=== PATIENT | male | born 1935 | race Caucasian/White ===

== ENCOUNTER → 2016-09-17 | Outpatient (CLI) | payer OTHER ==
[~2016-09-17] MED LIST: ASPI-482 PO; ATOR20TA PO; BIMA2.5D EACHEYE; GLIP5TAB10 PO; IOHEXOL 180 MG/ML 10 ML VIAL. ONE; LISI-334 PO; METF10002 PO; METO25TA9 PO; MULT-208 PO; NITR0.4T SL; PANT40TA3 PO; TAMS0.4C2 PO; TRAM50TA PO; methylPREDNISolone ACETATE 40 MG/ML VIAL. ONE; methylPREDNISolone ACETATE 80 MG/ML VIAL. ONE
--- NOTE | 2016-09-18 00:20 | PAIN ---
DATE OF SERVICE: 09/17/2016 DIAGNOSES: Lumbar radiculopathy with lumbar degenerative disk disease and lumbar spondylosis. HISTORY OF PRESENT ILLNESS: The patient is an 81-year-old male, who returns for followup status post lumbar epidural steroid injection x 1. The patient reports it was helpful about 2-3 days, but then the pain came right back in his low back and left lower extremity as it was previously. The patient reports no new motor or sensory deficits. No new bowel or bladder incontinence or other complaints, but still significant pain across the low back. It is a sharp ____ with aching dull pain, rates as a 6-7 on a scale of 10, currently worse with walking and standing, better with sitting or lying down. The patient reports no new motor or sensory deficits, no new bowel or bladder incontinence or other complaints, got somewhat frustrated with the lack of longevity with decreased pain from the injection and is wishing no further injections at this time. We did discuss potential other forms of injections such as facet injections, repeat epidural ____ recommended, but patient would like to try some strengthening and stretching exercises on his own first, also he has a family member with inversion table, which he is planning to use as he has used that in the past and I encouraged him to do so. Also, encouraged him to seek Physical Therapy consultation, which we would set up for him if he desires in the future. He would like to wait at this time and try these modalities on his own and see how he does. The patient reports no other complaints. The patient's old chart was reviewed and as was his current medication regimen and updated. Current review of systems is updated today as well. PHYSICAL EXAMINATION: VITAL SIGNS: Today, the patient's blood pressure is 159/82, pulse 84, respirations 18, temperature 98.5 degrees Fahrenheit, height is 5 feet 9 inches, weight is 170 pounds. GENERAL: The patient is awake, alert, oriented, appropriate, very pleasant demeanor. HEENT: Shows normocephalic, atraumatic. Extraocular movements are intact and symmetrical. Oral cavity shows mucous membranes moist and pink. NECK: Shows anterior throat supple. CHEST: Shows normal on inspection. Breath sounds clear to auscultation bilaterally. HEART: Shows S1 and S2 clear. ABDOMEN: Obese, soft, nontender, nondistended. BACK: The patient's back shows spine grossly midline. Lumbar paraspinous musculature shows some moderate tenderness with palpation in the low and middle lumbar distribution of paraspinous muscles, but only diffusely without evidence of atrophy or hypertrophy. The patient has good rotational motion of the lumbar spine without significant difficulty. EXTREMITIES: Lower extremities showed deep tendon reflexes at 1+ in the patellar and tendo calcaneus tendons. Motor exam is strong with 5/5 dorsiflexion, extension, quadriceps and hamstring flexion and equal bilaterally. PLAN: Options were discussed with the patient. We will hold on any further injections per patient's wishes and have him try some strengthening and stretching exercises on his own. Again if he wishes to seek consultation with Physical Therapy, we will arrange this for him. The patient will contact the office on as needed basis per his request at this time. ALMA ROSA CAMACHO MD DR: RIZWAN/ceasar JOB#: [id number] / [id number]
== END | disposition home or self-care (01) ==
LOC: PNCL 08:02
PROVIDERS: ATTEND Anesthesiology
DX: M51.16 Intervertebral disc disorders with radiculopathy, lumbar region (principal); M47.896 Other spondylosis, lumbar region
CPT/HCPCS: 99212; J1030; J1040

== ENCOUNTER → 2018-11-02 | Outpatient (CLI) | payer OTHER ==
[2017-06-27 11:00] VITALS: BP 170/74
[~2018-11-02] MED LIST changes: +ASPI325T11 PO; +CLOP75TA PO; +GABA300C18 PO; -IOHEXOL 180 MG/ML 10 ML VIAL. ONE; +KETO120S2 TP; +LISI1TAB3 PO; -METF10002 PO; +METF10007 PO; +METO-239 PO; -METO25TA9 PO; -methylPREDNISolone ACETATE 40 MG/ML VIAL. ONE; -methylPREDNISolone ACETATE 80 MG/ML VIAL. ONE
--- NOTE | 2018-11-02 16:42 | CARD ---
MR#: [id number] Date of Study: 11/02/2018 Ordering Physician: RADHA VIRAMONTES, Referring Physician: RADHA VIRAMONTES Tech: Pooja Pedersen RDCS APPROVED REPORT EXAM: Two-dimensional and M-mode echocardiogram with Doppler and color Doppler. Other Information Quality : Good INDICATION Cardiac Disease: CAD 2D DIMENSIONS RVDd2.7 (2.9-3.5cm)Left Atrium(2D)4.1 (1.6-4.0cm) IVSd1.4 (0.7-1.1cm)Aortic Root(2D)2.7 (2.0-3.7cm) LVDd4.7 (3.9-5.9cm)LVOT Diameter2.3 (1.8-2.4cm) PWd1.4 (0.7-1.1cm)LVDs3.7 (2.5-4.0cm) FS (%) 27.0 %SV43.7 ml LVEF(%)55.0 (>50%) Aortic Valve AoV Peak Meet.232.6cm/sAoV VTI49.8cm AO Peak GR.21.6mmHgLVOT Peak Meet.101.3cm/s AO Mean GR.13mmHgAVA (VMAX)1.85cm2 [place] (VTI)2.79ch0MB P 1/2 Bfyr264tn Mitral Valve MV E Ekvwxttk48.1cm/sMV DECEL UXWL164ek MV A Rlfrilpe715.7cm/sE/A Ratio0.8 Tricuspid Valve TR P. Ikskvczf274op/sRAP QCQOGOPI3hyVu TR Peak Gr.29xkRsHCZA49euTg Pulmonary Vein S1 Qcdleegm96.3cm/sD2 Pdapzlrf19.5cm/s LEFT VENTRICLE The left ventricle is normal size. There is mild concentric left ventricular hypertrophy. The left ve ntricular systolic function is normal and the ejection fraction is within normal range. The Ejection Fraction is 55-60%. Transmitral Doppler flow pattern is Grade I-abnormal relaxation pattern. RIGHT VENTRICLE The right ventricle is normal size. The right ventricular systolic function is normal. ATRIA The left atrium is mildly dilated. The right atrium size is normal. The interatrial septum is intact with no evidence for an atrial septal defect or patent foramen ovale as noted on 2-D or Doppler imagi ng. AORTIC VALVE The aortic valve is moderately thickened but opens well. Doppler and Color Flow revealed mild aortic regurgitation. There is no significant aortic valvular stenosis. MITRAL VALVE The mitral valve is calcified but opens well. There is no evidence of mitral valve prolapse. There is no mitral valve stenosis. Doppler and Color-flow revealed trace to mild mitral regurgitation. TRICUSPID VALVE The tricuspid valve is normal in structure and function. Doppler and Color Flow revealed trace to mil d tricuspid regurgitation. The PA pressure was estimated at 41 mmHg. There is no tricuspid valve sten osis. PULMONIC VALVE The pulmonic valve is not well visualized. Doppler and Color Flow revealed no pulmonic valvular regur gitation. There is no pulmonic valvular stenosis. GREAT VESSELS The aortic root is normal in size. The ascending aorta is mildly dilated at 3.5 cm. The IVC was not v isualized. PERICARDIAL EFFUSION There is no evidence of significant pericardial effusion. Critical Notification Critical Value: No <Conclusion> The left ventricle is normal size. The left ventricular systolic function is normal and the ejection fraction is within normal range. The Ejection Fraction is 55-60%. There is mild concentric left ventricular hypertrophy. There is no significant aortic valvular stenosis. Doppler and Color Flow revealed mild aortic regurgitation. Doppler and Color-flow revealed trace to mild mitral regurgitation. Doppler and Color Flow revealed trace to mild tricuspid regurgitation. The PA pressure was estimated at 41 mmHg. The ascending aorta is mildly dilated at 3.5 cm. Signed by : Gabe River MD Electronically Approved : 11/02/2018 16:42:02
== END | disposition home or self-care (01) ==
LOC: ECHO 14:00
PROVIDERS: ATTEND Internal Medicine Cardiovascular Disease
DX: I25.10 Atherosclerotic heart disease of native coronary artery without angina pectoris (principal); I35.1 Nonrheumatic aortic (valve) insufficiency; I51.7 Cardiomegaly; R00.8 Other abnormalities of heart beat
CPT/HCPCS: 93306

== ENCOUNTER → 2019-02-10 | Outpatient (CLI) | payer OTHER ==
[2017-06-27 11:00] VITALS: BP 170/74
--- NOTE | 2019-02-11 00:37 | PAIN ---
DATE OF SERVICE: 02/10/2019 PROGRESS NOTE FOR PAIN CLINIC: DIAGNOSES: Lumbar radiculopathy with lumbar degenerative disk disease, lumbar spondylosis. HISTORY OF PRESENT ILLNESS: The patient is an 83-year-old male who returns for followup status post lumbar epidural steroid injection x 1, last seen 08/2016. The patient had about 75% improvement for about the first 3 weeks. The patient reports that he has had some cardiac issues and had delayed treatment. He was also ill after his last injection and did not follow up. The patient reports he has had new cardiac stents placed, is increasing his activity and is doing much better. He has been doing physical therapy and cardiac rehabilitation for about a year and a half now and doing physical therapy on his own for over a year and continues to do this. He is doing it at least 3 times a week, walking on treadmills, stretching and strengthening of his back as well as his legs for a good rehabilitation and he is doing quite well with this, but the pain is returning in the low back, right lower extremity radiating to posterior gluteus, posterior thigh, posterior calf in a radicular pattern on the right side. The patient reports it is tingling and sharp, burning, aching across the back, rated as 7 on a scale 10 at its worst in the last week, 5 on average, 3 at its least and is a 5 today. The patient reports it is better with sitting or lying down, does not awaken him from sleep frequently, but occasionally will, but not every night. The patient reports it is worse with standing, walking it seems to be a little bit better, but standing for more than about 10-15 minutes, he must sit down to decrease the pain, which he does after about 5 minutes. The patient reports no new motor or sensory deficits, no new bowel or bladder incontinence. He has been taking wcvd-yxk-czejeuj Tylenol, also Advil and Motrin, which has been helpful, has been taking this for the past year on an intermittent basis. The patient is on Plavix as well for the cardiac stents. The patient reports no other motor or sensory deficits, no new bowel or bladder incontinence or other complaints. PHYSICAL EXAMINATION: VITAL SIGNS: The patient's blood pressure 131/63, pulse 62, respirations 18, temperature 97.8 degrees Fahrenheit, height is 5 feet 9 inches, weight is 180 pounds. GENERAL: The patient is awake, alert, oriented, appropriate, very pleasant demeanor. HEENT: Head is normocephalic, atraumatic. Extraocular muscles are intact and symmetrical. Oral cavity: Mucous membranes moist and pink. Dentition is intact. NECK: Shows anterior throat supple without palpable lymphadenopathy noted. Swallow reflex symmetrical. CHEST: Shows normal with inspection. Breath sounds clear to auscultation bilaterally. HEART: Shows S1, S2 clear. No murmurs auscultated. ABDOMEN: Obese, but soft, nontender, nondistended. BACK: Shows spine grossly in the midline, slightly exaggerated thoracic kyphosis, some minor flattening of lumbar lordotic curvature. Lumbar paraspinous muscle shows symmetrical on inspection. The low lumbar distribution shows with palpation very firm and tender bilaterally, but only diffusely without radiation. The patient shows no tenderness over the spinous processes, sacrum or sacroiliac regions. The patient has good rotational motion both laterally greater than 10 degrees right and left as well as extension greater than 10 degrees, forward flexion 45 degrees without significant pain reported. EXTREMITIES: The patient's lower extremities show deep tendon reflexes at 1+/4 in the patellar and tendo calcaneus tendons are equal. Motor exam is 5/5 with dorsiflexion, extension on the left, 4/5 on the right with dorsiflexion and extension. The patient does have a mild positive straight leg raise on the right side about 40 degrees. Left side is negative. Gaenslen's and Van's maneuvers are negative bilaterally. The patient is able to stand, stand on the toes, walks with a slight shuffling gait, does appear to favor the right lower extremity significantly or slightly that is, but without using any assistive devices such as canes or walkers to ambulate. Options were discussed with the patient. The patient's old chart was reviewed as his current medication regimen updated. Current review of systems updated today as well. 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 The patient has clinical lumbar radiculopathy in the L5-S1 dermatomal distribution on the right side with MRI scan showing disk bulge with bilateral neural foraminal stenosis at the L5-S1 level and mild degeneration contributing to moderately severe bilateral foraminal narrowing exaggerated due to degenerative anterolisthesis and moderately severe bilateral facet arthropathy. The patient will return to clinic after preauthorization and plan on lumbar epidural steroid injection, translaminar approach L5-S1 level for his L5-S1 right-sided radiculopathy, again pending a cardiac clearance for holding his Plavix for 7 days prior to procedure. The patient will continue with his rehabilitative therapies and physical therapy as he has been doing for the past year and a half. Also, [id number]-[id number] Tylenol and Advil as needed as he does report these do help to a mild extent. He will follow up as scheduled. ALMA ROSA CAMACHO MD DR: RIZWAN/ceasar JOB#: [id number] / [id number]
== END | disposition home or self-care (01) ==
LOC: PNCL 08:47
PROVIDERS: ATTEND Anesthesiology
DX: M51.16 Intervertebral disc disorders with radiculopathy, lumbar region (principal); M47.26 Other spondylosis with radiculopathy, lumbar region
CPT/HCPCS: G0463

== ENCOUNTER → 2019-02-24 | Outpatient (CLI) | payer OTHER ==
[2017-06-27 11:00] VITALS: BP 170/74
[~2019-02-24] MED LIST changes: +IOHEXOL 180 MG/ML 10 ML VIAL. ONE; +methylPREDNISolone ACETATE 40 MG/ML VIAL. ONE; +methylPREDNISolone ACETATE 80 MG/ML VIAL. ONE
--- NOTE | 2019-02-24 12:09 | PAIN ---
DATE OF SERVICE: 02/24/2019 DIAGNOSES: Lumbar radiculopathy with lumbar degenerative disk disease and lumbar spondylosis. HISTORY OF PRESENT ILLNESS: The patient is an 83-year-old male who returns for followup status post previous evaluation and had a lumbar epidural steroid injection in 2016. 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 He has been off it for 7 days, now returns, still significant pain in the low back, right lower extremity, posterior gluteus, posterior thigh, posterior calf, as it was previously. The patient reports it is worse with walking, standing, change in positions, rates it at an 8 on a scale of 10 at its worst, 6 on average, 3 at its least and is a 6 today. The patient reports it is stabbing, sharp, on and off in intensity, again worse with walking, standing, better with sitting or lying down, generally does not awaken her from sleep at night. The patient reports no new motor or sensory deficits, no new bowel or bladder incontinence or other complaints. PHYSICAL EXAMINATION: VITAL SIGNS: The patient's blood pressure 132/66, pulse 73, respirations 16, temperature 97.6 degrees Fahrenheit, weight is 180 pounds. GENERAL: The patient is awake, alert, oriented, appropriate, very pleasant demeanor. HEENT: Head is normocephalic and atraumatic. Extraocular movements are intact and symmetrical. Oral cavity: Mucous membranes are moist and pink. Dentition is intact. NECK: Shows anterior throat supple without palpable lymphadenopathy noted. Swallow reflex symmetrical. CHEST: Shows normal on inspection. Breath sounds clear to auscultation bilaterally. HEART: Shows S1, S2 clear. No murmurs auscultated. ABDOMEN: Soft, nontender, nondistended. No palpable organomegaly is noted. No rebound or guarding demonstrated. BACK: Shows spine grossly in the midline. Normal appearing thoracic kyphosis and lumbar lordotic curvature. Lumbar paraspinous muscle shows symmetrical on inspection, on palpation shows some moderate tenderness diffusely, but only diffusely without significant radiation. The patient shows good rotational motion of lumbar spine. EXTREMITIES: Lower extremities show deep tendon reflexes at 1+ in the patellar and tendo calcaneus tendons. Motor exam is approximately 4 on a scale of 5 on the right, 5/5 on the left, but intact. Peripheral pulses are 1+ posterior tibia. No peripheral edema is noted bilaterally. Options were discussed with the patient. The patient's old chart was reviewed as his current medication regimen updated. Current review of systems updated today as well. We will proceed with a lumbar epidural steroid injection today with fluoroscopic guidance. Risks were again discussed including, but not limited to bleeding, infection, possibility of epidural hematoma, subsequent neurological compromise, dural puncture, headaches, spinal cord and/or nerve damage, side effects of steroid medication and poor results regarding pain control. The patient understands and wished to proceed. The patient will return to clinic in approximately 2 weeks for followup, was counseled on return appointment, activity level and side effects to be aware of. DIAGNOSES: Lumbar radiculopathy with lumbar degenerative disk disease, lumbar spondylosis. PROCEDURE: Lumbar epidural steroid injection, translaminar approach at L5-S1 level using C-arm fluoroscopic guidance under sterile prep and drape using local anesthetic. MEDICATION INJECTED: A total of 120 mg Depo-Medrol, plus 10 mL of preservative-free normal saline and 2 mL of contact. CONDITION ON DISCHARGE: Stable. The patient tolerated the procedure well, had no complications. ALMA ROSA CAMACHO MD DR: RIZWAN/ceasar JOB#: [id number] / [id number]
== END ==
LOC: PNCL 09:21
PROVIDERS: ATTEND Anesthesiology
DX: M51.16 Intervertebral disc disorders with radiculopathy, lumbar region (principal); M47.816 Spondylosis without myelopathy or radiculopathy, lumbar region
CPT/HCPCS: 62323; J1030; J1040; Q9965

== ENCOUNTER → 2019-03-15 | Outpatient (CLI) | payer OTHER ==
[2017-06-27 11:00] VITALS: BP 170/74
[~2019-03-15] MED LIST changes: +AMOX1TAB61 PO; +ATOR20TA58 PO; +FERR325T72 PO; -IOHEXOL 180 MG/ML 10 ML VIAL. ONE; +LATA2.5D3 EACHEYE; +LISI1TAB23 PO; -LISI1TAB3 PO; +MELA5TAB PO; +METO25TA2 PO; -PANT40TA3 PO; +PANT40TA77 PO; +TRAM1TAB56 PO; -methylPREDNISolone ACETATE 40 MG/ML VIAL. ONE; -methylPREDNISolone ACETATE 80 MG/ML VIAL. ONE
== END | disposition home or self-care (01) ==
LOC: PNCL 09:19
PROVIDERS: ATTEND Anesthesiology
DX: Z53.09 Procedure and treatment not carried out because of other contraindication (principal); Z96.652 Presence of left artificial knee joint
CPT/HCPCS: G0463

== ENCOUNTER → 2019-03-29 | Outpatient (CLI) | payer OTHER ==
[2017-06-27 11:00] VITALS: BP 170/74
[~2019-03-29] MED LIST changes: -AMOX1TAB61 PO; -ATOR20TA58 PO; -FERR325T72 PO; +IOHEXOL 180 MG/ML 10 ML VIAL. ONE; -LATA2.5D3 EACHEYE; -LISI1TAB23 PO; +LISI1TAB3 PO; -MELA5TAB PO; -METO25TA2 PO; -TRAM1TAB56 PO; +methylPREDNISolone ACETATE 40 MG/ML VIAL. ONE; +methylPREDNISolone ACETATE 80 MG/ML VIAL. ONE
--- NOTE | 2019-03-30 05:12 | PAIN ---
DATE OF SERVICE: 03/29/2019 DIAGNOSES: Lumbar radiculopathy with lumbar degenerative disk disease, lumbar spondylosis. HISTORY OF PRESENT ILLNESS: The patient is an 83-year-old male who returns for followup status post lumbar epidural steroid injection x1 on 02/24/2019. The patient reports he did very well, about 75% improvement, and was returning over the past week or so. The patient reports the pain in the low back, more the right lower extremity than the left, but present bilaterally, posterior gluteus, posterior thighs, posterior calves, again worse on the right side with walking, standing, change in positions. The patient reports it is better with sitting or lying down, does not awaken him from sleep at night. He has increased his activity with greater distance walking and doing household activity as well as travelling with greater ease and comfort since his last visit. The patient reports his pain is a stabbing pain, is sharp in the back as well and radiates to the lower extremities, again mostly on the right. The patient reports it is a 9 on a scale of 10 its worst in the past week, 6 on average, 3 at its least, and is a 3 today. The patient reports no new motor or sensory deficits, no new bowel or bladder incontinence or other complaints. PHYSICAL EXAMINATION: VITAL SIGNS: The patient's blood pressure is 142/58, pulse 64, respirations 18, temperature 98.0 degree Fahrenheit. Height is 5 feet 9-1/2 inches, weight is 178 pounds. GENERAL: The patient is awake, alert, oriented, appropriate, very pleasant demeanor. HEENT: Head shows normocephalic, atraumatic. Extraocular movements are intact and symmetrical. Oral cavity, mucous membranes are moist and pink. Dentition is intact. NECK: Shows anterior throat supple without palpable lymphadenopathy noted. Swallow reflex is symmetrical. CHEST: Shows normal on inspection. Breath sounds clear to auscultation bilaterally. HEART: Shows S1, S2 clear. No murmurs auscultated. ABDOMEN: Soft, nontender, nondistended. No palpable organomegaly is noted. No rebound or guarding demonstrated. BACK: Shows spine grossly in the midline. Normal appearing thoracic kyphosis and lumbar lordotic curvature slightly flattened. Lumbar paraspinous muscle shows symmetrical on inspection, on palpation shows some moderate tenderness diffusely but only in the low lumbar distribution without radiation. The patient has good rotational motion of lumbar spine as well as extension and flexion. EXTREMITIES: Lower extremities show deep tendon reflexes 1+ in the patellar and tendo-calcaneus tendons. Motor exam is approximately 4 on a scale of 5 with right dorsiflexion, extension, 5/5 on the left. Peripheral pulses are 1+ posterior tibial. No peripheral edema is noted bilaterally. Options were discussed with the patient. The patient's old chart was reviewed as his current medication regimen updated. Current review of systems updated today as well. We will proceed with a second in the series of lumbar epidural steroid injection today with fluoroscopic guidance. Risks were again discussed including, but not limited to bleeding, infection, possibility of epidural hematoma, subsequent neurological compromise, dural puncture, headaches, spinal cord and/or nerve damage, side effects of steroid medication and poor results regarding pain control. The patient understands and wished to proceed. The patient will return to clinic in approximately 2 weeks for followup, counseled as to return appointment, activity level and side effects to be aware of. DIAGNOSES: Lumbar radiculopathy, lumbar degenerative disk disease, lumbar spondylosis. PROCEDURE: Lumbar epidural steroid injection, translaminar approach at the L5-S1 level using C-arm fluoroscopic guidance under sterile prep and drape using local anesthetic. MEDICATION INJECTED: A total of 120 mg Depo-Medrol plus 10 mL of preservative-free normal saline and 2 mL of contrast. CONDITION AT DISCHARGE: Stable. The patient tolerated the procedure well, had no complications. ALMA ROSA CAMACHO MD DR: RIZWAN/ceasar JOB#: [id number] / [id number]
== END ==
LOC: PNCL 14:20
PROVIDERS: ATTEND Anesthesiology
DX: M51.16 Intervertebral disc disorders with radiculopathy, lumbar region (principal); M47.816 Spondylosis without myelopathy or radiculopathy, lumbar region
CPT/HCPCS: 62323; J1030; J1040; Q9965

== ENCOUNTER → 2019-04-14 | Outpatient (CLI) | payer OTHER ==
[2017-06-27 11:00] VITALS: BP 170/74
[~2019-04-14] MED LIST changes: +AMOX1TAB61 PO; +ATOR20TA58 PO; +FERR325T72 PO; +LATA2.5D3 EACHEYE; +MELA5TAB PO; +METO25TA2 PO; +TRAM1TAB56 PO
--- NOTE | 2019-04-15 13:06 | PAIN ---
DATE OF SERVICE: 04/14/2019 PROGRESS NOTE FOR PAIN CLINIC DIAGNOSES: Lumbar radiculopathy with lumbar degenerative disk disease and lumbar spondylosis. HISTORY OF PRESENT ILLNESS: The patient is an 83-year-old male who returns for followup status post lumbar epidural steroid injections x 2, last seen on 03/29/2019, the patient did very well with approximately 50% improvement with the first injection, 75% after the last injection. The patient reports no new motor or sensory deficits, no new bowel or bladder incontinence, but still has significant pain in the low back and into the right lower extremity involving posterior gluteus, posterior thigh, posterior calf at times, much more intermittent now than it was, much better than it was. The patient reports it is an aching pain now, it is on and off in intensity, rated as a 4 on a scale of 10 at its worst, 2 on average, 0 at its least and is a 2 today. The patient reports no new motor or sensory deficit, increasing distance walking, doing working activities at home as well as traveling with greater ease and comfort, sleeping well at night, does not awaken him from sleep. The patient reports no new bowel or bladder incontinence, no new motor or sensory deficits. PHYSICAL EXAMINATION: VITAL SIGNS: The patient's blood pressure is 116/53, pulse 64, respirations 18, temperature 98.1 degrees Fahrenheit, height is 5 feet 9 inches, and weight is 179 pounds. GENERAL: The patient is awake, alert, oriented, appropriate, very pleasant demeanor. HEENT: Head is normocephalic, atraumatic. Extraocular movements are intact and symmetrical. Oral cavity, mucous membranes are moist and pink. Dentition is intact. NECK: Shows anterior throat is supple without palpable lymphadenopathy noted. Swallow reflex symmetrical. CHEST: Shows normal on inspection. Breath sounds are clear to auscultation bilaterally. HEART: Shows S1, S2 clear. No murmurs auscultated. ABDOMEN: Soft, nontender, nondistended. No palpable organomegaly is noted. No rebound or guarding demonstrated. BACK: Shows spine grossly in the midline, normal appearing thoracic kyphosis and minor flattening of lumbar lordotic curvature. Lumbar paraspinous muscle shows symmetrical on inspection, with palpation shows some moderate tenderness diffusely in the middle and lower distribution of paraspinous muscles, but only diffusely without significant radiation. The patient shows good rotational motion of lumbar spine both laterally as well as extension and flexion without significant difficulty. EXTREMITIES: The patient's lower extremities show deep tendon reflexes at 1+ in the patellar and tendo-calcaneus tendons. Motor exam is approximately a 4 on a scale of 5 on the right with dorsiflexion and extension 5/5 on the left. Peripheral pulses are 1+ posterior tibial. No peripheral edema is noted bilaterally. Options were discussed with the patient. The patient's old chart was reviewed and his current medication regimen updated, current review of systems updated today as well. We will proceed with a third in the series of lumbar epidural steroid injection today with fluoroscopic guidance. Risks were again discussed including, but not limited to, bleeding, infection, possibility of epidural hematoma and subsequent neurological compromise, dural puncture, headaches, spinal cord and/or nerve damage, side effects of steroid medication and poor results regarding pain control. The patient understands and wished to proceed. The patient will return to the clinic in approximately 2 weeks for followup. He was counseled on return appointment, activity level and side effects to be aware of. DIAGNOSIS: Lumbar radiculopathy with lumbar degenerative disk disease, lumbar spondylosis. PROCEDURE: Lumbar epidural steroid injection, translaminar approach, L5-S1 level using C-arm fluoroscopic guidance under sterile prep and drape using local anesthetic. MEDICATION INJECTED: A total of 120 mg Depo-Medrol plus 10 mL of preservative-free normal saline and 2 mL of contrast. CONDITION AT DISCHARGE: Stable. The patient tolerated procedure well and had no complications. ALMA ROSA CAMACHO MD DR: RIZWAN/ceasar JOB#: [id number] / [id number]
== END ==
LOC: PNCL 13:49
PROVIDERS: ATTEND Anesthesiology
DX: M51.16 Intervertebral disc disorders with radiculopathy, lumbar region (principal); M47.816 Spondylosis without myelopathy or radiculopathy, lumbar region
CPT/HCPCS: 62323; J1030; J1040; Q9965

== ENCOUNTER 2019-05-31 08:41 | Inpatient (IN) | payer OTHER ==
[~2019-05-31] VITALS: Ht 175.3 cm; Wt 92.7 kg
[2019-05-31] VITALS (12 sets, daily range): BP systolic 108–159; BP diastolic 39–73
[~2019-05-31 08:41] MED LIST changes: -IOHEXOL 180 MG/ML 10 ML VIAL. ONE; +LISI1TAB23 PO; -LISI1TAB3 PO; -NITR0.4T SL; +NITR0.4T24 SL; -methylPREDNISolone ACETATE 40 MG/ML VIAL. ONE; -methylPREDNISolone ACETATE 80 MG/ML VIAL. ONE
[2019-05-31] MEDS ORDERED: ONDANSETRON PF 4 MG/2 ML VIAL. IV ONE (09:15)
[2019-05-31] MEDS ORDERED: MORPHINE SULFATE 2 MG/ML VIAL. IV/SQ PRN (09:15)
[2019-05-31] MEDS ORDERED: ONDANSETRON PF 4 MG/2 ML VIAL. ONE (09:16)
[2019-05-31 09:40] LABS: BASO % 0 % (0-3); EOS % 0 % (0-3); HEMATOCRIT 30.1 % (39.0-53.0); HEMOGLOBIN 9.7 g/dL (13.0-17.5); LYMPH # 1.3 x10^3/uL (1.0-4.8); LYMPH % 10 % (24-48); MEAN CORPUSCULAR HEMOGLOBIN 30 pg (25-35); MEAN CORPUSCULAR HGB CONC 32 g/dL (31-37); MEAN CORPUSCULAR VOLUME 92 fL (79-100); MONO # 0.6 x10^3/uL (0.0-1.1); MONO % 5 % (0-9); NEUT # 10.6 x10^3/uL (1.8-7.7); NEUT % 84 % (31-73); PLATELET COUNT 340 x10^3/uL (140-400); RED BLOOD COUNT 3.27 x10^6/uL (4.30-5.70); RED CELL DISTRIBUTION WIDTH 15.8 % (11.5-14.5); WHITE BLOOD COUNT 12.5 x10^3/uL (4.0-11.0)
[2019-05-31 09:49] LABS: PROTHROMBIN TIME PATIENT 12.5 SEC (11.7-14.0)
[2019-05-31 10:00] LABS: ALBUMIN 3.4 g/dL (3.4-5.0); ALBUMIN/GLOBULIN RATIO 0.8 (1.0-1.7); CALCIUM 9.1 mg/dL (8.5-10.1); CREATININE 7.8 mg/dL (0.7-1.3); GFR 6.7; MAGNESIUM 1.2 mg/dL (1.8-2.4); TOTAL BILIRUBIN 0.2 mg/dL (0.2-1.0); TOTAL PROTEIN 7.6 g/dL (6.4-8.2)
[2019-05-31 10:02] LABS: POTASSIUM 6.9 mmol/L (3.5-5.1)
--- NOTE | 2019-05-31 10:15 | RAD ---
PORTABLE CHEST 1V Clinical indications: Fall and pain. COMPARISON: May 01, 2019. Findings: There is new finding of left lung base atelectasis. No pleural effusion or pneumothorax is seen. Right IJ central line has been removed. The heart size, pulmonary vasculature, mediastinum and both guille are otherwise stable. Impression: Left lung base atelectasis. Electronically signed by: William Poole MD (05/31/2019 10:12 AM) [id number]
--- NOTE | 2019-05-31 10:17 | RAD ---
Three-view lumbar spine series Clinical indications: Fall and low back pain. FINDINGS: There is a compression deformity of the inferior endplate of L2 which was seen previously on a CT study dated April 28, 2019 and is unchanged. No new compression fracture or discitis or lytic process is seen. Grade 1 anterolisthesis of L5-S1 is seen. Degenerative endplate spurring is seen throughout the lumbar spine. Degenerative disc space narrowing is seen at L2-3. IMPRESSION: No acute compression fracture. Electronically signed by: William Poole MD (05/31/2019 10:14 AM) [id number]
--- NOTE | 2019-05-31 10:21 | RAD ---
AP view of the pelvis and two-view study left hip Clinical indications: Fall and left hip pain. FINDINGS: No acute fracture or dislocation or lytic process of the left hip joint is seen. No acute fracture or diastases of the pelvic bones is seen. No lytic process is evident. Hip joints are symmetric with mild degenerative joint space narrowing. IMPRESSION: No acute fracture. Electronically signed by: William Poole MD (05/31/2019 10:18 AM) [id number]
--- NOTE | 2019-05-31 10:30 | RAD ---
CT HEAD AND CERVICAL SPINE WO Clinical indications: Fall and pain. COMPARISON: None available. NONCONTRAST HEAD CT Technique: Noncontrast axial cross sectional scanning of the head was performed. PQRS compliance Statement One or more of the following individualized dose reduction techniques were utilized for this study: 1. Automated exposure control 2. Adjustment of the mA and/or kV according to patient size 3. Use of iterative reconstruction technique Findings: No acute intracranial hemorrhage or midline shift or mass-effect or hydrocephalus or extra-axial fluid collection is seen. Mild bilateral periventricular white matter hypodensity is seen consistent with chronic small vessel ischemic disease. No skull fracture or pneumocephalus is seen. No opacification of the mastoid sinuses or the middle ear cavities or the paranasal sinuses is seen. The maxillary sinuses are not completely seen in this study. IMPRESSION: No acute intracranial hemorrhage is seen. Chronic small vessel ischemic disease of the periventricular white matter. Prominent pituitary gland. Pituitary gland measures 13 mm transversely. Recommend clinical correlation. If clinically needed, an outpatient MRI study of the pituitary gland with and without contrast is recommended. NONCONTRAST CERVICAL SPINE CT: TECHNIQUE: Noncontrast helical CT scanning of the cervical spine was performed. Multiplanar 2-D reconstructions were generated. FINDINGS: No acute fracture or discitis or lytic process is evident. Degenerative facet arthropathy is evident. No perching of facet joints is evident. Degenerative osteoarthritis is seen involving the joint space between the anterior arch of C1 and the odontoid process of C2 and the lateral masses of C1 and C2 bilaterally. [id number] degenerative endplate spurring is seen throughout the cervical spine. There is mild degenerative disc space narrowing at C5-6 and C6-7. Grade 1 anterolisthesis of C3-4 and C4-5 and C7-T1 is seen. No prevertebral soft tissue swelling is evident. IMPRESSION: No acute fracture. Degenerative cervical spondylosis. Electronically signed by: William Poole MD (05/31/2019 10:27 AM) [id number]
[2019-05-31] MEDS ORDERED: INSULIN REGULAR 100 UNIT/ML 3ML VIAL. IV ONE (11:30)
[2019-05-31] MEDS ORDERED: DEXTROSE 50% 25 GM / 50ML DISP.SYRIN. IV ONE (11:30)
[2019-05-31] MEDS ORDERED: CALCIUM GLUCONATE 1,000 MG/10 ML VIAL. IVP ONE (11:30)
[2019-05-31] MEDS ORDERED: SODIUM BICARBONATE VIAL 50 MEQ in IV DEXTROSE 5 %-0.45 % NACL 1,000 ML IV SCH (12:15)
[2019-05-31] MEDS ORDERED: MAGNESIUM SULFATE 1GM 100 ML IV ONE (12:30)
--- NOTE | 2019-05-31 12:39 | EKG ---
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
[2019-05-31] MEDS ORDERED: MORPHINE SULFATE 2 MG/ML VIAL. IV PRN (12:45)
[2019-05-31] MEDS ORDERED: ONDANSETRON PF 4 MG/2 ML VIAL. IV PRN (12:45)
[2019-05-31 13:06] LABS: BILIRUBIN,URINE NEGATIVE (NEG); CLARITY,URINE CLEAR; COLOR,URINE YELLOW; NITRITE,URINE NEGATIVE (NEG); PROTEIN,URINE NEGATIVE (NEG-TRACE); UROBILINOGEN,URINE 0.2 mg/dL (0.2 mg/dL)
[2019-05-31 13:07] LABS: HYALINE CASTS, URINE FEW /HPF
[2019-05-31 13:08] LABS: BACTERIA,URINE FEW /HPF (0-FEW)
[2019-05-31 13:09] LABS: RBC,URINE OCC /HPF (0-2)
[2019-05-31 13:10] LABS: BARBITURATES NEG (NEG); BENZODIAZEPINES NEG (NEG); CANNABINOIDS NEG (NEG); COCAINE NEG (NEG); METHADONE NEG (NEG); OPIATES NEG (NEG); PHENCYCLIDINE NEG (NEG)
[2019-05-31 13:14] LABS: AMPHETAMINE/METHAMPHETAMINE NEG (NEG)
[2019-05-31] MEDS ORDERED: SODIUM BICARBONATE VIAL 50 MEQ in IV DEXTROSE 5 %-0.45 % NACL 1,000 ML IV ONE ×2 (14:00→21:00)
[2019-05-31] MEDS ORDERED: IV NORMAL SALINE 1000ML BAG 1,000 ML IV SCH (14:00)
--- NOTE | 2019-05-31 14:05 | PDOC2 ---
CONSULT Date of Consult Date of Consult DATE: 05/31/19 TIME: 13:58 Reason for Consult Reason for Consult: HIGH K AND FABIEN Referring Physician Referring Physician: MELODY Identification/Chief Complaint Chief Complaint FOUND ON THE FLOOR Source Source: Chart review, Patient History of Present Illness Reason for Visit: THIS IS AN 83 YR OLD WITH FALL. WAS FOUND ON THE FLOOR THIS AM. HE WAS WEARING HIS EVENING CLOTHES. CONCERNS OF LOW BG LEVEL. AWAKE AND ALERT. NOTED TO HAVE A K OF 6.9 AND A CR OF 7.8. NO HX OF CKD. IN FACT WAS HERE LAST MONTH FOR DIARRHEA AND DEHYDRATION AND D/C ED WITH A CR OF 1.1. NO FABIEN EITHER. HAS BPH AND TAKES FLOMAX. HAS HAS RADICULAR PAIN FOR WHICH HE HAS SEEN DR CAMACHO. PER PT HE HAS BEEN TAKING IBUPROFEN FOR HIS BACK PAIN BUT NOT ABLE TO QUANTIFY. STATES HE HAS BEEN EATING WELL. DENIED DIARRHEA OR PROBLEMS WITH EMPTYING HIS BLADDER. CPK OF ABOUT 350. UA NEG Past Medical History Cardiovascular: CAD, HTN, Hyperlipidemia Pulmonary: No pertinent hx CENTRAL NERVOUS SYSTEM: Other GI: GERD Heme/Onc: Anemia NOS Hepatobiliary: No pertinent hx Psych: No pertinent hx Musculoskeletal: Osteoarthritis Infectious disease: No pertinent hx Renal/: No pertinent hx Endocrine: Diabetes Past Surgical History Past Surgical History: Cataract Removal, Tonsillectomy, Other Family History Family History: High Cholestrol Social History ALCOHOL: occassional Drugs: None Lives: with Family Current Medications Current Medications Current Medications Morphine Sulfate (Morphine Sulfate) 2 mg PRN Q15MIN PRN IV/SQ PAIN GREATER THAN 3/10 Last administered on 05/31/19at 12:20; Start 05/31/19 at 09:15; Stop 06/01/19 at 09:14 Ondansetron HCl (Zofran) 4 mg 1X ONCE IV Last administered on 05/31/19at 09:20; Start 05/31/19 at 09:15; Stop 05/31/19 at 09:17; Status DC Ondansetron HCl (Zofran) 4 mg STK-MED ONCE .ROUTE ; Start 05/31/19 at 09:16; Stop 05/31/19 at 09:17; Status DC Calcium Gluconate (Calcium Gluconate) 1,000 mg 1X ONCE IVP Last administered on 05/31/19at 11:59; Start 05/31/19 at 11:30; Stop 05/31/19 at 11:36; Status DC Dextrose (Dextrose 50%-Water Syringe) 25 gm 1X ONCE IV Last administered on 05/31/19at 11:59; Start 05/31/19 at 11:30; Stop 05/31/19 at 11:36; Status DC Insulin Human Regular (HumuLIN R VIAL) 10 unit 1X ONCE IV Last administered on 05/31/19at 11:59; Start 05/31/19 at 11:30; Stop 05/31/19 at 11:36; Status DC Sodium Bicarbonate 50 meq/Dextrose/ Sodium Chloride 1,050 ml @ 150 mls/hr Q7H IV Last administered on 05/31/19at 12:03; Start 05/31/19 at 12:15 Magnesium Sulfate/ Dextrose 100 ml @ 100 mls/hr 1X ONCE IV Last administered on 05/31/19at 13:03; Start 05/31/19 at 12:30; Stop 05/31/19 at 13:29; Status DC Ondansetron HCl (Zofran) 4 mg PRN Q8HRS PRN IV NAUSEA/VOMITING; Start 05/31/19 at 12:45; Stop 06/01/19 at 12:44 Morphine Sulfate (Morphine Sulfate) 2 mg PRN Q2HR PRN IV PAIN; Start 05/31/19 at 12:45; Stop 06/01/19 at 12:44 Levothyroxine Sodium (Synthroid) 25 mcg DAILY06 PO ; Start 06/01/19 at 06:00 Sodium Chloride 1,000 ml @ 75 mls/hr [id number] IV ; Start 05/31/19 at 14:00 Ceftriaxone Sodium (Rocephin) 1 gm DAILY IVP ; Start 06/01/19 at 09:00; Status UNV Ceftriaxone Sodium (Rocephin) 1 gm 1X ONCE IVP ; Start 05/31/19 at 14:30; Stop 05/31/19 at 14:31 Atorvastatin Calcium (Lipitor) 20 mg DAILY PO ; Start 06/01/19 at 09:00; Status UNV Clopidogrel Bisulfate (Plavix) 75 mg DAILY PO ; Start 06/01/19 at 09:00; Status UNV Ferrous Sulfate (Feosol) 325 mg BIDWMEALS PO ; Start 05/31/19 at 17:00; Status UNV Gabapentin (Neurontin) 300 mg TID PO ; Start 05/31/19 at 14:00; Status UNV Glipizide (Glucotrol) 5 mg DAILY PO ; Start 06/01/19 at 09:00; Status UNV Metoprolol Succinate (Toprol Xl) 25 mg DAILY PO ; Start 06/01/19 at 09:00; Status UNV Pantoprazole Sodium (Protonix) 40 mg BID PO ; Start 05/31/19 at 21:00; Status UNV Tamsulosin HCl (Flomax) 0.4 mg HS PO ; Start 05/31/19 at 21:00; Status UNV Active Scripts Active Augmentin 875-125 Tablet (Amoxicillin/Potassium Clav) 1 Each Tablet 1 Tab PO BID Feosol (Ferrous Sulfate) 325 Mg Tablet 325 Mg PO BIDWMEALS Protonix (Pantoprazole Sodium) 40 Mg Tablet.dr 1 Tab PO BID Lisinopril-Hctz 10-12.5 Mg Tab (Lisinopril/Hydrochlorothiazide) 1 Each Tablet 1 Tab PO DAILY Clopidogrel (Clopidogrel Bisulfate) 75 Mg Tablet 1 Tab PO DAILY Aspirin Ec (Aspirin) 325 Mg Tablet.dr 1 Tab PO DAILY Reported Latanoprost 2.5 Ml Drops 1 Drop EACHEYE QHS Melatonin 5 Mg Tablet 5 Mg PO QHS Ultracet Tablet (Tramadol Hcl/Acetaminophen) 1 Each Tablet 1 Tab PO Q12HR PRN Atorvastatin Calcium 20 Mg Tablet 20 Mg PO DAILY Ketoconazole 120 Ml Shampoo 120 Ml TP Gabapentin (Gabapentin) 300 Mg Capsule 300 Mg PO TID Multi-Day Vitamins (Multivitamin) 1 Each Tablet 1 Tab PO DAILY Nitrostat (Nitroglycerin) 0.4 Mg Tab.subl 1 Tab SL UD PRN Metoprolol Succinate ( Xl ) (Metoprolol Succinate) 25 Mg Tab.er.24h 1 Tab PO DAILY Tamsulosin Hcl 0.4 Mg Cap.er.24h 1 Cap PO HS Glipizide 5 Mg Tablet 1 Tab PO DAILY Metformin Hcl 1,000 Mg Tablet 1 Tab PO BID Allergies Allergies: Coded Allergies: No Known Drug Allergies (Unverified , 06/26/17) ROS General: YES: Fatigue, Malaise PSYCHOLOGICAL ROS: YES: Depression Eyes: Yes Decreased vision ALLERGY AND IMMUNOLOGY: YES: Seasonal Allergies Respiratory: YES: Cough Gastrointestinal: Yes Constipation Genitourinary: YES Other (NOCTURIA THRICE) Musculoskeletal: Yes Muscular Weakness Neurological: Yes Weakness Skin: Yes Dry Skin Physical Exam General: Alert, Cooperative, No acute distress HEENT: Atraumatic, PERRLA Lungs: Clear to auscultation Heart: Regular rate Abdomen: Normal bowel sounds, Soft, No tenderness Neuro: Normal speech, Sensation intact Psych/Mental Status: Mental status NL, Mood NL MUSCULOSKELETAL: No joint tenderness, No deformity, No swelling Vitals VITALS Vital Signs Date Time Temp Pulse Resp B/P (MAP) Pulse Ox O2 Delivery O2 Flow Rate FiO2 05/31/19 13:30 80 16 134/60 (84) 98 Nasal Cannula 2.0 05/31/19 08:41 97.8 97.8 Labs Labs Laboratory Tests Test 05/31/19 09:30 05/31/19 12:40 White Blood Count 12.5 x10^3/uL (4.0-11.0) Red Blood Count 3.27 x10^6/uL (4.30-5.70) Hemoglobin 9.7 g/dL (13.0-17.5) Hematocrit 30.1 % (39.0-53.0) Mean Corpuscular Volume 92 fL (79-100) Mean Corpuscular Hemoglobin 30 pg (25-35) Mean Corpuscular Hemoglobin Concent 32 g/dL (31-37) Red Cell Distribution Width 15.8 % (11.5-14.5) Platelet Count 340 x10^3/uL (140-400) Neutrophils (%) (Auto) 84 % (31-73) Lymphocytes (%) (Auto) 10 % (24-48) Monocytes (%) (Auto) 5 % (0-9) Eosinophils (%) (Auto) 0 % (0-3) Basophils (%) (Auto) 0 % (0-3) Neutrophils # (Auto) 10.6 x10^3/uL (1.8-7.7) Lymphocytes # (Auto) 1.3 x10^3/uL (1.0-4.8) Monocytes # (Auto) 0.6 x10^3/uL (0.0-1.1) Eosinophils # (Auto) 0.0 x10^3/uL (0.0-0.7) Basophils # (Auto) 0.0 x10^3/uL (0.0-0.2) Prothrombin Time 12.5 SEC (11.7-14.0) Prothromb Time International Ratio 1.0 (0.8-1.1) Activated Partial Thromboplast Time 30 SEC (24-38) Sodium Level 131 mmol/L (136-145) Potassium Level 6.9 mmol/L (3.5-5.1) Chloride Level 98 mmol/L (98-107) Carbon Dioxide Level 19 mmol/L (21-32) Anion Gap 14 (6-14) Blood Urea Nitrogen 69 mg/dL (8-26) Creatinine 7.8 mg/dL (0.7-1.3) Estimated GFR (Cockcroft-Gault) 6.7 BUN/Creatinine Ratio 9 (6-20) Glucose Level 117 mg/dL (70-99) Lactic Acid Level 1.8 mmol/L (0.4-2.0) Calcium Level 9.1 mg/dL (8.5-10.1) Magnesium Level 1.2 mg/dL (1.8-2.4) Total Bilirubin 0.2 mg/dL (0.2-1.0) Aspartate Amino Transf (AST/SGOT) 27 U/L (15-37) Alanine Aminotransferase (ALT/SGPT) 21 U/L (16-63) Alkaline Phosphatase 112 U/L (46-116) Ammonia < 10 mcmol/L (11-34) Creatine Kinase 323 U/L (39-308) Creatine Kinase MB (Mass) 5.6 ng/mL (0.0-3.6) Creatine Kinase MB Relative Index 1.7 % (0-4) Troponin I Quantitative 0.061 ng/mL (0.000-0.055) CL-Kpj-A-Type Natriuretic Peptide 7928 pg/mL (0-449) Total Protein 7.6 g/dL (6.4-8.2) Albumin 3.4 g/dL (3.4-5.0) Albumin/Globulin Ratio 0.8 (1.0-1.7) Procalcitonin 0.19 ng/mL (0.00-0.10) Thyroid Stimulating Hormone (TSH) 0.338 uIU/mL (0.358-3.74) Urine Collection Type U cath Urine Color Yellow Urine Clarity Clear Urine pH 5.0 Urine Specific [place] 1.015 Urine Protein Negative mg/dL (NEG-TRACE) Urine Glucose (UA) Negative mg/dL (NEG) Urine Ketones (Stick) Negative mg/dL (NEG) Urine Blood Negative (NEG) Urine Nitrite Negative (NEG) Urine Bilirubin Negative (NEG) Urine Urobilinogen Dipstick 0.2 mg/dL (0.2 mg/dL) Urine Leukocyte Esterase Negative (NEG) Urine RBC Occ /HPF (0-2) Urine WBC 1-4 /HPF (0-4) Urine Renal Epithelial Cells Few /LPF Urine Bacteria Few /HPF (0-FEW) Urine Hyaline Casts Few /HPF Urine Mucus Slight /LPF Urine Opiates Screen Neg (NEG) Urine Methadone Screen Neg (NEG) Urine Barbiturates Neg (NEG) Urine Phencyclidine Screen Neg (NEG) Urine Amphetamine/Methamphetamine Neg (NEG) Urine Benzodiazepines Screen Neg (NEG) Urine Cocaine Screen Neg (NEG) Urine Cannabinoids Screen Neg (NEG) Urine Ethyl Alcohol Neg (NEG) Laboratory Tests Test 05/31/19 09:30 05/31/19 12:40 White Blood Count 12.5 x10^3/uL (4.0-11.0) Red Blood Count 3.27 x10^6/uL (4.30-5.70) Hemoglobin 9.7 g/dL (13.0-17.5) Hematocrit 30.1 % (39.0-53.0) Mean Corpuscular Volume 92 fL (79-100) Mean Corpuscular Hemoglobin 30 pg (25-35) Mean Corpuscular Hemoglobin Concent 32 g/dL (31-37) Red Cell Distribution Width 15.8 % (11.5-14.5) Platelet Count 340 x10^3/uL (140-400) Neutrophils (%) (Auto) 84 % (31-73) Lymphocytes (%) (Auto) 10 % (24-48) Monocytes (%) (Auto) 5 % (0-9) Eosinophils (%) (Auto) 0 % (0-3) Basophils (%) (Auto) 0 % (0-3) Neutrophils # (Auto) 10.6 x10^3/uL (1.8-7.7) Lymphocytes # (Auto) 1.3 x10^3/uL (1.0-4.8) Monocytes # (Auto) 0.6 x10^3/uL (0.0-1.1) Eosinophils # (Auto) 0.0 x10^3/uL (0.0-0.7) Basophils # (Auto) 0.0 x10^3/uL (0.0-0.2) Prothrombin Time 12.5 SEC (11.7-14.0) Prothromb Time International Ratio 1.0 (0.8-1.1) Activated Partial Thromboplast Time 30 SEC (24-38) Sodium Level 131 mmol/L (136-145) Potassium Level 6.9 mmol/L (3.5-5.1) Chloride Level 98 mmol/L (98-107) Carbon Dioxide Level 19 mmol/L (21-32) Anion Gap 14 (6-14) Blood Urea Nitrogen 69 mg/dL (8-26) Creatinine 7.8 mg/dL (0.7-1.3) Estimated GFR (Cockcroft-Gault) 6.7 BUN/Creatinine Ratio 9 (6-20) Glucose Level 117 mg/dL (70-99) Lactic Acid Level 1.8 mmol/L (0.4-2.0) Calcium Level 9.1 mg/dL (8.5-10.1) Magnesium Level 1.2 mg/dL (1.8-2.4) Total Bilirubin 0.2 mg/dL (0.2-1.0) Aspartate Amino Transf (AST/SGOT) 27 U/L (15-37) Alanine Aminotransferase (ALT/SGPT) 21 U/L (16-63) Alkaline Phosphatase 112 U/L (46-116) Ammonia < 10 mcmol/L (11-34) Creatine Kinase 323 U/L (39-308) Creatine Kinase MB (Mass) 5.6 ng/mL (0.0-3.6) Creatine Kinase MB Relative Index 1.7 % (0-4) Troponin I Quantitative 0.061 ng/mL (0.000-0.055) XL-Bvz-T-Type Natriuretic Peptide 7928 pg/mL (0-449) Total Protein 7.6 g/dL (6.4-8.2) Albumin 3.4 g/dL (3.4-5.0) Albumin/Globulin Ratio 0.8 (1.0-1.7) Procalcitonin 0.19 ng/mL (0.00-0.10) Thyroid Stimulating Hormone (TSH) 0.338 uIU/mL (0.358-3.74) Urine Collection Type U cath Urine Color Yellow Urine Clarity Clear Urine pH 5.0 Urine Specific [place] 1.015 Urine Protein Negative mg/dL (NEG-TRACE) Urine Glucose (UA) Negative mg/dL (NEG) Urine Ketones (Stick) Negative mg/dL (NEG) Urine Blood Negative (NEG) Urine Nitrite Negative (NEG) Urine Bilirubin Negative (NEG) Urine Urobilinogen Dipstick 0.2 mg/dL (0.2 mg/dL) Urine Leukocyte Esterase Negative (NEG) Urine RBC Occ /HPF (0-2) Urine WBC 1-4 /HPF (0-4) Urine Renal Epithelial Cells Few /LPF Urine Bacteria Few /HPF (0-FEW) Urine Hyaline Casts Few /HPF Urine Mucus Slight /LPF Urine Opiates Screen Neg (NEG) Urine Methadone Screen Neg (NEG) Urine Barbiturates Neg (NEG) Urine Phencyclidine Screen Neg (NEG) Urine Amphetamine/Methamphetamine Neg (NEG) Urine Benzodiazepines Screen Neg (NEG) Urine Cocaine Screen Neg (NEG) Urine Cannabinoids Screen Neg (NEG) Urine Ethyl Alcohol Neg (NEG) Assessment/Plan Assessment/Plan IMP FABIEN FALL-SYNCOPE HYPERKALEMIA CHRONIC BACK PAIN PROB DEHYDRATION HX OF HTN DM II HYPOGLYCEMIA POSSIBLE RHABDOMYOLYSIS PLAN HYDRATE WITH HCO3 GTT TEMPORIZING MEASURES FOR HIGH K HAVE D/W ER REGARDING THIS FOLLOW UP K RENAL SONOGRAM F/U CPK LEVEL HOLD HIM METFORMIN HOLD HIS RADHIKA-I AND THIAZIDES FOR NOW UPDATED HIS FAMILY WILL ROBERT GALVIN MD May 31, 2019 14:05
--- NOTE | 2019-05-31 14:22 | HP ---
ADMIT DATE: 05/31/2019 CHIEF COMPLAINT: Mental status change, found down, weakness. HISTORY OF PRESENT ILLNESS: The patient is a pleasant 83-year-old male who was in the hospital recently with sepsis. Since then, he has been back at home with his who has dementia. He has been becoming more weak and more forgetful. As I understand, the family found him lying on the floor today. They brought him in and he appears to be in acute on chronic renal failure with a creatinine of 7.8. He is also hyperkalemic with potassium of 6.9. I have discussed the case with the ER physician. By analyzing the labs, it appears he has probably got chronic renal failure. His GFR right now is about 7-5 and that technically qualifies him for dialysis, but we are going to try to hydrate this out. Right now, we have fluids run at 150 an hour and once we give him a bag or two and that includes bicarbonate, we are going to go and switch him over to normal saline at 75 and trend his creatinine. PAST MEDICAL HISTORY: Hypertension, hyperlipidemia, coronary artery disease with stents, previous sepsis, anemia, angina, arthritis, neuropathy, glaucoma, GERD, diabetes, insomnia. ALLERGIES: None. FAMILY HISTORY: Diabetes. SOCIAL HISTORY: He is retired. He does not drink, smoke or take drugs. He is and lives with his , she has dementia, but they get along. MEDICATIONS: Reviewed. Please refer to the MRAD. REVIEW OF SYSTEMS: Unable to obtain. The patient is too weak. PHYSICAL EXAMINATION: VITALS: Within normal limits and are stable. GENERAL: No apparent distress. Alert and oriented. HEENT: Head is normocephalic, atraumatic, pupils were equally round and reactive to light and accommodation. NECK: Supple, no JVD, no thyromegaly was noted. LUNGS: Clear to auscultation in all lung howe without rhonchi or wheezing. HEART: RRR, S1, S2 present. Peripheral pulses intact, no obvious murmurs were noted. ABDOMEN: Soft, nontender. Positive bowel sounds no organomegaly, normal bowel sounds. EXTREMITIES: Without any cyanosis, clubbing, or edema. Pedal pulses intact, Homans sign is negative. NEUROLOGIC: He is quite weak. He falls asleep easily. He did greet me when I first walked in though. His family is present there, good support for him. PSYCHIATRIC: Normal affect, normal mood. Stable. SKIN: No ulcerations or rashes, good skin turgor, no jaundice. VASCULAR: Good capillary refill, neurovascular bundle appears to be intact. LABORATORY DATA: White count is 12, hemoglobin 9.7, platelets 340. TSH 0.338. ASSESSMENT AND PLAN: Acute on chronic renal failure with leukocytosis, anemia, hyperkalemia, and azotemia. The patient has been admitted. We will consult Dr. Pringle. He has already seen the patient. It should also be noted the patient has a bump in his troponin, but only 0.1. I suspect this is from his chronic renal failure as well. We will go ahead and consult Cardiology to be safe. I called the pharmacy, reviewed the meds with them, especially his fluids. We are going make sure that keeps going. I have resumed most of his home meds. His TSH is also a little low at 0.33. I am going to start him on Synthroid 0.25 p.o. every day. Long-term prognosis guarded. I have discussed the case with the family. We reviewed the chart together. MIKAEL OLIVER DO DR: EVGENY/ceasar JOB#: [id number] / [id number] JOVITA Good MD
[2019-05-31] MEDS ORDERED: cefTRIAXone IV Push 1 GM VIAL. IVP ONE (14:30)
--- NOTE | 2019-05-31 14:33 | PHYS DOC ---
Past Medical History Past Medical History: CAD, Diabetes-Type II, Hypertension Additional Past Medical Histor: CHRONIC BACK PAIN Past Surgical History: Angioplasty Additional Past Surgical Histo: CARDIAC STENTS Alcohol Use: Occasionally Drug Use: None Adult General Chief Complaint Chief Complaint: HYPOGLYCEMIA HPI HPI Patient is a 83 year old male with history of hypertension, diabetes type also accompanied some research 2, BPH, who presents to the ED today by EMS to be evaluated after being found laying on the floor beside his bed at home this morning. It's unknown how long patient has been playing on the floor but he was found with the same close see head during the day yesterday. He resides at home with his was not present in the ED. Patient was found by the son-in-law who states he got notified by patient's grandchild who was at home but was upstairs and did not know patient was in the flow. When EMS arrived they reported patient's blood glucose of 43 which was rechecked and noted to be 33, patient was given an amp of D 10, blood glucose recheck was 159. Patient was noted to be altered initially but his mentation improved after being given the amp of D 10. Patient has no complaints in the ED. Son zulema in the Ed who reports patient has had low blood glucose throughout this last week and he fell down on Thursday, was seen at an outpatient clinic, fell down on Thursday again and was seen at an outpatient clinic again. Patient reports chronic back pain which he receives injections to his spine Review of Systems Review of Systems Constitutional: Denies fever or chills [] Eyes: Denies change in visual acuity, redness, or eye pain [] HENT: Denies nasal congestion or sore throat [] Respiratory: Denies cough or shortness of breath [] Cardiovascular: No additional information not addressed in HPI [] GI: Denies abdominal pain, nausea, vomiting, bloody stools or diarrhea [] : Denies dysuria or hematuria [] Musculoskeletal: Reports possible fall. Denies back pain or joint pain [] Integument: Denies rash or skin lesions [] Neurologic: Denies headache, focal weakness or sensory changes [] Endocrine: Reports hypoglycemia All other systems were reviewed and found to be within normal limits, except as documented in this note. Current Medications Current Medications Current Medications Medications (Trade) Dose Ordered Sig/Nathalie Start Time Stop Time Status Last Admin Dose Admin Calcium Gluconate (Calcium Gluconate) 1,000 mg 1X ONCE 05/31/19 11:30 05/31/19 11:36 DC 05/31/19 11:59 1,000 MG Dextrose (Dextrose 50%-Water Syringe) 25 gm 1X ONCE 05/31/19 11:30 05/31/19 11:36 DC 05/31/19 11:59 25 GM Insulin Human Regular (HumuLIN R VIAL) 10 unit 1X ONCE 05/31/19 11:30 05/31/19 11:36 DC 05/31/19 11:59 10 UNIT Magnesium Sulfate/ Dextrose 100 ml @ 100 mls/hr 1X ONCE 05/31/19 12:30 05/31/19 13:29 DC 05/31/19 13:03 100 MLS/HR Morphine Sulfate (Morphine Sulfate) 2 mg PRN Q2HR PRN 05/31/19 12:45 06/01/19 12:44 Ondansetron HCl (Zofran) 4 mg PRN Q8HRS PRN 05/31/19 12:45 06/01/19 12:44 Sodium Bicarbonate 50 meq/Dextrose/ Sodium Chloride 1,050 ml @ 150 mls/hr Q7H 05/31/19 12:15 05/31/19 13:57 DC 05/31/19 12:03 150 MLS/HR Allergies Allergies Allergies Coded Allergies Type Severity Reaction Last Updated Verified No Known Drug Allergies 06/26/17 No Physical Exam Physical Exam Constitutional: Well developed, well nourished, no acute distress, non-toxic appearance. [] HENT: Normocephalic, atraumatic, bilateral external ears normal, oropharynx moist, no oral exudates, nose normal. [] Eyes: PERRLA, EOMI, conjunctiva normal, no discharge. [] Neck: Normal range of motion, no tenderness, supple, no stridor. [] Cardiovascular:Heart rate regular rhythm, no murmur [] Lungs & Thorax: diminished posterior lung bases breath sounds Abdomen: Bowel sounds normal, soft, no tenderness, no masses, no pulsatile masses. [] Skin: Warm, dry, no erythema, no rash. [] Back: No tenderness, no CVA tenderness. [] Extremities: No tenderness, no cyanosis, no clubbing, ROM intact, no edema. [] Neurologic: Alert and oriented X 3 though slow to answer questions, normal motor function, normal sensory function, no focal deficits noted. [] Psychologic: flat affect Current Patient Data Vital Signs Vital Signs Date Time Temp Pulse Resp B/P (MAP) Pulse Ox O2 Delivery O2 Flow Rate FiO2 05/31/19 13:00 82 18 139/65 (89) 99 Nasal Cannula 2.0 05/31/19 08:41 97.8 97.8 Lab Values Laboratory Tests Test 05/31/19 09:30 05/31/19 12:40 05/31/19 13:18 White Blood Count 12.5 x10^3/uL (4.0-11.0) H Red Blood Count 3.27 x10^6/uL (4.30-5.70) L Hemoglobin 9.7 g/dL (13.0-17.5) L Hematocrit 30.1 % (39.0-53.0) L Mean Corpuscular Volume 92 fL (79-100) Mean Corpuscular Hemoglobin 30 pg (25-35) Mean Corpuscular Hemoglobin Concent 32 g/dL (31-37) Red Cell Distribution Width 15.8 % (11.5-14.5) H Platelet Count 340 x10^3/uL (140-400) Neutrophils (%) (Auto) 84 % (31-73) H Lymphocytes (%) (Auto) 10 % (24-48) L Monocytes (%) (Auto) 5 % (0-9) Eosinophils (%) (Auto) 0 % (0-3) Basophils (%) (Auto) 0 % (0-3) Neutrophils # (Auto) 10.6 x10^3/uL (1.8-7.7) H Lymphocytes # (Auto) 1.3 x10^3/uL (1.0-4.8) Monocytes # (Auto) 0.6 x10^3/uL (0.0-1.1) Eosinophils # (Auto) 0.0 x10^3/uL (0.0-0.7) Basophils # (Auto) 0.0 x10^3/uL (0.0-0.2) Prothrombin Time 12.5 SEC (11.7-14.0) Prothrombin Time INR 1.0 (0.8-1.1) Activated Partial Thromboplast Time 30 SEC (24-38) Sodium Level 131 mmol/L (136-145) L Potassium Level 6.9 mmol/L (3.5-5.1) *H Chloride Level 98 mmol/L (98-107) Carbon Dioxide Level 19 mmol/L (21-32) L Anion Gap 14 (6-14) Blood Urea Nitrogen 69 mg/dL (8-26) H Creatinine 7.8 mg/dL (0.7-1.3) H Estimated GFR (Cockcroft-Gault) 6.7 BUN/Creatinine Ratio 9 (6-20) Glucose Level 117 mg/dL (70-99) H Lactic Acid Level 1.8 mmol/L (0.4-2.0) 1.9 mmol/L (0.4-2.0) Calcium Level 9.1 mg/dL (8.5-10.1) Magnesium Level 1.2 mg/dL (1.8-2.4) L Total Bilirubin 0.2 mg/dL (0.2-1.0) Aspartate Amino Transferase (AST) 27 U/L (15-37) Alanine Aminotransferase (ALT) 21 U/L (16-63) Alkaline Phosphatase 112 U/L (46-116) Ammonia < 10 mcmol/L (11-34) L Creatine Kinase 323 U/L (39-308) H Creatine Kinase MB (Mass) 5.6 ng/mL (0.0-3.6) H Creatine Kinase MB Relative Index 1.7 % (0-4) Troponin I Quantitative 0.061 ng/mL (0.000-0.055) 0.085 ng/mL (0.000-0.055) UA-Hzr-N-Type Natriuretic Peptide 7928 pg/mL (0-449) H Total Protein 7.6 g/dL (6.4-8.2) Albumin 3.4 g/dL (3.4-5.0) Albumin/Globulin Ratio 0.8 (1.0-1.7) L Procalcitonin 0.19 ng/mL (0.00-0.10) H Thyroid Stimulating Hormone (TSH) 0.338 uIU/mL (0.358-3.74) L Urine Collection Type U cath Urine Color Yellow Urine Clarity Clear Urine pH 5.0 Urine Specific [place] 1.015 Urine Protein Negative mg/dL (NEG-TRACE) Urine Glucose (UA) Negative mg/dL (NEG) Urine Ketones (Stick) Negative mg/dL (NEG) Urine Blood Negative (NEG) Urine Nitrite Negative (NEG) Urine Bilirubin Negative (NEG) Urine Urobilinogen Dipstick 0.2 mg/dL (0.2 mg/dL) Urine Leukocyte Esterase Negative (NEG) Urine RBC Occ /HPF (0-2) Urine WBC 1-4 /HPF (0-4) Urine Renal Epithelial Cells Few /LPF Urine Bacteria Few /HPF (0-FEW) Urine Hyaline Casts Few /HPF Urine Mucus Slight /LPF Urine Opiates Screen Neg (NEG) Urine Methadone Screen Neg (NEG) Urine Barbiturates Neg (NEG) Urine Phencyclidine Screen Neg (NEG) Urine Amphetamine/Methamphetamine Neg (NEG) Urine Benzodiazepines Screen Neg (NEG) Urine Cocaine Screen Neg (NEG) Urine Cannabinoids Screen Neg (NEG) Urine Ethyl Alcohol Neg (NEG) Laboratory Tests 05/31/19 09:30 Laboratory Tests 05/31/19 09:30 EKG EKG [address] Ochoa sinus rhythm HR 80 no STEMI[] Radiology/Procedures Radiology/Procedures []PROCEDURE: RENAL COMPLETE BILATERAL EXAM: Renal sonogram. HISTORY: Renal insufficiency. TECHNIQUE: Sonographic imaging the kidneys and bladder was performed. COMPARISON: CT dated 05/01/2019. FINDINGS: The kidneys are normal in size and demonstrate normal blood flow. There is no hydronephrosis. There is a 1.9 cm cyst within the upper pole the left kidney. There is a Cesar catheter within the urinary bladder. IMPRESSION: 1. Small left renal cyst. 2. Cesar catheter within the urinary bladder. Electronically signed by: Ana Laura Eng MD (05/31/2019 2:37 PM) [id number] DICTATED and SIGNED BY: ANA LAURA ENG MD DATE: 05/31/19 1437 PROCEDURE: PORTABLE CHEST 1V PORTABLE CHEST 1V Clinical indications: Fall and pain. COMPARISON: May 01, 2019. Findings: There is new finding of left lung base atelectasis. No pleural effusion or pneumothorax is seen. Right IJ central line has been removed. The heart size, pulmonary vasculature, mediastinum and both guille are otherwise stable. Impression: Left lung base atelectasis. Electronically signed by: Laya Poole MD (05/31/2019 10:12 AM) [id number] DICTATED and SIGNED BY: LAYA POOLE MD DATE: 05/31/19 1012 PROCEDURE: CT HEAD AND CERVICAL SPINE WO CT HEAD AND CERVICAL SPINE WO Clinical indications: Fall and pain. COMPARISON: None available. NONCONTRAST HEAD CT Technique: Noncontrast axial cross sectional scanning of the head was performed. PQRS compliance Statement One or more of the following individualized dose reduction techniques were utilized for this study: 1. Automated exposure control 2. Adjustment of the mA and/or kV according to patient size 3. Use of iterative reconstruction technique Findings: No acute intracranial hemorrhage or midline shift or mass-effect or hydrocephalus or extra-axial fluid collection is seen. Mild bilateral periventricular white matter hypodensity is seen consistent with chronic small vessel ischemic disease. No skull fracture or pneumocephalus is seen. No opacification of the mastoid sinuses or the middle ear cavities or the paranasal sinuses is seen. The maxillary sinuses are not completely seen in this study. IMPRESSION: No acute intracranial hemorrhage is seen. Chronic small vessel ischemic disease of the periventricular white matter. Prominent pituitary gland. Pituitary gland measures 13 mm transversely. Recommend clinical correlation. If clinically needed, an outpatient MRI study of the pituitary gland with and without contrast is recommended. NONCONTRAST CERVICAL SPINE CT: TECHNIQUE: Noncontrast helical CT scanning of the cervical spine was performed. Multiplanar 2-D reconstructions were generated. FINDINGS: No acute fracture or discitis or lytic process is evident. Degenerative facet arthropathy is evident. No perching of facet joints is evident. Degenerative osteoarthritis is seen involving the joint space between the anterior arch of C1 and the odontoid process of C2 and the lateral masses of C1 and C2 bilaterally. [id number] degenerative endplate spurring is seen throughout the cervical spine. There is mild degenerative disc space narrowing at C5-6 and C6-7. Grade 1 anterolisthesis of C3-4 and C4-5 and C7-T1 is seen. No prevertebral soft tissue swelling is evident. IMPRESSION: No acute fracture. Degenerative cervical spondylosis. Electronically signed by: Laya Poole MD (05/31/2019 10:27 AM) [id number] DICTATED and SIGNED BY: LAYA POOLE MD DATE: 05/31/19 1027 PROCEDURE: LUMBAR SPINE 2-3V Three-view lumbar spine series Clinical indications: Fall and low back pain. FINDINGS: There is a compression deformity of the inferior endplate of L2 which was seen previously on a CT study dated April 28, 2019 and is unchanged. No new compression fracture or discitis or lytic process is seen. Grade 1 anterolisthesis of L5-S1 is seen. Degenerative endplate spurring is seen throughout the lumbar spine. Degenerative disc space narrowing is seen at L2-3. IMPRESSION: No acute compression fracture. Electronically signed by: Laya Poole MD (05/31/2019 10:14 AM) [id number] DICTATED and SIGNED BY: LAYA POOLE MD DATE: 05/31/19 1014 PROCEDURE: LUMBAR SPINE 2-3V Three-view lumbar spine series Clinical indications: Fall and low back pain. FINDINGS: There is a compression deformity of the inferior endplate of L2 which was seen previously on a CT study dated April 28, 2019 and is unchanged. No new compression fracture or discitis or lytic process is seen. Grade 1 anterolisthesis of L5-S1 is seen. Degenerative endplate spurring is seen throughout the lumbar spine. Degenerative disc space narrowing is seen at L2-3. IMPRESSION: No acute compression fracture. Electronically signed by: Laya Poole MD (05/31/2019 10:14 AM) [id number] DICTATED and SIGNED BY: LAYA POOLE MD DATE: 05/31/19 1014 PROCEDURE: HIP LEFT 2V WITH PELVIS AP view of the pelvis and two-view study left hip Clinical indications: Fall and left hip pain. FINDINGS: No acute fracture or dislocation or lytic process of the left hip joint is seen. No acute fracture or diastases of the pelvic bones is seen. No lytic process is evident. Hip joints are symmetric with mild degenerative joint space narrowing. IMPRESSION: No acute fracture. Electronically signed by: Laya Poole MD (05/31/2019 10:18 AM) [id number] DICTATED and SIGNED BY: LAYA POOLE MD DATE: 05/31/19 1018 Course & Med Decision Making Course & Med Decision Making Pertinent Labs and Imaging studies reviewed. (See chart for details) This is a 83-year-old male patient who presents to the ED today to be evaluated from home via EMS, patient was found laying on the floor this morning. Unknown how long his been playing on the floor. He was noted to be hypoglycemic with glucose of 43, was given an amp of D10 glucose 159 prior to arrival to the ED. CT of the head, cervical spine-negative for any acute findings, lumbar spine x- rays as well as left hip x-rays are negative for any acute findings. CBC with a WBC of 12.5, CMP with sodium of 131, potassium 6.9-no EKG changes, BUN of 69 creatinine 7.8, magnesium 1.2, BNP 7928, lactic 1.2, troponin 0.061. Patient has no chest pain-this is chronic finding on this patient. Patient was admitted in the hospital in April and his creatinine at discharge was 1.1 with BUN of 8, previous labs highest creatinine was 1.[address] Pringle who ordered hyperkalemia medications as noted on the Nov. Consulted with Dr. Davis who accepted patient for admission Dragon Disclaimer Dragon Disclaimer This electronic medical record was generated, in whole or in part, using a voice recognition dictation system. Departure Departure Impression: Primary Impression: Acute on chronic renal failure Additional Impressions: Hyperkalemia Hypoglycemia Anemia Elevated troponin Disposition: ADMITTED INPATIENT Condition: STABLE Referrals: JOVITA ENRIUQE MD (PCP) Problem Qualifiers Primary Impression: Acute on chronic renal failure Acute renal failure type: unspecified Chronic kidney disease stage: unspecified stage Qualified Codes: N17.9 - Acute kidney failure, unspecified; N18.9 - Chronic kidney disease, unspecified Additional Impressions: Anemia Anemia type: unspecified type Qualified Codes: D64.9 - Anemia, unspecified YESENIA JOSEPH STRATE[employer] S[employer]CING SPECIALIST May 31, 2019 14:33
--- NOTE | 2019-05-31 14:40 | RAD ---
EXAM: Renal sonogram. HISTORY: Renal insufficiency. TECHNIQUE: Sonographic imaging the kidneys and bladder was performed. COMPARISON: CT dated 05/01/2019. FINDINGS: The kidneys are normal in size and demonstrate normal blood flow. There is no hydronephrosis. There is a 1.9 cm cyst within the upper pole the left kidney. There is a Cesar catheter within the urinary bladder. IMPRESSION: 1. Small left renal cyst. 2. Cesar catheter within the urinary bladder. Electronically signed by: Ana Laura Ingram MD (05/31/2019 2:37 PM) [place] [id number]
[2019-05-31 15:30] LABS: CALCIUM 9.1 mg/dL (8.5-10.1); CREATININE 7.9 mg/dL (0.7-1.3); GFR 6.6
[2019-05-31 15:38] LABS: POTASSIUM 6.1 mmol/L (3.5-5.1)
--- NOTE | 2019-05-31 16:08 | PDOC2 ---
GI CONSULT Reason For Consult: recent GI bleed, follow-up HPI: HPI: 83 y/o male admitted through ER - found on the floor beside his bed by son-in-law. Hypoglycemic per EMS. Multiple lab abnormalities here including WBC 12.5, Hgb 9.7, K 6.9, BUN 69, Cr 7.8, Mg 1.2, mildly elevated troponin and procalcitonin, BNP 7928, CK 323. We saw him last month - he reported diarrhea improved w/ Imodium and chocolate milk (actually caused constipation) that "looked black." Noted w/ Hemoccult negative RANDY then w/ normal B12. Blood and stool cultures negative then, along w/ C Diff, Giardia, Crypto, and O&P (and diarrhea did not recur). H/o GERD on pantoprazole QD and CAD w/ stent on Plavix. He reported previous 'scopes at [place] - records requested but not received. Hgb was 7.3 when discharged on 05/02/19 - we recommended continuing PPI and iron and following-up for outpt 'scopes. He says he has been compliant w/ iron and PPI. He says he's scheduled for a colonoscopy w/ Dr. Mijares a week from today. This time, he thinks he had some vomiting for a few days but can't say for sure. He thinks maybe he just couldn't keep food down. He also had some diarrhea and again thinks stools looked black, but that resolved. Denies hematemesis, hematochezia, and melena. No dysphagia or abd pain. Doesn't remember falling last night but says a few days ago he "just fell backwards" and his grandson helped him up. Occasional SOA (chronic) w/o chest pain. Not sure if he feels dizzy. Diverticulosis and questionable nodule in pancreatic head noted on past imaging. No GB, liver, or PUD history. 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 Denies ASA and NSAIDs. Says he has chronic back pain that he just deals with. Cares for w/ Alzheimer's. PMH: PMH: CAD w/ stent, HTN, HLD, OA, CKD, DM, skin cancer, GERD, pancreatitis, diverticulosis cataract extraction, tonsillectomy FH: Family History: No pertinent hx Social History: Smoke: No ALCOHOL: occassional Drugs: None ROS: GEN: Denies fevers, chills, sweats HEENT: Denies blurred vision, sore throat CV: Denies chest pain RESP: +SOA GI: Per HPI : Denies hematuria, dysuria ENDO: Denies weight changes NEURO: Denies confusion, dizziness MSK: +chronic back pain SKIN: Denies jaundice, pruritus Vitals: Vitals: Vital Signs Date Time Temp Pulse Resp B/P (MAP) Pulse Ox O2 Delivery O2 Flow Rate FiO2 05/31/19 13:30 80 16 134/60 (84) 98 Nasal Cannula 2.0 05/31/19 08:41 97.8 97.8 Labs: Labs: Laboratory Tests Test 05/31/19 09:30 05/31/19 12:40 05/31/19 13:18 05/31/19 15:10 White Blood Count 12.5 x10^3/uL (4.0-11.0) Red Blood Count 3.27 x10^6/uL (4.30-5.70) Hemoglobin 9.7 g/dL (13.0-17.5) Hematocrit 30.1 % (39.0-53.0) Mean Corpuscular Volume 92 fL (79-100) Mean Corpuscular Hemoglobin 30 pg (25-35) Mean Corpuscular Hemoglobin Concent 32 g/dL (31-37) Red Cell Distribution Width 15.8 % (11.5-14.5) Platelet Count 340 x10^3/uL (140-400) Neutrophils (%) (Auto) 84 % (31-73) Lymphocytes (%) (Auto) 10 % (24-48) Monocytes (%) (Auto) 5 % (0-9) Eosinophils (%) (Auto) 0 % (0-3) Basophils (%) (Auto) 0 % (0-3) Neutrophils # (Auto) 10.6 x10^3/uL (1.8-7.7) Lymphocytes # (Auto) 1.3 x10^3/uL (1.0-4.8) Monocytes # (Auto) 0.6 x10^3/uL (0.0-1.1) Eosinophils # (Auto) 0.0 x10^3/uL (0.0-0.7) Basophils # (Auto) 0.0 x10^3/uL (0.0-0.2) Prothrombin Time 12.5 SEC (11.7-14.0) Prothromb Time International Ratio 1.0 (0.8-1.1) Activated Partial Thromboplast Time 30 SEC (24-38) Sodium Level 131 mmol/L (136-145) 134 mmol/L (136-145) Potassium Level 6.9 mmol/L (3.5-5.1) 6.1 mmol/L (3.5-5.1) Chloride Level 98 mmol/L (98-107) 100 mmol/L (98-107) Carbon Dioxide Level 19 mmol/L (21-32) 20 mmol/L (21-32) Anion Gap 14 (6-14) 14 (6-14) Blood Urea Nitrogen 69 mg/dL (8-26) 66 mg/dL (8-26) Creatinine 7.8 mg/dL (0.7-1.3) 7.9 mg/dL (0.7-1.3) Estimated GFR (Cockcroft-Gault) 6.7 6.6 BUN/Creatinine Ratio 9 (6-20) Glucose Level 117 mg/dL (70-99) 73 mg/dL (70-99) Lactic Acid Level 1.8 mmol/L (0.4-2.0) 1.9 mmol/L (0.4-2.0) Calcium Level 9.1 mg/dL (8.5-10.1) 9.1 mg/dL (8.5-10.1) Magnesium Level 1.2 mg/dL (1.8-2.4) Total Bilirubin 0.2 mg/dL (0.2-1.0) Aspartate Amino Transf (AST/SGOT) 27 U/L (15-37) Alanine Aminotransferase (ALT/SGPT) 21 U/L (16-63) Alkaline Phosphatase 112 U/L (46-116) Ammonia < 10 mcmol/L (11-34) Creatine Kinase 323 U/L (39-308) Creatine Kinase MB (Mass) 5.6 ng/mL (0.0-3.6) Creatine Kinase MB Relative Index 1.7 % (0-4) Troponin I Quantitative 0.061 ng/mL (0.000-0.055) 0.085 ng/mL (0.000-0.055) 0.118 ng/mL (0.000-0.055) QW-Eos-O-Type Natriuretic Peptide 7928 pg/mL (0-449) Total Protein 7.6 g/dL (6.4-8.2) Albumin 3.4 g/dL (3.4-5.0) Albumin/Globulin Ratio 0.8 (1.0-1.7) Procalcitonin 0.19 ng/mL (0.00-0.10) Thyroid Stimulating Hormone (TSH) 0.338 uIU/mL (0.358-3.74) Urine Collection Type U cath Urine Color Yellow Urine Clarity Clear Urine pH 5.0 Urine Specific [place] 1.015 Urine Protein Negative mg/dL (NEG-TRACE) Urine Glucose (UA) Negative mg/dL (NEG) Urine Ketones (Stick) Negative mg/dL (NEG) Urine Blood Negative (NEG) Urine Nitrite Negative (NEG) Urine Bilirubin Negative (NEG) Urine Urobilinogen Dipstick 0.2 mg/dL (0.2 mg/dL) Urine Leukocyte Esterase Negative (NEG) Urine RBC Occ /HPF (0-2) Urine WBC 1-4 /HPF (0-4) Urine Renal Epithelial Cells Few /LPF Urine Bacteria Few /HPF (0-FEW) Urine Hyaline Casts Few /HPF Urine Mucus Slight /LPF Urine Opiates Screen Neg (NEG) Urine Methadone Screen Neg (NEG) Urine Barbiturates Neg (NEG) Urine Phencyclidine Screen Neg (NEG) Urine Amphetamine/Methamphetamine Neg (NEG) Urine Benzodiazepines Screen Neg (NEG) Urine Cocaine Screen Neg (NEG) Urine Cannabinoids Screen Neg (NEG) Urine Ethyl Alcohol Neg (NEG) Allergies: Coded Allergies: No Known Drug Allergies (Unverified , 06/26/17) Medications: Current Medications Medications (Trade) Dose Ordered Sig/Nathalie Route PRN Reason Start Time Stop Time Status Last Admin Dose Admin Morphine Sulfate (Morphine Sulfate) 2 mg PRN Q15MIN PRN IV/SQ PAIN GREATER THAN 3/10 05/31/19 09:15 06/01/19 09:14 05/31/19 12:20 Ondansetron HCl (Zofran) 4 mg 1X ONCE IV 05/31/19 09:15 9/24/19 09:17 DC 05/31/19 09:20 Calcium Gluconate (Calcium Gluconate) 1,000 mg 1X ONCE IVP 05/31/19 11:30 05/31/19 11:36 DC 05/31/19 11:59 Dextrose (Dextrose 50%-Water Syringe) 25 gm 1X ONCE IV 05/31/19 11:30 05/31/19 11:36 DC 05/31/19 11:59 Insulin Human Regular (HumuLIN R VIAL) 10 unit 1X ONCE IV 05/31/19 11:30 05/31/19 11:36 DC 05/31/19 11:59 Sodium Bicarbonate 50 meq/Dextrose/ Sodium Chloride 1,050 ml @ 150 mls/hr Q7H IV 05/31/19 12:15 05/31/19 13:57 DC 05/31/19 12:03 Magnesium Sulfate/ Dextrose 100 ml @ 100 mls/hr 1X ONCE IV 05/31/19 12:30 05/31/19 13:29 DC 05/31/19 13:03 Imaging: Imaging: Hip/Pelvis X-Ray IMPRESSION: No acute fracture. L-spine X-Ray IMPRESSION: No acute compression fracture. Head/C-spine CT IMPRESSION: No acute intracranial hemorrhage is seen. IMPRESSION: No acute fracture. Degenerative cervical spondylosis. CXR Impression: Left lung base atelectasis. Renal US IMPRESSION: 1. Small left renal cyst. 2. Cesar catheter within the urinary bladder. PE: GEN: NAD HEENT: Atraumatic, PERRL LUNGS: room air, clear anteriorly HEART: mildly tachycardic ABD: NABS, S/ND/NT EXTREMITY: No edema SKIN: No rashes, no jaundice NEURO/PSYCH: awake and alert, not the greatest historian A/P: A/P: Fall/?syncope FABIEN, hyperkalemia, leukocytosis, elevated troponin H/o RANDY - hemoccult neg in 04/2019, says taking iron BID at home - Hgb improved by comparison GERD - on PPI CRC screen - unclear timing; records requested but not received last admission Diverticulosis Remote h/o pancreatitis, questionable pancreatic head nodule CAD on Plavix -- Hgb better today compared to recent discharge. Questionable h/o vomiting - check KUB, continue PPI. Again reports "black stools" like last time - observe - ?black because taking iron. Eventually needs EGD and colonoscopy, can pursue as outpt. TIGRE CROSS May 31, 2019 16:08
[2019-05-31] MEDS ORDERED: HYDR-2761 PO (16:36)
[2019-05-31] MEDS ORDERED: C.DIFF MED SCREEN BY RX. MC ONE (17:00)
--- NOTE | 2019-05-31 17:41 | RAD ---
Examination: KUB History: Vomiting Comparison/Correlation: None Findings: Frontal view of the abdomen was obtained. Bowel gas pattern is unremarkable. Gas is present in nondistended small bowel. Moderate quantity of stool in the colon noted. No suspicious abdominal calcifications. Lung bases are not included on this exam. Epigastric level was not fully included. Impression: No obstruction. Electronically signed by: Leonel Calderón MD (05/31/2019 5:39 PM) [facility]
--- NOTE | 2019-05-31 18:00 | NUR ---
NURSING NOTE: Pt admitted to [facility] @ 1530. Pt alert and oriented. Son in law at bedside. Dr. Hazel/Esthela WHITT saw pt and no orders received. Dr. Pringle has been paged and orders placed for lab redraw and fluids. RN spoke with ISELA Blum for Cardiology and he will see patient in the morning. Pt denies chest pain/SOA. Sodium bicarb gtt infusing currently and to infuse all night at 125/hr.
[2019-05-31] MEDS: PANTOPRAZOLE 40 MG TABLET.DR. PO SCH (18:07)
[2019-05-31] MEDS: FERROUS SULFATE 325 MG TABLET. PO SCH (18:07)
[2019-05-31] MEDS: ATORVASTATIN CALCIUM 20 MG TABLET PO SCH (21:10)
[2019-05-31] MEDS: TAMSULOSIN 0.4 MG CAP.ER.24H. PO SCH (21:10)
[2019-05-31] MEDS: GABAPENTIN 300 MG CAPSULE. PO SCH (21:10)
[2019-05-31] MEDS ORDERED: IV DEXTROSE 5% 250 ML BAG. IV PRN (22:45)
[2019-05-31] MEDS ORDERED: DEXTROSE 50% 25 GM / 50ML DISP.SYRIN. IV PRN (22:45)
[2019-06-01] VITALS (25 sets, daily range): BP systolic 59–176; BP diastolic 41–108
[2019-06-01 04:42] LABS: BASO # 0.1 x10^3/uL (0.0-0.2); BASO % 1 % (0-3); EOS # 0.4 x10^3/uL (0.0-0.7); EOS % 5 % (0-3); HEMATOCRIT 23.9 % (39.0-53.0); HEMOGLOBIN 7.9 g/dL (13.0-17.5); LYMPH % 23 % (24-48); MEAN CORPUSCULAR HEMOGLOBIN 30 pg (25-35); MEAN CORPUSCULAR HGB CONC 33 g/dL (31-37); MEAN CORPUSCULAR VOLUME 92 fL (79-100); MONO % 11 % (0-9); NEUT # 5.5 x10^3/uL (1.8-7.7); NEUT % 62 % (31-73); PLATELET COUNT 273 x10^3/uL (140-400); RED BLOOD COUNT 2.61 x10^6/uL (4.30-5.70); RED CELL DISTRIBUTION WIDTH 15.9 % (11.5-14.5); WHITE BLOOD COUNT 8.9 x10^3/uL (4.0-11.0)
[2019-06-01 05:08] LABS: CALCIUM 8.4 mg/dL (8.5-10.1); CREATININE 7.8 mg/dL (0.7-1.3); GFR 6.7; PHOSPHORUS 5.8 mg/dL (2.6-4.7); POTASSIUM 5.8 mmol/L (3.5-5.1)
[2019-06-01] MEDS: LEVOTHYROXINE 25 MCG TABLET. PO SCH (06:33)
[2019-06-01] MEDS ORDERED: CLOPIDOGREL BISULFATE 75 MG TABLET PO SCH (07:00)
[2019-06-01] MEDS: PANTOPRAZOLE 40 MG TABLET.DR. PO SCH ×2 (08:32→17:27)
[2019-06-01] MEDS: METOPROLOL SUCC 24HR ER 25 MG TAB.ER.24H. PO SCH (08:33)
[2019-06-01] MEDS: FERROUS SULFATE 325 MG TABLET. PO SCH ×2 (08:33→17:27)
--- NOTE | 2019-06-01 08:50 | NUR ---
Patient assisted x1 to stand and take a couple steps to the chair to sit up for breakfast. Patient is unsteady and slow. Patient states that he has back pain that is chronic.
[2019-06-01] MEDS ORDERED: glipiZIDE 5 MG TABLET PO SCH (09:00)
--- NOTE | 2019-06-01 09:03 | PDOC2 ---
LO TAMAYO QUALITY CONTROL OPERATOR 06/01/19 0903: CARDIAC CONSULT DATE OF CONSULT Date of Consult DATE: 06/01/19 TIME: 08:43 REASON FOR CONSULT Reason for Consult: Elevated troponin REFERRING PHYSICIAN Referring Physician: Parvin SOURCE Source: Chart review, Patient HISTORY OF PRESENT ILLNESS HISTORY OF PRESENT ILLNESS This is an 83 yo male admitted for complains of fall and passing out. At home he was discovered by his son in law on the floor. He told him that he passed out. He was discovered in the morning yesterday and it is unclear how long he has been on the floor. At this time he could not talk to me very well because he is drowsy but he is not in any pain. According to his daughter who is in the room currently that including yesterday he has fallen at least total 3x since Thursday. It is unclear if he also has passed out from the other 2x he fell. There was no mention of chest pain or SOA. He takes lisinopril/HCTZ and metformin and unclear if he has been checking his BG with his falls or BP as well. No known routine NSAID use. This morning he was up in the chair and being transferred to bed when he was noted to be lightheaded and his mentation decreased and was diaphoretic and his HR slowed down to the 40s. His SBP went into the 50s as well. He was given a dose of atropine and started on dopamine and IV bolus was started and placed trendelenburg position. His BP and HR improved since then. Also his BG was at 102. To add when he was picked up by EMS his BG was in the 30-40s and better after 50. PAST MEDICAL HISTORY Past Medical History Cardiovascular: CAD, HTN, Hyperlipidemia Pulmonary: pneumonia CENTRAL NERVOUS SYSTEM: Other (No pertinent history) GI: GERD Heme/Onc: RANDY Hepatobiliary: No pertinent hx Psych: No pertinent hx Musculoskeletal: Osteoarthritis Infectious disease: No pertinent hx ENT: No pertinent hx Renal/: Chronic renal insuff Endocrine: Diabetes (2) Dermatology: Other (skin CA) PAST SURGICAL HISTORY Past Surgical History Cataract Removal, Tonsillectomy, Other (PCI/stents) FAMILY HISTORY Family History noncontributory SOCIAL HISTORY Smoke: No ALCOHOL: occassional Drugs: None Lives: with Family CURRENT MEDICATIONS CURRENT MEDICATIONS Current Medications Medications (Trade) Dose Ordered Sig/Nathalie Route PRN Reason Start Time Stop Time Status Last Admin Dose Admin Morphine Sulfate (Morphine Sulfate) 2 mg PRN Q15MIN PRN IV/SQ PAIN GREATER THAN 3/10 05/31/19 09:15 06/01/19 09:14 05/31/19 12:20 Ondansetron HCl (Zofran) 4 mg 1X ONCE IV 05/31/19 09:15 05/31/19 09:17 DC 05/31/19 09:20 Calcium Gluconate (Calcium Gluconate) 1,000 mg 1X ONCE IVP 05/31/19 11:30 05/31/19 11:36 DC 05/31/19 11:59 Dextrose (Dextrose 50%-Water Syringe) 25 gm 1X ONCE IV 05/31/19 11:30 05/31/19 11:36 DC 05/31/19 11:59 Insulin Human Regular (HumuLIN R VIAL) 10 unit 1X ONCE IV 05/31/19 11:30 05/31/19 11:36 DC 05/31/19 11:59 Sodium Bicarbonate 50 meq/Dextrose/ Sodium Chloride 1,050 ml @ 150 mls/hr Q7H IV 05/31/19 12:15 05/31/19 13:57 DC 05/31/19 12:03 Magnesium Sulfate/ Dextrose 100 ml @ 100 mls/hr 1X ONCE IV 05/31/19 12:30 05/31/19 13:29 DC 05/31/19 13:03 Morphine Sulfate (Morphine Sulfate) 2 mg PRN Q2HR PRN IV PAIN 05/31/19 12:45 06/01/19 12:44 05/31/19 21:11 Levothyroxine Sodium (Synthroid) 25 mcg DAILY06 PO 06/01/19 06:00 06/01/19 06:34 Ceftriaxone Sodium (Rocephin) 1 gm 1X ONCE IVP 05/31/19 14:30 05/31/19 14:31 DC 05/31/19 18:07 Atorvastatin Calcium (Lipitor) 20 mg QHS PO 05/31/19 21:00 05/31/19 21:11 Clopidogrel Bisulfate (Plavix) 75 mg DAILY07 PO 06/01/19 07:00 06/01/19 08:33 Ferrous Sulfate (Feosol) 325 mg BIDWMEALS PO 05/31/19 17:00 06/01/19 08:33 Gabapentin (Neurontin) 300 mg QHS PO 05/31/19 21:00 05/31/19 21:11 Metoprolol Succinate (Toprol Xl) 25 mg DAILY PO 06/01/19 09:00 06/01/19 08:33 Pantoprazole Sodium (Protonix) 40 mg BIDAC PO 05/31/19 16:30 06/01/19 08:33 Tamsulosin HCl (Flomax) 0.4 mg HS PO 05/31/19 21:00 05/31/19 21:11 Sodium Bicarbonate 50 meq/Dextrose/ Sodium Chloride 1,050 ml @ 125 mls/hr Q8H24M ONCE IV 05/31/19 21:00 06/01/19 05:23 DC 05/31/19 20:17 Dextrose 250 ml PRN Q15MIN PRN IV SEE COMMENTS 05/31/19 22:45 05/31/19 23:20 ALLERGIES ALLERGIES: Coded Allergies: No Known Drug Allergies (Unverified , 06/26/17) ROS Review of System 14 point ROS evaluated with pertinent positives noted per HPI PHYSICAL EXAM General: moderate distress, Other (drowsy) HEENT: Atraumatic, Mucous membr. moist/pink Lungs: Clear to auscultation Heart: Regular rate (SR), Normal S1, Normal S2, Other (3/6 apical murmur) Abdomen: Soft, No tenderness Extremities: No cyanosis, No edema Skin: No breakdown, No significant lesion, Other (diaphoretic) Psych/Mental Status: Other (drowsy) MUSCULOSKELETAL: Osteoarthritic changes both hands VITALS/I&O VITALS/I&O: Vital Signs Date Time Temp Pulse Resp B/P (MAP) Pulse Ox O2 Delivery O2 Flow Rate FiO2 06/01/19 08:33 89 133/52 06/01/19 08:00 Nasal Cannula 2.0 06/01/19 08:00 98.2 12 97 98.2 I & O 05/31/19 05/31/19 06/01/19 15:00 23:00 07:00 Intake Total 100 ml 1169 ml 1755.64 ml Output Total 725 ml 450 ml 710 ml Balance -625 ml 719 ml 1045.64 ml LABS Lab: Laboratory Tests Test 05/31/19 09:30 05/31/19 12:40 05/31/19 13:18 05/31/19 15:10 White Blood Count 12.5 x10^3/uL (4.0-11.0) H Red Blood Count 3.27 x10^6/uL (4.30-5.70) L Hemoglobin 9.7 g/dL (13.0-17.5) L Hematocrit 30.1 % (39.0-53.0) L Mean Corpuscular Volume 92 fL (79-100) Mean Corpuscular Hemoglobin 30 pg (25-35) Mean Corpuscular Hemoglobin Concent 32 g/dL (31-37) Red Cell Distribution Width 15.8 % (11.5-14.5) H Platelet Count 340 x10^3/uL (140-400) Neutrophils (%) (Auto) 84 % (31-73) H Lymphocytes (%) (Auto) 10 % (24-48) L Monocytes (%) (Auto) 5 % (0-9) Eosinophils (%) (Auto) 0 % (0-3) Basophils (%) (Auto) 0 % (0-3) Neutrophils # (Auto) 10.6 x10^3/uL (1.8-7.7) H Lymphocytes # (Auto) 1.3 x10^3/uL (1.0-4.8) Monocytes # (Auto) 0.6 x10^3/uL (0.0-1.1) Eosinophils # (Auto) 0.0 x10^3/uL (0.0-0.7) Basophils # (Auto) 0.0 x10^3/uL (0.0-0.2) Prothrombin Time 12.5 SEC (11.7-14.0) Prothrombin Time INR 1.0 (0.8-1.1) Activated Partial Thromboplast Time 30 SEC (24-38) Sodium Level 131 mmol/L (136-145) L 134 mmol/L (136-145) L Potassium Level 6.9 mmol/L (3.5-5.1) *H 6.1 mmol/L (3.5-5.1) *H Chloride Level 98 mmol/L (98-107) 100 mmol/L (98-107) Carbon Dioxide Level 19 mmol/L (21-32) L 20 mmol/L (21-32) L Anion Gap 14 (6-14) 14 (6-14) Blood Urea Nitrogen 69 mg/dL (8-26) H 66 mg/dL (8-26) H Creatinine 7.8 mg/dL (0.7-1.3) H 7.9 mg/dL (0.7-1.3) H Estimated GFR (Cockcroft-Gault) 6.7 6.6 BUN/Creatinine Ratio 9 (6-20) Glucose Level 117 mg/dL (70-99) H 73 mg/dL (70-99) Lactic Acid Level 1.8 mmol/L (0.4-2.0) 1.9 mmol/L (0.4-2.0) Calcium Level 9.1 mg/dL (8.5-10.1) 9.1 mg/dL (8.5-10.1) Magnesium Level 1.2 mg/dL (1.8-2.4) L Total Bilirubin 0.2 mg/dL (0.2-1.0) Aspartate Amino Transferase (AST) 27 U/L (15-37) Alanine Aminotransferase (ALT) 21 U/L (16-63) Alkaline Phosphatase 112 U/L (46-116) Ammonia < 10 mcmol/L (11-34) L Creatine Kinase 323 U/L (39-308) H 277 U/L (39-308) Creatine Kinase MB (Mass) 5.6 ng/mL (0.0-3.6) H Creatine Kinase MB Relative Index 1.7 % (0-4) Troponin I Quantitative 0.061 ng/mL (0.000-0.055) 0.085 ng/mL (0.000-0.055) 0.118 ng/mL (0.000-0.055) SS-Ymd-A-Type Natriuretic Peptide 7928 pg/mL (0-449) H Total Protein 7.6 g/dL (6.4-8.2) Albumin 3.4 g/dL (3.4-5.0) Albumin/Globulin Ratio 0.8 (1.0-1.7) L Procalcitonin 0.19 ng/mL (0.00-0.10) H Thyroid Stimulating Hormone (TSH) 0.338 uIU/mL (0.358-3.74) L Urine Collection Type U cath Urine Color Yellow Urine Clarity Clear Urine pH 5.0 Urine Specific [place] 1.015 Urine Protein Negative mg/dL (NEG-TRACE) Urine Glucose (UA) Negative mg/dL (NEG) Urine Ketones (Stick) Negative mg/dL (NEG) Urine Blood Negative (NEG) Urine Nitrite Negative (NEG) Urine Bilirubin Negative (NEG) Urine Urobilinogen Dipstick 0.2 mg/dL (0.2 mg/dL) Urine Leukocyte Esterase Negative (NEG) Urine RBC Occ /HPF (0-2) Urine WBC 1-4 /HPF (0-4) Urine Renal Epithelial Cells Few /LPF Urine Bacteria Few /HPF (0-FEW) Urine Hyaline Casts Few /HPF Urine Mucus Slight /LPF Urine Opiates Screen Neg (NEG) Urine Methadone Screen Neg (NEG) Urine Barbiturates Neg (NEG) Urine Phencyclidine Screen Neg (NEG) Urine Amphetamine/Methamphetamine Neg (NEG) Urine Benzodiazepines Screen Neg (NEG) Urine Cocaine Screen Neg (NEG) Urine Cannabinoids Screen Neg (NEG) Urine Ethyl Alcohol Neg (NEG) Test 05/31/19 18:45 05/31/19 22:31 05/31/19 23:14 05/31/19 23:40 Potassium Level 5.9 mmol/L (3.5-5.1) H Creatine Kinase 257 U/L (39-308) Glucose (Fingerstick) 63 mg/dL (70-99) L 61 mg/dL (70-99) L 96 mg/dL (70-99) Test 06/01/19 04:20 White Blood Count 8.9 x10^3/uL (4.0-11.0) Red Blood Count 2.61 x10^6/uL (4.30-5.70) L Hemoglobin 7.9 g/dL (13.0-17.5) L Hematocrit 23.9 % (39.0-53.0) L Mean Corpuscular Volume 92 fL (79-100) Mean Corpuscular Hemoglobin 30 pg (25-35) Mean Corpuscular Hemoglobin Concent 33 g/dL (31-37) Red Cell Distribution Width 15.9 % (11.5-14.5) H Platelet Count 273 x10^3/uL (140-400) Neutrophils (%) (Auto) 62 % (31-73) Lymphocytes (%) (Auto) 23 % (24-48) L Monocytes (%) (Auto) 11 % (0-9) H Eosinophils (%) (Auto) 5 % (0-3) H Basophils (%) (Auto) 1 % (0-3) Neutrophils # (Auto) 5.5 x10^3/uL (1.8-7.7) Lymphocytes # (Auto) 2.0 x10^3/uL (1.0-4.8) Monocytes # (Auto) 1.0 x10^3/uL (0.0-1.1) Eosinophils # (Auto) 0.4 x10^3/uL (0.0-0.7) Basophils # (Auto) 0.1 x10^3/uL (0.0-0.2) Sodium Level 132 mmol/L (136-145) L Potassium Level 5.8 mmol/L (3.5-5.1) H Chloride Level 99 mmol/L (98-107) Carbon Dioxide Level 20 mmol/L (21-32) L Anion Gap 13 (6-14) Blood Urea Nitrogen 66 mg/dL (8-26) H Creatinine 7.8 mg/dL (0.7-1.3) H Estimated GFR (Cockcroft-Gault) 6.7 Glucose Level 118 mg/dL (70-99) H Calcium Level 8.4 mg/dL (8.5-10.1) L Phosphorus Level 5.8 mg/dL (2.6-4.7) H Laboratory Tests 05/31/19 09:30 06/01/19 04:20 Laboratory Tests 05/31/19 09:30 05/31/19 15:10 05/31/19 18:45 06/01/19 04:20 ECHOCARDIOGRAM ECHOCARDIOGRAM <Conclusion> Basal inferior wall appears hypokinetic. The Ejection Fraction is 60%. There is normal LV segmental wall motion. Transmitral Doppler flow pattern is Grade I-abnormal relaxation pattern. Mild aortic regurgitation. Trace to mild mitral regurgitation. Mild tricuspid regurgitation. The PA pressure was estimated at 38 mmHg. There is no evidence of significant pericardial effusion. DATE: 04/28/19 7436 HEART CATH HEART CATH Conclusion 1. Significant stenoses involving the proximal and distal segments of the right coronary artery as described above with patent previously placed stents in the distal RCA and midsegment of the LAD. 2. Successful PCI/drug eluting stents placement to the proximal and distal segments of the right coronary artery. 3. Normal left ventricle systolic function with ejection fraction estimated at 60%. Recommendations 1. Aspirin 325 mg daily 2. Plavix 75 mg daily for preferably one year 3. Cardiovascular risk factor modification DATE: 06/26/171537 ASSESSMENT/PLAN ASSESSMENT/PLAN 1. Severe FABIEN on CKD3 with hyperkalemia: suspect from rhabdomyolysis 2. Nontraumatic multiple falls: multifactorial 3. Syncope: multiple culprits including hypoglycemia, volume depletion, uremia, vasovagal, anemia 4. Hypoglycemic reaction: likely induced by uremia 5. Bradycardia: SB no pauses, this is due to vasovagal response and slow to recover due to uremia. 6. Anemia of chronic disease: Hgb 7.9 within his baseline. GI following 7. Mild elevated troponin: Trop at 0.118, EKG SR without acute changes. Suspect demand mediated, type 2 due to multiple culprits above 8. CAD: Past RCA/LAD stents, CP free 9. HTN 10. DM2 with hypoglycemia 11. HLP 12. Chronic diastolic CHF: compensated 13. Metabolic encephalopathy Recommendations 1. Recent EF nml but with basal inferior wall appears hypokinetic from 04/28, he is due for stress test on 07/01 for further delineation At this time his symptoms and elevated troponin is mainly due to metabolic dysfunction. 2. Aggressive IV hydration, HCO3 given, nephrology following. 3. Atropine x1 was given and dopamine was started. His HR and BP has significant ly improved and will DC dopamine and focus on IV hydration 4. Hold BB for now and will treat HTN per BP trend. DC nephrotoxic agents including metformin and ACEi 5. Monitor rhythm. Repeat BMP 6. May hold plavix for any need of HD cath. Continue with RADHA SAINZ MD 06/01/192030: CARDIAC CONSULT ASSESSMENT/PLAN ASSESSMENT/PLAN Patient seen and examined. Agree with [employer] HOME BABY SITTER's assessment and plan. Syncope/falls etiology multifactorial with dehydration a major contributing factor Sinus elio appears to be vasovagal. No significant pauses noted on tele Slight trop elevation probably demand ischemia CAD status stable overall Recent 2D echo showed normal LVF Chr diastolic HF compensated Agree with IVF. Nephrology following Thank you for your consultation LO TAMAYO APRN Jun 01, 2019 09:03 RADHA VIRAMONTES MD Jun 01, 2019 20:31
[2019-06-01] MEDS ORDERED: ATROPINE 0.5 MG/5 ML DISP.SYRINGE. IM ONE (09:15)
--- NOTE | 2019-06-01 09:30 | NUR ---
Patient sitting up in chair with head down appearing as if he were sleeping when daughter arrived at 0908. Went to speak with daughter and attempted to arouse patient without response. Patient diaphoretic. Spoke patient's name loudly and shook patient without response. Requested assistance from charge nurse. Attempted sternal rub without response. HR 50 at this time. Blood sugar checked @0910 and found to be 106. 0911 Blood pressure 59/43, HR 53. Multiple nurses to bedside to assist with patient and patient lifted back to bed. 0912: atropine 0.5 given at this time when heart rate down to 48 and NS bolus initiated. 0914: 71/37 BP and 90 HR; Dopamine initiated at 5 mcg. rechecked BP at 0916 and bp 61/33 with hr 87 patient responding a little now but not as arousable as normal. 0918 BP 50/32 HR 85, patient put in trendelenberg and dopamine increased to 10mcg. Jhunne at the bedside at 0918 and blood pressure 69/37 hr 87. 0921: BP 75/37 and 84 HR. 0930 BP 96/45 with 111 heart rate.
--- NOTE | 2019-06-01 09:50 | NUR ---
Viktoria WEISS here and instructed RN to stop Dopamine at this time d/t HR 115. Ordered for Levophed to be started if BP continues to be low. Dopamine stopped and BP 74/39 immediately following.
[2019-06-01] MEDS ORDERED: NOREPINEPHRIN 8MG/250ML PREMIX 250 ML IV PRN (10:15)
--- NOTE | 2019-06-01 10:17 | PDOC ---
Renal-Progress Notes Subjective Notes Notes NO NEW COMPLAINTS History of Present Illness Hx of present illness STABLE Vitals Vitals Vital Signs Date Time Temp Pulse Resp B/P (MAP) Pulse Ox O2 Delivery O2 Flow Rate FiO2 06/01/19 08:33 89 133/52 06/01/19 08:00 Nasal Cannula 2.0 06/01/19 08:00 98.2 12 97 98.2 Weight Weight [ ] I.O. Intake and Output Intake and Output 06/01/19 07:00 Intake Total 3024.64 ml Output Total 1885 ml Balance 1139.64 ml Intake Oral 1060 ml IV Total 1964.64 ml Output Urine Total 1885 ml Labs Labs Laboratory Tests Test 05/31/19 12:40 05/31/19 13:18 05/31/19 15:10 05/31/19 18:45 Urine Collection Type U cath Urine Color Yellow Urine Clarity Clear Urine pH 5.0 Urine Specific [place] 1.015 Urine Protein Negative mg/dL (NEG-TRACE) Urine Glucose (UA) Negative mg/dL (NEG) Urine Ketones (Stick) Negative mg/dL (NEG) Urine Blood Negative (NEG) Urine Nitrite Negative (NEG) Urine Bilirubin Negative (NEG) Urine Urobilinogen Dipstick 0.2 mg/dL (0.2 mg/dL) Urine Leukocyte Esterase Negative (NEG) Urine RBC Occ /HPF (0-2) Urine WBC 1-4 /HPF (0-4) Urine Renal Epithelial Cells Few /LPF Urine Bacteria Few /HPF (0-FEW) Urine Hyaline Casts Few /HPF Urine Mucus Slight /LPF Urine Opiates Screen Neg (NEG) Urine Methadone Screen Neg (NEG) Urine Barbiturates Neg (NEG) Urine Phencyclidine Screen Neg (NEG) Urine Amphetamine/Methamphetamine Neg (NEG) Urine Benzodiazepines Screen Neg (NEG) Urine Cocaine Screen Neg (NEG) Urine Cannabinoids Screen Neg (NEG) Urine Ethyl Alcohol Neg (NEG) Lactic Acid Level 1.9 mmol/L (0.4-2.0) Troponin I Quantitative 0.085 ng/mL (0.000-0.055) 0.118 ng/mL (0.000-0.055) Sodium Level 134 mmol/L (136-145) Potassium Level 6.1 mmol/L (3.5-5.1) 5.9 mmol/L (3.5-5.1) Chloride Level 100 mmol/L (98-107) Carbon Dioxide Level 20 mmol/L (21-32) Anion Gap 14 (6-14) Blood Urea Nitrogen 66 mg/dL (8-26) Creatinine 7.9 mg/dL (0.7-1.3) Estimated GFR (Cockcroft-Gault) 6.6 Glucose Level 73 mg/dL (70-99) Calcium Level 9.1 mg/dL (8.5-10.1) Creatine Kinase 277 U/L (39-308) 257 U/L (39-308) Test 05/31/19 22:31 05/31/19 23:14 05/31/19 23:40 06/01/19 04:20 Glucose (Fingerstick) 63 mg/dL (70-99) 61 mg/dL (70-99) 96 mg/dL (70-99) White Blood Count 8.9 x10^3/uL (4.0-11.0) Red Blood Count 2.61 x10^6/uL (4.30-5.70) Hemoglobin 7.9 g/dL (13.0-17.5) Hematocrit 23.9 % (39.0-53.0) Mean Corpuscular Volume 92 fL (79-100) Mean Corpuscular Hemoglobin 30 pg (25-35) Mean Corpuscular Hemoglobin Concent 33 g/dL (31-37) Red Cell Distribution Width 15.9 % (11.5-14.5) Platelet Count 273 x10^3/uL (140-400) Neutrophils (%) (Auto) 62 % (31-73) Lymphocytes (%) (Auto) 23 % (24-48) Monocytes (%) (Auto) 11 % (0-9) Eosinophils (%) (Auto) 5 % (0-3) Basophils (%) (Auto) 1 % (0-3) Neutrophils # (Auto) 5.5 x10^3/uL (1.8-7.7) Lymphocytes # (Auto) 2.0 x10^3/uL (1.0-4.8) Monocytes # (Auto) 1.0 x10^3/uL (0.0-1.1) Eosinophils # (Auto) 0.4 x10^3/uL (0.0-0.7) Basophils # (Auto) 0.1 x10^3/uL (0.0-0.2) Sodium Level 132 mmol/L (136-145) Potassium Level 5.8 mmol/L (3.5-5.1) Chloride Level 99 mmol/L (98-107) Carbon Dioxide Level 20 mmol/L (21-32) Anion Gap 13 (6-14) Blood Urea Nitrogen 66 mg/dL (8-26) Creatinine 7.8 mg/dL (0.7-1.3) Estimated GFR (Cockcroft-Gault) 6.7 Glucose Level 118 mg/dL (70-99) Calcium Level 8.4 mg/dL (8.5-10.1) Phosphorus Level 5.8 mg/dL (2.6-4.7) Test 06/01/19 09:07 Glucose (Fingerstick) 106 mg/dL (70-99) Micro Micro Microbiology 05/31/19 Blood Culture - Preliminary, Resulted NO GROWTH AFTER 1 DAY Review of Systems Constitutional: yes: alert, oriented Ears/Nose/Throat: Yes: no symptom reported Eyes: Yes: no symptom reported Pulmonary: Yes no symptom reported Cardiovascular: Yes no symptom reported Gastrointestional: Yes: no symptom reported Genitourinary: Yes: no symptom reported Musculoskeletal: Yes: no symptom reported Skin: Yes no symptom reported Psychiatric/Neurological: Yes: no symptom reported Physical Exam General Appearance: no apparent distress Respiratory: decreased breath sounds Heart: S1S2 Abdomen: soft, bowel sounds present Genitourinary: bladder flat Neurology: alert Assessment Assessment IMP FABIEN-CR STABLE FALL-SYNCOPE HYPERKALEMIA-BETTER CHRONIC BACK PAIN PROB DEHYDRATION HX OF HTN DM II HYPOGLYCEMIA POSSIBLE RHABDOMYOLYSIS PLAN HYDRATE WITH HCO3 GTT TEMPORIZING MEASURES FOR HIGH K RENAL SONOGRAM - NO ACUTE FINDINGS F/U CPK LEVEL HOLD HIM METFORMIN HOLD HIS RADHIKA-I AND THIAZIDES FOR NOW UPDATED HIS FAMILY WILL ROBERT GALVIN MD Jun 01, 2019 10:17
[2019-06-01] MEDS: SODIUM BICARBONATE VIAL 50 MEQ in IV DEXTROSE 5 %-0.45 % NACL 1,000 ML IV SCH ×3 (10:54→23:30)
--- NOTE | 2019-06-01 11:09 | PDOC ---
Subjective: Subjective: Daughter present - says his BP has been low this morning, had vomited a few times at home and had some retching today, didn't know about "black stools" he reported yesterday. Objective: Objective: Reviewed nursing notes - hypotension/not responsive to sternal rub earlier, improved w/ dopamine. Vital Signs: Vital Signs Date Time Temp Pulse Resp B/P (MAP) Pulse Ox O2 Delivery O2 Flow Rate FiO2 06/01/19 08:33 89 133/52 06/01/19 08:00 Nasal Cannula 2.0 06/01/19 08:00 98.2 12 97 98.2 Labs: Laboratory Tests Test 05/31/19 12:40 05/31/19 13:18 05/31/19 15:10 05/31/19 18:45 Urine Collection Type U cath Urine Color Yellow Urine Clarity Clear Urine pH 5.0 Urine Specific [place] 1.015 Urine Protein Negative mg/dL Urine Glucose (UA) Negative mg/dL Urine Ketones (Stick) Negative mg/dL Urine Blood Negative Urine Nitrite Negative Urine Bilirubin Negative Urine Urobilinogen Dipstick 0.2 mg/dL Urine Leukocyte Esterase Negative Urine RBC Occ /HPF Urine WBC 1-4 /HPF Urine Renal Epithelial Cells Few /LPF Urine Bacteria Few /HPF Urine Hyaline Casts Few /HPF Urine Mucus Slight /LPF Urine Opiates Screen Neg Urine Methadone Screen Neg Urine Barbiturates Neg Urine Phencyclidine Screen Neg Urine Amphetamine/Methamphetamine Neg Urine Benzodiazepines Screen Neg Urine Cocaine Screen Neg Urine Cannabinoids Screen Neg Urine Ethyl Alcohol Neg Lactic Acid Level 1.9 mmol/L Troponin I Quantitative 0.085 ng/mL 0.118 ng/mL Sodium Level 134 mmol/L Potassium Level 6.1 mmol/L 5.9 mmol/L Chloride Level 100 mmol/L Carbon Dioxide Level 20 mmol/L Anion Gap 14 Blood Urea Nitrogen 66 mg/dL Creatinine 7.9 mg/dL Estimated GFR (Cockcroft-Gault) 6.6 Glucose Level 73 mg/dL Calcium Level 9.1 mg/dL Creatine Kinase 277 U/L 257 U/L Test 05/31/19 22:31 05/31/19 23:14 05/31/19 23:40 06/01/19 04:20 Glucose (Fingerstick) 63 mg/dL 61 mg/dL 96 mg/dL White Blood Count 8.9 x10^3/uL Red Blood Count 2.61 x10^6/uL Hemoglobin 7.9 g/dL Hematocrit 23.9 % Mean Corpuscular Volume 92 fL Mean Corpuscular Hemoglobin 30 pg Mean Corpuscular Hemoglobin Concent 33 g/dL Red Cell Distribution Width 15.9 % Platelet Count 273 x10^3/uL Neutrophils (%) (Auto) 62 % Lymphocytes (%) (Auto) 23 % Monocytes (%) (Auto) 11 % Eosinophils (%) (Auto) 5 % Basophils (%) (Auto) 1 % Neutrophils # (Auto) 5.5 x10^3/uL Lymphocytes # (Auto) 2.0 x10^3/uL Monocytes # (Auto) 1.0 x10^3/uL Eosinophils # (Auto) 0.4 x10^3/uL Basophils # (Auto) 0.1 x10^3/uL Sodium Level 132 mmol/L Potassium Level 5.8 mmol/L Chloride Level 99 mmol/L Carbon Dioxide Level 20 mmol/L Anion Gap 13 Blood Urea Nitrogen 66 mg/dL Creatinine 7.8 mg/dL Estimated GFR (Cockcroft-Gault) 6.7 Glucose Level 118 mg/dL Calcium Level 8.4 mg/dL Phosphorus Level 5.8 mg/dL Test 06/01/19 09:07 Glucose (Fingerstick) 106 mg/dL BLOOD CULTURE Preliminary NO GROWTH AFTER 1 DAY Imaging: KUB 05/31 Impression: No obstruction. PE: GEN: NAD LUNGS: NC HEART: RRR ABD: S/ND/NT NEURO/PSYCH: drowsy A/P: Hypotension, FABIEN, hyperkalemia H/o RANDY - h/o GERD, unclear timing of last scopes, on PPI and iron, on Plavix w/ CAD -- Continue per nephrology and cardiology. Continue iron and PPI - pursue 'scopes later on when other issues resolved/improved. TIGRE CROSS Jun 01, 2019 11:09
[2019-06-01 13:29] LABS: CALCIUM 8.5 mg/dL (8.5-10.1); CREATININE 7.5 mg/dL (0.7-1.3)
[2019-06-01 13:35] LABS: POTASSIUM 6.6 mmol/L (3.5-5.1)
--- NOTE | 2019-06-01 13:38 | NUR ---
Viktoria WEISS notified of potassium up to 6.6. Orders for Kayexalate to be entered by Viktoria and Dr. Pringle to be notified by RN prior to administration.
[2019-06-01] MEDS ORDERED: SODIUM POLYSTYRENE SULFON/SORB 15 GM/60 ML ORAL.SUSP PO ONE (13:45)
--- NOTE | 2019-06-01 13:54 | PDOC ---
[employer] PROGRESS NOTE Chief Complaint Chief Complaint Mental status change Hyperkalemia Renal Failure acute on chronic History of Present Illness History of Present Illness 06/01/19 Pt was seen and examined in the ICU Pt was awake and eating lunch. 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 AISHA RN Vitals/I&O Vitals/I&O: Vital Signs Date Time Temp Pulse Resp B/P (MAP) Pulse Ox O2 Delivery O2 Flow Rate FiO2 06/01/19 12:00 Nasal Cannula 2.0 06/01/19 11:00 95 12 149/62 (91) 98 06/01/19 08:00 98.2 98.2 I & O 05/31/19 05/31/19 06/01/19 15:00 23:00 07:00 Intake Total 100 ml 1169 ml 1755.64 ml Output Total 725 ml 450 ml 710 ml Balance -625 ml 719 ml 1045.64 ml Physical Exam General: moderate distress, Other (drowsy) Heart: Regular rate (SR), Normal S1, Normal S2, Other (3/6 apical murmur) Lungs: Clear Abdomen: Soft, No tenderness Extremities: No cyanosis, No edema Skin: No breakdown, No significant lesion, Other (diaphoretic) Labs Labs: Laboratory Tests Test 05/31/19 15:10 05/31/19 18:45 05/31/19 22:31 05/31/19 23:14 Sodium Level 134 mmol/L (136-145) Potassium Level 6.1 mmol/L (3.5-5.1) 5.9 mmol/L (3.5-5.1) Chloride Level 100 mmol/L (98-107) Carbon Dioxide Level 20 mmol/L (21-32) Anion Gap 14 (6-14) Blood Urea Nitrogen 66 mg/dL (8-26) Creatinine 7.9 mg/dL (0.7-1.3) Estimated GFR (Cockcroft-Gault) 6.6 Glucose Level 73 mg/dL (70-99) Calcium Level 9.1 mg/dL (8.5-10.1) Creatine Kinase 277 U/L (39-308) 257 U/L (39-308) Troponin I Quantitative 0.118 ng/mL (0.000-0.055) Glucose (Fingerstick) 63 mg/dL (70-99) 61 mg/dL (70-99) Test 05/31/19 23:40 06/01/19 04:20 06/01/19 09:07 06/01/19 13:10 Glucose (Fingerstick) 96 mg/dL (70-99) 106 mg/dL (70-99) White Blood Count 8.9 x10^3/uL (4.0-11.0) Red Blood Count 2.61 x10^6/uL (4.30-5.70) Hemoglobin 7.9 g/dL (13.0-17.5) Hematocrit 23.9 % (39.0-53.0) Mean Corpuscular Volume 92 fL (79-100) Mean Corpuscular Hemoglobin 30 pg (25-35) Mean Corpuscular Hemoglobin Concent 33 g/dL (31-37) Red Cell Distribution Width 15.9 % (11.5-14.5) Platelet Count 273 x10^3/uL (140-400) Neutrophils (%) (Auto) 62 % (31-73) Lymphocytes (%) (Auto) 23 % (24-48) Monocytes (%) (Auto) 11 % (0-9) Eosinophils (%) (Auto) 5 % (0-3) Basophils (%) (Auto) 1 % (0-3) Neutrophils # (Auto) 5.5 x10^3/uL (1.8-7.7) Lymphocytes # (Auto) 2.0 x10^3/uL (1.0-4.8) Monocytes # (Auto) 1.0 x10^3/uL (0.0-1.1) Eosinophils # (Auto) 0.4 x10^3/uL (0.0-0.7) Basophils # (Auto) 0.1 x10^3/uL (0.0-0.2) Sodium Level 132 mmol/L (136-145) 130 mmol/L (136-145) Potassium Level 5.8 mmol/L (3.5-5.1) 6.6 mmol/L (3.5-5.1) Chloride Level 99 mmol/L (98-107) 99 mmol/L (98-107) Carbon Dioxide Level 20 mmol/L (21-32) 19 mmol/L (21-32) Anion Gap 13 (6-14) 12 (6-14) Blood Urea Nitrogen 66 mg/dL (8-26) 66 mg/dL (8-26) Creatinine 7.8 mg/dL (0.7-1.3) 7.5 mg/dL (0.7-1.3) Estimated GFR (Cockcroft-Gault) 6.7 7.0 Glucose Level 118 mg/dL (70-99) 211 mg/dL (70-99) Calcium Level 8.4 mg/dL (8.5-10.1) 8.5 mg/dL (8.5-10.1) Phosphorus Level 5.8 mg/dL (2.6-4.7) Review of Systems Review of Systems: Co weakness No nausea or vomiting. Assessment and Plan Assessmemt and Plan Problems Medical Problems: (1) Acute on chronic renal failure Status: Acute (2) Anemia Status: Acute (3) CAD (coronary artery disease) Status: Chronic (4) Elevated troponin Status: Acute (5) GERD (gastroesophageal reflux disease) Status: Chronic (6) Hyperkalemia Status: Acute (7) Hypoglycemia Status: Acute Assessment Acute on chronic renal failure Hyperkalemia CAD GERD Hypoglycemia Anemia Plan ICU monitoring Wean Levophed IV fluids Empiric antibiotics Trend enzymes Home meds DVT prophylaxis Full code Comment Review of Relevant I have reviewed the following items yu (where applicable) has been applied. Medications: Current Medications Medications (Trade) Dose Ordered Sig/Nathalie Route PRN Reason Start Time Stop Time Status Last Admin Dose Admin Levothyroxine Sodium (Synthroid) 25 mcg DAILY06 PO 06/01/19 06:00 06/01/19 06:34 Ceftriaxone Sodium (Rocephin) 1 gm 1X ONCE IVP 05/31/19 14:30 05/31/19 14:31 DC 05/31/19 18:07 Atorvastatin Calcium (Lipitor) 20 mg QHS PO 05/31/19 21:00 05/31/19 21:11 Clopidogrel Bisulfate (Plavix) 75 mg DAILY07 PO 06/01/19 07:00 06/01/19 08:33 Ferrous Sulfate (Feosol) 325 mg BIDWMEALS PO 05/31/19 17:00 06/01/19 08:33 Gabapentin (Neurontin) 300 mg QHS PO 05/31/19 21:00 05/31/19 21:11 Metoprolol Succinate (Toprol Xl) 25 mg DAILY PO 06/01/19 09:00 06/01/19 08:33 Pantoprazole Sodium (Protonix) 40 mg BIDAC PO 05/31/19 16:30 06/01/19 08:33 Tamsulosin HCl (Flomax) 0.4 mg HS PO 05/31/19 21:00 05/31/19 21:11 Sodium Bicarbonate 50 meq/Dextrose/ Sodium Chloride 1,050 ml @ 125 mls/hr Q8H24M ONCE IV 05/31/19 21:00 06/01/19 11:43 DC 05/31/19 20:17 Dextrose 250 ml PRN Q15MIN PRN IV SEE COMMENTS 05/31/19 22:45 05/31/19 23:20 Dopamine HCl/ Dextrose 250 ml @ 5.919 mls/ hr CONT PRN IV SEE I/O RECORD 06/01/19 09:15 06/01/19 09:18 Atropine Sulfate (ATROPINE 0.5mg SYRINGE) 0.5 mg 1X ONCE IM 06/01/19 09:15 06/01/19 09:18 DC 06/01/19 09:19 Norepinephrine Bitartrate 250 ml @ 0 mls/hr CONT PRN IV SEE I/O RECORD 06/01/19 10:15 06/01/19 10:09 Sodium Bicarbonate 50 meq/Dextrose/ Sodium Chloride 1,050 ml @ 150 mls/hr Q7H IV 06/01/19 11:00 06/01/19 10:54 MIKAEL OLIVER III DO Jun 01, 2019 13:54
[2019-06-01] MEDS ORDERED: DEXTROSE 50% 25 GM / 50ML DISP.SYRIN. IV ONE (14:00)
[2019-06-01] MEDS ORDERED: INSULIN REGULAR 100 UNIT/ML 3ML VIAL. IV ONE (14:00)
[2019-06-01] MEDS: LACTOBACILLUS RHAMNOSUS GG 1 CAPSULE. PO SCH ×2 (14:04→20:50)
--- NOTE | 2019-06-01 15:33 | NUR ---
SS following for discharge planning. SS reviewed pt chart. Pt is from home with spouse and is currently requiring oxygen. Pt was previously on services with [facility], ; fax [phone]. SS will continue to follow for discharge planning.
[2019-06-01] MEDS: cefTRIAXone IV Push 1 GM VIAL. IVP SCH (16:20)
--- NOTE | 2019-06-01 16:48 | NUR ---
Wound Care: Wound care consult for R upper arm skin abrasion. Wound cleansed with saline wash, skin prep applied to zelda wound, xeroform and foam applied. L knee has a scabbed abrasion, not open. No other wounds found on assessment. Pt left turn to his left, heels floated with pillows, pt's dtr at bedside at time of departure, call light within reach. Wound care will follow up on 06/09.
[2019-06-01 16:59] LABS: CALCIUM 8.4 mg/dL (8.5-10.1); CREATININE 7.7 mg/dL (0.7-1.3); GFR 6.8
[2019-06-01 17:03] LABS: POTASSIUM 6.2 mmol/L (3.5-5.1)
[2019-06-01] MEDS: TAMSULOSIN 0.4 MG CAP.ER.24H. PO SCH (20:50)
[2019-06-01] MEDS: GABAPENTIN 300 MG CAPSULE. PO SCH (20:50)
[2019-06-01] MEDS: ATORVASTATIN CALCIUM 20 MG TABLET PO SCH (20:50)
[2019-06-01] MEDS ORDERED: FAMOTIDINE 20 MG TABLET. PO SCH (21:00)
[2019-06-02] VITALS (19 sets, daily range): BP systolic 145–181; BP diastolic 58–93
[2019-06-02 05:05] LABS: BASO # 0.1 x10^3/uL (0.0-0.2); BASO % 1 % (0-3); EOS # 0.3 x10^3/uL (0.0-0.7); EOS % 3 % (0-3); HEMATOCRIT 23.7 % (39.0-53.0); HEMOGLOBIN 7.8 g/dL (13.0-17.5); LYMPH # 1.2 x10^3/uL (1.0-4.8); LYMPH % 11 % (24-48); MEAN CORPUSCULAR HEMOGLOBIN 30 pg (25-35); MEAN CORPUSCULAR HGB CONC 33 g/dL (31-37); MEAN CORPUSCULAR VOLUME 90 fL (79-100); MONO # 1.5 x10^3/uL (0.0-1.1); MONO % 13 % (0-9); NEUT # 8.1 x10^3/uL (1.8-7.7); NEUT % 73 % (31-73); PLATELET COUNT 290 x10^3/uL (140-400); RED BLOOD COUNT 2.63 x10^6/uL (4.30-5.70); RED CELL DISTRIBUTION WIDTH 15.7 % (11.5-14.5); WHITE BLOOD COUNT 11.1 x10^3/uL (4.0-11.0)
[2019-06-02 05:19] LABS: GFR 7.6; POTASSIUM 5.3 mmol/L (3.5-5.1)
[2019-06-02] MEDS: LEVOTHYROXINE 25 MCG TABLET. PO SCH (05:59)
[2019-06-02] MEDS: PANTOPRAZOLE 40 MG TABLET.DR. PO SCH ×2 (06:52→16:30)
[2019-06-02] MEDS: SODIUM BICARBONATE VIAL 50 MEQ in IV DEXTROSE 5 %-0.45 % NACL 1,000 ML IV SCH ×3 (07:02→20:16)
[2019-06-02] MEDS: ASPIRIN ENTERIC COATED 81 MG TABLET.DR. PO SCH (08:36)
[2019-06-02] MEDS: FERROUS SULFATE 325 MG TABLET. PO SCH ×2 (08:36→17:00)
[2019-06-02] MEDS: METOPROLOL SUCC 24HR ER 25 MG TAB.ER.24H. PO SCH (08:36)
[2019-06-02] MEDS: LACTOBACILLUS RHAMNOSUS GG 1 CAPSULE. PO SCH ×2 (08:36→20:15)
--- NOTE | 2019-06-02 11:53 | PDOC ---
[employer] PROGRESS NOTE Chief Complaint Chief Complaint Mental status change Hyperkalemia Renal Failure acute on chronic History of Present Illness History of Present Illness 06/02/19 Pt was seen and examined in the ICU Pt was responsive, but quiet Accompanied with family Family reported that pt has hallucinations and is aware that they are hallucinations Continued discussing with family about medical conditions. Family will talk to braiding machine operator about likelihood of dialysis Chart and labs reviewed EF 60% Potassium is 5.3, down from 6.2 BUN is 63, down from 69 Cr is 7, down from 7.7 D/w RN 06/01/19 Pt was seen and examined in the ICU Pt was awake and eating lunch. 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 AISHA RN Vitals/I&O Vitals/I&O: Vital Signs Date Time Temp Pulse Resp B/P (MAP) Pulse Ox O2 Delivery O2 Flow Rate FiO2 06/02/19 10:00 95 16 181/93 (122) 96 Nasal Cannula 2.0 06/02/19 07:00 98.7 98.7 I & O 06/01/19 06/01/19 06/02/19 14:59 22:59 06:59 Intake Total 0 ml 2550 ml 1120 ml Output Total 900 ml 1150 ml 1725 ml Balance -900 ml 1400 ml -605 ml Physical Exam General: moderate distress, Other (drowsy) Heart: Regular rate (SR), Normal S1, Normal S2, Other (3/6 apical murmur) Lungs: Clear Abdomen: Soft, No tenderness Extremities: No cyanosis, No edema Skin: No breakdown, No significant lesion, Other (diaphoretic) Labs Labs: Laboratory Tests Test 06/01/19 13:10 06/01/19 16:45 06/01/19 17:13 06/01/19 20:49 Sodium Level 130 mmol/L (136-145) 133 mmol/L (136-145) Potassium Level 6.6 mmol/L (3.5-5.1) 6.2 mmol/L (3.5-5.1) Chloride Level 99 mmol/L (98-107) 99 mmol/L (98-107) Carbon Dioxide Level 19 mmol/L (21-32) 21 mmol/L (21-32) Anion Gap 12 (6-14) 13 (6-14) Blood Urea Nitrogen 66 mg/dL (8-26) 69 mg/dL (8-26) Creatinine 7.5 mg/dL (0.7-1.3) 7.7 mg/dL (0.7-1.3) Estimated GFR (Cockcroft-Gault) 7.0 6.8 Glucose Level 211 mg/dL (70-99) 186 mg/dL (70-99) Calcium Level 8.5 mg/dL (8.5-10.1) 8.4 mg/dL (8.5-10.1) Glucose (Fingerstick) 174 mg/dL (70-99) 217 mg/dL (70-99) Test 06/02/19 04:20 White Blood Count 11.1 x10^3/uL (4.0-11.0) Red Blood Count 2.63 x10^6/uL (4.30-5.70) Hemoglobin 7.8 g/dL (13.0-17.5) Hematocrit 23.7 % (39.0-53.0) Mean Corpuscular Volume 90 fL (79-100) Mean Corpuscular Hemoglobin 30 pg (25-35) Mean Corpuscular Hemoglobin Concent 33 g/dL (31-37) Red Cell Distribution Width 15.7 % (11.5-14.5) Platelet Count 290 x10^3/uL (140-400) Neutrophils (%) (Auto) 73 % (31-73) Lymphocytes (%) (Auto) 11 % (24-48) Monocytes (%) (Auto) 13 % (0-9) Eosinophils (%) (Auto) 3 % (0-3) Basophils (%) (Auto) 1 % (0-3) Neutrophils # (Auto) 8.1 x10^3/uL (1.8-7.7) Lymphocytes # (Auto) 1.2 x10^3/uL (1.0-4.8) Monocytes # (Auto) 1.5 x10^3/uL (0.0-1.1) Eosinophils # (Auto) 0.3 x10^3/uL (0.0-0.7) Basophils # (Auto) 0.1 x10^3/uL (0.0-0.2) Sodium Level 134 mmol/L (136-145) Potassium Level 5.3 mmol/L (3.5-5.1) Chloride Level 100 mmol/L (98-107) Carbon Dioxide Level 22 mmol/L (21-32) Anion Gap 12 (6-14) Blood Urea Nitrogen 63 mg/dL (8-26) Creatinine 7.0 mg/dL (0.7-1.3) Estimated GFR (Cockcroft-Gault) 7.6 Glucose Level 223 mg/dL (70-99) Calcium Level 8.0 mg/dL (8.5-10.1) Creatine Kinase 136 U/L (39-308) Review of Systems Review of Systems: Pt co hallucinations Pt denies fever Pt denies MACIAS Assessment and Plan Assessmemt and Plan Problems Medical Problems: (1) Acute on chronic renal failure Status: Acute (2) Anemia Status: Acute (3) CAD (coronary artery disease) Status: Chronic (4) Elevated troponin Status: Acute (5) GERD (gastroesophageal reflux disease) Status: Chronic (6) Hyperkalemia Status: Acute (7) Hypoglycemia Status: Acute Assessment Acute on chronic renal failure Hyperkalemia CAD GERD Hypoglycemia Anemia Plan ICU monitoring Transfer in progress Continue Wean Levophed Await input from nephrology IV fluids Empiric antibiotics Trend enzymes Home meds DVT prophylaxis Full code Comment Review of Relevant I have reviewed the following items yu (where applicable) has been applied. Medications: Current Medications Medications (Trade) Dose Ordered Sig/Nathalie Route PRN Reason Start Time Stop Time Status Last Admin Dose Admin Ceftriaxone Sodium (Rocephin) 1 gm Q24H IVP 06/01/19 15:00 06/01/19 16:20 Lactobacillus Rhamnosus (Culturelle) 1 cap BID PO 06/01/19 12:00 06/02/19 08:36 Sodium Polystyrene Sulfonate (Kayexalate) 30 gm 1X ONCE PO 06/01/19 13:45 06/01/19 13:46 DC 06/01/19 14:04 Insulin Human Regular (HumuLIN R VIAL) 10 unit 1X ONCE IV 06/01/19 14:00 06/01/19 14:09 DC 06/01/19 14:40 Dextrose (Dextrose 50%-Water Syringe) 25 gm 1X ONCE IV 06/01/19 14:00 06/01/19 14:09 DC 06/01/19 14:38 Aspirin (Ecotrin) 81 mg DAILYWBKFT PO 06/02/19 08:00 06/02/19 08:36 MIKAEL OLIVER III DO Jun 02, 2019 11:53
--- NOTE | 2019-06-02 11:54 | PDOC ---
Renal-Progress Notes Subjective Notes Notes NO NEW COMPLAINTS History of Present Illness Hx of present illness STABLE Vitals Vitals Vital Signs Date Time Temp Pulse Resp B/P (MAP) Pulse Ox O2 Delivery O2 Flow Rate FiO2 06/02/19 10:00 95 16 181/93 (122) 96 Nasal Cannula 2.0 06/02/19 07:00 98.7 98.7 Weight Weight [ ] I.O. Intake and Output Intake and Output 06/02/19 07:00 Intake Total 3730 ml Output Total 3775 ml Balance -45 ml Intake Oral 830 ml IV Total 1900 ml Other 1000 ml Output Urine Total 3775 ml Labs Labs Laboratory Tests Test 06/01/19 13:10 06/01/19 16:45 06/01/19 17:13 06/01/19 20:49 Sodium Level 130 mmol/L (136-145) 133 mmol/L (136-145) Potassium Level 6.6 mmol/L (3.5-5.1) 6.2 mmol/L (3.5-5.1) Chloride Level 99 mmol/L (98-107) 99 mmol/L (98-107) Carbon Dioxide Level 19 mmol/L (21-32) 21 mmol/L (21-32) Anion Gap 12 (6-14) 13 (6-14) Blood Urea Nitrogen 66 mg/dL (8-26) 69 mg/dL (8-26) Creatinine 7.5 mg/dL (0.7-1.3) 7.7 mg/dL (0.7-1.3) Estimated GFR (Cockcroft-Gault) 7.0 6.8 Glucose Level 211 mg/dL (70-99) 186 mg/dL (70-99) Calcium Level 8.5 mg/dL (8.5-10.1) 8.4 mg/dL (8.5-10.1) Glucose (Fingerstick) 174 mg/dL (70-99) 217 mg/dL (70-99) Test 06/02/19 04:20 White Blood Count 11.1 x10^3/uL (4.0-11.0) Red Blood Count 2.63 x10^6/uL (4.30-5.70) Hemoglobin 7.8 g/dL (13.0-17.5) Hematocrit 23.7 % (39.0-53.0) Mean Corpuscular Volume 90 fL (79-100) Mean Corpuscular Hemoglobin 30 pg (25-35) Mean Corpuscular Hemoglobin Concent 33 g/dL (31-37) Red Cell Distribution Width 15.7 % (11.5-14.5) Platelet Count 290 x10^3/uL (140-400) Neutrophils (%) (Auto) 73 % (31-73) Lymphocytes (%) (Auto) 11 % (24-48) Monocytes (%) (Auto) 13 % (0-9) Eosinophils (%) (Auto) 3 % (0-3) Basophils (%) (Auto) 1 % (0-3) Neutrophils # (Auto) 8.1 x10^3/uL (1.8-7.7) Lymphocytes # (Auto) 1.2 x10^3/uL (1.0-4.8) Monocytes # (Auto) 1.5 x10^3/uL (0.0-1.1) Eosinophils # (Auto) 0.3 x10^3/uL (0.0-0.7) Basophils # (Auto) 0.1 x10^3/uL (0.0-0.2) Sodium Level 134 mmol/L (136-145) Potassium Level 5.3 mmol/L (3.5-5.1) Chloride Level 100 mmol/L (98-107) Carbon Dioxide Level 22 mmol/L (21-32) Anion Gap 12 (6-14) Blood Urea Nitrogen 63 mg/dL (8-26) Creatinine 7.0 mg/dL (0.7-1.3) Estimated GFR (Cockcroft-Gault) 7.6 Glucose Level 223 mg/dL (70-99) Calcium Level 8.0 mg/dL (8.5-10.1) Creatine Kinase 136 U/L (39-308) Micro Micro Microbiology 05/31/19 Blood Culture - Preliminary, Resulted NO GROWTH AFTER 1 DAY Review of Systems Constitutional: yes: alert, oriented Ears/Nose/Throat: Yes: no symptom reported Eyes: Yes: no symptom reported Pulmonary: Yes no symptom reported Cardiovascular: Yes no symptom reported Gastrointestional: Yes: no symptom reported Genitourinary: Yes: no symptom reported Musculoskeletal: Yes: no symptom reported Skin: Yes no symptom reported Psychiatric/Neurological: Yes: no symptom reported Physical Exam General Appearance: no apparent distress Respiratory: decreased breath sounds Heart: S1S2 Abdomen: soft, bowel sounds present Genitourinary: bladder flat Neurology: alert Assessment Assessment IMP FABIEN-ATN-CR STABLE AT ABOUT 7 FALL-SYNCOPE HYPERKALEMIA-BETTER CHRONIC BACK PAIN PROB DEHYDRATION HX OF HTN DM II HYPOGLYCEMIA POSSIBLE RHABDOMYOLYSIS PLAN HYDRATE WITH HCO3 GTT TEMPORIZING MEASURES FOR HIGH K RENAL SONOGRAM - NO ACUTE FINDINGS F/U CPK LEVEL HOLD HIS METFORMIN HOLD HIS RADHIKA-I AND THIAZIDES FOR NOW UPDATED HIS FAMILY WILL FOLLOW NO NEED FOR DIALYSIS AT THIS TIME ROBERT PALUMBO MD Jun 02, 2019 11:54
--- NOTE | 2019-06-02 13:58 | PDOC ---
Objective: Objective: D/w nurse this morning - no GI concerns - eats some but not much. Vital Signs: Vital Signs Date Time Temp Pulse Resp B/P (MAP) Pulse Ox O2 Delivery O2 Flow Rate FiO2 06/02/19 12:00 Nasal Cannula 2.0 06/02/19 12:00 98.7 91 19 162/65 (97) 94 98.7 Labs: Laboratory Tests Test 06/01/19 16:45 06/01/19 17:13 06/01/19 20:49 06/02/19 04:20 Sodium Level 133 mmol/L 134 mmol/L Potassium Level 6.2 mmol/L 5.3 mmol/L Chloride Level 99 mmol/L 100 mmol/L Carbon Dioxide Level 21 mmol/L 22 mmol/L Anion Gap 13 12 Blood Urea Nitrogen 69 mg/dL 63 mg/dL Creatinine 7.7 mg/dL 7.0 mg/dL Estimated GFR (Cockcroft-Gault) 6.8 7.6 Glucose Level 186 mg/dL 223 mg/dL Calcium Level 8.4 mg/dL 8.0 mg/dL Glucose (Fingerstick) 174 mg/dL 217 mg/dL White Blood Count 11.1 x10^3/uL Red Blood Count 2.63 x10^6/uL Hemoglobin 7.8 g/dL Hematocrit 23.7 % Mean Corpuscular Volume 90 fL Mean Corpuscular Hemoglobin 30 pg Mean Corpuscular Hemoglobin Concent 33 g/dL Red Cell Distribution Width 15.7 % Platelet Count 290 x10^3/uL Neutrophils (%) (Auto) 73 % Lymphocytes (%) (Auto) 11 % Monocytes (%) (Auto) 13 % Eosinophils (%) (Auto) 3 % Basophils (%) (Auto) 1 % Neutrophils # (Auto) 8.1 x10^3/uL Lymphocytes # (Auto) 1.2 x10^3/uL Monocytes # (Auto) 1.5 x10^3/uL Eosinophils # (Auto) 0.3 x10^3/uL Basophils # (Auto) 0.1 x10^3/uL Creatine Kinase 136 U/L BLOOD CULTURE Preliminary NO GROWTH AFTER 2 DAYS PE: attempted to see twice - first on bedpan, then asleep and was politely asked not to wake him A/P: FABIEN H/o RANDY - h/o GERD, unclear timing of last scopes, on PPI and iron, now off Plavix and on ASA -- Hgb stable w/o obvious bleeding. Continue same per GI. TIGRE CROSS Jun 02, 2019 13:58
[2019-06-02] MEDS: cefTRIAXone IV Push 1 GM VIAL. IVP SCH (16:05)
--- NOTE | 2019-06-02 17:53 | NUR ---
blood glucose [address] Rubio. Orders for low dose sliding scale received.
[2019-06-02] MEDS ORDERED: DEXTROSE 50% 25 GM / 50ML DISP.SYRIN. IV PRN ×2 (18:00→21:45)
[2019-06-02] MEDS ORDERED: INSULIN LISPRO 300 UNITS/3 ML VIAL. SQ SCH (18:30)
[2019-06-02] MEDS: ATORVASTATIN CALCIUM 20 MG TABLET PO SCH (20:15)
[2019-06-02] MEDS: TAMSULOSIN 0.4 MG CAP.ER.24H. PO SCH (20:15)
[2019-06-02] MEDS: GABAPENTIN 300 MG CAPSULE. PO SCH (20:15)
--- NOTE | 2019-06-02 20:16 | PDOC ---
PROGRESS NOTES Subjective Subjective Confused today Objective Objective Vital Signs Date Time Temp Pulse Resp B/P (MAP) Pulse Ox O2 Delivery O2 Flow Rate FiO2 06/02/19 18:00 101 16 173/77 (109) 92 Nasal Cannula 2.0 06/02/19 16:00 98.4 98.4 Intake and Output 06/02/19 06:59 Intake Total 3670 ml Output Total 3775 ml Balance -105 ml Intake Oral 770 ml IV Total 1900 ml Other 1000 ml Output Urine Total 3775 ml Physical Exam Abdomen: Soft, No tenderness Heart: Regular rate (SR), Normal S1, Normal S2, Other (3/6 apical murmur) Extremities: No cyanosis, No edema General: mild distress, Other (drowsy) HEENT: Atraumatic Lungs: Clear to auscultation Neck: Supple Psych/Mental Status: Other (drowsy) Skin: Other (diaphoretic) Assessment Assessment 1. Severe FABIEN on CKD3 with hyperkalemia:nephrology following. Off levophed. 2. Nontraumatic multiple falls: multifactorial 3. Syncope: multiple culprits including hypoglycemia, volume depletion, uremia, vasovagal, anemia. Tele did not show any significant arrhythmias so far. Sinus elio on presentation prob vasovagal. Recent echo showed normal LVF 4. Anemia of chronic disease: Hgb 7.9 within his baseline. GI following 5. MS changes: metabolic encephalopathy 6. Mild elevated troponin: Trop at 0.118, EKG SR without acute changes. Suspect demand mediated, type 2 due to multiple culprits above 7. CAD: Past RCA/LAD stents, CP free 8. DM2 with hypoglycemia: per IM Plan Plan of Care Problems Medical Problems: (1) Acute on chronic renal failure Status: Acute (2) Anemia Status: Acute (3) CAD (coronary artery disease) Status: Chronic (4) Elevated troponin Status: Acute (5) GERD (gastroesophageal reflux disease) Status: Chronic (6) Hyperkalemia Status: Acute (7) Hypoglycemia Status: Acute Comment Review of Relevant I have reviewed the following items yu (where applicable) has been applied. Labs Laboratory Tests Test 06/01/19 20:49 06/02/19 04:20 06/02/19 17:45 Glucose (Fingerstick) 217 mg/dL (70-99) 371 mg/dL (70-99) White Blood Count 11.1 x10^3/uL (4.0-11.0) Red Blood Count 2.63 x10^6/uL (4.30-5.70) Hemoglobin 7.8 g/dL (13.0-17.5) Hematocrit 23.7 % (39.0-53.0) Mean Corpuscular Volume 90 fL (79-100) Mean Corpuscular Hemoglobin 30 pg (25-35) Mean Corpuscular Hemoglobin Concent 33 g/dL (31-37) Red Cell Distribution Width 15.7 % (11.5-14.5) Platelet Count 290 x10^3/uL (140-400) Neutrophils (%) (Auto) 73 % (31-73) Lymphocytes (%) (Auto) 11 % (24-48) Monocytes (%) (Auto) 13 % (0-9) Eosinophils (%) (Auto) 3 % (0-3) Basophils (%) (Auto) 1 % (0-3) Neutrophils # (Auto) 8.1 x10^3/uL (1.8-7.7) Lymphocytes # (Auto) 1.2 x10^3/uL (1.0-4.8) Monocytes # (Auto) 1.5 x10^3/uL (0.0-1.1) Eosinophils # (Auto) 0.3 x10^3/uL (0.0-0.7) Basophils # (Auto) 0.1 x10^3/uL (0.0-0.2) Sodium Level 134 mmol/L (136-145) Potassium Level 5.3 mmol/L (3.5-5.1) Chloride Level 100 mmol/L (98-107) Carbon Dioxide Level 22 mmol/L (21-32) Anion Gap 12 (6-14) Blood Urea Nitrogen 63 mg/dL (8-26) Creatinine 7.0 mg/dL (0.7-1.3) Estimated GFR (Cockcroft-Gault) 7.6 Glucose Level 223 mg/dL (70-99) Calcium Level 8.0 mg/dL (8.5-10.1) Creatine Kinase 136 U/L (39-308) Microbiology 05/31/19 Blood Culture - Preliminary, Resulted NO GROWTH AFTER 2 DAYS Medications Current Medications Aspirin (Ecotrin) 81 mg DAILYWBKFT PO Last administered on 06/02/19at 08:36; Start 06/02/19 at 08:00 Dextrose (Dextrose 50%-Water Syringe) 12.5 gm PRN Q15MIN PRN IV SEE COMMENTS; Start 06/02/19 at 18:00 Famotidine (Pepcid) 20 mg QHS PO ; Start 06/01/19 at 21:00; Status Cancel Insulin Human Lispro (HumaLOG) 0-5 UNITS TIDWMEALS SQ Last administered on 06/02/19at 18:31; Start 06/02/19 at 18:30 Vitals/I & O Vital Sign - Last 24 Hours 06/01/19 06/01/19 06/01/19 06/01/19 21:00 21:07 22:00 23:00 Temp 98.5 98.5 Pulse 86 83 90 87 Resp 17 16 21 B/P (MAP) 170/68 (102) 166/77 (106) 147/54 (85) 161/93 (115) Pulse Ox 100 99 100 O2 Delivery Nasal Cannula Nasal Cannula Nasal Cannula O2 Flow Rate 2.0 2.0 06/01/19 06/02/19 06/02/19 06/02/19 23:59 00:01 01:00 02:00 Pulse 82 80 79 Resp 13 15 17 B/P (MAP) 153/71 (98) 157/74 (101) 149/58 (88) Pulse Ox 99 99 100 O2 Delivery Nasal Cannula Nasal Cannula Nasal Cannula Nasal Cannula O2 Flow Rate 2.0 2.0 2.0 2.0 06/02/19 06/02/19 06/02/19 06/02/19 03:00 04:00 04:00 05:00 Temp 97.6 97.2 97.6 97.2 Pulse 81 85 86 Resp 19 B/P (MAP) 146/58 (87) 149/60 (89) 151/70 (97) Pulse Ox 100 99 97 O2 Delivery Nasal Cannula Nasal Cannula Nasal Cannula Nasal Cannula O2 Flow Rate 2.0 2.0 2.0 2.0 06/02/19 06/02/19 06/02/19 06/02/19 06:00 07:00 08:00 08:00 Temp 98.7 98.7 Pulse 80 83 85 Resp 15 12 16 B/P (MAP) 149/65 (93) 147/63 (91) 163/65 (97) Pulse Ox 100 97 98 O2 Delivery Nasal Cannula Nasal Cannula Nasal Cannula Nasal Cannula O2 Flow Rate 2.0 2.0 2.0 2.0 06/02/19 06/02/19 06/02/19 06/02/19 08:36 09:00 10:00 12:00 Temp 98.7 98.7 Pulse 87 89 95 91 Resp 16 16 19 B/P (MAP) 163/65 159/64 (95) 181/93 (122) 162/65 (97) Pulse Ox 97 96 94 O2 Delivery Nasal Cannula Nasal Cannula Nasal Cannula O2 Flow Rate 2.0 2.0 2.0 06/02/19 06/02/19 06/02/19 06/02/19 12:00 13:00 14:00 15:00 Temp 98.4 98.4 Pulse 89 98 101 Resp 19 19 16 B/P (MAP) 145/59 (87) 155/67 (96) 167/63 (97) Pulse Ox 92 96 95 O2 Delivery Nasal Cannula Nasal Cannula Nasal Cannula Nasal Cannula O2 Flow Rate 2.0 2.0 2.0 2.0 06/02/19 06/02/19 06/02/19 06/02/19 16:00 16:00 17:00 18:00 Temp 98.4 98.4 Pulse 96 95 101 Resp 16 16 16 B/P (MAP) 163/69 (100) 163/70 (101) 173/77 (109) Pulse Ox 92 96 92 O2 Delivery Nasal Cannula Nasal Cannula Nasal Cannula Nasal Cannula O2 Flow Rate 2.0 2.0 2.0 2.0 Intake and Output 06/01/19 06/01/19 06/02/19 14:59 22:59 06:59 Intake Total 0 ml 2550 ml 1120 ml Output Total 900 ml 1150 ml 1725 ml Balance -900 ml 1400 ml -605 ml RADHA VIRMAONTES MD Jun 02, 2019 20:16
[2019-06-02] MEDS: INSULIN LISPRO 300 UNITS/3 ML VIAL. SQ SCH (21:52)
[2019-06-03 00:02] VITALS: BP 141/72
[2019-06-03 04:02] VITALS: BP 153/64
[2019-06-03] MEDS: SODIUM BICARBONATE VIAL 50 MEQ in IV DEXTROSE 5 %-0.45 % NACL 1,000 ML IV SCH ×3 (05:19→20:22)
[2019-06-03] MEDS: INSULIN LISPRO 300 UNITS/3 ML VIAL. SQ SCH ×4 (07:30→21:00)
[2019-06-03 08:00] VITALS: BP 150/74
[2019-06-03] MEDS: LACTOBACILLUS RHAMNOSUS GG 1 CAPSULE. PO SCH ×2 (09:01→21:00)
[2019-06-03] MEDS: LEVOTHYROXINE 25 MCG TABLET. PO SCH (09:01)
[2019-06-03] MEDS: ASPIRIN ENTERIC COATED 81 MG TABLET.DR. PO SCH (09:02)
[2019-06-03] MEDS: METOPROLOL SUCC 24HR ER 25 MG TAB.ER.24H. PO SCH (09:02)
[2019-06-03] MEDS: PANTOPRAZOLE 40 MG TABLET.DR. PO SCH ×2 (09:02→18:15)
[2019-06-03 09:08] LABS: CALCIUM 8.1 mg/dL (8.5-10.1); POTASSIUM 4.8 mmol/L (3.5-5.1)
[2019-06-03 09:45] LABS: BASO % 0 % (0-3); EOS % 0 % (0-3); HEMOGLOBIN 8.1 g/dL (13.0-17.5); LYMPH # 1.3 x10^3/uL (1.0-4.8); LYMPH % 8 % (24-48); MEAN CORPUSCULAR HEMOGLOBIN 30 pg (25-35); MEAN CORPUSCULAR HGB CONC 32 g/dL (31-37); MEAN CORPUSCULAR VOLUME 92 fL (79-100); MONO # 1.9 x10^3/uL (0.0-1.1); MONO % 12 % (0-9); NEUT # 12.7 x10^3/uL (1.8-7.7); NEUT % 80 % (31-73); PLATELET COUNT 262 x10^3/uL (140-400); RED BLOOD COUNT 2.72 x10^6/uL (4.30-5.70); RED CELL DISTRIBUTION WIDTH 15.8 % (11.5-14.5); WHITE BLOOD COUNT 15.9 x10^3/uL (4.0-11.0)
--- NOTE | 2019-06-03 10:57 | PDOC ---
Objective: Objective: Reviewed w/ nurse - no bleeding, barely eats, has been sleeping. Vital Signs: Vital Signs Date Time Temp Pulse Resp B/P (MAP) Pulse Ox O2 Delivery O2 Flow Rate FiO2 06/03/19 09:02 114 150/74 06/03/19 04:02 99.4 23 93 Nasal Cannula 99.4 06/03/19 00:02 2.0 Labs: Laboratory Tests Test 06/02/19 17:45 06/02/19 20:25 06/03/19 08:45 Glucose (Fingerstick) 371 mg/dL 267 mg/dL White Blood Count 15.9 x10^3/uL Red Blood Count 2.72 x10^6/uL Hemoglobin 8.1 g/dL Hematocrit 25.0 % Mean Corpuscular Volume 92 fL Mean Corpuscular Hemoglobin 30 pg Mean Corpuscular Hemoglobin Concent 32 g/dL Red Cell Distribution Width 15.8 % Platelet Count 262 x10^3/uL Neutrophils (%) (Auto) 80 % Lymphocytes (%) (Auto) 8 % Monocytes (%) (Auto) 12 % Eosinophils (%) (Auto) 0 % Basophils (%) (Auto) 0 % Neutrophils # (Auto) 12.7 x10^3/uL Lymphocytes # (Auto) 1.3 x10^3/uL Monocytes # (Auto) 1.9 x10^3/uL Eosinophils # (Auto) 0.0 x10^3/uL Basophils # (Auto) 0.0 x10^3/uL Platelet Estimate Pending Sodium Level 134 mmol/L Potassium Level 4.8 mmol/L Chloride Level 95 mmol/L Carbon Dioxide Level 25 mmol/L Anion Gap 14 Blood Urea Nitrogen 55 mg/dL Creatinine 6.0 mg/dL Estimated GFR (Cockcroft-Gault) 9.0 Glucose Level 239 mg/dL Calcium Level 8.1 mg/dL BLOOD CULTURE Preliminary NO GROWTH AFTER 3 DAYS PE: GEN: NAD - w/ Alzheimer's present LUNGS: NC 2L HEART: tachycardic ABD: NABS, S/ND/NT NEURO/PSYCH: sleeping, mumbling A/P: FABIEN, leukocytosis, confusion H/o RANDY - on PPI and iron -- Continue same per GI. TIGRE CROSS Jun 03, 2019 10:57
--- NOTE | 2019-06-03 11:23 | PDOC ---
Renal-Progress Notes Subjective Notes Notes SOME CONFUSION History of Present Illness Hx of present illness SLOW IMPROVEMENT Vitals Vitals Vital Signs Date Time Temp Pulse Resp B/P (MAP) Pulse Ox O2 Delivery O2 Flow Rate FiO2 06/03/19 09:02 114 150/74 06/03/19 04:02 99.4 23 93 Nasal Cannula 99.4 06/03/19 00:02 2.0 Weight Weight [ ] I.O. Intake and Output Intake and Output 06/03/19 07:00 Intake Total 4475 ml Output Total 1900 ml Balance 2575 ml Intake Oral 270 ml IV Total 4205 ml Output Urine Total 1900 ml Labs Labs Laboratory Tests Test 06/02/19 17:45 06/02/19 20:25 06/03/19 08:45 Glucose (Fingerstick) 371 mg/dL (70-99) 267 mg/dL (70-99) White Blood Count 15.9 x10^3/uL (4.0-11.0) Red Blood Count 2.72 x10^6/uL (4.30-5.70) Hemoglobin 8.1 g/dL (13.0-17.5) Hematocrit 25.0 % (39.0-53.0) Mean Corpuscular Volume 92 fL (79-100) Mean Corpuscular Hemoglobin 30 pg (25-35) Mean Corpuscular Hemoglobin Concent 32 g/dL (31-37) Red Cell Distribution Width 15.8 % (11.5-14.5) Platelet Count 262 x10^3/uL (140-400) Neutrophils (%) (Auto) 80 % (31-73) Lymphocytes (%) (Auto) 8 % (24-48) Monocytes (%) (Auto) 12 % (0-9) Eosinophils (%) (Auto) 0 % (0-3) Basophils (%) (Auto) 0 % (0-3) Neutrophils # (Auto) 12.7 x10^3/uL (1.8-7.7) Lymphocytes # (Auto) 1.3 x10^3/uL (1.0-4.8) Monocytes # (Auto) 1.9 x10^3/uL (0.0-1.1) Eosinophils # (Auto) 0.0 x10^3/uL (0.0-0.7) Basophils # (Auto) 0.0 x10^3/uL (0.0-0.2) Sodium Level 134 mmol/L (136-145) Potassium Level 4.8 mmol/L (3.5-5.1) Chloride Level 95 mmol/L (98-107) Carbon Dioxide Level 25 mmol/L (21-32) Anion Gap 14 (6-14) Blood Urea Nitrogen 55 mg/dL (8-26) Creatinine 6.0 mg/dL (0.7-1.3) Estimated GFR (Cockcroft-Gault) 9.0 Glucose Level 239 mg/dL (70-99) Calcium Level 8.1 mg/dL (8.5-10.1) Micro Micro Microbiology 05/31/19 Blood Culture - Preliminary, Resulted NO GROWTH AFTER 2 DAYS Review of Systems Constitutional: yes: alert, oriented Ears/Nose/Throat: Yes: no symptom reported Eyes: Yes: no symptom reported Pulmonary: Yes no symptom reported Cardiovascular: Yes no symptom reported Gastrointestional: Yes: no symptom reported Genitourinary: Yes: no symptom reported Musculoskeletal: Yes: no symptom reported Skin: Yes no symptom reported Psychiatric/Neurological: Yes: no symptom reported Physical Exam General Appearance: no apparent distress Respiratory: decreased breath sounds Heart: S1S2 Abdomen: soft, bowel sounds present Genitourinary: bladder flat Neurology: alert Assessment Assessment IMP [id number] WITH CR DOWN TO 6.0 AND GOOD UO FALL-SYNCOPE HYPERKALEMIA-RESOLVED CHRONIC BACK PAIN PROB DEHYDRATION HX OF HTN DM II HYPOGLYCEMIA-RESOLVED PLAN HYDRATION TO CONTINUE RENAL SONOGRAM - NO ACUTE FINDINGS F/U CPK LEVEL WNL CONT HOLD HIS METFORMIN CONT TO HOLD HIS RADHIKA-I AND THIAZIDES FOR NOW UPDATED HIS FAMILY WILL FOLLOW NO NEED FOR DIALYSIS AT THIS TIME ROBERT PALUMBO MD Jun 03, 2019 11:23
[2019-06-03 11:34] LABS: % BANDS 4 % (0-9); % LYMPHS 8 % (24-48); % METAS 1 % (0-0); % MONOS 4 % (0-10); % SEGS 83 % (35-66); PLT ESTIMATE ADEQUATE (ADEQUATE)
[2019-06-03 12:00] VITALS: BP 163/82
--- NOTE | 2019-06-03 12:23 | PDOC ---
[facility] PROGRESS NOTE Chief Complaint Chief Complaint Mental status change Hyperkalemia Renal Failure acute on chronic History of Present Illness History of Present Illness 06/03/19 Pt was seen and examined in the ICU Pt was asleep in bed Accompanied by son-in-law Discussed care plan with son-in-law Pt is off levophed Charts and labs reviewed WBC is 15.9 up from 11.1 RBC is 2.72 up from 2.63 Hgb is 8.1, up from 7.8 Potassium is 4.8, down from 5.3 BUN is 55 Cr is 6.0 D/w RN 06/02/19 Pt was seen and examined in the ICU Pt was responsive, but quiet Accompanied with family Family reported that pt has hallucinations and is aware that they are hallucinations Continued discussing with family about medical conditions. Family will talk to nursing educator about likelihood of dialysis Chart and labs reviewed EF 60% Potassium is 5.3, down from 6.2 BUN is 63, down from 69 Cr is 7, down from 7.7 D/w RN 06/01/19 Pt was seen and examined in the ICU Pt was awake and eating lunch. 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 AISHA RN Vitals/I&O Vitals/I&O: Vital Signs Date Time Temp Pulse Resp B/P (MAP) Pulse Ox O2 Delivery O2 Flow Rate FiO2 06/03/19 09:02 114 150/74 06/03/19 04:02 99.4 23 93 Nasal Cannula 99.4 06/03/19 00:02 2.0 I & O 06/02/19 06/02/19 06/03/19 14:59 22:59 06:59 Intake Total 1210 ml 1405 ml 1920 ml Output Total 1350 ml 750 ml Balance -140 ml 655 ml 1920 ml Physical Exam General: mild distress, Other (drowsy) Heart: Regular rate (SR), Normal S1, Normal S2, Other (3/6 apical murmur) Lungs: Clear Abdomen: Soft, No tenderness Extremities: No cyanosis, No edema Skin: Other (diaphoretic) Labs Labs: Laboratory Tests Test 06/02/19 17:45 06/02/19 20:25 06/03/19 08:45 06/03/19 11:58 Glucose (Fingerstick) 371 mg/dL (70-99) 267 mg/dL (70-99) 363 mg/dL (70-99) White Blood Count 15.9 x10^3/uL (4.0-11.0) Red Blood Count 2.72 x10^6/uL (4.30-5.70) Hemoglobin 8.1 g/dL (13.0-17.5) Hematocrit 25.0 % (39.0-53.0) Mean Corpuscular Volume 92 fL (79-100) Mean Corpuscular Hemoglobin 30 pg (25-35) Mean Corpuscular Hemoglobin Concent 32 g/dL (31-37) Red Cell Distribution Width 15.8 % (11.5-14.5) Platelet Count 262 x10^3/uL (140-400) Neutrophils (%) (Auto) 80 % (31-73) Lymphocytes (%) (Auto) 8 % (24-48) Monocytes (%) (Auto) 12 % (0-9) Eosinophils (%) (Auto) 0 % (0-3) Basophils (%) (Auto) 0 % (0-3) Neutrophils # (Auto) 12.7 x10^3/uL (1.8-7.7) Lymphocytes # (Auto) 1.3 x10^3/uL (1.0-4.8) Monocytes # (Auto) 1.9 x10^3/uL (0.0-1.1) Eosinophils # (Auto) 0.0 x10^3/uL (0.0-0.7) Basophils # (Auto) 0.0 x10^3/uL (0.0-0.2) Segmented Neutrophils % 83 % (35-66) Band Neutrophils % 4 % (0-9) Lymphocytes % 8 % (24-48) Monocytes % 4 % (0-10) Metamyelocytes % 1 % (0-0) Platelet Estimate Adequate (ADEQUATE) Sodium Level 134 mmol/L (136-145) Potassium Level 4.8 mmol/L (3.5-5.1) Chloride Level 95 mmol/L (98-107) Carbon Dioxide Level 25 mmol/L (21-32) Anion Gap 14 (6-14) Blood Urea Nitrogen 55 mg/dL (8-26) Creatinine 6.0 mg/dL (0.7-1.3) Estimated GFR (Cockcroft-Gault) 9.0 Glucose Level 239 mg/dL (70-99) Calcium Level 8.1 mg/dL (8.5-10.1) Review of Systems Review of Systems: Unable to obtain ROS due to pt being asleep Assessment and Plan Assessmemt and Plan Problems Medical Problems: (1) Acute on chronic renal failure Status: Acute (2) Anemia Status: Acute (3) CAD (coronary artery disease) Status: Chronic (4) Elevated troponin Status: Acute (5) GERD (gastroesophageal reflux disease) Status: Chronic (6) Hyperkalemia Status: Acute (7) Hypoglycemia Status: Acute Plan ICU monitoring Transfer in progress Hold metformin per nephrology Hold thiazide and ACEi per nephrology IV fluids Trend enzymes Home meds DVT prophylaxis Full code Comment Review of Relevant I have reviewed the following items yu (where applicable) has been applied. Medications: Current Medications Medications (Trade) Dose Ordered Sig/Nathalie Route PRN Reason Start Time Stop Time Status Last Admin Dose Admin Insulin Human Lispro (HumaLOG) 0-5 UNITS TIDWMEALS SQ 06/02/19 18:30 06/02/19 21:40 DC 06/02/19 18:31 Lorazepam (Ativan Inj) 0.5 mg 1X ONCE IV 06/02/19 22:00 06/02/19 22:01 DC 06/02/19 21:49 Insulin Human Lispro (HumaLOG) 0-5 UNITS QIDACHS SQ 06/02/19 22:00 06/02/19 21:52 MIKAEL OLIVER III DO Jun 03, 2019 12:23
[2019-06-03 13:23] LABS: BILIRUBIN,URINE NEGATIVE (NEG); CLARITY,URINE CLEAR; COLOR,URINE YELLOW; NITRITE,URINE NEGATIVE (NEG); PROTEIN,URINE 30 mg/dL (NEG-TRACE); UROBILINOGEN,URINE 0.2 mg/dL (0.2 mg/dL)
[2019-06-03] MEDS: FERROUS SULFATE 325 MG TABLET. PO SCH ×2 (13:24→18:15)
[2019-06-03] MEDS: ACETAMINOPHEN 325 MG TABLET. PO PRN (13:24)
[2019-06-03 13:26] LABS: WBC,URINE OCC /HPF (0-4)
[2019-06-03 13:27] LABS: BACTERIA,URINE 0 /HPF (0-FEW)
[2019-06-03] MEDS: cefTRIAXone IV Push 1 GM VIAL. IVP SCH (15:56)
[2019-06-03 16:00] VITALS: BP 144/83
[2019-06-03] MEDS ORDERED: ONDANSETRON PF 4 MG/2 ML VIAL. IVP PRN (18:30)
[2019-06-03 20:00] VITALS: BP 159/77
[2019-06-03] MEDS: ATORVASTATIN CALCIUM 20 MG TABLET PO SCH (20:59)
[2019-06-03] MEDS: TAMSULOSIN 0.4 MG CAP.ER.24H. PO SCH (21:00)
[2019-06-03] MEDS: GABAPENTIN 300 MG CAPSULE. PO SCH (21:00)
[2019-06-04] VITALS (7 sets, daily range): BP systolic 117–186; BP diastolic 58–88
[2019-06-04] MEDS: SODIUM BICARBONATE VIAL 50 MEQ in IV DEXTROSE 5 %-0.45 % NACL 1,000 ML IV SCH (03:00)
[2019-06-04 05:29] LABS: BASO # 0.1 x10^3/uL (0.0-0.2); BASO % 0 % (0-3); EOS % 0 % (0-3); HEMATOCRIT 22.5 % (39.0-53.0); HEMOGLOBIN 7.5 g/dL (13.0-17.5); LYMPH # 1.2 x10^3/uL (1.0-4.8); LYMPH % 6 % (24-48); MEAN CORPUSCULAR HEMOGLOBIN 30 pg (25-35); MEAN CORPUSCULAR HGB CONC 33 g/dL (31-37); MEAN CORPUSCULAR VOLUME 90 fL (79-100); MONO # 1.8 x10^3/uL (0.0-1.1); MONO % 9 % (0-9); NEUT % 84 % (31-73); PLATELET COUNT 253 x10^3/uL (140-400); RED BLOOD COUNT 2.51 x10^6/uL (4.30-5.70); RED CELL DISTRIBUTION WIDTH 15.3 % (11.5-14.5); WHITE BLOOD COUNT 19.1 x10^3/uL (4.0-11.0)
[2019-06-04] MEDS: LEVOTHYROXINE 25 MCG TABLET. PO SCH (06:05)
[2019-06-04 06:40] LABS: CALCIUM 7.9 mg/dL (8.5-10.1); CREATININE 5.5 mg/dL (0.7-1.3); POTASSIUM 4.5 mmol/L (3.5-5.1)
[2019-06-04] MEDS: ACETAMINOPHEN 325 MG TABLET. PO PRN ×2 (08:01→16:25)
[2019-06-04] MEDS: METOPROLOL SUCC 24HR ER 25 MG TAB.ER.24H. PO SCH (08:01)
[2019-06-04] MEDS: PANTOPRAZOLE 40 MG TABLET.DR. PO SCH ×2 (08:01→16:25)
[2019-06-04] MEDS: LACTOBACILLUS RHAMNOSUS GG 1 CAPSULE. PO SCH ×2 (08:01→22:04)
[2019-06-04] MEDS: FERROUS SULFATE 325 MG TABLET. PO SCH ×2 (08:01→16:25)
[2019-06-04] MEDS: ASPIRIN ENTERIC COATED 81 MG TABLET.DR. PO SCH (08:02)
[2019-06-04] MEDS: INSULIN LISPRO 300 UNITS/3 ML VIAL. SQ SCH ×4 (09:34→22:02)
[2019-06-04] MEDS: DEXTROSE IV SCH ×2 (10:51→22:04)
[2019-06-04] MEDS: NACL IV SCH ×2 (10:51→22:04)
[2019-06-04] MEDS: SODIUM BICARBONATE IV SCH ×2 (10:51→22:04)
--- NOTE | 2019-06-04 11:11 | PDOC ---
[facility] PROGRESS NOTE Chief Complaint Chief Complaint Mental status change Hyperkalemia Renal Failure acute on chronic History of Present Illness History of Present Illness 06/04/19 Pt seen and examined in the ICU Pt was sitting in seat Accompanied by family members Family reports some confusion Charts and labs reviewed WBC is 19.1, up from 15.9 Hgb is 2.51, down from 2.72 D/w RN 06/03/19 Pt was seen and examined in the ICU Pt was asleep in bed Accompanied by son-in-law Discussed care plan with son-in-law Pt is off levophed Charts and labs reviewed WBC is 15.9 up from 11.1 RBC is 2.72 up from 2.63 Hgb is 8.1, up from 7.8 Potassium is 4.8, down from 5.3 BUN is 55 Cr is 6.0 D/w RN 06/02/19 Pt was seen and examined in the ICU Pt was responsive, but quiet Accompanied with family Family reported that pt has hallucinations and is aware that they are hallucinations Continued discussing with family about medical conditions. Family will talk to injection specialist about likelihood of dialysis Chart and labs reviewed EF 60% Potassium is 5.3, down from 6.2 BUN is 63, down from 69 Cr is 7, down from 7.7 D/w RN 06/01/19 Pt was seen and examined in the ICU Pt was awake and eating lunch. 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 AISHA RN Vitals/I&O Vitals/I&O: Vital Signs Date Time Temp Pulse Resp B/P (MAP) Pulse Ox O2 Delivery O2 Flow Rate FiO2 06/04/19 08:01 132 176/88 06/04/19 08:00 98.8 28 95 Nasal Cannula 2.0 98.8 I & O 06/03/19 06/03/19 06/04/19 15:00 23:00 07:00 Intake Total 1080 ml 390 ml 460 ml Output Total 1580 ml 480 ml 475 ml Balance -500 ml -90 ml -15 ml Physical Exam General: mild distress, Other (drowsy) Heart: Regular rate (SR), Normal S1, Normal S2, Other (3/6 apical murmur) Lungs: Clear Abdomen: Soft, No tenderness Extremities: No cyanosis, No edema Skin: Other (diaphoretic) Labs Labs: Laboratory Tests Test 06/03/19 11:58 06/03/19 12:50 06/03/19 13:15 06/03/19 17:31 Glucose (Fingerstick) 363 mg/dL (70-99) 200 mg/dL (70-99) Lactic Acid Level 1.3 mmol/L (0.4-2.0) Urine Collection Type Unknown Urine Color Yellow Urine Clarity Clear Urine pH 7.0 Urine Specific [place] 1.015 Urine Protein 30 mg/dL (NEG-TRACE) Urine Glucose (UA) >=1000 mg/dL (NEG) Urine Ketones (Stick) Negative mg/dL (NEG) Urine Blood Large (NEG) Urine Nitrite Negative (NEG) Urine Bilirubin Negative (NEG) Urine Urobilinogen Dipstick 0.2 mg/dL (0.2 mg/dL) Urine Leukocyte Esterase Negative (NEG) Urine RBC 11-20 /HPF (0-2) Urine WBC Occ /HPF (0-4) Urine Bacteria 0 /HPF (0-FEW) Test 06/03/19 21:14 06/04/19 05:00 Glucose (Fingerstick) 267 mg/dL (70-99) White Blood Count 19.1 x10^3/uL (4.0-11.0) Red Blood Count 2.51 x10^6/uL (4.30-5.70) Hemoglobin 7.5 g/dL (13.0-17.5) Hematocrit 22.5 % (39.0-53.0) Mean Corpuscular Volume 90 fL (79-100) Mean Corpuscular Hemoglobin 30 pg (25-35) Mean Corpuscular Hemoglobin Concent 33 g/dL (31-37) Red Cell Distribution Width 15.3 % (11.5-14.5) Platelet Count 253 x10^3/uL (140-400) Neutrophils (%) (Auto) 84 % (31-73) Lymphocytes (%) (Auto) 6 % (24-48) Monocytes (%) (Auto) 9 % (0-9) Eosinophils (%) (Auto) 0 % (0-3) Basophils (%) (Auto) 0 % (0-3) Neutrophils # (Auto) 16.0 x10^3/uL (1.8-7.7) Lymphocytes # (Auto) 1.2 x10^3/uL (1.0-4.8) Monocytes # (Auto) 1.8 x10^3/uL (0.0-1.1) Eosinophils # (Auto) 0.0 x10^3/uL (0.0-0.7) Basophils # (Auto) 0.1 x10^3/uL (0.0-0.2) Sodium Level 132 mmol/L (136-145) Potassium Level 4.5 mmol/L (3.5-5.1) Chloride Level 95 mmol/L (98-107) Carbon Dioxide Level 25 mmol/L (21-32) Anion Gap 12 (6-14) Blood Urea Nitrogen 54 mg/dL (8-26) Creatinine 5.5 mg/dL (0.7-1.3) Estimated GFR (Cockcroft-Gault) 10.0 Glucose Level 274 mg/dL (70-99) Calcium Level 7.9 mg/dL (8.5-10.1) Review of Systems Review of Systems: Pt co fever Pt denies pain Assessment and Plan Assessmemt and Plan Problems Medical Problems: (1) Acute on chronic renal failure Status: Acute (2) Anemia Status: Acute (3) CAD (coronary artery disease) Status: Chronic (4) Elevated troponin Status: Acute (5) GERD (gastroesophageal reflux disease) Status: Chronic (6) Hyperkalemia Status: Acute (7) Hypoglycemia Status: Acute Assessment Acute on chronic renal failure Hyperkalemia is fixed CAD GERD Hypoglycemia Anemia Plan ICU monitoring Await input from nephrology IV fluids. Changed to Normal saline IV Trend Cr Home meds DVT prophylaxis Full code Comment Review of Relevant I have reviewed the following items yu (where applicable) has been applied. Medications: Current Medications Medications (Trade) Dose Ordered Sig/Nathalie Route PRN Reason Start Time Stop Time Status Last Admin Dose Admin Acetaminophen (Tylenol) 650 mg PRN Q6HRS PRN PO PAIN 06/03/19 12:00 06/04/19 08:01 Sodium Bicarbonate 50 meq/Dextrose/ Sodium Chloride 1,050 ml @ 150 mls/hr Q7H IV 06/04/19 11:00 06/04/19 10:51 MIKAEL OLIVER III DO Jun 04, 2019 11:10
--- NOTE | 2019-06-04 13:48 | PDOC ---
PROGRESS NOTES Subjective Subjective SEEN IN FOLLOW UP OF ARF . NO CP OR SOB. NO N/V Objective Objective Vital Signs Date Time Temp Pulse Resp B/P (MAP) Pulse Ox O2 Delivery O2 Flow Rate FiO2 06/04/19 08:01 132 176/88 06/04/19 08:00 98.8 28 95 Nasal Cannula 2.0 98.8 Intake and Output 06/04/19 07:00 Intake Total 1930 ml Output Total 2535 ml Balance -605 ml Intake Oral 1930 ml Output Urine Total 2535 ml Physical Exam Abdomen: Normal bowel sounds, Soft, No tenderness, No hepatosplenomegaly, No masses Heart: Regular rate, Normal S1, Normal S2, No murmurs, Gallops Extremities: No clubbing, No cyanosis, No edema, Normal pulses, No tenderness/ swelling General: Alert Lungs: Clear to auscultation, Normal air movement Diagnosis RENAL FAILURE: Acute Assessment Assessment Problems Medical Problems: (1) Acute on chronic renal failure Status: Acute (2) Anemia Status: Acute (3) CAD (coronary artery disease) Status: Chronic (4) Elevated troponin Status: Acute (5) GERD (gastroesophageal reflux disease) Status: Chronic (6) Hyperkalemia Status: Acute (7) Hypoglycemia Status: Acute Plan Plan of Care RENAL FUNCTION IS IMPROVING WITH IVF. WILL CONT IVF AND FOLLOW Comment Review of Relevant I have reviewed the following items yu (where applicable) has been applied. Labs Laboratory Tests Test 06/02/19 17:45 06/02/19 20:25 06/03/19 08:45 06/03/19 11:58 Glucose (Fingerstick) 371 mg/dL (70-99) 267 mg/dL (70-99) 363 mg/dL (70-99) White Blood Count 15.9 x10^3/uL (4.0-11.0) Red Blood Count 2.72 x10^6/uL (4.30-5.70) Hemoglobin 8.1 g/dL (13.0-17.5) Hematocrit 25.0 % (39.0-53.0) Mean Corpuscular Volume 92 fL (79-100) Mean Corpuscular Hemoglobin 30 pg (25-35) Mean Corpuscular Hemoglobin Concent 32 g/dL (31-37) Red Cell Distribution Width 15.8 % (11.5-14.5) Platelet Count 262 x10^3/uL (140-400) Neutrophils (%) (Auto) 80 % (31-73) Lymphocytes (%) (Auto) 8 % (24-48) Monocytes (%) (Auto) 12 % (0-9) Eosinophils (%) (Auto) 0 % (0-3) Basophils (%) (Auto) 0 % (0-3) Neutrophils # (Auto) 12.7 x10^3/uL (1.8-7.7) Lymphocytes # (Auto) 1.3 x10^3/uL (1.0-4.8) Monocytes # (Auto) 1.9 x10^3/uL (0.0-1.1) Eosinophils # (Auto) 0.0 x10^3/uL (0.0-0.7) Basophils # (Auto) 0.0 x10^3/uL (0.0-0.2) Segmented Neutrophils % 83 % (35-66) Band Neutrophils % 4 % (0-9) Lymphocytes % 8 % (24-48) Monocytes % 4 % (0-10) Metamyelocytes % 1 % (0-0) Platelet Estimate Adequate (ADEQUATE) Sodium Level 134 mmol/L (136-145) Potassium Level 4.8 mmol/L (3.5-5.1) Chloride Level 95 mmol/L (98-107) Carbon Dioxide Level 25 mmol/L (21-32) Anion Gap 14 (6-14) Blood Urea Nitrogen 55 mg/dL (8-26) Creatinine 6.0 mg/dL (0.7-1.3) Estimated GFR (Cockcroft-Gault) 9.0 Glucose Level 239 mg/dL (70-99) Calcium Level 8.1 mg/dL (8.5-10.1) Test 06/03/19 12:50 06/03/19 13:15 06/03/19 17:31 06/03/19 21:14 Lactic Acid Level 1.3 mmol/L (0.4-2.0) Urine Collection Type Unknown Urine Color Yellow Urine Clarity Clear Urine pH 7.0 Urine Specific [place] 1.015 Urine Protein 30 mg/dL (NEG-TRACE) Urine Glucose (UA) >=1000 mg/dL (NEG) Urine Ketones (Stick) Negative mg/dL (NEG) Urine Blood Large (NEG) Urine Nitrite Negative (NEG) Urine Bilirubin Negative (NEG) Urine Urobilinogen Dipstick 0.2 mg/dL (0.2 mg/dL) Urine Leukocyte Esterase Negative (NEG) Urine RBC 11-20 /HPF (0-2) Urine WBC Occ /HPF (0-4) Urine Bacteria 0 /HPF (0-FEW) Glucose (Fingerstick) 200 mg/dL (70-99) 267 mg/dL (70-99) Test 06/04/19 05:00 06/04/19 12:02 White Blood Count 19.1 x10^3/uL (4.0-11.0) Red Blood Count 2.51 x10^6/uL (4.30-5.70) Hemoglobin 7.5 g/dL (13.0-17.5) Hematocrit 22.5 % (39.0-53.0) Mean Corpuscular Volume 90 fL (79-100) Mean Corpuscular Hemoglobin 30 pg (25-35) Mean Corpuscular Hemoglobin Concent 33 g/dL (31-37) Red Cell Distribution Width 15.3 % (11.5-14.5) Platelet Count 253 x10^3/uL (140-400) Neutrophils (%) (Auto) 84 % (31-73) Lymphocytes (%) (Auto) 6 % (24-48) Monocytes (%) (Auto) 9 % (0-9) Eosinophils (%) (Auto) 0 % (0-3) Basophils (%) (Auto) 0 % (0-3) Neutrophils # (Auto) 16.0 x10^3/uL (1.8-7.7) Lymphocytes # (Auto) 1.2 x10^3/uL (1.0-4.8) Monocytes # (Auto) 1.8 x10^3/uL (0.0-1.1) Eosinophils # (Auto) 0.0 x10^3/uL (0.0-0.7) Basophils # (Auto) 0.1 x10^3/uL (0.0-0.2) Sodium Level 132 mmol/L (136-145) Potassium Level 4.5 mmol/L (3.5-5.1) Chloride Level 95 mmol/L (98-107) Carbon Dioxide Level 25 mmol/L (21-32) Anion Gap 12 (6-14) Blood Urea Nitrogen 54 mg/dL (8-26) Creatinine 5.5 mg/dL (0.7-1.3) Estimated GFR (Cockcroft-Gault) 10.0 Glucose Level 274 mg/dL (70-99) Calcium Level 7.9 mg/dL (8.5-10.1) Glucose (Fingerstick) 276 mg/dL (70-99) Laboratory Tests Test 06/03/19 17:31 06/03/19 21:14 06/04/19 05:00 06/04/19 12:02 Glucose (Fingerstick) 200 mg/dL (70-99) 267 mg/dL (70-99) 276 mg/dL (70-99) White Blood Count 19.1 x10^3/uL (4.0-11.0) Red Blood Count 2.51 x10^6/uL (4.30-5.70) Hemoglobin 7.5 g/dL (13.0-17.5) Hematocrit 22.5 % (39.0-53.0) Mean Corpuscular Volume 90 fL (79-100) Mean Corpuscular Hemoglobin 30 pg (25-35) Mean Corpuscular Hemoglobin Concent 33 g/dL (31-37) Red Cell Distribution Width 15.3 % (11.5-14.5) Platelet Count 253 x10^3/uL (140-400) Neutrophils (%) (Auto) 84 % (31-73) Lymphocytes (%) (Auto) 6 % (24-48) Monocytes (%) (Auto) 9 % (0-9) Eosinophils (%) (Auto) 0 % (0-3) Basophils (%) (Auto) 0 % (0-3) Neutrophils # (Auto) 16.0 x10^3/uL (1.8-7.7) Lymphocytes # (Auto) 1.2 x10^3/uL (1.0-4.8) Monocytes # (Auto) 1.8 x10^3/uL (0.0-1.1) Eosinophils # (Auto) 0.0 x10^3/uL (0.0-0.7) Basophils # (Auto) 0.1 x10^3/uL (0.0-0.2) Sodium Level 132 mmol/L (136-145) Potassium Level 4.5 mmol/L (3.5-5.1) Chloride Level 95 mmol/L (98-107) Carbon Dioxide Level 25 mmol/L (21-32) Anion Gap 12 (6-14) Blood Urea Nitrogen 54 mg/dL (8-26) Creatinine 5.5 mg/dL (0.7-1.3) Estimated GFR (Cockcroft-Gault) 10.0 Glucose Level 274 mg/dL (70-99) Calcium Level 7.9 mg/dL (8.5-10.1) Microbiology 06/03/19 Blood Culture - Preliminary, Resulted NO GROWTH AFTER 1 DAY Medications Current Medications Morphine Sulfate (Morphine Sulfate) 2 mg PRN Q15MIN PRN IV/SQ PAIN GREATER THAN 3/10 Last administered on 05/31/19at 12:20; Start 05/31/19 at 09:15; Stop 06/01/19 at 09:14; Status DC Ondansetron HCl (Zofran) 4 mg 1X ONCE IV Last administered on 05/31/19at 09:20; Start 05/31/19 at 09:15; Stop 05/31/19 at 09:17; Status DC Ondansetron HCl (Zofran) 4 mg STK-MED ONCE .ROUTE ; Start 05/31/19 at 09:16; Stop 05/31/19 at 09:17; Status DC Calcium Gluconate (Calcium Gluconate) 1,000 mg 1X ONCE IVP Last administered on 05/31/19at 11:59; Start 05/31/19 at 11:30; Stop 05/31/19 at 11:36; Status DC Dextrose (Dextrose 50%-Water Syringe) 25 gm 1X ONCE IV Last administered on 05/31/19at 11:59; Start 05/31/19 at 11:30; Stop 05/31/19 at 11:36; Status DC Insulin Human Regular (HumuLIN R VIAL) 10 unit 1X ONCE IV Last administered on 05/31/19at 11:59; Start 05/31/19 at 11:30; Stop 05/31/19 at 11:36; Status DC Sodium Bicarbonate 50 meq/Dextrose/ Sodium Chloride 1,050 ml @ 150 mls/hr Q7H IV Last administered on 05/31/19at 12:03; Start 05/31/19 at 12:15; Stop 05/31/19 at 13:57; Status DC Magnesium Sulfate/ Dextrose 100 ml @ 100 mls/hr 1X ONCE IV Last administered on 05/31/19at 13:03; Start 05/31/19 at 12:30; Stop 05/31/19 at 13:29; Status DC Ondansetron HCl (Zofran) 4 mg PRN Q8HRS PRN IV NAUSEA/VOMITING Last administered on 06/01/19at 09:47; Start 05/31/19 at 12:45; Stop 06/01/19 at 12:44; Status DC Morphine Sulfate (Morphine Sulfate) 2 mg PRN Q2HR PRN IV PAIN Last administered on 05/31/19at 21:11; Start 05/31/19 at 12:45; Stop 06/01/19 at 12:44; Status DC Levothyroxine Sodium (Synthroid) 25 mcg DAILY06 PO Last administered on 06/04/19at 06:05; Start 06/01/19 at 06:00 Sodium Chloride 1,000 ml @ 75 mls/hr [id number] IV ; Start 05/31/19 at 14:00; Stop 05/31/19 at 15:58; Status DC Ceftriaxone Sodium (Rocephin) 1 gm Q24H IVP Last administered on 06/03/19at 15:56; Start 06/01/19 at 15:00 Ceftriaxone Sodium (Rocephin) 1 gm 1X ONCE IVP Last administered on 05/31/19at 18:07; Start 05/31/19 at 14:30; Stop 05/31/19 at 14:31; Status DC Atorvastatin Calcium (Lipitor) 20 mg QHS PO Last administered on 06/03/19at 20:59; Start 05/31/19 at 21:00 Clopidogrel Bisulfate (Plavix) 75 mg DAILY07 PO Last administered on 06/01/19at 08:33; Start 06/01/19 at 07:00; Stop 06/01/19 at 20:48; Status DC Ferrous Sulfate (Feosol) 325 mg BIDWMEALS PO Last administered on 06/04/19at 08:01; Start 05/31/19 at 17:00 Gabapentin (Neurontin) 300 mg QHS PO Last administered on 06/03/19at 21:00; Start 05/31/19 at 21:00 Glipizide (Glucotrol) 5 mg DAILY PO ; Start 06/01/19 at 09:00; Stop 05/31/19 at 15:37; Status DC Metoprolol Succinate (Toprol Xl) 25 mg DAILY PO Last administered on 06/04/19at 08:01; Start 06/01/19 at 09:00 Pantoprazole Sodium (Protonix) 40 mg BIDAC PO Last administered on 06/04/19at 08:01; Start 05/31/19 at 16:30 Tamsulosin HCl (Flomax) 0.4 mg HS PO Last administered on 06/03/19at 21:00; Start 05/31/19 at 21:00 Sodium Bicarbonate 50 meq/Dextrose/ Sodium Chloride 1,050 ml @ 150 mls/hr Q7H ONCE IV ; Start 05/31/19 at 14:00; Stop 06/01/19 at 11:43; Status DC Sodium Bicarbonate 50 meq/Dextrose/ Sodium Chloride 1,050 ml @ 125 mls/hr Q8H 24M ONCE IV Last administered on 05/31/19at 20:17; Start 05/31/19 at 21:00; Stop 06/01/19 at 11:43; Status DC Pharmacy Consult (C.diff Med Screen By Rx) 1 each 1X ONCE [facility] ; Start 05/31/19 at 17:00; Stop 05/31/19 at 17:15; Status DC Dextrose (Dextrose 50%-Water Syringe) 12.5 gm PRN Q15MIN PRN IV SEE COMMENTS; Start 05/31/19 at 22:45; Stop 06/02/19 at 21:41; Status DC Dextrose 250 ml PRN Q15MIN PRN IV SEE COMMENTS Last administered on 05/31/19at 23:20; Start 05/31/19 at 22:45 Dopamine HCl/ Dextrose 250 ml @ 5.919 mls/ hr CONT PRN IV SEE I/O RECORD Last administered on 06/01/19at 09:18; Start 06/01/19 at 09:15 Atropine Sulfate (ATROPINE 0.5mg SYRINGE) 0.5 mg 1X ONCE IM Last administered on 06/01/19at 09:19; Start 06/01/19 at 09:15; Stop 06/01/19 at 09:18; Status DC Norepinephrine Bitartrate 250 ml @ 0 mls/hr CONT PRN IV SEE I/O RECORD Last administered on 06/01/19at 10:09; Start 06/01/19 at 10:15 Famotidine (Pepcid) 20 mg QHS PO ; Start 06/01/19 at 21:00; Status Cancel Sodium Bicarbonate 50 meq/Dextrose/ Sodium Chloride 1,050 ml @ 150 mls/hr Q7H IV Last administered on 06/04/19at 03:00; Start 06/01/19 at 11:00; Stop 06/04/19 at 10:38; Status DC Lactobacillus Rhamnosus (Culturelle) 1 cap BID PO Last administered on 06/04/19at 08:01; Start 06/01/19 at 12:00 Sodium Polystyrene Sulfonate (Kayexalate) 30 gm 1X ONCE PO Last administered on 06/01/19at 14:04; Start 06/01/19 at 13:45; Stop 06/01/19 at 13:46; Status DC Insulin Human Regular (HumuLIN R VIAL) 10 unit 1X ONCE IV Last administered on 06/01/19at 14:40; Start 06/01/19 at 14:00; Stop 06/01/19 at 14:09; Status DC Dextrose (Dextrose 50%-Water Syringe) 25 gm 1X ONCE IV Last administered on 06/01/19at 14:38; Start 06/01/19 at 14:00; Stop 06/01/19 at 14:09; Status DC Aspirin (Ecotrin) 81 mg [id number] PO Last administered on 06/04/19at 08:02; Start 06/02/19 at 08:00 Insulin Human Lispro (HumaLOG) 0-5 UNITS TIDWMEALS SQ Last administered on 06/02/19at 18:31; Start 06/02/19 at 18:30; Stop 06/02/19 at 21:40; Status DC Dextrose (Dextrose 50%-Water Syringe) 12.5 gm PRN Q15MIN PRN IV SEE COMMENTS; Start 06/02/19 at 18:00; Stop 06/02/19 at 21:41; Status DC Lorazepam (Ativan Inj) 0.5 mg 1X ONCE IV Last administered on 06/02/19at 21:49; Start 06/02/19 at 22:00; Stop 06/02/19 at 22:01; Status DC Insulin Human Lispro (HumaLOG) 0-5 UNITS QIDACHS SQ Last administered on 06/04/19at 13:14; Start 06/02/19 at 22:00 Dextrose (Dextrose 50%-Water Syringe) 12.5 gm PRN Q15MIN PRN IV SEE COMMENTS; Start 06/02/19 at 21:45 Acetaminophen (Tylenol) 650 mg PRN Q6HRS PRN PO PAIN Last administered on 06/04/19at 08:01; Start 06/03/19 at 12:00 Ondansetron HCl (Zofran) 4 mg PRN Q6HRS PRN IVP NAUSEA/VOMITING; Start 06/03/19 at 18:30 Sodium Bicarbonate 50 meq/Dextrose/ Sodium Chloride 1,050 ml @ 150 mls/hr Q7H IV Last administered on 06/04/19at 10:51; Start 06/04/19 at 11:00 Active Scripts Active Augmentin 875-125 Tablet (Amoxicillin/Potassium Clav) 1 Each Tablet 1 Tab PO BID Feosol (Ferrous Sulfate) 325 Mg Tablet 325 Mg PO BIDWMEALS Protonix (Pantoprazole Sodium) 40 Mg Tablet. 1 Tab PO BID Lisinopril-Hctz 10-12.5 Mg Tab (Lisinopril/Hydrochlorothiazide) 1 Each Tablet 1 Tab PO DAILY Clopidogrel (Clopidogrel Bisulfate) 75 Mg Tablet 1 Tab PO DAILY Aspirin Ec (Aspirin) 325 Mg Tablet. 1 Tab PO DAILY Reported Hydrocodone-Apap 5-325 (Hydrocodone Bit/Acetaminophen) 1 Tab Tablet 1 Tab PO PRN Q6HRS PRN Latanoprost 2.5 Ml Drops 1 Drop EACHEYE QHS Melatonin 5 Mg Tablet 5 Mg PO QHS Ultracet Tablet (Tramadol Hcl/Acetaminophen) 1 Each Tablet 1 Tab PO Q12HR PRN Atorvastatin Calcium 20 Mg Tablet 20 Mg PO DAILY Ketoconazole 120 Ml Shampoo 120 Ml TP Gabapentin (Gabapentin) 300 Mg Capsule 300 Mg PO TID Multi-Day Vitamins (Multivitamin) 1 Each Tablet 1 Tab PO DAILY Nitrostat (Nitroglycerin) 0.4 Mg Tab.subl 1 Tab SL UD PRN Metoprolol Succinate ( Xl ) (Metoprolol Succinate) 25 Mg Tab.er.24h 1 Tab PO DAILY Tamsulosin Hcl 0.4 Mg Cap.er.24h 1 Cap PO HS Glipizide 5 Mg Tablet 1 Tab PO DAILY Metformin Hcl 1,000 Mg Tablet 1 Tab PO BID Vitals/I & O Vital Sign - Last 24 Hours 06/03/19 06/03/19 06/03/19 06/04/19 16:00 20:00 20:00 00:02 Temp 98.8 98.8 98.8 98.8 Pulse 95 108 115 Resp 20 20 20 B/P (MAP) 144/83 (103) 159/77 (104) 151/79 (103) Pulse Ox 94 98 91 O2 Delivery Nasal Cannula Nasal Cannula Nasal Cannula Nasal Cannula O2 Flow Rate 2.0 2.0 2.0 2.0 06/04/19 06/04/19 06/04/19 06/04/19 03:00 08:00 08:00 08:01 Temp 97.7 98.8 97.7 98.8 Pulse 120 18 132 Resp 22 28 B/P (MAP) 186/84 (118) 176/88 (117) 176/88 Pulse Ox 97 95 O2 Delivery Nasal Cannula Nasal Cannula Nasal Cannula O2 Flow Rate 3.0 2.0 2.0 Intake and Output 06/03/19 06/03/19 06/04/19 15:00 23:00 07:00 Intake Total 1080 ml 390 ml 460 ml Output Total 1580 ml 480 ml 475 ml Balance -500 ml -90 ml -15 ml DALY BURROUGHS MD Jun 04, 2019 13:48
[2019-06-04] MEDS: cefTRIAXone IV Push 1 GM VIAL. IVP SCH (15:13)
[2019-06-04] MEDS: TAMSULOSIN 0.4 MG CAP.ER.24H. PO SCH (22:04)
[2019-06-04] MEDS: ATORVASTATIN CALCIUM 20 MG TABLET PO SCH (22:04)
[2019-06-04] MEDS: GABAPENTIN 300 MG CAPSULE. PO SCH (22:04)
[2019-06-05] VITALS (11 sets, daily range): BP systolic 129–158; BP diastolic 74–110
[2019-06-05] MEDS: LEVOTHYROXINE 25 MCG TABLET. PO SCH (06:14)
[2019-06-05] MEDS: SODIUM BICARBONATE IV SCH ×3 (06:15→18:41)
[2019-06-05] MEDS: NACL IV SCH ×3 (06:15→18:41)
[2019-06-05] MEDS: DEXTROSE IV SCH ×3 (06:15→18:41)
[2019-06-05 06:40] LABS: BASO % 0 % (0-3); EOS # 0.1 x10^3/uL (0.0-0.7); EOS % 0 % (0-3); LYMPH # 0.9 x10^3/uL (1.0-4.8); LYMPH % 6 % (24-48); MEAN CORPUSCULAR HEMOGLOBIN 30 pg (25-35); MEAN CORPUSCULAR HGB CONC 34 g/dL (31-37); MEAN CORPUSCULAR VOLUME 90 fL (79-100); MONO # 1.3 x10^3/uL (0.0-1.1); MONO % 8 % (0-9); NEUT % 85 % (31-73); PLATELET COUNT 230 x10^3/uL (140-400); RED BLOOD COUNT 2.24 x10^6/uL (4.30-5.70); RED CELL DISTRIBUTION WIDTH 15.3 % (11.5-14.5); WHITE BLOOD COUNT 15.3 x10^3/uL (4.0-11.0)
[2019-06-05 06:48] LABS: HEMATOCRIT 20.1 % (39.0-53.0); HEMOGLOBIN 6.8 g/dL (13.0-17.5)
[2019-06-05 06:56] LABS: CALCIUM 7.7 mg/dL (8.5-10.1); CREATININE 4.7 mg/dL (0.7-1.3); POTASSIUM 4.1 mmol/L (3.5-5.1)
[2019-06-05] MEDS: LACTOBACILLUS RHAMNOSUS GG 1 CAPSULE. PO SCH ×2 (08:40→20:26)
[2019-06-05] MEDS: PANTOPRAZOLE 40 MG TABLET.DR. PO SCH ×2 (08:40→17:29)
[2019-06-05] MEDS: ASPIRIN ENTERIC COATED 81 MG TABLET.DR. PO SCH (08:40)
[2019-06-05] MEDS: METOPROLOL SUCC 24HR ER 25 MG TAB.ER.24H. PO SCH (08:40)
[2019-06-05] MEDS: FERROUS SULFATE 325 MG TABLET. PO SCH ×2 (08:40→17:29)
[2019-06-05] MEDS: INSULIN LISPRO 300 UNITS/3 ML VIAL. SQ SCH ×4 (08:47→20:41)
[2019-06-05 09:19] LABS: BILIRUBIN,URINE NEGATIVE (NEG); CLARITY,URINE CLEAR; NITRITE,URINE NEGATIVE (NEG); PROTEIN,URINE 100 mg/dL (NEG-TRACE); UROBILINOGEN,URINE 0.2 mg/dL (0.2 mg/dL)
[2019-06-05 09:30] LABS: BACTERIA,URINE FEW /HPF (0-FEW); COLOR,URINE PINK; RBC,URINE 20-40 /HPF (0-2)
--- NOTE | 2019-06-05 10:29 | PDOC ---
PROGRESS NOTES Chief Complaint Chief Complaint IMPRESSION Mental status change Hyperkalemia DIABETES anemia, transfuse one unit Renal Failure acute on chronic The kidneys are normal in size and demonstrate normal blood flow. There is no hydronephrosis. There is a 1.9 cm cyst within the upper pole the left kidney. 39 min pt exam, chart review, > 50% of time spent with exam, chart review, pt care coordination History of Present Illness History of Present Illness 06/05/19 Pt seen and examined BEDSIDE Accompanied by family members some confusion Charts and labs reviewed WBC is DOWN TO 15.3 Hgb is 6.8 D/w RN, TRANSFUSE 1 UNIT// SS INSULIN 36 MIN PT EXAM, chart review, > 50% of time spent with exam, chart review, pt care coordination 06/03/19 Pt was seen and examined in the ICU Pt was asleep in bed Accompanied by son-in-law Discussed care plan with son-in-law Pt is off levophed Charts and labs reviewed WBC is 15.9 up from 11.1 RBC is 2.72 up from 2.63 Hgb is 8.1, up from 7.8 Potassium is 4.8, down from 5.3 BUN is 55 Cr is 6.0 D/w RN 06/02/19 Pt was seen and examined in the ICU Pt was responsive, but quiet Accompanied with family Family reported that pt has hallucinations and is aware that they are hallucinations Continued discussing with family about medical conditions. Family will talk to train gate attendant about likelihood of dialysis Chart and labs reviewed EF 60% Potassium is 5.3, down from 6.2 BUN is 63, down from 69 Cr is 7, down from 7.7 D/w RN 06/01/19 Pt was seen and examined in the ICU Pt was awake and eating lunch. He did not seem to have much of an appetite Talked extensively with pt's family about his various medical conditions EF 60% Rubber Press Tender was having a difficult time drawing blood at bedside. AISHA RN Vitals Vitals Vital Signs Date Time Temp Pulse Resp B/P (MAP) Pulse Ox O2 Delivery O2 Flow Rate FiO2 06/05/19 08:40 116 151/76 06/05/19 07:00 98.1 20 95 Nasal Cannula 2.0 98.1 Physical Exam General: Alert, Cooperative, No acute distress Heart: Regular rate, Normal S1, Normal S2, No murmurs, Gallops Lungs: Clear Abdomen: Normal bowel sounds, Soft, No tenderness, No hepatosplenomegaly, No masses Extremities: No clubbing, No cyanosis, No edema, Normal pulses, No tenderness/swelling Skin: Other (diaphoretic) Labs LABS PATIENT: SHARDA VENCES ACCT: [id number] LOC: 6 [facility] U: [id number] AGE/SX: 83/M ROOM: 2 RE05/31/[address]: MIKAEL OLIVER III DO : 1935 BED: 1 DIS: STATUS: ADM IN TLOC: SPEC #: [id number] TOMÁS: 05/31/19 STATUS: COMP REQ #: [id number] RECD: 05/31/19 [facility] DR: YESENIA JOSEPH APRN SOURCE: BLOOD ENTR: 05/31/[address]: JOVITA ENRIQUE MD [facility]: ORDERED: BCULT Procedure Result BLOOD CULTURE Final NO GROWTH AFTER 5 DAYS Laboratory Tests Test 06/04/19 12:02 06/04/19 16:29 06/04/19 21:30 06/05/19 06:00 Glucose (Fingerstick) 276 mg/dL (70-99) 285 mg/dL (70-99) 140 mg/dL (70-99) White Blood Count 15.3 x10^3/uL (4.0-11.0) Red Blood Count 2.24 x10^6/uL (4.30-5.70) Hemoglobin 6.8 g/dL (13.0-17.5) Hematocrit 20.1 % (39.0-53.0) Mean Corpuscular Volume 90 fL (79-100) Mean Corpuscular Hemoglobin 30 pg (25-35) Mean Corpuscular Hemoglobin Concent 34 g/dL (31-37) Red Cell Distribution Width 15.3 % (11.5-14.5) Platelet Count 230 x10^3/uL (140-400) Neutrophils (%) (Auto) 85 % (31-73) Lymphocytes (%) (Auto) 6 % (24-48) Monocytes (%) (Auto) 8 % (0-9) Eosinophils (%) (Auto) 0 % (0-3) Basophils (%) (Auto) 0 % (0-3) Neutrophils # (Auto) 13.0 x10^3/uL (1.8-7.7) Lymphocytes # (Auto) 0.9 x10^3/uL (1.0-4.8) Monocytes # (Auto) 1.3 x10^3/uL (0.0-1.1) Eosinophils # (Auto) 0.1 x10^3/uL (0.0-0.7) Basophils # (Auto) 0.0 x10^3/uL (0.0-0.2) Sodium Level 130 mmol/L (136-145) Potassium Level 4.1 mmol/L (3.5-5.1) Chloride Level 94 mmol/L (98-107) Carbon Dioxide Level 26 mmol/L (21-32) Anion Gap 10 (6-14) Blood Urea Nitrogen 55 mg/dL (8-26) Creatinine 4.7 mg/dL (0.7-1.3) Estimated GFR (Cockcroft-Gault) 12.0 Glucose Level 231 mg/dL (70-99) Calcium Level 7.7 mg/dL (8.5-10.1) Test 06/05/19 07:23 06/05/19 08:45 Glucose (Fingerstick) 226 mg/dL (70-99) Urine Collection Type Unknown Urine Color [place] Urine Clarity Clear Urine pH 7.0 Urine Specific [place] 1.015 Urine Protein 100 mg/dL (NEG-TRACE) Urine Glucose (UA) 500 mg/dL (NEG) Urine Ketones (Stick) 15 mg/dL (NEG) Urine Blood Large (NEG) Urine Nitrite Negative (NEG) Urine Bilirubin Negative (NEG) Urine Urobilinogen Dipstick 0.2 mg/dL (0.2 mg/dL) Urine Leukocyte Esterase Trace (NEG) Urine RBC 20-40 /HPF (0-2) Urine WBC 1-4 /HPF (0-4) Urine Squamous Epithelial Cells None /LPF Urine Bacteria Few /HPF (0-FEW) Assessment and Plan Assessmemt and Plan Problems Medical Problems: (1) Acute on chronic renal failure Status: Acute (2) Anemia Status: Acute (3) CAD (coronary artery disease) Status: Chronic (4) Elevated troponin Status: Acute (5) GERD (gastroesophageal reflux disease) Status: Chronic (6) Hyperkalemia Status: Acute (7) Hypoglycemia Status: Acute Comment Review of Relevant I have reviewed the following items yu (where applicable) has been applied. Labs Laboratory Tests Test 06/03/19 11:58 06/03/19 12:50 06/03/19 13:15 06/03/19 17:31 Glucose (Fingerstick) 363 mg/dL (70-99) 200 mg/dL (70-99) Lactic Acid Level 1.3 mmol/L (0.4-2.0) Urine Collection Type Unknown Urine Color Yellow Urine Clarity Clear Urine pH 7.0 Urine Specific [place] 1.015 Urine Protein 30 mg/dL (NEG-TRACE) Urine Glucose (UA) >=1000 mg/dL (NEG) Urine Ketones (Stick) Negative mg/dL (NEG) Urine Blood Large (NEG) Urine Nitrite Negative (NEG) Urine Bilirubin Negative (NEG) Urine Urobilinogen Dipstick 0.2 mg/dL (0.2 mg/dL) Urine Leukocyte Esterase Negative (NEG) Urine RBC 11-20 /HPF (0-2) Urine WBC Occ /HPF (0-4) Urine Bacteria 0 /HPF (0-FEW) Test 06/03/19 21:14 06/04/19 05:00 06/04/19 12:02 06/04/19 16:29 Glucose (Fingerstick) 267 mg/dL (70-99) 276 mg/dL (70-99) 285 mg/dL (70-99) White Blood Count 19.1 x10^3/uL (4.0-11.0) Red Blood Count 2.51 x10^6/uL (4.30-5.70) Hemoglobin 7.5 g/dL (13.0-17.5) Hematocrit 22.5 % (39.0-53.0) Mean Corpuscular Volume 90 fL (79-100) Mean Corpuscular Hemoglobin 30 pg (25-35) Mean Corpuscular Hemoglobin Concent 33 g/dL (31-37) Red Cell Distribution Width 15.3 % (11.5-14.5) Platelet Count 253 x10^3/uL (140-400) Neutrophils (%) (Auto) 84 % (31-73) Lymphocytes (%) (Auto) 6 % (24-48) Monocytes (%) (Auto) 9 % (0-9) Eosinophils (%) (Auto) 0 % (0-3) Basophils (%) (Auto) 0 % (0-3) Neutrophils # (Auto) 16.0 x10^3/uL (1.8-7.7) Lymphocytes # (Auto) 1.2 x10^3/uL (1.0-4.8) Monocytes # (Auto) 1.8 x10^3/uL (0.0-1.1) Eosinophils # (Auto) 0.0 x10^3/uL (0.0-0.7) Basophils # (Auto) 0.1 x10^3/uL (0.0-0.2) Sodium Level 132 mmol/L (136-145) Potassium Level 4.5 mmol/L (3.5-5.1) Chloride Level 95 mmol/L (98-107) Carbon Dioxide Level 25 mmol/L (21-32) Anion Gap 12 (6-14) Blood Urea Nitrogen 54 mg/dL (8-26) Creatinine 5.5 mg/dL (0.7-1.3) Estimated GFR (Cockcroft-Gault) 10.0 Glucose Level 274 mg/dL (70-99) Calcium Level 7.9 mg/dL (8.5-10.1) Test 06/04/19 21:30 06/05/19 06:00 06/05/19 07:23 06/05/19 08:45 Glucose (Fingerstick) 140 mg/dL (70-99) 226 mg/dL (70-99) White Blood Count 15.3 x10^3/uL (4.0-11.0) Red Blood Count 2.24 x10^6/uL (4.30-5.70) Hemoglobin 6.8 g/dL (13.0-17.5) Hematocrit 20.1 % (39.0-53.0) Mean Corpuscular Volume 90 fL (79-100) Mean Corpuscular Hemoglobin 30 pg (25-35) Mean Corpuscular Hemoglobin Concent 34 g/dL (31-37) Red Cell Distribution Width 15.3 % (11.5-14.5) Platelet Count 230 x10^3/uL (140-400) Neutrophils (%) (Auto) 85 % (31-73) Lymphocytes (%) (Auto) 6 % (24-48) Monocytes (%) (Auto) 8 % (0-9) Eosinophils (%) (Auto) 0 % (0-3) Basophils (%) (Auto) 0 % (0-3) Neutrophils # (Auto) 13.0 x10^3/uL (1.8-7.7) Lymphocytes # (Auto) 0.9 x10^3/uL (1.0-4.8) Monocytes # (Auto) 1.3 x10^3/uL (0.0-1.1) Eosinophils # (Auto) 0.1 x10^3/uL (0.0-0.7) Basophils # (Auto) 0.0 x10^3/uL (0.0-0.2) Sodium Level 130 mmol/L (136-145) Potassium Level 4.1 mmol/L (3.5-5.1) Chloride Level 94 mmol/L (98-107) Carbon Dioxide Level 26 mmol/L (21-32) Anion Gap 10 (6-14) Blood Urea Nitrogen 55 mg/dL (8-26) Creatinine 4.7 mg/dL (0.7-1.3) Estimated GFR (Cockcroft-Gault) 12.0 Glucose Level 231 mg/dL (70-99) Calcium Level 7.7 mg/dL (8.5-10.1) Urine Collection Type Unknown Urine Color [place] Urine Clarity Clear Urine pH 7.0 Urine Specific [place] 1.015 Urine Protein 100 mg/dL (NEG-TRACE) Urine Glucose (UA) 500 mg/dL (NEG) Urine Ketones (Stick) 15 mg/dL (NEG) Urine Blood Large (NEG) Urine Nitrite Negative (NEG) Urine Bilirubin Negative (NEG) Urine Urobilinogen Dipstick 0.2 mg/dL (0.2 mg/dL) Urine Leukocyte Esterase Trace (NEG) Urine RBC 20-40 /HPF (0-2) Urine WBC 1-4 /HPF (0-4) Urine Squamous Epithelial Cells None /LPF Urine Bacteria Few /HPF (0-FEW) Laboratory Tests Test 06/04/19 12:02 06/04/19 16:29 06/04/19 21:30 06/05/19 06:00 Glucose (Fingerstick) 276 mg/dL (70-99) 285 mg/dL (70-99) 140 mg/dL (70-99) White Blood Count 15.3 x10^3/uL (4.0-11.0) Red Blood Count 2.24 x10^6/uL (4.30-5.70) Hemoglobin 6.8 g/dL (13.0-17.5) Hematocrit 20.1 % (39.0-53.0) Mean Corpuscular Volume 90 fL (79-100) Mean Corpuscular Hemoglobin 30 pg (25-35) Mean Corpuscular Hemoglobin Concent 34 g/dL (31-37) Red Cell Distribution Width 15.3 % (11.5-14.5) Platelet Count 230 x10^3/uL (140-400) Neutrophils (%) (Auto) 85 % (31-73) Lymphocytes (%) (Auto) 6 % (24-48) Monocytes (%) (Auto) 8 % (0-9) Eosinophils (%) (Auto) 0 % (0-3) Basophils (%) (Auto) 0 % (0-3) Neutrophils # (Auto) 13.0 x10^3/uL (1.8-7.7) Lymphocytes # (Auto) 0.9 x10^3/uL (1.0-4.8) Monocytes # (Auto) 1.3 x10^3/uL (0.0-1.1) Eosinophils # (Auto) 0.1 x10^3/uL (0.0-0.7) Basophils # (Auto) 0.0 x10^3/uL (0.0-0.2) Sodium Level 130 mmol/L (136-145) Potassium Level 4.1 mmol/L (3.5-5.1) Chloride Level 94 mmol/L (98-107) Carbon Dioxide Level 26 mmol/L (21-32) Anion Gap 10 (6-14) Blood Urea Nitrogen 55 mg/dL (8-26) Creatinine 4.7 mg/dL (0.7-1.3) Estimated GFR (Cockcroft-Gault) 12.0 Glucose Level 231 mg/dL (70-99) Calcium Level 7.7 mg/dL (8.5-10.1) Test 06/05/19 07:23 06/05/19 08:45 Glucose (Fingerstick) 226 mg/dL (70-99) Urine Collection Type Unknown Urine Color [place] Urine Clarity Clear Urine pH 7.0 Urine Specific [place] 1.015 Urine Protein 100 mg/dL (NEG-TRACE) Urine Glucose (UA) 500 mg/dL (NEG) Urine Ketones (Stick) 15 mg/dL (NEG) Urine Blood Large (NEG) Urine Nitrite Negative (NEG) Urine Bilirubin Negative (NEG) Urine Urobilinogen Dipstick 0.2 mg/dL (0.2 mg/dL) Urine Leukocyte Esterase Trace (NEG) Urine RBC 20-40 /HPF (0-2) Urine WBC 1-4 /HPF (0-4) Urine Squamous Epithelial Cells None /LPF Urine Bacteria Few /HPF (0-FEW) Microbiology 06/03/19 Blood Culture - Preliminary, Resulted NO GROWTH AFTER 1 DAY Medications Current Medications Morphine Sulfate (Morphine Sulfate) 2 mg PRN Q15MIN PRN IV/SQ PAIN GREATER THAN 3/10 Last administered on 05/31/19at 12:20; Start 05/31/19 at 09:15; Stop at 09:14; Status DC Ondansetron HCl (Zofran) 4 mg 1X ONCE IV Last administered on 05/31/19at 09:20; Start 05/31/19 at 09:15; Stop 05/31/19 at 09:17; Status DC Ondansetron HCl (Zofran) 4 mg STK-MED ONCE .ROUTE ; Start 05/31/19 at 09:16; Stop 05/31/19 at 09:17; Status DC Calcium Gluconate (Calcium Gluconate) 1,000 mg 1X ONCE IVP Last administered on 05/31/19at 11:59; Start 05/31/19 at 11:30; Stop 05/31/19 at 11:36; Status DC Dextrose (Dextrose 50%-Water Syringe) 25 gm 1X ONCE IV Last administered on 05/31/19at 11:59; Start 05/31/19 at 11:30; Stop 05/31/19 at 11:36; Status DC Insulin Human Regular (HumuLIN R VIAL) 10 unit 1X ONCE IV Last administered on 05/31/19at 11:59; Start 05/31/19 at 11:30; Stop 05/31/19 at 11:36; Status DC Sodium Bicarbonate 50 meq/Dextrose/ Sodium Chloride 1,050 ml @ 150 mls/hr Q7H IV Last administered on 05/31/19at 12:03; Start 05/31/19 at 12:15; Stop 05/31/19 at 13:57; Status DC Magnesium Sulfate/ Dextrose 100 ml @ 100 mls/hr 1X ONCE IV Last administered on 05/31/19at 13:03; Start 05/31/19 at 12:30; Stop 05/31/19 at 13:29; Status DC Ondansetron HCl (Zofran) 4 mg PRN Q8HRS PRN IV NAUSEA/VOMITING Last administered on 06/01/19at 09:47; Start 05/31/19 at 12:45; Stop 06/01/19 at 12:44; Status DC Morphine Sulfate (Morphine Sulfate) 2 mg PRN Q2HR PRN IV PAIN Last administered on 05/31/19at 21:11; Start 05/31/19 at 12:45; Stop 06/01/19 at 12:44; Status DC Levothyroxine Sodium (Synthroid) 25 mcg DAILY06 PO Last administered on 06/05/19at 06:14; Start 06/01/19 at 06:00 Sodium Chloride 1,000 ml @ 75 mls/hr [id number] IV ; Start 05/31/19 at 14:00; Stop 05/31/19 at 15:58; Status DC Ceftriaxone Sodium (Rocephin) 1 gm Q24H IVP Last administered on 06/04/19at 15:13; Start 06/01/19 at 15:00 Ceftriaxone Sodium (Rocephin) 1 gm 1X ONCE IVP Last administered on 05/31/19at 18:07; Start 05/31/19 at 14:30; Stop 05/31/19 at 14:31; Status DC Atorvastatin Calcium (Lipitor) 20 mg QHS PO Last administered on 06/04/19at 22:04; Start 05/31/19 at 21:00 Clopidogrel Bisulfate (Plavix) 75 mg DAILY07 PO Last administered on 06/01/19at 08:33; Start 06/01/19 at 07:00; Stop 06/01/19 at 20:48; Status DC Ferrous Sulfate (Feosol) 325 mg BIDWMEALS PO Last administered on 06/05/19at 08:40; Start 05/31/19 at 17:00 Gabapentin (Neurontin) 300 mg QHS PO Last administered on 06/04/19at 22:04; Start 05/31/19 at 21:00 Glipizide (Glucotrol) 5 mg DAILY PO ; Start 06/01/19 at 09:00; Stop 05/31/19 at 15:37; Status DC Metoprolol Succinate (Toprol Xl) 25 mg DAILY PO Last administered on 06/05/19at 08:40; Start 06/01/19 at 09:00 Pantoprazole Sodium (Protonix) 40 mg BIDAC PO Last administered on 06/05/19at 08:40; Start 05/31/19 at 16:30 Tamsulosin HCl (Flomax) 0.4 mg HS PO Last administered on 06/04/19at 22:04; Start 05/31/19 at 21:00 Sodium Bicarbonate 50 meq/Dextrose/ Sodium Chloride 1,050 ml @ 150 mls/hr Q7H ONCE IV ; Start 05/31/19 at 14:00; Stop 06/01/19 at 11:43; Status DC Sodium Bicarbonate 50 meq/Dextrose/ Sodium Chloride 1,050 ml @ 125 mls/hr Q8H24M ONCE IV Last administered on 05/31/19at 20:17; Start 05/31/19 at 21:00; Stop 06/01/19 at 11:43; Status DC Pharmacy Consult (C.diff Med Screen By Rx) 1 each 1X ONCE [facility] ; Start 05/31/19 at 17:00; Stop 05/31/19 at 17:15; Status DC Dextrose (Dextrose 50%-Water Syringe) 12.5 gm PRN Q15MIN PRN IV SEE COMMENTS; Start 05/31/19 at 22:45; Stop 06/02/19 at 21:41; Status DC Dextrose 250 ml PRN Q15MIN PRN IV SEE COMMENTS Last administered on 05/31/19at 23:20; Start 05/31/19 at 22:45 Dopamine HCl/ Dextrose 250 ml @ 5.919 mls/ hr CONT PRN IV SEE I/O RECORD Last administered on 06/01/19at 09:18; Start 06/01/19 at 09:15 Atropine Sulfate (ATROPINE 0.5mg SYRINGE) 0.5 mg 1X ONCE IM Last administered on 06/01/19at 09:19; Start 06/01/19 at 09:15; Stop 06/01/19 at 09:18; Status DC Norepinephrine Bitartrate 250 ml @ 0 mls/hr CONT PRN IV SEE I/O RECORD Last administered on 06/01/19at 10:09; Start 06/01/19 at 10:15 Famotidine (Pepcid) 20 mg QHS PO ; Start 06/01/19 at 21:00; Status Cancel Sodium Bicarbonate 50 meq/Dextrose/ Sodium Chloride 1,050 ml @ 150 mls/hr Q7H IV Last administered on 06/04/19at 03:00; Start 06/01/19 at 11:00; Stop 06/04/19 at 10:38; Status DC Lactobacillus Rhamnosus (Culturelle) 1 cap BID PO Last administered on 06/05/19 08:40; Start 06/01/19 at 12:00 Sodium Polystyrene Sulfonate (Kayexalate) 30 gm 1X ONCE PO Last administered on 06/01/19 14:04; Start 06/01/19 at 13:45; Stop 06/01/19 at 13:46; Status DC Insulin Human Regular (HumuLIN R VIAL) 10 unit 1X ONCE IV Last administered on 06/01/19 14:40; Start 06/01/19 at 14:00; Stop 06/01/19 at 14:09; Status DC Dextrose (Dextrose 50%-Water Syringe) 25 gm 1X ONCE IV Last administered on 06/01/19 14:38; Start 06/01/19 at 14:00; Stop 06/01/19 at 14:09; Status DC Aspirin (Ecotrin) 81 mg [id number] PO Last administered on 06/05/19 08:40; Start 06/02/19 at 08:00 Insulin Human Lispro (HumaLOG) 0-5 UNITS TIDWMEALS SQ Last administered on 06/02/19at 18:31; Start 06/02/19 at 18:30; Stop 06/02/19 at 21:40; Status DC Dextrose (Dextrose 50%-Water Syringe) 12.5 gm PRN Q15MIN PRN IV SEE COMMENTS; Start 06/02/19 at 18:00; Stop 06/02/19 at 21:41; Status DC Lorazepam (Ativan Inj) 0.5 mg 1X ONCE IV Last administered on 06/02/19at 21:49; Start 06/02/19 at 22:00; Stop 06/02/19 at 22:01; Status DC Insulin Human Lispro (HumaLOG) 0-5 UNITS QIDACHS SQ Last administered on 06/05/19at 08:47; Start 06/02/19 at 22:00 Dextrose (Dextrose 50%-Water Syringe) 12.5 gm PRN Q15MIN PRN IV SEE COMMENTS; Start 06/02/19 at 21:45 Acetaminophen (Tylenol) 650 mg PRN Q6HRS PRN PO PAIN Last administered on 06/04/19at 16:25; Start 06/03/19 at 12:00 Ondansetron HCl (Zofran) 4 mg PRN Q6HRS PRN IVP NAUSEA/VOMITING; Start 06/03/19 at 18:30 Sodium Bicarbonate 50 meq/Dextrose/ Sodium Chloride 1,050 ml @ 150 mls/hr Q7H IV Last administered on 06/05/19at 06:15; Start 06/04/19 at 11:00 Active Scripts Active Augmentin 875-125 Tablet (Amoxicillin/Potassium Clav) 1 Each Tablet 1 Tab PO BID Feosol (Ferrous Sulfate) 325 Mg Tablet 325 Mg PO BIDWMEALS Protonix (Pantoprazole Sodium) 40 Mg Tablet. 1 Tab PO BID Lisinopril-Hctz 10-12.5 Mg Tab (Lisinopril/Hydrochlorothiazide) 1 Each Tablet 1 Tab PO DAILY Clopidogrel (Clopidogrel Bisulfate) 75 Mg Tablet 1 Tab PO DAILY Aspirin Ec (Aspirin) 325 Mg Tablet. 1 Tab PO DAILY Reported Hydrocodone-Apap 5-325 (Hydrocodone Bit/Acetaminophen) 1 Tab Tablet 1 Tab PO PRN Q6HRS PRN Latanoprost 2.5 Ml Drops 1 Drop EACHEYE QHS Melatonin 5 Mg Tablet 5 Mg PO QHS Ultracet Tablet (Tramadol Hcl/Acetaminophen) 1 Each Tablet 1 Tab PO Q12HR PRN Atorvastatin Calcium 20 Mg Tablet 20 Mg PO DAILY Ketoconazole 120 Ml Shampoo 120 Ml TP Gabapentin (Gabapentin) 300 Mg Capsule 300 Mg PO TID Multi-Day Vitamins (Multivitamin) 1 Each Tablet 1 Tab PO DAILY Nitrostat (Nitroglycerin) 0.4 Mg Tab.subl 1 Tab SL UD PRN Metoprolol Succinate ( Xl ) (Metoprolol Succinate) 25 Mg Tab.er.24h 1 Tab PO DAILY Tamsulosin Hcl 0.4 Mg Cap.er.24h 1 Cap PO HS Glipizide 5 Mg Tablet 1 Tab PO DAILY Metformin Hcl 1,000 Mg Tablet 1 Tab PO BID Vitals/I & O Vital Sign - Last 24 Hours 06/04/19 06/04/19 06/04/19 06/04/19 12:00 15:50 19:25 20:00 Temp 97.6 100.0 98.8 97.6 100.0 98.8 Pulse 112 119 91 Resp 18 20 B/P (MAP) 135/73 (93) 156/83 (107) 117/68 (84) Pulse Ox 94 96 97 O2 Delivery Nasal Cannula Nasal Cannula Nasal Cannula Nasal Cannula O2 Flow Rate 2.0 2.0 2.0 3.0 06/04/19 06/05/19 06/05/19 06/05/19 23:25 03:25 07:00 08:40 Temp 98.2 98.5 98.1 98.2 98.5 98.1 Pulse 111 116 121 116 Resp 22 22 20 B/P (MAP) 129/58 (81) 151/76 (101) 130/110 (117) 151/76 Pulse Ox 92 95 95 O2 Delivery Nasal Cannula Nasal Cannula Nasal Cannula O2 Flow Rate 3.0 3.0 2.0 Intake and Output 06/04/19 06/04/19 06/05/19 14:59 22:59 06:59 Intake Total 720 ml 240 ml 800 ml Output Total 375 ml 300 ml 650 ml Balance 345 ml -60 ml 150 ml WILLIAM ROGERS MD Jun 05, 2019 10:29
[2019-06-05 12:36] LABS: FECAL OB PT NEGATIVE (NEG)
[2019-06-05] MEDS: cefTRIAXone IV Push 1 GM VIAL. IVP SCH (14:46)
[2019-06-05] MEDS: TAMSULOSIN 0.4 MG CAP.ER.24H. PO SCH (20:26)
[2019-06-05] MEDS: GABAPENTIN 300 MG CAPSULE. PO SCH (20:26)
[2019-06-05] MEDS: DOCUSATE SODIUM 100 MG CAPSULE. PO SCH (20:27)
[2019-06-05] MEDS: ATORVASTATIN CALCIUM 20 MG TABLET PO SCH (20:27)
[2019-06-05] MEDS: ACETAMINOPHEN 325 MG TABLET. PO PRN (20:27)
[2019-06-06] MEDS: DEXTROSE IV SCH ×4 (02:38→19:37)
[2019-06-06] MEDS: NACL IV SCH ×4 (02:38→19:37)
[2019-06-06] MEDS: SODIUM BICARBONATE IV SCH ×4 (02:38→19:37)
[2019-06-06 03:25] VITALS: BP 152/73
[2019-06-06 04:12] LABS: BASO % 0 % (0-3); EOS # 0.2 x10^3/uL (0.0-0.7); EOS % 1 % (0-3); LYMPH % 7 % (24-48); MEAN CORPUSCULAR HEMOGLOBIN 30 pg (25-35); MEAN CORPUSCULAR HGB CONC 33 g/dL (31-37); MEAN CORPUSCULAR VOLUME 90 fL (79-100); MONO # 1.5 x10^3/uL (0.0-1.1); MONO % 10 % (0-9); NEUT # 11.8 x10^3/uL (1.8-7.7); NEUT % 82 % (31-73); PLATELET COUNT 239 x10^3/uL (140-400); RED BLOOD COUNT 2.66 x10^6/uL (4.30-5.70); RED CELL DISTRIBUTION WIDTH 15.1 % (11.5-14.5); WHITE BLOOD COUNT 14.4 x10^3/uL (4.0-11.0)
[2019-06-06 04:37] LABS: CREATININE 4.1 mg/dL (0.7-1.3); POTASSIUM 3.9 mmol/L (3.5-5.1)
[2019-06-06] MEDS: ACETAMINOPHEN 325 MG TABLET. PO PRN ×2 (04:37→15:36)
[2019-06-06] MEDS: LEVOTHYROXINE 25 MCG TABLET. PO SCH (07:11)
[2019-06-06 07:57] VITALS: BP 161/88
--- NOTE | 2019-06-06 08:25 | PDOC ---
PROGRESS NOTES Chief Complaint Chief Complaint IMPRESSION Mental status change Hyperkalemia DIABETES anemia, transfuse one unit 06/05 Renal Failure acute on chronic The kidneys are normal in size and demonstrate normal blood flow. There is no hydronephrosis. There is a 1.9 cm cyst within the upper pole the left kidney. gross hematuria IRON DEF ANEMIA HEART CATH 2016 HEART CATH Conclusion 1. Significant stenoses involving the proximal and distal segments of the right coronary artery as described above with patent previously placed stents in the distal RCA and midsegment of the LAD. 2. Successful PCI/drug eluting stents placement to the proximal and distal segments of the right coronary artery. 3. Normal left ventricle systolic function with ejection fraction estimated at 60%. Recommendations 1. Aspirin 325 mg daily 2. Plavix 75 mg daily for preferably one year 3. Cardiovascular risk factor modification urology consult GI FOLLOWING 29 min pt exam, chart review, > 50% of time spent with exam, chart review, pt care coordination d/w family in room History of Present Illness History of Present Illness 06/05/19 Pt seen and examined BEDSIDE Accompanied by family members some confusion Charts and labs reviewed WBC is DOWN TO 15.3 Hgb is 6.8 D/w RN, TRANSFUSE 1 UNIT// SS INSULIN 36 MIN PT EXAM, chart review, > 50% of time spent with exam, chart review, pt care coordination 06/03/19 Pt was seen and examined in the ICU Pt was asleep in bed Accompanied by son-in-law Discussed care plan with son-in-law Pt is off levophed Charts and labs reviewed WBC is 15.9 up from 11.1 RBC is 2.72 up from 2.63 Hgb is 8.1, up from 7.8 Potassium is 4.8, down from 5.3 BUN is 55 Cr is 6.0 D/w RN 06/02/19 Pt was seen and examined in the ICU Pt was responsive, but quiet Accompanied with family Family reported that pt has hallucinations and is aware that they are hallucinations Continued discussing with family about medical conditions. Family will talk to setup operator about likelihood of dialysis Chart and labs reviewed EF 60% Potassium is 5.3, down from 6.2 BUN is 63, down from 69 Cr is 7, down from 7.7 D/w RN 06/01/19 Pt was seen and examined in the ICU Pt was awake and eating lunch. He did not seem to have much of an appetite Talked extensively with pt's family about his various medical conditions EF 60% Critical Power Install Technician was having a difficult time drawing blood at bedside. AISHA RN Vitals Vitals Vital Signs Date Time Temp Pulse Resp B/P (MAP) Pulse Ox O2 Delivery O2 Flow Rate FiO2 06/06/19 07:57 97.6 88 20 161/88 (112) 96 Nasal Cannula 3.0 97.6 Physical Exam General: Alert, Cooperative, No acute distress, Other (CONFUSED TO DETAILS) Heart: Regular rate, Normal S1, Normal S2, No murmurs, Gallops Lungs: Clear Abdomen: Normal bowel sounds, Soft, No tenderness, No hepatosplenomegaly, No masses Extremities: No clubbing, No cyanosis, No edema, Normal pulses, No tenderness/swelling Skin: Other (diaphoretic) Labs LABS Laboratory Tests Test 06/05/19 08:45 06/05/19 11:55 06/05/19 12:13 06/05/19 17:00 Urine Collection Type Unknown Urine Color [place] Urine Clarity Clear Urine pH 7.0 Urine Specific [place] 1.015 Urine Protein 100 mg/dL (NEG-TRACE) Urine Glucose (UA) 500 mg/dL (NEG) Urine Ketones (Stick) 15 mg/dL (NEG) Urine Blood Large (NEG) Urine Nitrite Negative (NEG) Urine Bilirubin Negative (NEG) Urine Urobilinogen Dipstick 0.2 mg/dL (0.2 mg/dL) Urine Leukocyte Esterase Trace (NEG) Urine RBC 20-40 /HPF (0-2) Urine WBC 1-4 /HPF (0-4) Urine Squamous Epithelial Cells None /LPF Urine Bacteria Few /HPF (0-FEW) Stool Occult Blood Negative (NEG) Glucose (Fingerstick) 211 mg/dL (70-99) 204 mg/dL (70-99) Test 06/05/19 20:39 06/06/19 03:40 06/06/19 07:20 Glucose (Fingerstick) 248 mg/dL (70-99) 233 mg/dL (70-99) White Blood Count 14.4 x10^3/uL (4.0-11.0) Red Blood Count 2.66 x10^6/uL (4.30-5.70) Hemoglobin 8.0 g/dL (13.0-17.5) Hematocrit 24.0 % (39.0-53.0) Mean Corpuscular Volume 90 fL (79-100) Mean Corpuscular Hemoglobin 30 pg (25-35) Mean Corpuscular Hemoglobin Concent 33 g/dL (31-37) Red Cell Distribution Width 15.1 % (11.5-14.5) Platelet Count 239 x10^3/uL (140-400) Neutrophils (%) (Auto) 82 % (31-73) Lymphocytes (%) (Auto) 7 % (24-48) Monocytes (%) (Auto) 10 % (0-9) Eosinophils (%) (Auto) 1 % (0-3) Basophils (%) (Auto) 0 % (0-3) Neutrophils # (Auto) 11.8 x10^3/uL (1.8-7.7) Lymphocytes # (Auto) 1.0 x10^3/uL (1.0-4.8) Monocytes # (Auto) 1.5 x10^3/uL (0.0-1.1) Eosinophils # (Auto) 0.2 x10^3/uL (0.0-0.7) Basophils # (Auto) 0.0 x10^3/uL (0.0-0.2) Sodium Level 131 mmol/L (136-145) Potassium Level 3.9 mmol/L (3.5-5.1) Chloride Level 94 mmol/L (98-107) Carbon Dioxide Level 26 mmol/L (21-32) Anion Gap 11 (6-14) Blood Urea Nitrogen 52 mg/dL (8-26) Creatinine 4.1 mg/dL (0.7-1.3) Estimated GFR (Cockcroft-Gault) 14.0 Glucose Level 238 mg/dL (70-99) Calcium Level 8.0 mg/dL (8.5-10.1) Assessment and Plan Assessmemt and Plan Problems Medical Problems: (1) Acute on chronic renal failure Status: Acute (2) Anemia Status: Acute (3) CAD (coronary artery disease) Status: Chronic (4) Elevated troponin Status: Acute (5) GERD (gastroesophageal reflux disease) Status: Chronic (6) Hyperkalemia Status: Acute (7) Hypoglycemia Status: Acute Comment Review of Relevant I have reviewed the following items yu (where applicable) has been applied. Labs Laboratory Tests Test 06/04/19 12:02 06/04/19 16:29 06/04/19 21:30 06/05/19 06:00 Glucose (Fingerstick) 276 mg/dL (70-99) 285 mg/dL (70-99) 140 mg/dL (70-99) White Blood Count 15.3 x10^3/uL (4.0-11.0) Red Blood Count 2.24 x10^6/uL (4.30-5.70) Hemoglobin 6.8 g/dL (13.0-17.5) Hematocrit 20.1 % (39.0-53.0) Mean Corpuscular Volume 90 fL (79-100) Mean Corpuscular Hemoglobin 30 pg (25-35) Mean Corpuscular Hemoglobin Concent 34 g/dL (31-37) Red Cell Distribution Width 15.3 % (11.5-14.5) Platelet Count 230 x10^3/uL (140-400) Neutrophils (%) (Auto) 85 % (31-73) Lymphocytes (%) (Auto) 6 % (24-48) Monocytes (%) (Auto) 8 % (0-9) Eosinophils (%) (Auto) 0 % (0-3) Basophils (%) (Auto) 0 % (0-3) Neutrophils # (Auto) 13.0 x10^3/uL (1.8-7.7) Lymphocytes # (Auto) 0.9 x10^3/uL (1.0-4.8) Monocytes # (Auto) 1.3 x10^3/uL (0.0-1.1) Eosinophils # (Auto) 0.1 x10^3/uL (0.0-0.7) Basophils # (Auto) 0.0 x10^3/uL (0.0-0.2) Sodium Level 130 mmol/L (136-145) Potassium Level 4.1 mmol/L (3.5-5.1) Chloride Level 94 mmol/L (98-107) Carbon Dioxide Level 26 mmol/L (21-32) Anion Gap 10 (6-14) Blood Urea Nitrogen 55 mg/dL (8-26) Creatinine 4.7 mg/dL (0.7-1.3) Estimated GFR (Cockcroft-Gault) 12.0 Glucose Level 231 mg/dL (70-99) Calcium Level 7.7 mg/dL (8.5-10.1) Test 06/05/19 07:23 06/05/19 08:45 06/05/19 11:55 06/05/19 12:13 Glucose (Fingerstick) 226 mg/dL (70-99) 211 mg/dL (70-99) Urine Collection Type Unknown Urine Color [place] Urine Clarity Clear Urine pH 7.0 Urine Specific [place] 1.015 Urine Protein 100 mg/dL (NEG-TRACE) Urine Glucose (UA) 500 mg/dL (NEG) Urine Ketones (Stick) 15 mg/dL (NEG) Urine Blood Large (NEG) Urine Nitrite Negative (NEG) Urine Bilirubin Negative (NEG) Urine Urobilinogen Dipstick 0.2 mg/dL (0.2 mg/dL) Urine Leukocyte Esterase Trace (NEG) Urine RBC 20-40 /HPF (0-2) Urine WBC 1-4 /HPF (0-4) Urine Squamous Epithelial Cells None /LPF Urine Bacteria Few /HPF (0-FEW) Stool Occult Blood Negative (NEG) Test 06/05/19 17:00 06/05/19 20:39 06/06/19 03:40 06/06/19 07:20 Glucose (Fingerstick) 204 mg/dL (70-99) 248 mg/dL (70-99) 233 mg/dL (70-99) White Blood Count 14.4 x10^3/uL (4.0-11.0) Red Blood Count 2.66 x10^6/uL (4.30-5.70) Hemoglobin 8.0 g/dL (13.0-17.5) Hematocrit 24.0 % (39.0-53.0) Mean Corpuscular Volume 90 fL (79-100) Mean Corpuscular Hemoglobin 30 pg (25-35) Mean Corpuscular Hemoglobin Concent 33 g/dL (31-37) Red Cell Distribution Width 15.1 % (11.5-14.5) Platelet Count 239 x10^3/uL (140-400) Neutrophils (%) (Auto) 82 % (31-73) Lymphocytes (%) (Auto) 7 % (24-48) Monocytes (%) (Auto) 10 % (0-9) Eosinophils (%) (Auto) 1 % (0-3) Basophils (%) (Auto) 0 % (0-3) Neutrophils # (Auto) 11.8 x10^3/uL (1.8-7.7) Lymphocytes # (Auto) 1.0 x10^3/uL (1.0-4.8) Monocytes # (Auto) 1.5 x10^3/uL (0.0-1.1) Eosinophils # (Auto) 0.2 x10^3/uL (0.0-0.7) Basophils # (Auto) 0.0 x10^3/uL (0.0-0.2) Sodium Level 131 mmol/L (136-145) Potassium Level 3.9 mmol/L (3.5-5.1) Chloride Level 94 mmol/L (98-107) Carbon Dioxide Level 26 mmol/L (21-32) Anion Gap 11 (6-14) Blood Urea Nitrogen 52 mg/dL (8-26) Creatinine 4.1 mg/dL (0.7-1.3) Estimated GFR (Cockcroft-Gault) 14.0 Glucose Level 238 mg/dL (70-99) Calcium Level 8.0 mg/dL (8.5-10.1) Laboratory Tests Test 06/05/19 08:45 06/05/19 11:55 06/05/19 12:13 06/05/19 17:00 Urine Collection Type Unknown Urine Color [place] Urine Clarity Clear Urine pH 7.0 Urine Specific [place] 1.015 Urine Protein 100 mg/dL (NEG-TRACE) Urine Glucose (UA) 500 mg/dL (NEG) Urine Ketones (Stick) 15 mg/dL (NEG) Urine Blood Large (NEG) Urine Nitrite Negative (NEG) Urine Bilirubin Negative (NEG) Urine Urobilinogen Dipstick 0.2 mg/dL (0.2 mg/dL) Urine Leukocyte Esterase Trace (NEG) Urine RBC 20-40 /HPF (0-2) Urine WBC 1-4 /HPF (0-4) Urine Squamous Epithelial Cells None /LPF Urine Bacteria Few /HPF (0-FEW) Stool Occult Blood Negative (NEG) Glucose (Fingerstick) 211 mg/dL (70-99) 204 mg/dL (70-99) Test 06/05/19 20:39 06/06/19 03:40 06/06/19 07:20 Glucose (Fingerstick) 248 mg/dL (70-99) 233 mg/dL (70-99) White Blood Count 14.4 x10^3/uL (4.0-11.0) Red Blood Count 2.66 x10^6/uL (4.30-5.70) Hemoglobin 8.0 g/dL (13.0-17.5) Hematocrit 24.0 % (39.0-53.0) Mean Corpuscular Volume 90 fL (79-100) Mean Corpuscular Hemoglobin 30 pg (25-35) Mean Corpuscular Hemoglobin Concent 33 g/dL (31-37) Red Cell Distribution Width 15.1 % (11.5-14.5) Platelet Count 239 x10^3/uL (140-400) Neutrophils (%) (Auto) 82 % (31-73) Lymphocytes (%) (Auto) 7 % (24-48) Monocytes (%) (Auto) 10 % (0-9) Eosinophils (%) (Auto) 1 % (0-3) Basophils (%) (Auto) 0 % (0-3) Neutrophils # (Auto) 11.8 x10^3/uL (1.8-7.7) Lymphocytes # (Auto) 1.0 x10^3/uL (1.0-4.8) Monocytes # (Auto) 1.5 x10^3/uL (0.0-1.1) Eosinophils # (Auto) 0.2 x10^3/uL (0.0-0.7) Basophils # (Auto) 0.0 x10^3/uL (0.0-0.2) Sodium Level 131 mmol/L (136-145) Potassium Level 3.9 mmol/L (3.5-5.1) Chloride Level 94 mmol/L (98-107) Carbon Dioxide Level 26 mmol/L (21-32) Anion Gap 11 (6-14) Blood Urea Nitrogen 52 mg/dL (8-26) Creatinine 4.1 mg/dL (0.7-1.3) Estimated GFR (Cockcroft-Gault) 14.0 Glucose Level 238 mg/dL (70-99) Calcium Level 8.0 mg/dL (8.5-10.1) Microbiology 06/03/19 Blood Culture - Preliminary, Resulted NO GROWTH AFTER 2 DAYS Medications Current Medications Morphine Sulfate (Morphine Sulfate) 2 mg PRN Q15MIN PRN IV/SQ PAIN GREATER THAN 3/10 Last administered on 05/31/19at 12:20; Start 05/31/19 at 09:15; Stop 06/01/19 at 09:14; Status DC Ondansetron HCl (Zofran) 4 mg 1X ONCE IV Last administered on 05/31/19at 09:20; Start 05/31/19 at 09:15; Stop 05/31/19 at 09:17; Status DC Ondansetron HCl (Zofran) 4 mg STK-MED ONCE .ROUTE ; Start 05/31/19 at 09:16; Stop 05/31/19 at 09:17; Status DC Calcium Gluconate (Calcium Gluconate) 1,000 mg 1X ONCE IVP Last administered on 05/31/19at 11:59; Start 05/31/19 at 11:30; Stop 05/31/19 at 11:36; Status DC Dextrose (Dextrose 50%-Water Syringe) 25 gm 1X ONCE IV Last administered on 05/31/19at 11:59; Start 05/31/19 at 11:30; Stop 05/31/19 at 11:36; Status DC Insulin Human Regular (HumuLIN R VIAL) 10 unit 1X ONCE IV Last administered on 05/31/19at 11:59; Start 05/31/19 at 11:30; Stop 05/31/19 at 11:36; Status DC Sodium Bicarbonate 50 meq/Dextrose/ Sodium Chloride 1,050 ml @ 150 mls/hr Q7H IV Last administered on 05/31/19at 12:03; Start 05/31/19 at 12:15; Stop 05/31/19 at 13:57; Status DC Magnesium Sulfate/ Dextrose 100 ml @ 100 mls/hr 1X ONCE IV Last administered on 05/31/19at 13:03; Start 05/31/19 at 12:30; Stop 05/31/19 at 13:29; Status DC Ondansetron HCl (Zofran) 4 mg PRN Q8HRS PRN IV NAUSEA/VOMITING Last administered on 06/01/19at 09:47; Start 05/31/19 at 12:45; Stop 06/01/19 at 12:44; Status DC Morphine Sulfate (Morphine Sulfate) 2 mg PRN Q2HR PRN IV PAIN Last administered on 05/31/19 21:11; Start 05/31/19 at 12:45; Stop 06/01/19 at 12:44; Status DC Levothyroxine Sodium (Synthroid) 25 mcg DAILY06 PO Last administered on 06/06/19 07:11; Start 06/01/19 at 06:00 Sodium Chloride 1,000 ml @ 75 mls/hr [id number] IV ; Start 05/31/19 at 14:00; Stop 05/31/19 at 15:58; Status DC Ceftriaxone Sodium (Rocephin) 1 gm Q24H IVP Last administered on 06/05/19 14:46; Start 06/01/19 at 15:00 Ceftriaxone Sodium (Rocephin) 1 gm 1X ONCE IVP Last administered on 05/31/19 18:07; Start 05/31/19 at 14:30; Stop 05/31/19 at 14:31; Status DC Atorvastatin Calcium (Lipitor) 20 mg QHS PO Last administered on 06/05/19 20:27; Start 05/31/19 at 21:00 Clopidogrel Bisulfate (Plavix) 75 mg DAILY07 PO Last administered on 06/01/19 08:33; Start 06/01/19 at 07:00; Stop 06/01/19 at 20:48; Status DC Ferrous Sulfate (Feosol) 325 mg BIDWMEALS PO Last administered on 06/05/19 17:29; Start 05/31/19 at 17:00 Gabapentin (Neurontin) 300 mg QHS PO Last administered on 06/05/19 20:26; Start 05/31/19 at 21:00 Glipizide (Glucotrol) 5 mg DAILY PO ; Start 06/01/19 at 09:00; Stop 05/31/19 at 15:37; Status DC Metoprolol Succinate (Toprol Xl) 25 mg DAILY PO Last administered on 06/05/19 08:40; Start 06/01/19 at 09:00 Pantoprazole Sodium (Protonix) 40 mg BIDAC PO Last administered on 06/05/19 17:29; Start 05/31/19 at 16:30 Tamsulosin HCl (Flomax) 0.4 mg HS PO Last administered on 06/05/19 20:26; Start 05/31/19 at 21:00 Sodium Bicarbonate 50 meq/Dextrose/ Sodium Chloride 1,050 ml @ 150 mls/hr Q7H ONCE IV ; Start 05/31/19 at 14:00; Stop 06/01/19 at 11:43; Status DC Sodium Bicarbonate 50 meq/Dextrose/ Sodium Chloride 1,050 ml @ 125 mls/hr Q8H24M ONCE IV Last administered on 05/31/19at 20:17; Start 05/31/19 at 21:00; Stop 06/01/19 at 11:43; Status DC Pharmacy Consult (C.diff Med Screen By Rx) 1 each 1X ONCE [facility] ; Start 05/31/19 a t 17:00; Stop 05/31/19 at 17:15; Status DC Dextrose (Dextrose 50%-Water Syringe) 12.5 gm PRN Q15MIN PRN IV SEE COMMENTS; Start 05/31/19 at 22:45; Stop 06/02/19 at 21:41; Status DC Dextrose 250 ml PRN Q15MIN PRN IV SEE COMMENTS Last administered on 05/31/19at 23:20; Start 05/31/19 at 22:45 Dopamine HCl/ Dextrose 250 ml @ 5.919 mls/ hr CONT PRN IV SEE I/O RECORD Last administered on 06/01/19at 09:18; Start 06/01/19 at 09:15; Stop 06/05/19 at 20:16; Status DC Atropine Sulfate (ATROPINE 0.5mg SYRINGE) 0.5 mg 1X ONCE IM Last administered on 06/01/19at 09:19; Start 06/01/19 at 09:15; Stop 06/01/19 at 09:18; Status DC Norepinephrine Bitartrate 250 ml @ 0 mls/hr CONT PRN IV SEE I/O RECORD Last administered on 06/01/19at 10:09; Start 06/01/19 at 10:15; Stop 06/05/19 at 20:16; Status DC Famotidine (Pepcid) 20 mg QHS PO ; Start 06/01/19 at 21:00; Status Cancel Sodium Bicarbonate 50 meq/Dextrose/ Sodium Chloride 1,050 ml @ 150 mls/hr Q7H IV Last administered on 06/04/19at 03:00; Start 06/01/19 at 11:00; Stop 06/04/19 at 10:38; Status DC Lactobacillus Rhamnosus (Culturelle) 1 cap BID PO Last administered on 06/05/19at 20:26; Start 06/01/19 at 12:00 Sodium Polystyrene Sulfonate (Kayexalate) 30 gm 1X ONCE PO Last administered on 06/01/19at 14:04; Start 06/01/19 at 13:45; Stop 06/01/19 at 13:46; Status DC Insulin Human Regular (HumuLIN R VIAL) 10 unit 1X ONCE IV Last administered on 06/01/19at 14:40; Start 06/01/19 at 14:00; Stop 06/01/19 at 14:09; Status DC Dextrose (Dextrose 50%-Water Syringe) 25 gm 1X ONCE IV Last administered on 06/01/19at 14:38; Start 06/01/19 at 14:00; Stop 06/01/19 at 14:09; Status DC Aspirin (Ecotrin) 81 mg DAILYWBKFT PO Last administered on 06/05/19at 08:40; Start 06/02/19 at 08:00 Insulin Human Lispro (HumaLOG) 0-5 UNITS TIDWMEALS SQ Last administered on 06/02/19at 18:31; Start 06/02/19 at 18:30; Stop 06/02/19 at 21:40; Status DC Dextrose (Dextrose 50%-Water Syringe) 12.5 gm PRN Q15MIN PRN IV SEE COMMENTS; Start 06/02/19 at 18:00; Stop 06/02/19 at 21:41; Status DC Lorazepam (Ativan Inj) 0.5 mg 1X ONCE IV Last administered on 06/02/19at 21:49; Start 06/02/19 at 22:00; Stop 06/02/19 at 22:01; Status DC Insulin Human Lispro (HumaLOG) 0-5 UNITS QIDACHS SQ Last administered on 06/05/19at 17:35; Start 06/02/19 at 22:00 Dextrose (Dextrose 50%-Water Syringe) 12.5 gm PRN Q15MIN PRN IV SEE COMMENTS; Start 06/02/19 at 21:45 Acetaminophen (Tylenol) 650 mg PRN Q6HRS PRN PO PAIN Last administered on 06/06/19at 04:37; Start 06/03/19 at 12:00 Ondansetron HCl (Zofran) 4 mg PRN Q6HRS PRN IVP NAUSEA/VOMITING; Start 06/03/19 at 18:30 Sodium Bicarbonate 50 meq/Dextrose/ Sodium Chloride 1,050 ml @ 150 mls/hr Q7H IV Last administered on 06/06/19at 02:38; Start 06/04/19 at 11:00 Docusate Sodium (Colace) 100 mg BID PO Last administered on 06/05/19at 20:27; Start 06/05/19 at 21:00 Active Scripts Active Augmentin 875-125 Tablet (Amoxicillin/Potassium Clav) 1 Each Tablet 1 Tab PO BID Feosol (Ferrous Sulfate) 325 Mg Tablet 325 Mg PO BIDWMEALS Protonix (Pantoprazole Sodium) 40 Mg Tablet.dr 1 Tab PO BID Lisinopril-Hctz 10-12.5 Mg Tab (Lisinopril/Hydrochlorothiazide) 1 Each Tablet 1 Tab PO DAILY Clopidogrel (Clopidogrel Bisulfate) 75 Mg Tablet 1 Tab PO DAILY Aspirin Ec (Aspirin) 325 Mg Tablet.dr 1 Tab PO DAILY Reported Hydrocodone-Apap 5-325 (Hydrocodone Bit/Acetaminophen) 1 Tab Tablet 1 Tab PO PRN Q6HRS PRN Latanoprost 2.5 Ml Drops 1 Drop EACHEYE QHS Melatonin 5 Mg Tablet 5 Mg PO QHS Ultracet Tablet (Tramadol Hcl/Acetaminophen) 1 Each Tablet 1 Tab PO Q12HR PRN Atorvastatin Calcium 20 Mg Tablet 20 Mg PO DAILY Ketoconazole 120 Ml Shampoo 120 Ml TP Gabapentin (Gabapentin) 300 Mg Capsule 300 Mg PO TID Multi-Day Vitamins (Multivitamin) 1 Each Tablet 1 Tab PO DAILY Nitrostat (Nitroglycerin) 0.4 Mg Tab.subl 1 Tab SL UD PRN Metoprolol Succinate ( Xl ) (Metoprolol Succinate) 25 Mg Tab.er.24h 1 Tab PO DAILY Tamsulosin Hcl 0.4 Mg Cap.er.24h 1 Cap PO HS Glipizide 5 Mg Tablet 1 Tab PO DAILY Metformin Hcl 1,000 Mg Tablet 1 Tab PO BID Vitals/I & O Vital Sign - Last 24 Hours 06/05/19 06/05/19 06/05/19 06/05/19 08:40 10:45 11:00 11:00 Temp 98.9 97.6 98.3 98.9 97.6 98.3 Pulse 116 110 110 110 Resp B/P (MAP) 151/76 137/98 141/74 (96) 141/74 Pulse Ox 100 O2 Delivery Nasal Cannula O2 Flow Rate 2.0 06/05/19 06/05/19 06/05/19 06/05/19 11:15 11:30 12:30 13:10 Temp 98.7 98.8 98.7 98.7 98.7 98.8 98.7 98.7 Pulse 102 106 113 118 Resp 20 B/P (MAP) 145/81 158/91 129/90 129/90 06/05/19 06/05/19 06/05/19 06/05/19 15:00 19:20 20:00 23:25 Temp 99.0 100.3 99.2 99.0 100.3 99.2 Pulse 124 109 106 Resp B/P (MAP) 144/96 (112) 155/78 (103) 157/78 (104) Pulse Ox 96 98 92 O2 Delivery Nasal Cannula Nasal Cannula Nasal Cannula Nasal Cannula O2 Flow Rate 2.0 3.0 3.0 3.0 06/06/19 06/06/19 03:25 07:57 Temp 97.9 97.6 97.9 97.6 Pulse 104 88 Resp B/P (MAP) 152/73 (99) 161/88 (112) Pulse Ox 93 96 O2 Delivery Nasal Cannula Nasal Cannula O2 Flow Rate 3.0 3.0 Intake and Output 06/05/19 06/05/19 06/06/19 15:00 23:00 07:00 Intake Total 360 ml 300 ml Output Total 0 ml 800 ml 600 ml Balance 360 ml -800 ml -300 ml WILLIAM ROGERS MD Jun 06, 2019 08:25
[2019-06-06] MEDS: ASPIRIN ENTERIC COATED 81 MG TABLET.DR. PO SCH (09:18)
[2019-06-06] MEDS: METOPROLOL SUCC 24HR ER 25 MG TAB.ER.24H. PO SCH (09:18)
[2019-06-06] MEDS: DOCUSATE SODIUM 100 MG CAPSULE. PO SCH ×2 (09:18→21:49)
[2019-06-06] MEDS: LACTOBACILLUS RHAMNOSUS GG 1 CAPSULE. PO SCH ×2 (09:18→21:49)
[2019-06-06] MEDS: FERROUS SULFATE 325 MG TABLET. PO SCH ×2 (09:19→17:35)
[2019-06-06] MEDS: PANTOPRAZOLE 40 MG TABLET.DR. PO SCH ×2 (09:19→17:35)
[2019-06-06] MEDS: INSULIN LISPRO 300 UNITS/3 ML VIAL. SQ SCH ×4 (09:31→21:54)
--- NOTE | 2019-06-06 09:31 | PDOC ---
Subjective: Subjective: Says it hurts to turn his head. Eating toast w/ jelly. Objective: Objective: Reviewed w/ nurse - had some red-tinged urine that cleared, also had a dark stool on iron - Hemoccult was negative like last admission. Has been confused - worse throughout the day. Transfused yesterday. Vital Signs: Vital Signs Date Time Temp Pulse Resp B/P (MAP) Pulse Ox O2 Delivery O2 Flow Rate FiO2 06/06/19 07:57 97.6 88 20 161/88 (112) 96 Nasal Cannula 3.0 97.6 Labs: Laboratory Tests Test 06/05/19 11:55 06/05/19 12:13 06/05/19 17:00 06/05/19 20:39 Stool Occult Blood Negative Glucose (Fingerstick) 211 mg/dL 204 mg/dL 248 mg/dL Test 06/06/19 03:40 06/06/19 07:20 White Blood Count 14.4 x10^3/uL Red Blood Count 2.66 x10^6/uL Hemoglobin 8.0 g/dL Hematocrit 24.0 % Mean Corpuscular Volume 90 fL Mean Corpuscular Hemoglobin 30 pg Mean Corpuscular Hemoglobin Concent 33 g/dL Red Cell Distribution Width 15.1 % Platelet Count 239 x10^3/uL Neutrophils (%) (Auto) 82 % Lymphocytes (%) (Auto) 7 % Monocytes (%) (Auto) 10 % Eosinophils (%) (Auto) 1 % Basophils (%) (Auto) 0 % Neutrophils # (Auto) 11.8 x10^3/uL Lymphocytes # (Auto) 1.0 x10^3/uL Monocytes # (Auto) 1.5 x10^3/uL Eosinophils # (Auto) 0.2 x10^3/uL Basophils # (Auto) 0.0 x10^3/uL Sodium Level 131 mmol/L Potassium Level 3.9 mmol/L Chloride Level 94 mmol/L Carbon Dioxide Level 26 mmol/L Anion Gap 11 Blood Urea Nitrogen 52 mg/dL Creatinine 4.1 mg/dL Estimated GFR (Cockcroft-Gault) 14.0 Glucose Level 238 mg/dL Calcium Level 8.0 mg/dL Glucose (Fingerstick) 233 mg/dL BLOOD CULTURE Final NO GROWTH AFTER 5 DAYS PE: GEN: NAD - won't turn head to the left LUNGS: room air HEART: RRR ABD: NABS, S/ND/NT NEURO/PSYCH: probably confused A/P: FABIEN - better, leukocytosis H/o RANDY - on PPI and iron (and ASA), no obvious GI bleeding, required transfusion yesterday -- Continue same per GI. Outpt 'scopes. TIGRE CROSS Jun 06, 2019 09:31
[2019-06-06 11:41] VITALS: BP 136/87
--- NOTE | 2019-06-06 13:59 | PDOC ---
SUBJECTIVE ROS States feeling better but not back to normal OBJECTIVE Vital Signs Vital Signs Date Time Temp Pulse Resp B/P (MAP) Pulse Ox O2 Delivery O2 Flow Rate FiO2 06/06/19 11:41 97.6 105 18 136/87 (103) 95 Nasal Cannula 3.0 97.6 I & 0 Intake and Output 06/06/19 06:59 Intake Total 660 ml Output Total 1400 ml Balance -740 ml Intake Oral 300 ml Blood Product IV Normal Saline Flush 360 ml Output Urine Total 1400 ml # Bowel Movements 1 PHYSICAL EXAM Physical Exam GENERAL: No apparent distress. HEENT: OM moist NECK: Supple, LUNGS: Clear to auscultation HEART: RRR, S1, S2 present. ABDOMEN: Soft, nontender. EXTREMITIES: Without any cyanosis, clubbing, or edema. SKIN: No ulcerations or rashes, good skin turgor, no jaundice. Cesar + DIAGNOSIS/ASSESSMENT Assessment & Plan FABIEN - Improving Cr peaked at 7.8--> down to 4.1 E-Lytes and acid base stable Supportive care, IVF, I/O, Monitor Renal US- normal in size and demonstrate normal blood flow. no hydronephrosis. There is a 1.9 cm cyst within the upper pole the left kidney. Mental status change- Improved Hyperkalemia- Resolved DIABETES- per primary Anemia, s/p PRBC x 1 06/05 Hematuria- Urology consulted COMMENT/RELEVANT DATA Meds Current Medications Medications (Trade) Dose Ordered Sig/Nathalie Start Time Stop Time Status Last Admin Dose Admin Acetaminophen (Tylenol) 650 mg PRN Q6HRS PRN 06/03/19 12:00 06/06/19 04:37 650 MG Aspirin (Ecotrin) 81 mg DAILYWBKFT 06/02/19 08:00 06/06/19 09:18 81 MG Atorvastatin Calcium (Lipitor) 20 mg QHS 05/31/19 21:00 06/05/19 20:27 20 MG Atropine Sulfate (ATROPINE 0.5mg SYRINGE) 0.5 mg 1X ONCE 06/01/19 09:15 06/01/19 09:18 DC 06/01/19 09:19 0.5 MG Calcium Gluconate (Calcium Gluconate) 1,000 mg 1X ONCE 05/31/19 11:30 05/31/19 11:36 DC 05/31/19 11:59 1,000 MG Ceftriaxone Sodium (Rocephin) 1 gm 1X ONCE 05/31/19 14:30 05/31/19 14:31 DC 05/31/19 18:07 1 GM Clopidogrel Bisulfate (Plavix) 75 mg DAILY07 06/01/19 07:00 06/01/19 20:48 DC 06/01/19 08:33 75 MG Dextrose (Dextrose 50%-Water Syringe) 12.5 gm PRN Q15MIN PRN 06/02/19 21:45 Docusate Sodium (Colace) 100 mg BID 06/05/19 21:00 06/06/19 09:18 100 MG Dopamine HCl/ Dextrose 250 ml @ 5.919 mls/ hr CONT PRN 06/01/19 09:15 06/05/19 20:16 DC 06/01/19 09:18 14.798 MLS/HR Famotidine (Pepcid) 20 mg QHS 06/01/19 21:00 Cancel Ferrous Sulfate (Feosol) 325 mg BIDWMEALS 05/31/19 17:00 06/06/19 09:19 325 MG Gabapentin (Neurontin) 300 mg QHS 05/31/19 21:00 06/05/19 20:26 300 MG Glipizide (Glucotrol) 5 mg DAILY 06/01/19 09:00 05/31/19 15:37 DC Insulin Human Lispro (HumaLOG) 0-5 UNITS QIDACHS 06/02/19 22:00 06/06/19 12:08 5 UNITS Insulin Human Regular (HumuLIN R VIAL) 10 unit 1X ONCE 06/01/19 14:00 06/01/19 14:09 DC 06/01/19 14:40 10 UNIT Lactobacillus Rhamnosus (Culturelle) 1 cap BID 06/01/19 12:00 06/06/19 09:18 1 CAP Levothyroxine Sodium (Synthroid) 25 mcg DAILY06 06/01/19 06:00 06/06/19 07:11 25 MCG Lorazepam (Ativan Inj) 0.5 mg 1X ONCE 06/02/19 22:00 06/02/19 22:01 DC 06/02/19 21:49 0.5 MG Magnesium Sulfate/ Dextrose 100 ml @ 100 mls/hr 1X ONCE 05/31/19 12:30 05/31/19 13:29 DC 05/31/19 13:03 100 MLS/HR Metoprolol Succinate (Toprol Xl) 25 mg DAILY 06/01/19 09:00 06/06/19 09:18 25 MG Morphine Sulfate (Morphine Sulfate) 2 mg PRN Q2HR PRN 05/31/19 12:45 06/01/19 12:44 DC 05/31/19 21:11 2 MG Norepinephrine Bitartrate 250 ml @ 0 mls/hr CONT PRN 06/01/19 10:15 06/05/19 20:16 DC 06/01/19 10:09 44.4 MLS/HR Ondansetron HCl (Zofran) 4 mg PRN Q6HRS PRN 06/03/19 18:30 Pantoprazole Sodium (Protonix) 40 mg BIDAC 05/31/19 16:30 06/06/19 09:19 40 MG Pharmacy Consult (C.diff Med Screen By Rx) 1 each 1X ONCE 05/31/19 17:00 05/31/19 17:15 DC Sodium Bicarbonate 50 meq/Dextrose/ Sodium Chloride 1,050 ml @ 150 mls/hr Q7H 06/04/19 11:00 06/06/19 11:13 150 MLS/HR Sodium Polystyrene Sulfonate (Kayexalate) 30 gm 1X ONCE 06/01/19 13:45 06/01/19 13:46 DC 06/01/19 14:04 30 GM Sodium Chloride 1,000 ml @ 75 mls/hr [id number] 05/31/19 14:00 05/31/19 15:58 DC Tamsulosin HCl (Flomax) 0.4 mg HS 05/31/19 21:00 06/05/19 20:26 0.4 MG Lab Laboratory Tests Test 06/05/19 17:00 06/05/19 20:39 06/06/19 03:40 06/06/19 07:20 Glucose (Fingerstick) 204 mg/dL (70-99) 248 mg/dL (70-99) 233 mg/dL (70-99) White Blood Count 14.4 x10^3/uL (4.0-11.0) Red Blood Count 2.66 x10^6/uL (4.30-5.70) Hemoglobin 8.0 g/dL (13.0-17.5) Hematocrit 24.0 % (39.0-53.0) Mean Corpuscular Volume 90 fL (79-100) Mean Corpuscular Hemoglobin 30 pg (25-35) Mean Corpuscular Hemoglobin Concent 33 g/dL (31-37) Red Cell Distribution Width 15.1 % (11.5-14.5) Platelet Count 239 x10^3/uL (140-400) Neutrophils (%) (Auto) 82 % (31-73) Lymphocytes (%) (Auto) 7 % (24-48) Monocytes (%) (Auto) 10 % (0-9) Eosinophils (%) (Auto) 1 % (0-3) Basophils (%) (Auto) 0 % (0-3) Neutrophils # (Auto) 11.8 x10^3/uL (1.8-7.7) Lymphocytes # (Auto) 1.0 x10^3/uL (1.0-4.8) Monocytes # (Auto) 1.5 x10^3/uL (0.0-1.1) Eosinophils # (Auto) 0.2 x10^3/uL (0.0-0.7) Basophils # (Auto) 0.0 x10^3/uL (0.0-0.2) Sodium Level 131 mmol/L (136-145) Potassium Level 3.9 mmol/L (3.5-5.1) Chloride Level 94 mmol/L (98-107) Carbon Dioxide Level 26 mmol/L (21-32) Anion Gap 11 (6-14) Blood Urea Nitrogen 52 mg/dL (8-26) Creatinine 4.1 mg/dL (0.7-1.3) Estimated GFR (Cockcroft-Gault) 14.0 Glucose Level 238 mg/dL (70-99) Calcium Level 8.0 mg/dL (8.5-10.1) Test 06/06/19 10:47 Glucose (Fingerstick) 334 mg/dL (70-99) Results All relevant outside records, renal labs, imaging studies, telemetry/EKG's were reviewed. PERCY PERES MD Jun 06, 2019 13:59
--- NOTE | 2019-06-06 15:07 | NUR ---
SW following pt for dc planning. Chart reviewed and discussed with RN. Pt lives at home with spouse. Pt is admitted for metabolic encephalopathy and AKF . PT/OT notes reviewed and recommend SNU. SERAFIN attempted to speak with pt this morning but pt was asleep. SERAFIN spoke with pt's daughter, Jackeline, phone: [phone] about SNU and options. Pt's daughter chose [facility] and [facility]. Jackeline also requested if pt's is able to stay with pt at facility. SERAFIN extensively discussed SNU evaluation process and types of placements. Jackeline reports pt/ is able to do private payments so can stay with pt. SERAFIN discussed SWer is not able to guarantee pt's will have placement and clarified SWer role in dc plan. Pt's daughter verbalized understanding. Plan 1. SERAFIN phoned and faxed referral to [facility], phone: [phone], fax: [phone]. Pt is seen by A[facility] from [facility] and is accepted pending insurance. Pt's daughter had already spoken with [facility] regarding admitting pt's and they have scheduled in home evaluations tomorrow. [facility] will not have a bed until Thursday and daughter agreeable with [facility].. 2. Discussed with Physician, nephrology following due to AKF. 3. SERAFIN requested [facility] to submit for auth. Will continue to follow to assist with dc planning.
--- NOTE | 2019-06-06 15:13 | RAD ---
EXAM: CHEST 1 VIEW History: Hypoxia COMPARISON: 05/31/2019 TECHNIQUE: Single portable radiograph of the chest FINDINGS: Mild cardiomegaly. Mild diffuse prominent bilateral interstitial lung markings likely congestive changes. Mild bibasilar lung airspace opacities likely atelectasis or infiltrates. IMPRESSION: 1. Diffuse prominent appearing bilateral interstitial lung markings likely mild congestive changes. 2. Mild bibasilar lung airspace opacities likely atelectasis or infiltrates. Electronically signed by: Sea Strange MD (06/06/2019 3:10 PM) [id number]
[2019-06-06] MEDS: cefTRIAXone IV Push 1 GM VIAL. IVP SCH (15:29)
[2019-06-06 15:45] VITALS: BP 153/88
--- NOTE | 2019-06-06 16:36 | PDOC2 ---
NEUROLOGY CONSULT Date of Admission Date of Admission DATE: 06/06/19 TIME: 16:24 Reason for Consult Reason for Consult: IMPRESSION: Metabolic encephalopathy. Falls. Anemia. DM. CAD. HTN. HLD. CKD. Renal failure. Degenerative spine disease. Obesity. RECOMMENDATIONS/PLAN: EEG. Lab: see orders. Treatment medical diseases. OT/PT. HISTORY OF THE PRESENT ILLNESS: This is an-83-y-old male patient with multiple medical diseases and was admitted on 05/31/19. Neurology was requested for consultation of 06/06/19 for enceph alopathy and falls. No focalized sensory or motor deficits reported. PAST MEDICAL HISTORY: CAD w/ stent, HTN, HLD, OA, CKD, DM, skin cancer, GERD, pancreatitis, diverticulosis, cataract extraction, tonsillectomy PAST SURGERY HISTORY: No major surgery recently. ALLERGY: NKDA MEDICATIONS: Refer to [facility] FAMILY HISTORY: Non contributory. SOCIAL HISTORY: Denies current smoking, drinking, and illicit drug use. REVIEW OF SYSTEMS: Constitutional: No malnutrition, weight loss, cachexia. Head: No traumatic brain or head injury. Skin: No edema, or rash. Ear: No infection. Eyes: No vision loss or color blindness. Nose: No bleeding or purulent discharges. Hearing: No hearing decrease. Neck: No injury. Cardiac: HTN, HLD. Pulmonary: No pneumonia, COPD. GI: No GI ulcer, GI bleeding. Urinary/genital: CKD. Endocrinologic: Diabetes Mellitus. Skeletomuscular: Generalized weakness. Neurological: see HP. Psychiatric: Denies drug use/abuse. Otherwise, not [id number] review of systems. PHYSICAL EXAMINATION: General appearance is in subacute distress. HEENT: Normocephalic and nontraumatic. Eyes, nose, ears, and throat are unremarkable. Neck is supple. No lymphadenopathy. No crepitus. Cardiovascular: S1, S2, regular rate and rhythm. Pulmonary: decreased to auscultation bilaterally. Abdomen: Bowel sounds are positive. Extremities: No rash, lesions, or edema. No restriction of range of motion NEUROLOGICAL EXAMINATION: Alert Partially oriented to time, place and person. PERRL. EOMI. CN: no focal findings. Muscle tone: within normal. Muscle strength: 4 DTR: 1 Plantar reflex: Neutral response bilaterally Gait: not examined in bed. Sensory exam: no abnormal findings. No cerebellar signs elicited. F-T-N test fine. Current Medications Current Medications Current Medications Morphine Sulfate (Morphine Sulfate) 2 mg PRN Q15MIN PRN IV/SQ PAIN GREATER THAN 3/10 Last administered on 05/31/19 12:20; Start 05/31/19 at 09:15; Stop 06/01/19 at 09:14; Status DC Ondansetron HCl (Zofran) 4 mg 1X ONCE IV Last administered on 05/31/19at 09:20; Start 05/31/19 at 09:15; Stop 05/31/19 at 09:17; Status DC Ondansetron HCl (Zofran) 4 mg STK-MED ONCE .ROUTE ; Start 05/31/19 at 09:16; Stop 05/31/19 at 09:17; Status DC Calcium Gluconate (Calcium Gluconate) 1,000 mg 1X ONCE IVP Last administered on 05/31/19at 11:59; Start 05/31/19 at 11:30; Stop 05/31/19 at 11:36; Status DC Dextrose (Dextrose 50%-Water Syringe) 25 gm 1X ONCE IV Last administered on 05/31/19at 11:59; Start 05/31/19 at 11:30; Stop 05/31/19 at 11:36; Status DC Insulin Human Regular (HumuLIN R VIAL) 10 unit 1X ONCE IV Last administered on 05/31/19at 11:59; Start 05/31/19 at 11:30; Stop 05/31/19 at 11:36; Status DC Sodium Bicarbonate 50 meq/Dextrose/ Sodium Chloride 1,050 ml @ 150 mls/hr Q7H IV Last administered on 05/31/19at 12:03; Start 05/31/19 at 12:15; Stop 05/31/19 at 13:57; Status DC Magnesium Sulfate/ Dextrose 100 ml @ 100 mls/hr 1X ONCE IV Last administered on 05/31/19 13:03; Start 05/31/19 at 12:30; Stop 05/31/19 at 13:29; Status DC Ondansetron HCl (Zofran) 4 mg PRN Q8HRS PRN IV NAUSEA/VOMITING Last administered on 06/01/19at 09:47; Start 05/31/19 at 12:45; Stop 06/01/19 at 12:44; Status DC Morphine Sulfate (Morphine Sulfate) 2 mg PRN Q2HR PRN IV PAIN Last administered on 05/31/19at 21:11; Start 05/31/19 at 12:45; Stop 06/01/19 at 12:44; Status DC Levothyroxine Sodium (Synthroid) 25 mcg DAILY06 PO Last administered on at 07:11; Start 06/01/19 at 06:00 Sodium Chloride 1,000 ml @ 75 mls/hr [id number] IV ; Start 05/31/19 at 14:00; Stop 05/31/19 at 15:58; Status DC Ceftriaxone Sodium (Rocephin) 1 gm Q24H IVP Last administered on 06/06/19at 15:29; Start 06/01/19 at 15:00 Ceftriaxone Sodium (Rocephin) 1 gm 1X ONCE IVP Last administered on 05/31/19at 18:07; Start 05/31/19 at 14:30; Stop 05/31/19 at 14:31; Status DC Atorvastatin Calcium (Lipitor) 20 mg QHS PO Last administered on 06/05/19at 20:27; Start 05/31/19 at 21:00 Clopidogrel Bisulfate (Plavix) 75 mg DAILY07 PO Last administered on 06/01/19at 08:33; Start 06/01/19 at 07:00; Stop 06/01/19 at 20:48; Status DC Ferrous Sulfate (Feosol) 325 mg BIDWMEALS PO Last administered on 06/06/19at 09:19; Start 05/31/19 at 17:00 Gabapentin (Neurontin) 300 mg QHS PO Last administered on 06/05/19at 20:26; Start 05/31/19 at 21:00 Glipizide (Glucotrol) 5 mg DAILY PO ; Start 06/01/19 at 09:00; Stop 05/31/19 at 15:37; Status DC Metoprolol Succinate (Toprol Xl) 25 mg DAILY PO Last administered on 06/06/19 09:18; Start 06/01/19 at 09:00 Pantoprazole Sodium (Protonix) 40 mg BIDAC PO Last administered on 06/06/19at 09:19; Start 05/31/19 at 16:30 Tamsulosin HCl (Flomax) 0.4 mg HS PO Last administered on 06/05/19at 20:26; Start 05/31/19 at 21:00 Sodium Bicarbonate 50 meq/Dextrose/ Sodium Chloride 1,050 ml @ 150 mls/hr Q7H ONCE IV ; Start 05/31/19 at 14:00; Stop 06/01/19 at 11:43; Status DC Sodium Bicarbonate 50 meq/Dextrose/ Sodium Chloride 1,050 ml @ 125 mls/hr Q8H24M ONCE IV Last administered on 05/31/19at 20:17; Start 05/31/19 at 21:00; Stop 06/01/19 at 11:43; Status DC Pharmacy Consult (C.diff Med Screen By Rx) 1 each 1X ONCE MC ; Start 05/31/19 at 17:00; Stop 05/31/19 at 17:15; Status DC Dextrose (Dextrose 50%-Water Syringe) 12.5 gm PRN Q15MIN PRN IV SEE COMMENTS; Start 05/31/19 at 22:45; Stop 06/02/19 at 21:41; Status DC Dextrose 250 ml PRN Q15MIN PRN IV SEE COMMENTS Last administered on 05/31/19at 23:20; Start 05/31/19 at 22:45 Dopamine HCl/ Dextrose 250 ml @ 5.919 mls/ hr CONT PRN IV SEE I/O RECORD Last administered on 06/01/19at 09:18; Start 06/01/19 at 09:15; Stop 06/05/19 at 20:16; Status DC Atropine Sulfate (ATROPINE 0.5mg SYRINGE) 0.5 mg 1X ONCE IM Last administered on 06/01/19at 09:19; Start 06/01/19 at 09:15; Stop 06/01/19 at 09:18; Status DC Norepinephrine Bitartrate 250 ml @ 0 mls/hr CONT PRN IV SEE I/O RECORD Last administered on 06/01/19at 10:09; Start 06/01/19 at 10:15; Stop 06/05/19 at 20:16; Status DC Famotidine (Pepcid) 20 mg QHS PO ; Start 06/01/19 at 21:00; Status Cancel Sodium Bicarbonate 50 meq/Dextrose/ Sodium Chloride 1,050 ml @ 150 mls/hr Q7H IV Last administered on 06/04/19at 03:00; Start 06/01/19 at 11:00; Stop 06/04/19 at 10:38; Status DC Lactobacillus Rhamnosus (Culturelle) 1 cap BID PO Last administered on 06/06/19at 09:18; Start 06/01/19 at 12:00 Sodium Polystyrene Sulfonate (Kayexalate) 30 gm 1X ONCE PO Last administered on 06/01/19at 14:04; Start 06/01/19 at 13:45; Stop 06/01/19 at 13:46; Status DC Insulin Human Regular (HumuLIN R VIAL) 10 unit 1X ONCE IV Last administered on 06/01/19at 14:40; Start 06/01/19 at 14:00; Stop 06/01/19 at 14:09; Status DC Dextrose (Dextrose 50%-Water Syringe) 25 gm 1X ONCE IV Last administered on 06/01/19at 14:38; Start 06/01/19 at 14:00; Stop 06/01/19 at 14:09; Status DC Aspirin (Ecotrin) 81 mg DAILYWBKFT PO Last administered on 06/06/19at 09:18; Start 06/02/19 at 08:00 Insulin Human Lispro (HumaLOG) 0-5 UNITS TIDWMEALS SQ Last administered on 06/02/19at 18:31; Start 06/02/19 at 18:30; Stop 06/02/19 at 21:40; Status DC Dextrose (Dextrose 50%-Water Syringe) 12.5 gm PRN Q15MIN PRN IV SEE COMMENTS; Start 06/02/19 at 18:00; Stop 06/02/19 at 21:41; Status DC Lorazepam (Ativan Inj) 0.5 mg 1X ONCE IV Last administered on 06/02/19at 21:49; Start 06/02/19 at 22:00; Stop 06/02/19 at 22:01; Status DC Insulin Human Lispro (HumaLOG) 0-5 UNITS QIDACHS SQ Last administered on 06/06/19at 12:08; Start 06/02/19 at 22:00 Dextrose (Dextrose 50%-Water Syringe) 12.5 gm PRN Q15MIN PRN IV SEE COMMENTS; Start 06/02/19 at 21:45 Acetaminophen (Tylenol) 650 mg PRN Q6HRS PRN PO PAIN Last administered on 06/06/19at 15:36; Start 06/03/19 at 12:00 Ondansetron HCl (Zofran) 4 mg PRN Q6HRS PRN IVP NAUSEA/VOMITING; Start 06/03/19 at 18:30 Sodium Bicarbonate 50 meq/Dextrose/ Sodium Chloride 1,050 ml @ 150 mls/hr Q7H IV Last administered on 06/06/19at 11:13; Start 06/04/19 at 11:00 Docusate Sodium (Colace) 100 mg BID PO Last administered on 06/06/19at 09:18; Start 06/05/19 at 21:00 Insulin Glargine (Lantus Syringe) 8 unit QHS SQ ; Start 06/06/19 at 21:00 Active Scripts Active Augmentin 875-125 Tablet (Amoxicillin/Potassium Clav) 1 Each Tablet 1 Tab PO BID Feosol (Ferrous Sulfate) 325 Mg Tablet 325 Mg PO BIDWMEALS Protonix (Pantoprazole Sodium) 40 Mg Tablet.dr 1 Tab PO BID Lisinopril-Hctz 10-12.5 Mg Tab (Lisinopril/Hydrochlorothiazide) 1 Each Tablet 1 Tab PO DAILY Clopidogrel (Clopidogrel Bisulfate) 75 Mg Tablet 1 Tab PO DAILY Aspirin Ec (Aspirin) 325 Mg Tablet.dr 1 Tab PO DAILY Reported Hydrocodone-Apap 5-325 (Hydrocodone Bit/Acetaminophen) 1 Tab Tablet 1 Tab PO PRN Q6HRS PRN Latanoprost 2.5 Ml Drops 1 Drop EACHEYE QHS Melatonin 5 Mg Tablet 5 Mg PO QHS Ultracet Tablet (Tramadol Hcl/Acetaminophen) 1 Each Tablet 1 Tab PO Q12HR PRN Atorvastatin Calcium 20 Mg Tablet 20 Mg PO DAILY Ketoconazole 120 Ml Shampoo 120 Ml TP Gabapentin (Gabapentin) 300 Mg Capsule 300 Mg PO TID Multi-Day Vitamins (Multivitamin) 1 Each Tablet 1 Tab PO DAILY Nitrostat (Nitroglycerin) 0.4 Mg Tab.subl 1 Tab SL UD PRN Metoprolol Succinate ( Xl ) (Metoprolol Succinate) 25 Mg Tab.er.24h 1 Tab PO DAILY Tamsulosin Hcl 0.4 Mg Cap.er.24h 1 Cap PO HS Glipizide 5 Mg Tablet 1 Tab PO DAILY Metformin Hcl 1,000 Mg Tablet 1 Tab PO BID Allergies Allergies: Allergies Coded Allergies Type Severity Reaction Last Updated Verified No Known Drug Allergies 06/26/17 No ROS Review of System The patient denies any associated fevers, chills, headache, ear pain, rhinorrhea, sore throat, stiff neck, productive cough, chest pain, shortness of breath, back or flank pain, abdominal pain, nausea, vomiting, diarrhea, constipation, dysuria, rash, numbness, weakness, tingling, incontinence, difficulty ambulating, or diaphoresis. Physical Exam Physical Exam General: Well developed, well nourished, no acute distress, well appearing HEENT: Pupils equally round and reactive to light, EOMI, no discharge, normal conjunctiva Neck: Supple, no nuchal rigidity, no JVD, trachea midline, no tenderness Cardiac: RRR, no murmurs, no gallops, no rubs Chest/Lungs: CTAB, no wheeze, no rhonchi, no crackles Abdomen: soft, non-distended, no guarding, no peritoneal signs, non-tender Back: No tenderness Extremities: no edema, pulses intact, non-tender,capillary refill <3 sec bilateral upper and lower extremities, Neuro: Alert and oriented x 4, no focal deficits, normal speech Vitals Vitals: Vital Signs Date Time Temp Pulse Resp B/P (MAP) Pulse Ox O2 Delivery O2 Flow Rate FiO2 06/06/19 15:45 97.9 100 18 153/88 (109) 96 Nasal Cannula 3.0 97.9 Labs Labs Laboratory Tests Test 06/04/19 16:29 06/04/19 21:30 06/05/19 06:00 06/05/19 07:23 Glucose (Fingerstick) 285 mg/dL (70-99) 140 mg/dL (70-99) 226 mg/dL (70-99) White Blood Count 15.3 x10^3/uL (4.0-11.0) Red Blood Count 2.24 x10^6/uL (4.30-5.70) Hemoglobin 6.8 g/dL (13.0-17.5) Hematocrit 20.1 % (39.0-53.0) Mean Corpuscular Volume 90 fL (79-100) Mean Corpuscular Hemoglobin 30 pg (25-35) Mean Corpuscular Hemoglobin Concent 34 g/dL (31-37) Red Cell Distribution Width 15.3 % (11.5-14.5) Platelet Count 230 x10^3/uL (140-400) Neutrophils (%) (Auto) 85 % (31-73) Lymphocytes (%) (Auto) 6 % (24-48) Monocytes (%) (Auto) 8 % (0-9) Eosinophils (%) (Auto) 0 % (0-3) Basophils (%) (Auto) 0 % (0-3) Neutrophils # (Auto) 13.0 x10^3/uL (1.8-7.7) Lymphocytes # (Auto) 0.9 x10^3/uL (1.0-4.8) Monocytes # (Auto) 1.3 x10^3/uL (0.0-1.1) Eosinophils # (Auto) 0.1 x10^3/uL (0.0-0.7) Basophils # (Auto) 0.0 x10^3/uL (0.0-0.2) Sodium Level 130 mmol/L (136-145) Potassium Level 4.1 mmol/L (3.5-5.1) Chloride Level 94 mmol/L (98-107) Carbon Dioxide Level 26 mmol/L (21-32) Anion Gap 10 (6-14) Blood Urea Nitrogen 55 mg/dL (8-26) Creatinine 4.7 mg/dL (0.7-1.3) Estimated GFR (Cockcroft-Gault) 12.0 Glucose Level 231 mg/dL (70-99) Calcium Level 7.7 mg/dL (8.5-10.1) Test 06/05/19 08:45 06/05/19 11:55 06/05/19 12:13 06/05/19 17:00 Urine Collection Type Unknown Urine Color Caroleen Urine Clarity Clear Urine pH 7.0 Urine Specific [place] 1.015 Urine Protein 100 mg/dL (NEG-TRACE) Urine Glucose (UA) 500 mg/dL (NEG) Urine Ketones (Stick) 15 mg/dL (NEG) Urine Blood Large (NEG) Urine Nitrite Negative (NEG) Urine Bilirubin Negative (NEG) Urine Urobilinogen Dipstick 0.2 mg/dL (0.2 mg/dL) Urine Leukocyte Esterase Trace (NEG) Urine RBC 20-40 /HPF (0-2) Urine WBC 1-4 /HPF (0-4) Urine Squamous Epithelial Cells None /LPF Urine Bacteria Few /HPF (0-FEW) Stool Occult Blood Negative (NEG) Glucose (Fingerstick) 211 mg/dL (70-99) 204 mg/dL (70-99) Test 06/05/19 20:39 06/06/19 03:40 06/06/19 07:20 06/06/19 10:47 Glucose (Fingerstick) 248 mg/dL (70-99) 233 mg/dL (70-99) 334 mg/dL (70-99) White Blood Count 14.4 x10^3/uL (4.0-11.0) Red Blood Count 2.66 x10^6/uL (4.30-5.70) Hemoglobin 8.0 g/dL (13.0-17.5) Hematocrit 24.0 % (39.0-53.0) Mean Corpuscular Volume 90 fL (79-100) Mean Corpuscular Hemoglobin 30 pg (25-35) Mean Corpuscular Hemoglobin Concent 33 g/dL (31-37) Red Cell Distribution Width 15.1 % (11.5-14.5) Platelet Count 239 x10^3/uL (140-400) Neutrophils (%) (Auto) 82 % (31-73) Lymphocytes (%) (Auto) 7 % (24-48) Monocytes (%) (Auto) 10 % (0-9) Eosinophils (%) (Auto) 1 % (0-3) Basophils (%) (Auto) 0 % (0-3) Neutrophils # (Auto) 11.8 x10^3/uL (1.8-7.7) Lymphocytes # (Auto) 1.0 x10^3/uL (1.0-4.8) Monocytes # (Auto) 1.5 x10^3/uL (0.0-1.1) Eosinophils # (Auto) 0.2 x10^3/uL (0.0-0.7) Basophils # (Auto) 0.0 x10^3/uL (0.0-0.2) Sodium Level 131 mmol/L (136-145) Potassium Level 3.9 mmol/L (3.5-5.1) Chloride Level 94 mmol/L (98-107) Carbon Dioxide Level 26 mmol/L (21-32) Anion Gap 11 (6-14) Blood Urea Nitrogen 52 mg/dL (8-26) Creatinine 4.1 mg/dL (0.7-1.3) Estimated GFR (Cockcroft-Gault) 14.0 Glucose Level 238 mg/dL (70-99) Calcium Level 8.0 mg/dL (8.5-10.1) Laboratory Tests Test 06/05/19 17:00 06/05/19 20:39 06/06/19 03:40 06/06/19 07:20 Glucose (Fingerstick) 204 mg/dL (70-99) 248 mg/dL (70-99) 233 mg/dL (70-99) White Blood Count 14.4 x10^3/uL (4.0-11.0) Red Blood Count 2.66 x10^6/uL (4.30-5.70) Hemoglobin 8.0 g/dL (13.0-17.5) Hematocrit 24.0 % (39.0-53.0) Mean Corpuscular Volume 90 fL (79-100) Mean Corpuscular Hemoglobin 30 pg (25-35) Mean Corpuscular Hemoglobin Concent 33 g/dL (31-37) Red Cell Distribution Width 15.1 % (11.5-14.5) Platelet Count 239 x10^3/uL (140-400) Neutrophils (%) (Auto) 82 % (31-73) Lymphocytes (%) (Auto) 7 % (24-48) Monocytes (%) (Auto) 10 % (0-9) Eosinophils (%) (Auto) 1 % (0-3) Basophils (%) (Auto) 0 % (0-3) Neutrophils # (Auto) 11.8 x10^3/uL (1.8-7.7) Lymphocytes # (Auto) 1.0 x10^3/uL (1.0-4.8) Monocytes # (Auto) 1.5 x10^3/uL (0.0-1.1) Eosinophils # (Auto) 0.2 x10^3/uL (0.0-0.7) Basophils # (Auto) 0.0 x10^3/uL (0.0-0.2) Sodium Level 131 mmol/L (136-145) Potassium Level 3.9 mmol/L (3.5-5.1) Chloride Level 94 mmol/L (98-107) Carbon Dioxide Level 26 mmol/L (21-32) Anion Gap 11 (6-14) Blood Urea Nitrogen 52 mg/dL (8-26) Creatinine 4.1 mg/dL (0.7-1.3) Estimated GFR (Cockcroft-Gault) 14.0 Glucose Level 238 mg/dL (70-99) Calcium Level 8.0 mg/dL (8.5-10.1) Test 06/06/19 10:47 Glucose (Fingerstick) 334 mg/dL (70-99) TALIB DOLAN MD Jun 06, 2019 16:36
[2019-06-06 19:53] VITALS: BP 163/91
[2019-06-06] MEDS: GABAPENTIN 300 MG CAPSULE. PO SCH (21:49)
[2019-06-06] MEDS: ATORVASTATIN CALCIUM 20 MG TABLET PO SCH (21:49)
[2019-06-06] MEDS: TAMSULOSIN 0.4 MG CAP.ER.24H. PO SCH (21:49)
[2019-06-06] MEDS: INSULIN GLARGINE SYRINGE. SQ SCH (21:51)
[2019-06-06 23:21] VITALS: BP 169/93
[2019-06-07 00:48] LABS: BASE EXCESS ABG -2 mmol/L (-3-3); HCO3 ABG 23 mmol/L (21-28); PCO2 ABG 38 mmHg (35-46); PO2 ABG 68 mmHg (65-108); SAT O2 ABG 92 % (92-99)
[2019-06-07 01:08] LABS: FIO2 ABG 44
[2019-06-07] MEDS: NACL IV SCH ×2 (02:00→05:47)
[2019-06-07] MEDS: DEXTROSE IV SCH ×2 (02:00→05:47)
[2019-06-07] MEDS: SODIUM BICARBONATE IV SCH ×2 (02:00→05:47)
[2019-06-07 04:37] LABS: BASO % 0 % (0-3); EOS # 0.1 x10^3/uL (0.0-0.7); EOS % 1 % (0-3); HEMATOCRIT 23.5 % (39.0-53.0); HEMOGLOBIN 8.2 g/dL (13.0-17.5); LYMPH # 0.7 x10^3/uL (1.0-4.8); LYMPH % 6 % (24-48); MEAN CORPUSCULAR HEMOGLOBIN 31 pg (25-35); MEAN CORPUSCULAR HGB CONC 35 g/dL (31-37); MEAN CORPUSCULAR VOLUME 90 fL (79-100); MONO % 7 % (0-9); NEUT # 11.4 x10^3/uL (1.8-7.7); NEUT % 86 % (31-73); PLATELET COUNT 277 x10^3/uL (140-400); RED BLOOD COUNT 2.62 x10^6/uL (4.30-5.70); RED CELL DISTRIBUTION WIDTH 15.1 % (11.5-14.5); WHITE BLOOD COUNT 13.2 x10^3/uL (4.0-11.0)
[2019-06-07 05:06] LABS: CREATININE 3.4 mg/dL (0.7-1.3); GFR 17.4; POTASSIUM 3.8 mmol/L (3.5-5.1)
--- NOTE | 2019-06-07 05:52 | NUR ---
During the shift patient continued to become more and more confused, agitated and restless. Pt was originally on 3L nasal cannula and O2 sat was 97%, when reassessed pt was only sating at 86-87% on 3L, so turned O2 up to 6L. Nurse paged doctor and got orders for ABGs, which were normal. Dr was repaged due to increasing efforts to breathe using accessory muscles and expiratory wheezes, Dr ordered Bi-Pap. Pt was sating better at 96% with Bi-pap on. Pt still continuously pulling Bi-pap off and trying to get out of bed. When came in room at 0550 pt had pulled out one IV and was tugging on his espinoza catheter and Bi-pap mask was on the ground. Nurse put Bi-pap back on pt, applied mitts and restarted fluids in other IV. Pt was calmed down after 5min. Pt currently resting in bed, will continue to monitor.
[2019-06-07] MEDS: LEVOTHYROXINE 25 MCG TABLET. PO SCH (06:00)
[2019-06-07 07:15] VITALS: BP 157/92
--- NOTE | 2019-06-07 07:16 | PDOC ---
PROGRESS NOTES Chief Complaint Chief Complaint IMPRESSION Mental status change Hyperkalemia DIABETES anemia, transfuse one unit 06/05 Renal Failure acute on chronic The kidneys are normal in size and demonstrate normal blood flow. There is no hydronephrosis. There is a 1.9 cm cyst within the upper pole the left kidney. gross hematuria IRON DEF ANEMIA HEART CATH 2016 HEART CATH Conclusion 1. Significant stenoses involving the proximal and distal segments of the right coronary artery as described above with patent previously placed stents in the distal RCA and midsegment of the LAD. 2. Successful PCI/drug eluting stents placement to the proximal and distal segments of the right coronary artery. 3. Normal left ventricle systolic function with ejection fraction estimated at 60%. PLAN 1. Aspirin 325 mg daily 2. Plavix 75 mg daily for preferably one year 3. Cardiovascular risk factor modification urology consult GI FOLLOWING 26 min pt exam, chart review, > 50% of time spent with exam, chart review, pt care coordination d/w family in room AM LABS History of Present Illness History of Present Illness 06-07 Pt seen and examined BEDSIDE Accompanied by family members some confusion Charts and labs reviewed WBC is DOWN TO 15.3 Hgb is 6.8 D/w RN, TRANSFUSE 1 UNIT// SS INSULIN 26 MIN PT EXAM, chart review, > 50% of time spent with exam, chart review, pt care coordination 06/03/19 Pt was seen and examined in the ICU Pt was asleep in bed Accompanied by son-in-law Discussed care plan with son-in-law Pt is off levophed Charts and labs reviewed WBC is 15.9 up from 11.1 RBC is 2.72 up from 2.63 Hgb is 8.1, up from 7.8 Potassium is 4.8, down from 5.3 BUN is 55 Cr is 6.0 D/w RN 06/02/19 Pt was seen and examined in the ICU Pt was responsive, but quiet Accompanied with family Family reported that pt has hallucinations and is aware that they are hallucinations Continued discussing with family about medical conditions. Family will talk to academic affairs dean about likelihood of dialysis Chart and labs reviewed EF 60% Potassium is 5.3, down from 6.2 BUN is 63, down from 69 Cr is 7, down from 7.7 D/w RN 06/01/19 Pt was seen and examined in the ICU Pt was awake and eating lunch. 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 AISHA RN Vitals Vitals Vital Signs Date Time Temp Pulse Resp B/P (MAP) Pulse Ox O2 Delivery O2 Flow Rate FiO2 06/07/19 05:55 BiPAP/CPAP 06/07/19 03:57 20 06/07/19 01:50 96 06/07/19 00:40 6.0 06/06/19 23:21 98.3 108 169/93 (118) 98.3 Physical Exam General: Alert, Oriented X3, Cooperative, No acute distress, Other (CONFUSED TO DETAILS) Heart: Regular rate, Normal S1, Normal S2, No murmurs, Gallops Lungs: Clear Abdomen: Normal bowel sounds, Soft, No tenderness, No hepatosplenomegaly, No masses Extremities: No clubbing, No cyanosis, No edema, Normal pulses, No tenderness/s welling Skin: Other (diaphoretic) Labs LABS Laboratory Tests Test 06/06/19 07:20 06/06/19 10:47 06/06/19 16:51 06/06/19 20:47 Glucose (Fingerstick) 233 mg/dL (70-99) 334 mg/dL (70-99) 300 mg/dL (70-99) 235 mg/dL (70-99) Test 06/07/19 00:43 06/07/19 03:55 O2 Saturation 92 % (92-99) Arterial Blood pH 7.40 (7.35-7.45) Arterial Blood pCO2 at Patient Temp 38 mmHg (35-46) Arterial Blood pO2 at Patient Temp 68 mmHg (65-108) Arterial Blood HCO3 23 mmol/L (21-28) Arterial Blood Base Excess -2 mmol/L (-3-3) FiO2 44 White Blood Count 13.2 x10^3/uL (4.0-11.0) Red Blood Count 2.62 x10^6/uL (4.30-5.70) Hemoglobin 8.2 g/dL (13.0-17.5) Hematocrit 23.5 % (39.0-53.0) Mean Corpuscular Volume 90 fL (79-100) Mean Corpuscular Hemoglobin 31 pg (25-35) Mean Corpuscular Hemoglobin Concent 35 g/dL (31-37) Red Cell Distribution Width 15.1 % (11.5-14.5) Platelet Count 277 x10^3/uL (140-400) Neutrophils (%) (Auto) 86 % (31-73) Lymphocytes (%) (Auto) 6 % (24-48) Monocytes (%) (Auto) 7 % (0-9) Eosinophils (%) (Auto) 1 % (0-3) Basophils (%) (Auto) 0 % (0-3) Neutrophils # (Auto) 11.4 x10^3/uL (1.8-7.7) Lymphocytes # (Auto) 0.7 x10^3/uL (1.0-4.8) Monocytes # (Auto) 1.0 x10^3/uL (0.0-1.1) Eosinophils # (Auto) 0.1 x10^3/uL (0.0-0.7) Basophils # (Auto) 0.0 x10^3/uL (0.0-0.2) Sodium Level 133 mmol/L (136-145) Potassium Level 3.8 mmol/L (3.5-5.1) Chloride Level 96 mmol/L (98-107) Carbon Dioxide Level 28 mmol/L (21-32) Anion Gap 9 (6-14) Blood Urea Nitrogen 46 mg/dL (8-26) Creatinine 3.4 mg/dL (0.7-1.3) Estimated GFR (Cockcroft-Gault) 17.4 Glucose Level 212 mg/dL (70-99) Calcium Level 8.0 mg/dL (8.5-10.1) Assessment and Plan Assessmemt and Plan Problems Medical Problems: (1) Acute on chronic renal failure Status: Acute (2) Anemia Status: Acute (3) CAD (coronary artery disease) Status: Chronic (4) Elevated troponin Status: Acute (5) GERD (gastroesophageal reflux disease) Status: Chronic (6) Hyperkalemia Status: Acute (7) Hypoglycemia Status: Acute Comment Review of Relevant I have reviewed the following items yu (where applicable) has been applied. Labs Laboratory Tests Test 06/05/19 07:23 06/05/19 08:45 06/05/19 11:55 06/05/19 12:13 Glucose (Fingerstick) 226 mg/dL (70-99) 211 mg/dL (70-99) Urine Collection Type Unknown Urine Color [place] Urine Clarity Clear Urine pH 7.0 Urine Specific [place] 1.015 Urine Protein 100 mg/dL (NEG-TRACE) Urine Glucose (UA) 500 mg/dL (NEG) Urine Ketones (Stick) 15 mg/dL (NEG) Urine Blood Large (NEG) Urine Nitrite Negative (NEG) Urine Bilirubin Negative (NEG) Urine Urobilinogen Dipstick 0.2 mg/dL (0.2 mg/dL) Urine Leukocyte Esterase Trace (NEG) Urine RBC 20-40 /HPF (0-2) Urine WBC 1-4 /HPF (0-4) Urine Squamous Epithelial Cells None /LPF Urine Bacteria Few /HPF (0-FEW) Stool Occult Blood Negative (NEG) Test 06/05/19 17:00 06/05/19 20:39 06/06/19 03:40 06/06/19 07:20 Glucose (Fingerstick) 204 mg/dL (70-99) 248 mg/dL (70-99) 233 mg/dL (70-99) White Blood Count 14.4 x10^3/uL (4.0-11.0) Red Blood Count 2.66 x10^6/uL (4.30-5.70) Hemoglobin 8.0 g/dL (13.0-17.5) Hematocrit 24.0 % (39.0-53.0) Mean Corpuscular Volume 90 fL (79-100) Mean Corpuscular Hemoglobin 30 pg (25-35) Mean Corpuscular Hemoglobin Concent 33 g/dL (31-37) Red Cell Distribution Width 15.1 % (11.5-14.5) Platelet Count 239 x10^3/uL (140-400) Neutrophils (%) (Auto) 82 % (31-73) Lymphocytes (%) (Auto) 7 % (24-48) Monocytes (%) (Auto) 10 % (0-9) Eosinophils (%) (Auto) 1 % (0-3) Basophils (%) (Auto) 0 % (0-3) Neutrophils # (Auto) 11.8 x10^3/uL (1.8-7.7) Lymphocytes # (Auto) 1.0 x10^3/uL (1.0-4.8) Monocytes # (Auto) 1.5 x10^3/uL (0.0-1.1) Eosinophils # (Auto) 0.2 x10^3/uL (0.0-0.7) Basophils # (Auto) 0.0 x10^3/uL (0.0-0.2) Sodium Level 131 mmol/L (136-145) Potassium Level 3.9 mmol/L (3.5-5.1) Chloride Level 94 mmol/L (98-107) Carbon Dioxide Level 26 mmol/L (21-32) Anion Gap 11 (6-14) Blood Urea Nitrogen 52 mg/dL (8-26) Creatinine 4.1 mg/dL (0.7-1.3) Estimated GFR (Cockcroft-Gault) 14.0 Glucose Level 238 mg/dL (70-99) Calcium Level 8.0 mg/dL (8.5-10.1) Vitamin B12 Level 634 pg/mL (247-911) Test 06/06/19 10:47 06/06/19 16:51 06/06/19 20:47 06/07/19 00:43 Glucose (Fingerstick) 334 mg/dL (70-99) 300 mg/dL (70-99) 235 mg/dL (70-99) O2 Saturation 92 % (92-99) Arterial Blood pH 7.40 (7.35-7.45) Arterial Blood pCO2 at Patient Temp 38 mmHg (35-46) Arterial Blood pO2 at Patient Temp 68 mmHg (65-108) Arterial Blood HCO3 23 mmol/L (21-28) Arterial Blood Base Excess -2 mmol/L (-3-3) FiO2 44 Test 06/07/19 03:55 White Blood Count 13.2 x10^3/uL (4.0-11.0) Red Blood Count 2.62 x10^6/uL (4.30-5.70) Hemoglobin 8.2 g/dL (13.0-17.5) Hematocrit 23.5 % (39.0-53.0) Mean Corpuscular Volume 90 fL (79-100) Mean Corpuscular Hemoglobin 31 pg (25-35) Mean Corpuscular Hemoglobin Concent 35 g/dL (31-37) Red Cell Distribution Width 15.1 % (11.5-14.5) Platelet Count 277 x10^3/uL (140-400) Neutrophils (%) (Auto) 86 % (31-73) Lymphocytes (%) (Auto) 6 % (24-48) Monocytes (%) (Auto) 7 % (0-9) Eosinophils (%) (Auto) 1 % (0-3) Basophils (%) (Auto) 0 % (0-3) Neutrophils # (Auto) 11.4 x10^3/uL (1.8-7.7) Lymphocytes # (Auto) 0.7 x10^3/uL (1.0-4.8) Monocytes # (Auto) 1.0 x10^3/uL (0.0-1.1) Eosinophils # (Auto) 0.1 x10^3/uL (0.0-0.7) Basophils # (Auto) 0.0 x10^3/uL (0.0-0.2) Sodium Level 133 mmol/L (136-145) Potassium Level 3.8 mmol/L (3.5-5.1) Chloride Level 96 mmol/L (98-107) Carbon Dioxide Level 28 mmol/L (21-32) Anion Gap 9 (6-14) Blood Urea Nitrogen 46 mg/dL (8-26) Creatinine 3.4 mg/dL (0.7-1.3) Estimated GFR (Cockcroft-Gault) 17.4 Glucose Level 212 mg/dL (70-99) Calcium Level 8.0 mg/dL (8.5-10.1) Laboratory Tests Test 06/06/19 07:20 06/06/19 10:47 06/06/19 16:51 06/06/19 20:47 Glucose (Fingerstick) 233 mg/dL (70-99) 334 mg/dL (70-99) 300 mg/dL (70-99) 235 mg/dL (70-99) Test 06/07/19 00:43 06/07/19 03:55 O2 Saturation 92 % (92-99) Arterial Blood pH 7.40 (7.35-7.45) Arterial Blood pCO2 at Patient Temp 38 mmHg (35-46) Arterial Blood pO2 at Patient Temp 68 mmHg (65-108) Arterial Blood HCO3 23 mmol/L (21-28) Arterial Blood Base Excess -2 mmol/L (-3-3) FiO2 44 White Blood Count 13.2 x10^3/uL (4.0-11.0) Red Blood Count 2.62 x10^6/uL (4.30-5.70) Hemoglobin 8.2 g/dL (13.0-17.5) Hematocrit 23.5 % (39.0-53.0) Mean Corpuscular Volume 90 fL (79-100) Mean Corpuscular Hemoglobin 31 pg (25-35) Mean Corpuscular Hemoglobin Concent 35 g/dL (31-37) Red Cell Distribution Width 15.1 % (11.5-14.5) Platelet Count 277 x10^3/uL (140-400) Neutrophils (%) (Auto) 86 % (31-73) Lymphocytes (%) (Auto) 6 % (24-48) Monocytes (%) (Auto) 7 % (0-9) Eosinophils (%) (Auto) 1 % (0-3) Basophils (%) (Auto) 0 % (0-3) Neutrophils # (Auto) 11.4 x10^3/uL (1.8-7.7) Lymphocytes # (Auto) 0.7 x10^3/uL (1.0-4.8) Monocytes # (Auto) 1.0 x10^3/uL (0.0-1.1) Eosinophils # (Auto) 0.1 x10^3/uL (0.0-0.7) Basophils # (Auto) 0.0 x10^3/uL (0.0-0.2) Sodium Level 133 mmol/L (136-145) Potassium Level 3.8 mmol/L (3.5-5.1) Chloride Level 96 mmol/L (98-107) Carbon Dioxide Level 28 mmol/L (21-32) Anion Gap 9 (6-14) Blood Urea Nitrogen 46 mg/dL (8-26) Creatinine 3.4 mg/dL (0.7-1.3) Estimated GFR (Cockcroft-Gault) 17.4 Glucose Level 212 mg/dL (70-99) Calcium Level 8.0 mg/dL (8.5-10.1) Microbiology 06/03/19 Blood Culture - Preliminary, Resulted NO GROWTH AFTER 3 DAYS Medications Current Medications Morphine Sulfate (Morphine Sulfate) 2 mg PRN Q15MIN PRN IV/SQ PAIN GREATER THAN 3/10 Last administered on 05/31/19at 12:20; Start 05/31/19 at 09:15; Stop 06/01/19 at 09:14; Status DC Ondansetron HCl (Zofran) 4 mg 1X ONCE IV Last administered on 05/31/19at 09:20; Start 05/31/19 at 09:15; Stop 05/31/19 at 09:17; Status DC Ondansetron HCl (Zofran) 4 mg STK-MED ONCE .ROUTE ; Start 05/31/19 at 09:16; Stop 05/31/19 at 09:17; Status DC Calcium Gluconate (Calcium Gluconate) 1,000 mg 1X ONCE IVP Last administered on 05/31/19at 11:59; Start 05/31/19 at 11:30; Stop 05/31/19 at 11:36; Status DC Dextrose (Dextrose 50%-Water Syringe) 25 gm 1X ONCE IV Last administered on 05/31/19at 11:59; Start 05/31/19 at 11:30; Stop 05/31/19 at 11:36; Status DC Insulin Human Regular (HumuLIN R VIAL) 10 unit 1X ONCE IV Last administered on 05/31/19at 11:59; Start 05/31/19 at 11:30; Stop 05/31/19 at 11:36; Status DC Sodium Bicarbonate 50 meq/Dextrose/ Sodium Chloride 1,050 ml @ 150 mls/hr Q7H IV Last administered on 05/31/19at 12:03; Start 05/31/19 at 12:15; Stop 05/31/19 at 13:57; Status DC Magnesium Sulfate/ Dextrose 100 ml @ 100 mls/hr 1X ONCE IV Last administered on 05/31/19at 13:03; Start 05/31/19 at 12:30; Stop 05/31/19 at 13:29; Status DC Ondansetron HCl (Zofran) 4 mg PRN Q8HRS PRN IV NAUSEA/VOMITING Last administered on 06/01/19at 09:47; Start 05/31/19 at 12:45; Stop 06/01/19 at 12:44; Status DC Morphine Sulfate (Morphine Sulfate) 2 mg PRN Q2HR PRN IV PAIN Last administered on 05/31/19at 21:11; Start 05/31/19 at 12:45; Stop 06/01/19 at 12:44; Status DC Levothyroxine Sodium (Synthroid) 25 mcg DAILY06 PO Last administered on 06/06/19 07:11; Start 06/01/19 at 06:00 Sodium Chloride 1,000 ml @ 75 mls/hr [id number] IV ; Start 05/31/19 at 14:00; Stop 05/31/19 at 15:58; Status DC Ceftriaxone Sodium (Rocephin) 1 gm Q24H IVP Last administered on 06/06/19 15:29; Start 06/01/19 at 15:00 Ceftriaxone Sodium (Rocephin) 1 gm 1X ONCE IVP Last administered on 05/31/19 18:07; Start 05/31/19 at 14:30; Stop 05/31/19 at 14:31; Status DC Atorvastatin Calcium (Lipitor) 20 mg QHS PO Last administered on 06/06/19 21:49; Start 05/31/19 at 21:00 Clopidogrel Bisulfate (Plavix) 75 mg DAILY07 PO Last administered on 06/01/19 08:33; Start 06/01/19 at 07:00; Stop 06/01/19 at 20:48; Status DC Ferrous Sulfate (Feosol) 325 mg BIDWMEALS PO Last administered on 06/06/19 17:35; Start 05/31/19 at 17:00 Gabapentin (Neurontin) 300 mg QHS PO Last administered on 06/06/19 21:49; Start 05/31/19 at 21:00 Glipizide (Glucotrol) 5 mg DAILY PO ; Start 06/01/19 at 09:00; Stop 05/31/19 at 15:37; Status DC Metoprolol Succinate (Toprol Xl) 25 mg DAILY PO Last administered on 06/06/19 09:18; Start 06/01/19 at 09:00 Pantoprazole Sodium (Protonix) 40 mg BIDAC PO Last administered on 06/06/19 17:35; Start 05/31/19 at 16:30 Tamsulosin HCl (Flomax) 0.4 mg HS PO Last administered on 06/06/19 21:49; Start 05/31/19 at 21:00 Sodium Bicarbonate 50 meq/Dextrose/ Sodium Chloride 1,050 ml @ 150 mls/hr Q7H ONCE IV ; Start 05/31/19 at 14:00; Stop 06/01/19 at 11:43; Status DC Sodium Bicarbonate 50 meq/Dextrose/ Sodium Chloride 1,050 ml @ 125 mls/hr Q8H24M ONCE IV Last administered on 05/31/19at 20:17; Start 05/31/19 at 21:00; Stop 06/01/19 at 11:43; Status DC Pharmacy Consult (C.diff Med Screen By Rx) 1 each 1X ONCE [facility] ; Start 05/31/19 at 17:00; Stop 05/31/19 at 17:15; Status DC Dextrose (Dextrose 50%-Water Syringe) 12.5 gm PRN Q15MIN PRN IV SEE COMMENTS; Start 05/31/19 at 22:45; Stop 06/02/19 at 21:41; Status DC Dextrose 250 ml PRN Q15MIN PRN IV SEE COMMENTS Last administered on 05/31/19at 23:20; Start 05/31/19 at 22:45 Dopamine HCl/ Dextrose 250 ml @ 5.919 mls/ hr CONT PRN IV SEE I/O RECORD Last administered on 06/01/19at 09:18; Start 06/01/19 at 09:15; Stop 06/05/19 at 20:16; Status DC Atropine Sulfate (ATROPINE 0.5mg SYRINGE) 0.5 mg 1X ONCE IM Last administered on 06/01/19at 09:19; Start 06/01/19 at 09:15; Stop 06/01/19 at 09:18; Status DC Norepinephrine Bitartrate 250 ml @ 0 mls/hr CONT PRN IV SEE I/O RECORD Last administered on 06/01/19at 10:09; Start 06/01/19 at 10:15; Stop 06/05/19 at 20:16; Status DC Famotidine (Pepcid) 20 mg QHS PO ; Start 06/01/19 at 21:00; Status Cancel Sodium Bicarbonate 50 meq/Dextrose/ Sodium Chloride 1,050 ml @ 150 mls/hr Q7H IV Last administered on 06/04/19at 03:00; Start 06/01/19 at 11:00; Stop 06/04/19 at 10:38; Status DC Lactobacillus Rhamnosus (Culturelle) 1 cap BID PO Last administered on 06/06/19at 21:49; Start 06/01/19 at 12:00 Sodium Polystyrene Sulfonate (Kayexalate) 30 gm 1X ONCE PO Last administered on 06/01/19at 14:04; Start 06/01/19 at 13:45; Stop 06/01/19 at 13:46; Status DC Insulin Human Regular (HumuLIN R VIAL) 10 unit 1X ONCE IV Last administered on 06/01/19at 14:40; Start 06/01/19 at 14:00; Stop 06/01/19 at 14:09; Status DC Dextrose (Dextrose 50%-Water Syringe) 25 gm 1X ONCE IV Last administered on 06/01/19at 14:38; Start 06/01/19 at 14:00; Stop 06/01/19 at 14:09; Status DC Aspirin (Ecotrin) 81 mg DAILYWBKFT PO Last administered on 06/06/19at 09:18; Start 06/02/19 at 08:00 Insulin Human Lispro (HumaLOG) 0-5 UNITS TIDWMEALS SQ Last administered on 06/02/19at 18:31; Start 06/02/19 at 18:30; Stop 06/02/19 at 21:40; Status DC Dextrose (Dextrose 50%-Water Syringe) 12.5 gm PRN Q15MIN PRN IV SEE COMMENTS; Start 06/02/19 at 18:00; Stop 06/02/19 at 21:41; Status DC Lorazepam (Ativan Inj) 0.5 mg 1X ONCE IV Last administered on 06/02/19at 21:49; Start 06/02/19 at 22:00; Stop 06/02/19 at 22:01; Status DC Insulin Human Lispro (HumaLOG) 0-5 UNITS QIDACHS SQ Last administered on 9at 21:54; Start 06/02/19 at 22:00 Dextrose (Dextrose 50%-Water Syringe) 12.5 gm PRN Q15MIN PRN IV SEE COMMENTS; Start 06/02/19 at 21:45 Acetaminophen (Tylenol) 650 mg PRN Q6HRS PRN PO PAIN Last administered on 06/06/19at 15:36; Start 06/03/19 at 12:00 Ondansetron HCl (Zofran) 4 mg PRN Q6HRS PRN IVP NAUSEA/VOMITING; Start 06/03/19 at 18:30 Sodium Bicarbonate 50 meq/Dextrose/ Sodium Chloride 1,050 ml @ 150 mls/hr Q7H IV Last administered on 06/07/19at 05:47; Start 06/04/19 at 11:00 Docusate Sodium (Colace) 100 mg BID PO Last administered on 06/06/19at 21:49; Start 06/05/19 at 21:00 Insulin Glargine (Lantus Syringe) 8 unit QHS SQ Last administered on 06/06/19at 21:51; Start 06/06/19 at 21:00 Active Scripts Active Augmentin 875-125 Tablet (Amoxicillin/Potassium Clav) 1 Each Tablet 1 Tab PO BID Feosol (Ferrous Sulfate) 325 Mg Tablet 325 Mg PO BIDWMEALS Protonix (Pantoprazole Sodium) 40 Mg Tablet.dr 1 Tab PO BID Lisinopril-Hctz 10-12.5 Mg Tab (Lisinopril/Hydrochlorothiazide) 1 Each Tablet 1 Tab PO DAILY Clopidogrel (Clopidogrel Bisulfate) 75 Mg Tablet 1 Tab PO DAILY Aspirin Ec (Aspirin) 325 Mg Tablet.dr 1 Tab PO DAILY Reported Hydrocodone-Apap 5-325 (Hydrocodone Bit/Acetaminophen) 1 Tab Tablet 1 Tab PO PRN Q6HRS PRN Latanoprost 2.5 Ml Drops 1 Drop EACHEYE QHS Melatonin 5 Mg Tablet 5 Mg PO QHS Ultracet Tablet (Tramadol Hcl/Acetaminophen) 1 Each Tablet 1 Tab PO Q12HR PRN Atorvastatin Calcium 20 Mg Tablet 20 Mg PO DAILY Ketoconazole 120 Ml Shampoo 120 Ml TP Gabapentin (Gabapentin) 300 Mg Capsule 300 Mg PO TID Multi-Day Vitamins (Multivitamin) 1 Each Tablet 1 Tab PO DAILY Nitrostat (Nitroglycerin) 0.4 Mg Tab.subl 1 Tab SL UD PRN Metoprolol Succinate ( Xl ) (Metoprolol Succinate) 25 Mg Tab.er.24h 1 Tab PO DAILY Tamsulosin Hcl 0.4 Mg Cap.er.24h 1 Cap PO HS Glipizide 5 Mg Tablet 1 Tab PO DAILY Metformin Hcl 1,000 Mg Tablet 1 Tab PO BID Vitals/I & O Vital Sign - Last 24 Hours 06/06/19 06/06/19 06/06/19 06/06/19 07:57 08:20 09:18 11:41 Temp 97.6 97.6 97.6 97.6 Pulse 88 88 105 Resp 20 18 B/P (MAP) 161/88 (112) 161/88 136/87 (103) Pulse Ox 96 95 O2 Delivery Nasal Cannula Nasal Cannula Nasal Cannula O2 Flow Rate 3.0 3.0 3.0 06/06/19 06/06/19 06/06/19 06/06/19 15:45 19:50 19:53 23:21 Temp 97.9 97.3 98.3 97.9 97.3 98.3 Pulse 100 103 108 Resp 18 20 20 B/P (MAP) 153/88 (109) 163/91 (115) 169/93 (118) Pulse Ox 96 97 97 O2 Delivery Nasal Cannula Nasal Cannula Nasal Cannula Nasal Cannula O2 Flow Rate 3.0 3.0 3.0 3.0 06/07/19 06/07/19 06/07/19 06/07/19 00:40 01:50 03:15 03:57 Resp 20 Pulse Ox 96 O2 Delivery Nasal Cannula BiPAP/CPAP BiPAP/CPAP BiPAP/CPAP O2 Flow Rate 6.0 06/07/19 05:55 O2 Delivery BiPAP/CPAP Intake and Output 06/06/19 06/06/19 06/07/19 15:00 23:00 07:00 Intake Total 300 ml 660 ml Output Total 600 ml 2350 ml Balance -300 ml -1690 ml WILLIAM ROGERS MD Jun 07, 2019 07:16
[2019-06-07] MEDS: INSULIN LISPRO 300 UNITS/3 ML VIAL. SQ SCH ×3 (07:30→17:41)
[2019-06-07] MEDS: PANTOPRAZOLE 40 MG TABLET.DR. PO SCH ×3 (09:25→17:33)
[2019-06-07] MEDS: LACTOBACILLUS RHAMNOSUS GG 1 CAPSULE. PO SCH ×3 (09:25→21:28)
[2019-06-07] MEDS: ASPIRIN ENTERIC COATED 81 MG TABLET.DR. PO SCH ×2 (09:25→11:01)
[2019-06-07] MEDS: DOCUSATE SODIUM 100 MG CAPSULE. PO SCH ×3 (09:25→21:28)
[2019-06-07] MEDS: METOPROLOL SUCC 24HR ER 25 MG TAB.ER.24H. PO SCH ×2 (09:26→11:02)
[2019-06-07] MEDS: FERROUS SULFATE 325 MG TABLET. PO SCH ×3 (09:26→17:48)
--- NOTE | 2019-06-07 09:46 | PDOC2 ---
WAGNER ESQUIVEL 06/07/19 0946: UROLOGY CONSULT Date of Consult Date of Consult DATE: 06/07/19 TIME: 09:41 Identification/Chief Complaint Chief Complaint gross hematuria Source Source: Caregiver, Chart review, Patient History of Present Illness Reason for Visit: 83yo male with PMH of HTN, DM admitted for FABIEN and recent fall. We were consulted for gross hematuria. D/w RN - patient had episode of light red tinged urine, possibly after pulling on catheter. States the pt has been confused and was tugging at his IV and catheter. Pt is confused per RN but denies any pain, episodes of hematuria in the past, difficulty urinating at baseline. Past Medical History Cardiovascular: CAD, HTN, Hyperlipidemia Pulmonary: No pertinent hx CENTRAL NERVOUS SYSTEM: Other GI: GERD Heme/Onc: Anemia NOS Hepatobiliary: No pertinent hx Psych: No pertinent hx Infectious disease: No pertinent hx Renal/: No pertinent hx Endocrine: Diabetes Past Surgical History Past Surgical History: Cataract Removal, Tonsillectomy, Other Family History Family History: High Cholestrol Social History No ALCOHOL: occassional Drugs: None Lives: with Family Current Medications Current Medications Current Medications Insulin Glargine (Lantus Syringe) 8 unit QHS SQ Last administered on 06/06/19at 21:51; Start 06/06/19 at 21:00 Allergies Allergies: Coded Allergies: No Known Drug Allergies (Unverified , 06/26/17) ROS Review Of Systems: Unable to accurately obtain - Pt confused Physical Exam Physical Exam: General: Pleasant, no acute distress, well groomed Eyes: conjunctiva anicteric, eyes full range of motion ENT: moist oral mucosa, normal dentition Neck: Trachea midline, no masses Respiratory: unlabored breathing, not using accessory muscles Cardiovascular: Regular rate and rhythm, no peripheral edema Abdomen: nontender, nondistended, no hepatosplenomegaly, no masses : Cesar in placed, secured to leg, draining clear yellow urine Skin: no rashes or skin lesions on visualized skin Psych: normal mood, affect. Alert and oriented x 3. Vitals VITALS Vital Signs Date Time Temp Pulse Resp B/P (MAP) Pulse Ox O2 Delivery O2 Flow Rate FiO2 06/07/19 08:00 Nasal Cannula 3.0 06/07/19 07:45 100 06/07/19 07:15 98.4 10 20 157/92 (113) 98.4 Labs Labs Laboratory Tests Test 06/05/19 11:55 06/05/19 12:13 06/05/19 17:00 06/05/19 20:39 Stool Occult Blood Negative (NEG) Glucose (Fingerstick) 211 mg/dL (70-99) 204 mg/dL (70-99) 248 mg/dL (70-99) Test 06/06/19 03:40 06/06/19 07:20 06/06/19 10:47 06/06/19 16:51 White Blood Count 14.4 x10^3/uL (4.0-11.0) Red Blood Count 2.66 x10^6/uL (4.30-5.70) Hemoglobin 8.0 g/dL (13.0-17.5) Hematocrit 24.0 % (39.0-53.0) Mean Corpuscular Volume 90 fL (79-100) Mean Corpuscular Hemoglobin 30 pg (25-35) Mean Corpuscular Hemoglobin Concent 33 g/dL (31-37) Red Cell Distribution Width 15.1 % (11.5-14.5) Platelet Count 239 x10^3/uL (140-400) Neutrophils (%) (Auto) 82 % (31-73) Lymphocytes (%) (Auto) 7 % (24-48) Monocytes (%) (Auto) 10 % (0-9) Eosinophils (%) (Auto) 1 % (0-3) Basophils (%) (Auto) 0 % (0-3) Neutrophils # (Auto) 11.8 x10^3/uL (1.8-7.7) Lymphocytes # (Auto) 1.0 x10^3/uL (1.0-4.8) Monocytes # (Auto) 1.5 x10^3/uL (0.0-1.1) Eosinophils # (Auto) 0.2 x10^3/uL (0.0-0.7) Basophils # (Auto) 0.0 x10^3/uL (0.0-0.2) Sodium Level 131 mmol/L (136-145) Potassium Level 3.9 mmol/L (3.5-5.1) Chloride Level 94 mmol/L (98-107) Carbon Dioxide Level 26 mmol/L (21-32) Anion Gap 11 (6-14) Blood Urea Nitrogen 52 mg/dL (8-26) Creatinine 4.1 mg/dL (0.7-1.3) Estimated GFR (Cockcroft-Gault) 14.0 Glucose Level 238 mg/dL (70-99) Calcium Level 8.0 mg/dL (8.5-10.1) Vitamin B12 Level 634 pg/mL (247-911) Glucose (Fingerstick) 233 mg/dL (70-99) 334 mg/dL (70-99) 300 mg/dL (70-99) Test 06/06/19 20:47 06/07/19 00:43 06/07/19 03:55 06/07/19 07:29 Glucose (Fingerstick) 235 mg/dL (70-99) 195 mg/dL (70-99) O2 Saturation 92 % (92-99) Arterial Blood pH 7.40 (7.35-7.45) Arterial Blood pCO2 at Patient Temp 38 mmHg (35-46) Arterial Blood pO2 at Patient Temp 68 mmHg (65-108) Arterial Blood HCO3 23 mmol/L (21-28) Arterial Blood Base Excess -2 mmol/L (-3-3) FiO2 44 White Blood Count 13.2 x10^3/uL (4.0-11.0) Red Blood Count 2.62 x10^6/uL (4.30-5.70) Hemoglobin 8.2 g/dL (13.0-17.5) Hematocrit 23.5 % (39.0-53.0) Mean Corpuscular Volume 90 fL (79-100) Mean Corpuscular Hemoglobin 31 pg (25-35) Mean Corpuscular Hemoglobin Concent 35 g/dL (31-37) Red Cell Distribution Width 15.1 % (11.5-14.5) Platelet Count 277 x10^3/uL (140-400) Neutrophils (%) (Auto) 86 % (31-73) Lymphocytes (%) (Auto) 6 % (24-48) Monocytes (%) (Auto) 7 % (0-9) Eosinophils (%) (Auto) 1 % (0-3) Basophils (%) (Auto) 0 % (0-3) Neutrophils # (Auto) 11.4 x10^3/uL (1.8-7.7) Lymphocytes # (Auto) 0.7 x10^3/uL (1.0-4.8) Monocytes # (Auto) 1.0 x10^3/uL (0.0-1.1) Eosinophils # (Auto) 0.1 x10^3/uL (0.0-0.7) Basophils # (Auto) 0.0 x10^3/uL (0.0-0.2) Sodium Level 133 mmol/L (136-145) Potassium Level 3.8 mmol/L (3.5-5.1) Chloride Level 96 mmol/L (98-107) Carbon Dioxide Level 28 mmol/L (21-32) Anion Gap 9 (6-14) Blood Urea Nitrogen 46 mg/dL (8-26) Creatinine 3.4 mg/dL (0.7-1.3) Estimated GFR (Cockcroft-Gault) 17.4 Glucose Level 212 mg/dL (70-99) Calcium Level 8.0 mg/dL (8.5-10.1) Laboratory Tests Test 06/06/19 10:47 06/06/19 16:51 06/06/19 20:47 06/07/19 00:43 Glucose (Fingerstick) 334 mg/dL (70-99) 300 mg/dL (70-99) 235 mg/dL (70-99) O2 Saturation 92 % (92-99) Arterial Blood pH 7.40 (7.35-7.45) Arterial Blood pCO2 at Patient Temp 38 mmHg (35-46) Arterial Blood pO2 at Patient Temp 68 mmHg (65-108) Arterial Blood HCO3 23 mmol/L (21-28) Arterial Blood Base Excess -2 mmol/L (-3-3) FiO2 44 Test 06/07/19 03:55 06/07/19 07:29 White Blood Count 13.2 x10^3/uL (4.0-11.0) Red Blood Count 2.62 x10^6/uL (4.30-5.70) Hemoglobin 8.2 g/dL (13.0-17.5) Hematocrit 23.5 % (39.0-53.0) Mean Corpuscular Volume 90 fL (79-100) Mean Corpuscular Hemoglobin 31 pg (25-35) Mean Corpuscular Hemoglobin Concent 35 g/dL (31-37) Red Cell Distribution Width 15.1 % (11.5-14.5) Platelet Count 277 x10^3/uL (140-400) Neutrophils (%) (Auto) 86 % (31-73) Lymphocytes (%) (Auto) 6 % (24-48) Monocytes (%) (Auto) 7 % (0-9) Eosinophils (%) (Auto) 1 % (0-3) Basophils (%) (Auto) 0 % (0-3) Neutrophils # (Auto) 11.4 x10^3/uL (1.8-7.7) Lymphocytes # (Auto) 0.7 x10^3/uL (1.0-4.8) Monocytes # (Auto) 1.0 x10^3/uL (0.0-1.1) Eosinophils # (Auto) 0.1 x10^3/uL (0.0-0.7) Basophils # (Auto) 0.0 x10^3/uL (0.0-0.2) Sodium Level 133 mmol/L (136-145) Potassium Level 3.8 mmol/L (3.5-5.1) Chloride Level 96 mmol/L (98-107) Carbon Dioxide Level 28 mmol/L (21-32) Anion Gap 9 (6-14) Blood Urea Nitrogen 46 mg/dL (8-26) Creatinine 3.4 mg/dL (0.7-1.3) Estimated GFR (Cockcroft-Gault) 17.4 Glucose Level 212 mg/dL (70-99) Calcium Level 8.0 mg/dL (8.5-10.1) Glucose (Fingerstick) 195 mg/dL (70-99) Images Images FINDINGS: The kidneys are normal in size and demonstrate normal blood flow. There is no hydronephrosis. There is a 1.9 cm cyst within the upper pole the left kidney. There is a Cesar catheter within the urinary bladder. IMPRESSION: 1. Small left renal cyst. 2. Cesar catheter within the urinary bladder. Assessment/Plan Assessment/Plan Gross Hematuria Likely 2/2 patient pulling on catheter MABEL shows no abnormalities within bladder; cyst on left kidney Urine is clear today No intervention recommended; continue to monitor output Please call if questions or if hematuria returns/worsens MELANIE ROBB MD 06/07/19 1046: UROLOGY CONSULT Assessment/Plan Assessment/Plan have seen pt and reviewed chart. I agree with plan. WAGNER ESQUIVEL Jun 07, 2019 09:46 MELANIE ROBB MD Jun 07, 2019 10:46
[2019-06-07 11:07] VITALS: BP 155/78
--- NOTE | 2019-06-07 11:14 | PDOC ---
SUBJECTIVE ROS Stable OBJECTIVE Vital Signs Vital Signs Date Time Temp Pulse Resp B/P (MAP) Pulse Ox O2 Delivery O2 Flow Rate FiO2 06/07/19 11:02 86 157/92 06/07/19 08:00 Nasal Cannula 3.0 06/07/19 07:45 100 06/07/19 07:15 98.4 20 98.4 I & 0 Intake and Output 06/07/19 07:00 Intake Total 960 ml Output Total 2950 ml Balance -1990 ml Intake Oral 960 ml Output Urine Total 2950 ml PHYSICAL EXAM Physical Exam GENERAL: No apparent distress. HEENT: OM moist NECK: Supple, LUNGS: Clear to auscultation HEART: RRR, S1, S2 present. ABDOMEN: Soft, nontender. EXTREMITIES: Without any cyanosis, clubbing, or edema. SKIN: No ulcerations or rashes, good skin turgor, no jaundice. Cesar + DIAGNOSIS/ASSESSMENT Assessment & Plan FABIEN - Improving Cr peaked at 7.8--> down to 4.1 -->3.4 E-Lytes and acid base stable Supportive care, I/O, Monitor Renal US- normal in size and demonstrate normal blood flow. no hydronephrosis. There is a 1.9 cm cyst within the upper pole the left kidney. Mental status change- Improved Hyperkalemia- Resolved DIABETES- per primary Anemia, s/p PRBC x 1 06/05 Hematuria- No intervention, Likely traumatic per Urology COMMENT/RELEVANT DATA Meds Current Medications Medications (Trade) Dose Ordered Sig/Nathalie Start Time Stop Time Status Last Admin Dose Admin Acetaminophen (Tylenol) 650 mg PRN Q6HRS PRN 06/03/19 12:00 06/06/19 15:36 650 MG Aspirin (Ecotrin) 81 mg [id number] 06/02/19 08:00 06/07/19 11:01 81 MG Atorvastatin Calcium (Lipitor) 20 mg QHS 05/31/19 21:00 06/06/19 21:49 20 MG Atropine Sulfate (ATROPINE 0.5mg SYRINGE) 0.5 mg 1X ONCE 06/01/19 09:15 06/01/19 09:18 DC 06/01/19 09:19 0.5 MG Calcium Gluconate (Calcium Gluconate) 1,000 mg 1X ONCE 05/31/19 11:30 05/31/19 11:36 DC 05/31/19 11:59 1,000 MG Ceftriaxone Sodium (Rocephin) 1 gm 1X ONCE 05/31/19 14:30 05/31/19 14:31 DC 05/31/19 18:07 1 GM Clopidogrel Bisulfate (Plavix) 75 mg DAILY07 06/01/19 07:00 06/01/19 20:48 DC 06/01/19 08:33 75 MG Dextrose (Dextrose 50%-Water Syringe) 12.5 gm PRN Q15MIN PRN 06/02/19 21:45 Docusate Sodium (Colace) 100 mg BID 06/05/19 21:00 06/07/19 11:01 100 MG Dopamine HCl/ Dextrose 250 ml @ 5.919 mls/ hr CONT PRN 06/01/19 09:15 06/05/19 20:16 DC 06/01/19 09:18 14.798 MLS/HR Famotidine (Pepcid) 20 mg QHS 06/01/19 21:00 Cancel Ferrous Sulfate (Feosol) 325 mg BIDWMEALS 05/31/19 17:00 06/07/19 11:02 325 MG Gabapentin (Neurontin) 300 mg QHS 05/31/19 21:00 06/06/19 21:49 300 MG Glipizide (Glucotrol) 5 mg DAILY 06/01/19 09:00 05/31/19 15:37 DC Insulin Glargine (Lantus Syringe) 8 unit QHS 06/06/19 21:00 06/06/19 21:51 8 UNIT Insulin Human Lispro (HumaLOG) 0-5 UNITS QIDACHS 06/02/19 22:00 06/06/19 21:54 3 UNITS Insulin Human Regular (HumuLIN R VIAL) 10 unit 1X ONCE 06/01/19 14:00 06/01/19 14:09 DC 06/01/19 14:40 10 UNIT Lactobacillus Rhamnosus (Culturelle) 1 cap BID 06/01/19 12:00 06/07/19 11:01 1 CAP Levothyroxine Sodium (Synthroid) 25 mcg DAILY06 06/01/19 06:00 06/06/19 07:11 25 MCG Lorazepam (Ativan Inj) 0.5 mg 1X ONCE 06/02/19 22:00 06/02/19 22:01 DC 06/02/19 21:49 0.5 MG Magnesium Sulfate/ Dextrose 100 ml @ 100 mls/hr 1X ONCE 05/31/19 12:30 05/31/19 13:29 DC 05/31/19 13:03 100 MLS/HR Metoprolol Succinate (Toprol Xl) 25 mg DAILY 06/01/19 09:00 06/07/19 11:02 25 MG Morphine Sulfate (Morphine Sulfate) 2 mg PRN Q2HR PRN 05/31/19 12:45 06/01/19 12:44 DC 05/31/19 21:11 2 MG Norepinephrine Bitartrate 250 ml @ 0 mls/hr CONT PRN 06/01/19 10:15 06/05/19 20:16 DC 06/01/19 10:09 44.4 MLS/HR Ondansetron HCl (Zofran) 4 mg PRN Q6HRS PRN 06/03/19 18:30 Pantoprazole Sodium (Protonix) 40 mg BIDAC 05/31/19 16:30 06/07/19 11:01 40 MG Pharmacy Consult (C.diff Med Screen By Rx) 1 each 1X ONCE 05/31/19 17:00 05/31/19 17:15 DC Sodium Bicarbonate 50 meq/Dextrose/ Sodium Chloride 1,050 ml @ 150 mls/hr Q7H 06/04/19 11:00 06/07/19 05:47 150 MLS/HR Sodium Polystyrene Sulfonate (Kayexalate) 30 gm 1X ONCE 06/01/19 13:45 06/01/19 13:46 DC 06/01/19 14:04 30 GM Sodium Chloride 1,000 ml @ 75 mls/hr [id number] 05/31/19 14:00 05/31/19 15:58 DC Tamsulosin HCl (Flomax) 0.4 mg HS 05/31/19 21:00 06/06/19 21:49 0.4 MG Lab Laboratory Tests Test 06/06/19 16:51 06/06/19 20:47 06/07/19 00:43 06/07/19 03:55 Glucose (Fingerstick) 300 mg/dL (70-99) 235 mg/dL (70-99) O2 Saturation 92 % (92-99) Arterial Blood pH 7.40 (7.35-7.45) Arterial Blood pCO2 at Patient Temp 38 mmHg (35-46) Arterial Blood pO2 at Patient Temp 68 mmHg (65-108) Arterial Blood HCO3 23 mmol/L (21-28) Arterial Blood Base Excess -2 mmol/L (-3-3) FiO2 44 White Blood Count 13.2 x10^3/uL (4.0-11.0) Red Blood Count 2.62 x10^6/uL (4.30-5.70) Hemoglobin 8.2 g/dL (13.0-17.5) Hematocrit 23.5 % (39.0-53.0) Mean Corpuscular Volume 90 fL (79-100) Mean Corpuscular Hemoglobin 31 pg (25-35) Mean Corpuscular Hemoglobin Concent 35 g/dL (31-37) Red Cell Distribution Width 15.1 % (11.5-14.5) Platelet Count 277 x10^3/uL (140-400) Neutrophils (%) (Auto) 86 % (31-73) Lymphocytes (%) (Auto) 6 % (24-48) Monocytes (%) (Auto) 7 % (0-9) Eosinophils (%) (Auto) 1 % (0-3) Basophils (%) (Auto) 0 % (0-3) Neutrophils # (Auto) 11.4 x10^3/uL (1.8-7.7) Lymphocytes # (Auto) 0.7 x10^3/uL (1.0-4.8) Monocytes # (Auto) 1.0 x10^3/uL (0.0-1.1) Eosinophils # (Auto) 0.1 x10^3/uL (0.0-0.7) Basophils # (Auto) 0.0 x10^3/uL (0.0-0.2) Sodium Level 133 mmol/L (136-145) Potassium Level 3.8 mmol/L (3.5-5.1) Chloride Level 96 mmol/L (98-107) Carbon Dioxide Level 28 mmol/L (21-32) Anion Gap 9 (6-14) Blood Urea Nitrogen 46 mg/dL (8-26) Creatinine 3.4 mg/dL (0.7-1.3) Estimated GFR (Cockcroft-Gault) 17.4 Glucose Level 212 mg/dL (70-99) Calcium Level 8.0 mg/dL (8.5-10.1) Test 06/07/19 07:29 Glucose (Fingerstick) 195 mg/dL (70-99) Results All relevant outside records, renal labs, imaging studies, telemetry/EKG's were reviewed. PERCY PERES MD Jun 07, 2019 11:14
--- NOTE | 2019-06-07 11:19 | PDOC ---
Objective: Objective: D/w nurse - on BiPAP overnight, confused this morning, coughed when drank coffee so kept NPO, confusion improved now. Vital Signs: Vital Signs Date Time Temp Pulse Resp B/P (MAP) Pulse Ox O2 Delivery O2 Flow Rate FiO2 06/07/19 11:02 86 157/92 06/07/19 08:00 Nasal Cannula 3.0 06/07/19 07:45 100 06/07/19 07:15 98.4 20 98.4 Labs: Laboratory Tests Test 06/06/19 16:51 06/06/19 20:47 06/07/19 00:43 06/07/19 03:55 Glucose (Fingerstick) 300 mg/dL 235 mg/dL O2 Saturation 92 % Arterial Blood pH 7.40 Arterial Blood pCO2 at Patient Temp 38 mmHg Arterial Blood pO2 at Patient Temp 68 mmHg Arterial Blood HCO3 23 mmol/L Arterial Blood Base Excess -2 mmol/L FiO2 44 White Blood Count 13.2 x10^3/uL Red Blood Count 2.62 x10^6/uL Hemoglobin 8.2 g/dL Hematocrit 23.5 % Mean Corpuscular Volume 90 fL Mean Corpuscular Hemoglobin 31 pg Mean Corpuscular Hemoglobin Concent 35 g/dL Red Cell Distribution Width 15.1 % Platelet Count 277 x10^3/uL Neutrophils (%) (Auto) 86 % Lymphocytes (%) (Auto) 6 % Monocytes (%) (Auto) 7 % Eosinophils (%) (Auto) 1 % Basophils (%) (Auto) 0 % Neutrophils # (Auto) 11.4 x10^3/uL Lymphocytes # (Auto) 0.7 x10^3/uL Monocytes # (Auto) 1.0 x10^3/uL Eosinophils # (Auto) 0.1 x10^3/uL Basophils # (Auto) 0.0 x10^3/uL Sodium Level 133 mmol/L Potassium Level 3.8 mmol/L Chloride Level 96 mmol/L Carbon Dioxide Level 28 mmol/L Anion Gap 9 Blood Urea Nitrogen 46 mg/dL Creatinine 3.4 mg/dL Estimated GFR (Cockcroft-Gault) 17.4 Glucose Level 212 mg/dL Calcium Level 8.0 mg/dL Test 06/07/19 07:29 Glucose (Fingerstick) 195 mg/dL PE: GEN: on commode LUNGS: NC 3L NEURO/PSYCH: asleep A/P: Confusion FABIEN - improving H/o RANDY - on PPI and iron (and ASA), Hgb stable, no obvious GI bleeding and Hemoccult negative -- Continue same per GI. TIGRE CROSS Jun 07, 2019 11:19
[2019-06-07 15:09] VITALS: BP 170/71
[2019-06-07] MEDS: cefTRIAXone IV Push 1 GM VIAL. IVP SCH (17:31)
--- NOTE | 2019-06-07 17:34 | PDOC ---
PROGRESS NOTES Assessment Assessment Metabolic encephalopathy. Falls. Anemia. DM. CAD. HTN. HLD. CKD. Renal failure. Degenerative spine disease. Obesity. RECOMMENDATIONS/PLAN: EEG. Treatment medical diseases. OT/PT. HISTORY OF THE PRESENT ILLNESS: This is an-83-y-old male patient with multiple medical diseases and was admitted on 05/31/19. Neurology was requested for consultation of 06/06/19 for encephalopathy and falls. No focalized sensory or motor deficits reported. PAST MEDICAL HISTORY: CAD w/ stent, HTN, HLD, OA, CKD, DM, skin cancer, GERD, pancreatitis, diverticulosis, cataract extraction, tonsillectomy PAST SURGERY HISTORY: No major surgery recently. ALLERGY: NKDA MEDICATIONS: Refer to [facility] FAMILY HISTORY: Non contributory. SOCIAL HISTORY: Denies current smoking, drinking, and illicit drug use. REVIEW OF SYSTEMS: Constitutional: No malnutrition, weight loss, cachexia. Head: No traumatic brain or head injury. Skin: No edema, or rash. Ear: No infection. Eyes: No vision loss or color blindness. Nose: No bleeding or purulent discharges. Hearing: No hearing decrease. Neck: No injury. Cardiac: HTN, HLD. Pulmonary: No pneumonia, COPD. GI: No GI ulcer, GI bleeding. Urinary/genital: CKD. Endocrinologic: Diabetes Mellitus. Skeletomuscular: Generalized weakness. Neurological: see HP. Psychiatric: Denies drug use/abuse. Otherwise, not [id number] review of systems. PHYSICAL EXAMINATION: General appearance is in subacute distress. HEENT: Normocephalic and nontraumatic. Eyes, nose, ears, and throat are unremarkable. Neck is supple. No lymphadenopathy. No crepitus. Cardiovascular: S1, S2, regular rate and rhythm. Pulmonary: decreased to auscultation bilaterally. Abdomen: Bowel sounds are positive. Extremities: No rash, lesions, or edema. No restriction of range of motion NEUROLOGICAL EXAMINATION: Alert Partially oriented to time, place and person. PERRL. EOMI. CN: no focal findings. Muscle tone: within normal. Muscle strength: 4 DTR: 1 Plantar reflex: Neutral response bilaterally Gait: not examined in bed. Sensory exam: no abnormal findings. No cerebellar signs elicited. F-T-N test fine. Objective Objective Vital Signs Date Time Temp Pulse Resp B/P (MAP) Pulse Ox O2 Delivery O2 Flow Rate FiO2 06/07/19 15:09 98.0 89 18 170/71 (104) 96 Nasal Cannula 3.0 98.0 Intake and Output 06/07/19 06:59 Intake Total 960 ml Output Total 2950 ml Balance -1990 ml Intake Oral 960 ml Output Urine Total 2950 ml Vitals Signs Vitals VS - Last 72 Hours, by Label Date Time Temp Pulse Resp B/P (MAP) Pulse Ox O2 Delivery O2 Flow Rate FiO2 06/07/19 15:09 98.0 89 18 170/71 (104) 96 Nasal Cannula 3.0 98.0 06/07/19 11:07 97.3 92 20 155/78 (103) 94 Nasal Cannula 3.0 97.3 06/07/19 11:02 Nasal Cannula 06/07/19 11:02 86 157/92 06/07/19 08:00 Nasal Cannula 3.0 06/07/19 07:45 100 BiPAP/CPAP 06/07/19 07:15 98.4 100 20 157/92 (113) 95 Nasal Cannula 3.0 98.4 06/07/19 05:55 BiPAP/CPAP 06/07/19 03:57 20 BiPAP/CPAP 06/07/19 03:15 BiPAP/CPAP 06/07/19 01:50 96 BiPAP/CPAP 06/07/19 00:40 Nasal Cannula 6.0 06/06/19 23:21 98.3 108 20 169/93 (118) 97 Nasal Cannula 3.0 98.3 06/06/19 19:53 97.3 103 20 163/91 (115) 97 Nasal Cannula 3.0 97.3 06/06/19 19:50 Nasal Cannula 3.0 06/06/19 15:45 97.9 100 18 153/88 (109) 96 Nasal Cannula 3.0 97.9 06/06/19 11:41 97.6 105 18 136/87 (103) 95 Nasal Cannula 3.0 97.6 06/06/19 09:18 88 161/88 06/06/19 08:20 Nasal Cannula 3.0 06/06/19 07:57 97.6 88 20 161/88 (112) 96 Nasal Cannula 3.0 97.6 Laboratory Laboratory Laboratory Tests Test 06/06/19 20:47 06/07/19 00:43 06/07/19 03:55 06/07/19 07:29 Glucose (Fingerstick) 235 mg/dL (70-99) 195 mg/dL (70-99) O2 Saturation 92 % (92-99) Arterial Blood pH 7.40 (7.35-7.45) Arterial Blood pCO2 at Patient Temp 38 mmHg (35-46) Arterial Blood pO2 at Patient Temp 68 mmHg (65-108) Arterial Blood HCO3 23 mmol/L (21-28) Arterial Blood Base Excess -2 mmol/L (-3-3) FiO2 44 White Blood Count 13.2 x10^3/uL (4.0-11.0) Red Blood Count 2.62 x10^6/uL (4.30-5.70) Hemoglobin 8.2 g/dL (13.0-17.5) Hematocrit 23.5 % (39.0-53.0) Mean Corpuscular Volume 90 fL (79-100) Mean Corpuscular Hemoglobin 31 pg (25-35) Mean Corpuscular Hemoglobin Concent 35 g/dL (31-37) Red Cell Distribution Width 15.1 % (11.5-14.5) Platelet Count 277 x10^3/uL (140-400) Neutrophils (%) (Auto) 86 % (31-73) Lymphocytes (%) (Auto) 6 % (24-48) Monocytes (%) (Auto) 7 % (0-9) Eosinophils (%) (Auto) 1 % (0-3) Basophils (%) (Auto) 0 % (0-3) Neutrophils # (Auto) 11.4 x10^3/uL (1.8-7.7) Lymphocytes # (Auto) 0.7 x10^3/uL (1.0-4.8) Monocytes # (Auto) 1.0 x10^3/uL (0.0-1.1) Eosinophils # (Auto) 0.1 x10^3/uL (0.0-0.7) Basophils # (Auto) 0.0 x10^3/uL (0.0-0.2) Sodium Level 133 mmol/L (136-145) Potassium Level 3.8 mmol/L (3.5-5.1) Chloride Level 96 mmol/L (98-107) Carbon Dioxide Level 28 mmol/L (21-32) Anion Gap 9 (6-14) Blood Urea Nitrogen 46 mg/dL (8-26) Creatinine 3.4 mg/dL (0.7-1.3) Estimated GFR (Cockcroft-Gault) 17.4 Glucose Level 212 mg/dL (70-99) Calcium Level 8.0 mg/dL (8.5-10.1) Test 06/07/19 11:29 06/07/19 17:03 Glucose (Fingerstick) 235 mg/dL (70-99) 316 mg/dL (70-99) Microbiology 06/05/19 Urine Culture - Final, Complete 06/05/19 Urine Culture Result 1 (OLEGARIO) - Final, Complete 06/03/19 Blood Culture - Preliminary, Resulted NO GROWTH AFTER 4 DAYS Medication Medications Current Medications Insulin Glargine (Lantus Syringe) 8 unit QHS SQ Last administered on 06/06/19at 21:51; Start 06/06/19 at 21:00 Comment Review of Relevant I have reviewed the following items yu (where applicable) has been applied. TALIB DOLAN MD Jun 07, 2019 17:34
[2019-06-07 19:30] VITALS: BP 157/70
[2019-06-07] MEDS: INSULIN GLARGINE SYRINGE. SQ SCH (21:00)
[2019-06-07] MEDS: GABAPENTIN 300 MG CAPSULE. PO SCH (21:28)
[2019-06-07] MEDS: ATORVASTATIN CALCIUM 20 MG TABLET PO SCH (21:28)
[2019-06-07] MEDS: TAMSULOSIN 0.4 MG CAP.ER.24H. PO SCH (21:28)
[2019-06-07] MEDS ORDERED: DEXTROSE 50% 25 GM / 50ML DISP.SYRIN. IV PRN (22:15)
[2019-06-07] MEDS ORDERED: INSULIN LISPRO 300 UNITS/3 ML VIAL. SQ ONE (23:00)
[2019-06-07 23:25] VITALS: BP 175/86
[2019-06-08 03:25] VITALS: BP 149/85
[2019-06-08 04:55] LABS: BASO # 0.1 x10^3/uL (0.0-0.2); BASO % 0 % (0-3); EOS # 0.3 x10^3/uL (0.0-0.7); EOS % 3 % (0-3); HEMATOCRIT 24.2 % (39.0-53.0); HEMOGLOBIN 8.1 g/dL (13.0-17.5); LYMPH # 1.1 x10^3/uL (1.0-4.8); LYMPH % 9 % (24-48); MEAN CORPUSCULAR HEMOGLOBIN 30 pg (25-35); MEAN CORPUSCULAR HGB CONC 33 g/dL (31-37); MEAN CORPUSCULAR VOLUME 90 fL (79-100); MONO # 1.1 x10^3/uL (0.0-1.1); MONO % 10 % (0-9); NEUT # 9.5 x10^3/uL (1.8-7.7); NEUT % 78 % (31-73); PLATELET COUNT 311 x10^3/uL (140-400); RED BLOOD COUNT 2.68 x10^6/uL (4.30-5.70); RED CELL DISTRIBUTION WIDTH 14.5 % (11.5-14.5); WHITE BLOOD COUNT 12.1 x10^3/uL (4.0-11.0)
[2019-06-08 05:14] LABS: ALBUMIN 1.8 g/dL (3.4-5.0); ALBUMIN/GLOBULIN RATIO 0.5 (1.0-1.7); CALCIUM 8.3 mg/dL (8.5-10.1); GFR 20.1; POTASSIUM 3.6 mmol/L (3.5-5.1); TOTAL BILIRUBIN 0.3 mg/dL (0.2-1.0); TOTAL PROTEIN 5.6 g/dL (6.4-8.2)
[2019-06-08 07:00] VITALS: BP 180/85
[2019-06-08] MEDS: INSULIN LISPRO 300 UNITS/3 ML VIAL. SQ SCH ×4 (08:00→20:55)
--- NOTE | 2019-06-08 08:06 | PDOC ---
PROGRESS NOTES Chief Complaint Chief Complaint IMPRESSION Mental status change, RESOLVED Hyperkalemia DIABETES anemia, transfuse one unit 06/05 Renal Failure acute on chronic The kidneys are normal in size and demonstrate normal blood flow. There is no hydronephrosis. There is a 1.9 cm cyst within the upper pole the left kidney. gross hematuria IRON DEF ANEMIA HEART CATH 2016 HEART CATH Conclusion 1. Significant stenoses involving the proximal and distal segments of the right coronary artery as described above with patent previously placed stents in the distal RCA and midsegment of the LAD. 2. Successful PCI/drug eluting stents placement to the proximal and distal s egments of the right coronary artery. 3. Normal left ventricle systolic function with ejection fraction estimated at 60%. PLAN 1. Aspirin 325 mg daily 2. Plavix 75 mg daily for preferably one year 3. Cardiovascular risk factor modification urology consult 06/08 [facility] BED PLANNED GI FOLLOWING, PLAN OUTPT ENDOSCOPY SOON 28 min pt exam, chart review, > 50% of time spent with exam, chart review, pt care coordination d/w family in room AM LABS History of Present Illness History of Present Illness 06-07 Pt seen and examined BEDSIDE Accompanied by family members some confusion Charts and labs reviewed WBC is DOWN TO 15.3 Hgb is 6.8 D/w RN, TRANSFUSE 1 UNIT// SS INSULIN 26 MIN PT EXAM, chart review, > 50% of time spent with exam, chart review, pt care coordination 06/03/19 Pt was seen and examined in the ICU Pt was asleep in bed Accompanied by son-in-law Discussed care plan with son-in-law Pt is off levophed Charts and labs reviewed WBC is 15.9 up from 11.1 RBC is 2.72 up from 2.63 Hgb is 8.1, up from 7.8 Potassium is 4.8, down from 5.3 BUN is 55 Cr is 6.0 D/w RN 06/02/19 Pt was seen and examined in the ICU Pt was responsive, but quiet Accompanied with family Family reported that pt has hallucinations and is aware that they are hallucinations Continued discussing with family about medical conditions. Family will talk to big data developer about likelihood of dialysis Chart and labs reviewed EF 60% Potassium is 5.3, down from 6.2 BUN is 63, down from 69 Cr is 7, down from 7.7 D/w RN 06/01/19 Pt was seen and examined in the ICU Pt was awake and eating lunch. He did not seem to have much of an appetite Talked extensively with pt's family about his various medical conditions EF 60% Plastic Surgery Technician was having a difficult time drawing blood at bedside. AISHA RN Vitals Vitals Vital Signs Date Time Temp Pulse Resp B/P (MAP) Pulse Ox O2 Delivery O2 Flow Rate FiO2 06/08/19 05:10 BiPAP/CPAP 06/08/19 03:25 97.8 101 16 149/85 (106) 99 97.8 06/07/19 23:25 3.0 Physical Exam General: Alert, Oriented X3, Cooperative, No acute distress, Other (CONFUSED TO DETAILS) Heart: Regular rate, Normal S1, Normal S2, No murmurs, Gallops Lungs: Clear Abdomen: Normal bowel sounds, Soft, No tenderness, No hepatosplenomegaly, No masses Extremities: No clubbing, No cyanosis, No edema, Normal pulses, No tenderness/swelling Skin: Other (GOOD CAPILLARY REFILL) Labs LABS Laboratory Tests Test 06/07/19 11:29 06/07/19 17:03 06/07/19 21:20 06/08/19 04:02 Glucose (Fingerstick) 235 mg/dL (70-99) 316 mg/dL (70-99) 366 mg/dL (70-99) White Blood Count 12.1 x10^3/uL (4.0-11.0) Red Blood Count 2.68 x10^6/uL (4.30-5.70) Hemoglobin 8.1 g/dL (13.0-17.5) Hematocrit 24.2 % (39.0-53.0) Mean Corpuscular Volume 90 fL (79-100) Mean Corpuscular Hemoglobin 30 pg (25-35) Mean Corpuscular Hemoglobin Concent 33 g/dL (31-37) Red Cell Distribution Width 14.5 % (11.5-14.5) Platelet Count 311 x10^3/uL (140-400) Neutrophils (%) (Auto) 78 % (31-73) Lymphocytes (%) (Auto) 9 % (24-48) Monocytes (%) (Auto) 10 % (0-9) Eosinophils (%) (Auto) 3 % (0-3) Basophils (%) (Auto) 0 % (0-3) Neutrophils # (Auto) 9.5 x10^3/uL (1.8-7.7) Lymphocytes # (Auto) 1.1 x10^3/uL (1.0-4.8) Monocytes # (Auto) 1.1 x10^3/uL (0.0-1.1) Eosinophils # (Auto) 0.3 x10^3/uL (0.0-0.7) Basophils # (Auto) 0.1 x10^3/uL (0.0-0.2) Sodium Level 136 mmol/L (136-145) Potassium Level 3.6 mmol/L (3.5-5.1) Chloride Level 97 mmol/L (98-107) Carbon Dioxide Level 31 mmol/L (21-32) Anion Gap 8 (6-14) Blood Urea Nitrogen 45 mg/dL (8-26) Creatinine 3.0 mg/dL (0.7-1.3) Estimated GFR (Cockcroft-Gault) 20.1 BUN/Creatinine Ratio 15 (6-20) Glucose Level 140 mg/dL (70-99) Calcium Level 8.3 mg/dL (8.5-10.1) Total Bilirubin 0.3 mg/dL (0.2-1.0) Aspartate Amino Transf (AST/SGOT) 78 U/L (15-37) Alanine Aminotransferase (ALT/SGPT) 91 U/L (16-63) Alkaline Phosphatase 268 U/L (46-116) Total Protein 5.6 g/dL (6.4-8.2) Albumin 1.8 g/dL (3.4-5.0) Albumin/Globulin Ratio 0.5 (1.0-1.7) Test 06/08/19 08:01 Glucose (Fingerstick) 121 mg/dL (70-99) Assessment and Plan Assessmemt and Plan Problems Medical Problems: (1) Acute on chronic renal failure Status: Acute (2) Anemia Status: Acute (3) CAD (coronary artery disease) Status: Chronic (4) Elevated troponin Status: Acute (5) GERD (gastroesophageal reflux disease) Status: Chronic (6) Hyperkalemia Status: Acute (7) Hypoglycemia Status: Acute Comment Review of Relevant I have reviewed the following items yu (where applicable) has been applied. Labs Laboratory Tests Test 06/06/19 10:47 06/06/19 16:51 06/06/19 20:47 06/07/19 00:43 Glucose (Fingerstick) 334 mg/dL (70-99) 300 mg/dL (70-99) 235 mg/dL (70-99) O2 Saturation 92 % (92-99) Arterial Blood pH 7.40 (7.35-7.45) Arterial Blood pCO2 at Patient Temp 38 mmHg (35-46) Arterial Blood pO2 at Patient Temp 68 mmHg (65-108) Arterial Blood HCO3 23 mmol/L (21-28) Arterial Blood Base Excess -2 mmol/L (-3-3) FiO2 44 Test 06/07/19 03:55 06/07/19 07:29 06/07/19 11:29 06/07/19 17:03 White Blood Count 13.2 x10^3/uL (4.0-11.0) Red Blood Count 2.62 x10^6/uL (4.30-5.70) Hemoglobin 8.2 g/dL (13.0-17.5) Hematocrit 23.5 % (39.0-53.0) Mean Corpuscular Volume 90 fL (79-100) Mean Corpuscular Hemoglobin 31 pg (25-35) Mean Corpuscular Hemoglobin Concent 35 g/dL (31-37) Red Cell Distribution Width 15.1 % (11.5-14.5) Platelet Count 277 x10^3/uL (140-400) Neutrophils (%) (Auto) 86 % (31-73) Lymphocytes (%) (Auto) 6 % (24-48) Monocytes (%) (Auto) 7 % (0-9) Eosinophils (%) (Auto) 1 % (0-3) Basophils (%) (Auto) 0 % (0-3) Neutrophils # (Auto) 11.4 x10^3/uL (1.8-7.7) Lymphocytes # (Auto) 0.7 x10^3/uL (1.0-4.8) Monocytes # (Auto) 1.0 x10^3/uL (0.0-1.1) Eosinophils # (Auto) 0.1 x10^3/uL (0.0-0.7) Basophils # (Auto) 0.0 x10^3/uL (0.0-0.2) Sodium Level 133 mmol/L (136-145) Potassium Level 3.8 mmol/L (3.5-5.1) Chloride Level 96 mmol/L (98-107) Carbon Dioxide Level 28 mmol/L (21-32) Anion Gap 9 (6-14) Blood Urea Nitrogen 46 mg/dL (8-26) Creatinine 3.4 mg/dL (0.7-1.3) Estimated GFR (Cockcroft-Gault) 17.4 Glucose Level 212 mg/dL (70-99) Calcium Level 8.0 mg/dL (8.5-10.1) Glucose (Fingerstick) 195 mg/dL (70-99) 235 mg/dL (70-99) 316 mg/dL (70-99) Test 06/07/19 21:20 06/08/19 04:02 06/08/19 08:01 Glucose (Fingerstick) 366 mg/dL (70-99) 121 mg/dL (70-99) White Blood Count 12.1 x10^3/uL (4.0-11.0) Red Blood Count 2.68 x10^6/uL (4.30-5.70) Hemoglobin 8.1 g/dL (13.0-17.5) Hematocrit 24.2 % (39.0-53.0) Mean Corpuscular Volume 90 fL (79-100) Mean Corpuscular Hemoglobin 30 pg (25-35) Mean Corpuscular Hemoglobin Concent 33 g/dL (31-37) Red Cell Distribution Width 14.5 % (11.5-14.5) Platelet Count 311 x10^3/uL (140-400) Neutrophils (%) (Auto) 78 % (31-73) Lymphocytes (%) (Auto) 9 % (24-48) Monocytes (%) (Auto) 10 % (0-9) Eosinophils (%) (Auto) 3 % (0-3) Basophils (%) (Auto) 0 % (0-3) Neutrophils # (Auto) 9.5 x10^3/uL (1.8-7.7) Lymphocytes # (Auto) 1.1 x10^3/uL (1.0-4.8) Monocytes # (Auto) 1.1 x10^3/uL (0.0-1.1) Eosinophils # (Auto) 0.3 x10^3/uL (0.0-0.7) Basophils # (Auto) 0.1 x10^3/uL (0.0-0.2) Sodium Level 136 mmol/L (136-145) Potassium Level 3.6 mmol/L (3.5-5.1) Chloride Level 97 mmol/L (98-107) Carbon Dioxide Level 31 mmol/L (21-32) Anion Gap 8 (6-14) Blood Urea Nitrogen 45 mg/dL (8-26) Creatinine 3.0 mg/dL (0.7-1.3) Estimated GFR (Cockcroft-Gault) 20.1 BUN/Creatinine Ratio 15 (6-20) Glucose Level 140 mg/dL (70-99) Calcium Level 8.3 mg/dL (8.5-10.1) Total Bilirubin 0.3 mg/dL (0.2-1.0) Aspartate Amino Transf (AST/SGOT) 78 U/L (15-37) Alanine Aminotransferase (ALT/SGPT) 91 U/L (16-63) Alkaline Phosphatase 268 U/L (46-116) Total Protein 5.6 g/dL (6.4-8.2) Albumin 1.8 g/dL (3.4-5.0) Albumin/Globulin Ratio 0.5 (1.0-1.7) Laboratory Tests Test 06/07/19 11:29 06/07/19 17:03 06/07/19 21:20 06/08/19 04:02 Glucose (Fingerstick) 235 mg/dL (70-99) 316 mg/dL (70-99) 366 mg/dL (70-99) White Blood Count 12.1 x10^3/uL (4.0-11.0) Red Blood Count 2.68 x10^6/uL (4.30-5.70) Hemoglobin 8.1 g/dL (13.0-17.5) Hematocrit 24.2 % (39.0-53.0) Mean Corpuscular Volume 90 fL (79-100) Mean Corpuscular Hemoglobin 30 pg (25-35) Mean Corpuscular Hemoglobin Concent 33 g/dL (31-37) Red Cell Distribution Width 14.5 % (11.5-14.5) Platelet Count 311 x10^3/uL (140-400) Neutrophils (%) (Auto) 78 % (31-73) Lymphocytes (%) (Auto) 9 % (24-48) Monocytes (%) (Auto) 10 % (0-9) Eosinophils (%) (Auto) 3 % (0-3) Basophils (%) (Auto) 0 % (0-3) Neutrophils # (Auto) 9.5 x10^3/uL (1.8-7.7) Lymphocytes # (Auto) 1.1 x10^3/uL (1.0-4.8) Monocytes # (Auto) 1.1 x10^3/uL (0.0-1.1) Eosinophils # (Auto) 0.3 x10^3/uL (0.0-0.7) Basophils # (Auto) 0.1 x10^3/uL (0.0-0.2) Sodium Level 136 mmol/L (136-145) Potassium Level 3.6 mmol/L (3.5-5.1) Chloride Level 97 mmol/L (98-107) Carbon Dioxide Level 31 mmol/L (21-32) Anion Gap 8 (6-14) Blood Urea Nitrogen 45 mg/dL (8-26) Creatinine 3.0 mg/dL (0.7-1.3) Estimated GFR (Cockcroft-Gault) 20.1 BUN/Creatinine Ratio 15 (6-20) Glucose Level 140 mg/dL (70-99) Calcium Level 8.3 mg/dL (8.5-10.1) Total Bilirubin 0.3 mg/dL (0.2-1.0) Aspartate Amino Transf (AST/SGOT) 78 U/L (15-37) Alanine Aminotransferase (ALT/SGPT) 91 U/L (16-63) Alkaline Phosphatase 268 U/L (46-116) Total Protein 5.6 g/dL (6.4-8.2) Albumin 1.8 g/dL (3.4-5.0) Albumin/Globulin Ratio 0.5 (1.0-1.7) Test 06/08/19 08:01 Glucose (Fingerstick) 121 mg/dL (70-99) Microbiology 06/05/19 Urine Culture - Final, Complete 06/05/19 Urine Culture Result 1 (OLEGARIO) - Final, Complete 06/03/19 Blood Culture - Preliminary, Resulted NO GROWTH AFTER 4 DAYS Medications Current Medications Morphine Sulfate (Morphine Sulfate) 2 mg PRN Q15MIN PRN IV/SQ PAIN GREATER THAN 3/10 Last administered on 05/31/19at 12:20; Start 05/31/19 at 09:15; Stop 06/01/19 at 09:14; Status DC Ondansetron HCl (Zofran) 4 mg 1X ONCE IV Last administered on 05/31/19at 09:20; Start 05/31/19 at 09:15; Stop 05/31/19 at 09:17; Status DC Ondansetron HCl (Zofran) 4 mg STK-MED ONCE .ROUTE ; Start 05/31/19 at 09:16; Stop 05/31/19 at 09:17; Status DC Calcium Gluconate (Calcium Gluconate) 1,000 mg 1X ONCE IVP Last administered on 05/31/19at 11:59; Start 05/31/19 at 11:30; Stop 05/31/19 at 11:36; Status DC Dextrose (Dextrose 50%-Water Syringe) 25 gm 1X ONCE IV Last administered on 05/31/19at 11:59; Start 05/31/19 at 11:30; Stop 05/31/19 at 11:36; Status DC Insulin Human Regular (HumuLIN R VIAL) 10 unit 1X ONCE IV Last administered on 05/31/19at 11:59; Start 05/31/19 at 11:30; Stop 05/31/19 at 11:36; Status DC Sodium Bicarbonate 50 meq/Dextrose/ Sodium Chloride 1,050 ml @ 150 mls/hr Q7H IV Last administered on 05/31/19at 12:03; Start 05/31/19 at 12:15; Stop 05/31/19 at 13:57; Status DC Magnesium Sulfate/ Dextrose 100 ml @ 100 mls/hr 1X ONCE IV Last administered on 05/31/19at 13:03; Start 05/31/19 at 12:30; Stop 05/31/19 at 13:29; Status DC Ondansetron HCl (Zofran) 4 mg PRN Q8HRS PRN IV NAUSEA/VOMITING Last administered on 06/01/19at 09:47; Start 05/31/19 at 12:45; Stop 06/01/19 at 12:44; Status DC Morphine Sulfate (Morphine Sulfate) 2 mg PRN Q2HR PRN IV PAIN Last administered on 05/31/19 21:11; Start 05/31/19 at 12:45; Stop 06/01/19 at 12:44; Status DC Levothyroxine Sodium (Synthroid) 25 mcg DAILY06 PO Last administered on 06/06/19 07:11; Start 06/01/19 at 06:00 Sodium Chloride 1,000 ml @ 75 mls/hr [id number] IV ; Start 05/31/19 at 14:00; Stop 05/31/19 at 15:58; Status DC Ceftriaxone Sodium (Rocephin) 1 gm Q24H IVP Last administered on 06/07/19 17:31; Start 06/01/19 at 15:00 Ceftriaxone Sodium (Rocephin) 1 gm 1X ONCE IVP Last administered on 05/31/19at 18:07; Start 05/31/19 at 14:30; Stop 05/31/19 at 14:31; Status DC Atorvastatin Calcium (Lipitor) 20 mg QHS PO Last administered on 06/07/19 21:28; Start 05/31/19 at 21:00 Clopidogrel Bisulfate (Plavix) 75 mg DAILY07 PO Last administered on 06/01/19at 08:33; Start 06/01/19 at 07:00; Stop 06/01/19 at 20:48; Status DC Ferrous Sulfate (Feosol) 325 mg BIDWMEALS PO Last administered on 06/07/19at 17:48; Start 05/31/19 at 17:00 Gabapentin (Neurontin) 300 mg QHS PO Last administered on 06/07/19 21:28; Start 05/31/19 at 21:00 Glipizide (Glucotrol) 5 mg DAILY PO ; Start 06/01/19 at 09:00; Stop 05/31/19 at 15:37; Status DC Metoprolol Succinate (Toprol Xl) 25 mg DAILY PO Last administered on 06/07/19 11:02; Start 06/01/19 at 09:00 Pantoprazole Sodium (Protonix) 40 mg BIDAC PO Last administered on 06/07/19 17:33; Start 05/31/19 at 16:30 Tamsulosin HCl (Flomax) 0.4 mg HS PO Last administered on 06/07/19at 21:28; Start 05/31/19 at 21:00 Sodium Bicarbonate 50 meq/Dextrose/ Sodium Chloride 1,050 ml @ 150 mls/hr Q7H ONCE IV ; Start 05/31/19 at 14:00; Stop 06/01/19 at 11:43; Status DC Sodium Bicarbonate 50 meq/Dextrose/ Sodium Chloride 1,050 ml @ 125 mls/hr Q8H24M ONCE IV Last administered on 05/31/19at 20:17; Start 05/31/19 at 21:00; Stop 06/01/19 at 11:43; Status DC Pharmacy Consult (C.diff Med Screen By Rx) 1 each 1X ONCE [facility] ; Start 05/31/19 at 17:00; Stop 05/31/19 at 17:15; Status DC Dextrose (Dextrose 50%-Water Syringe) 12.5 gm PRN Q15MIN PRN IV SEE COMMENTS; Start 05/31/19 at 22:45; Stop 06/02/19 at 21:41; Status DC Dextrose 250 ml PRN Q15MIN PRN IV SEE COMMENTS Last administered on 05/31/19at 23:20; Start 05/31/19 at 22:45 Dopamine HCl/ Dextrose 250 ml @ 5.919 mls/ hr CONT PRN IV SEE I/O RECORD Last administered on 06/01/19at 09:18; Start 06/01/19 at 09:15; Stop 06/05/19 at 20:16; Status DC Atropine Sulfate (ATROPINE 0.5mg SYRINGE) 0.5 mg 1X ONCE IM Last administered on 06/01/19at 09:19; Start 06/01/19 at 09:15; Stop 06/01/19 at 09:18; Status DC Norepinephrine Bitartrate 250 ml @ 0 mls/hr CONT PRN IV SEE I/O RECORD Last administered on 06/01/19at 10:09; Start 06/01/19 at 10:15; Stop 06/05/19 at 20:16; Status DC Famotidine (Pepcid) 20 mg QHS PO ; Start 06/01/19 at 21:00; Status Cancel Sodium Bicarbonate 50 meq/Dextrose/ Sodium Chloride 1,050 ml @ 150 mls/hr Q7H IV Last administered on 06/04/19at 03:00; Start 06/01/19 at 11:00; Stop 06/04/19 at 10:38; Status DC Lactobacillus Rhamnosus (Culturelle) 1 cap BID PO Last administered on 06/07/19at 21:28; Start 06/01/19 at 12:00 Sodium Polystyrene Sulfonate (Kayexalate) 30 gm 1X ONCE PO Last administered on 06/01/19at 14:04; Start 06/01/19 at 13:45; Stop 06/01/19 at 13:46; Status DC Insulin Human Regular (HumuLIN R VIAL) 10 unit 1X ONCE IV Last administered on 06/01/19at 14:40; Start 06/01/19 at 14:00; Stop 06/01/19 at 14:09; Status DC Dextrose (Dextrose 50%-Water Syringe) 25 gm 1X ONCE IV Last administered on 06/01/19at 14:38; Start 06/01/19 at 14:00; Stop 06/01/19 at 14:09; Status DC Aspirin (Ecotrin) 81 mg DAILYWBKFT PO Last administered on 06/07/19at 11:01; Start 06/02/19 at 08:00 Insulin Human Lispro (HumaLOG) 0-5 UNITS TIDWMEALS SQ Last administered on 06/02/19at 18:31; Start 06/02/19 at 18:30; Stop 06/02/19 at 21:40; Status DC Dextrose (Dextrose 50%-Water Syringe) 12.5 gm PRN Q15MIN PRN IV SEE COMMENTS; Start 06/02/19 at 18:00; Stop 06/02/19 at 21:41; Status DC Lorazepam (Ativan Inj) 0.5 mg 1X ONCE IV Last administered on 06/02/19at 21:49; Start 06/02/19 at 22:00; Stop 06/02/19 at 22:01; Status DC Insulin Human Lispro (HumaLOG) 0-5 UNITS QIDACHS SQ Last administered on 06/07/19at 17:41; Start 06/02/19 at 22:00; Stop 06/07/19 at 22:16; Status DC Dextrose (Dextrose 50%-Water Syringe) 12.5 gm PRN Q15MIN PRN IV SEE COMMENTS; Start 06/02/19 at 21:45; Stop 06/07/19 at 22:17; Status DC Acetaminophen (Tylenol) 650 mg PRN Q6HRS PRN PO PAIN Last administered on 06/06/19at 15:36; Start 06/03/19 at 12:00 Ondansetron HCl (Zofran) 4 mg PRN Q6HRS PRN IVP NAUSEA/VOMITING; Start 06/03/19 at 18:30 Sodium Bicarbonate 50 meq/Dextrose/ Sodium Chloride 1,050 ml @ 150 mls/hr Q7H IV Last administered on 06/07/19at 05:47; Start 06/04/19 at 11:00; Stop 06/07/19 at 17:05; Status DC Docusate Sodium (Colace) 100 mg BID PO Last administered on 06/07/19at 21:28; Start 06/05/19 at 21:00 Insulin Glargine (Lantus Syringe) 8 unit QHS SQ Last administered on 06/07/19at 21:00; Start 06/06/19 at 21:00 Insulin Human Lispro (HumaLOG) 0-9 UNITS TIDWMEALHC SQ ; Start 06/08/19 at 08:00 Dextrose (Dextrose 50%-Water Syringe) 12.5 gm PRN Q15MIN PRN IV SEE COMMENTS; Start 06/07/19 at 22:15 Insulin Human Lispro (HumaLOG) 5 units 1X ONCE SQ Last administered on 06/07/19at 22:37; Start 06/07/19 at 23:00; Stop 06/07/19 at 23:01; Status DC Active Scripts Active Augmentin 875-125 Tablet (Amoxicillin/Potassium Clav) 1 Each Tablet 1 Tab PO BID Feosol (Ferrous Sulfate) 325 Mg Tablet 325 Mg PO BIDWMEALS Protonix (Pantoprazole Sodium) 40 Mg Tablet.dr 1 Tab PO BID Lisinopril-Hctz 10-12.5 Mg Tab (Lisinopril/Hydrochlorothiazide) 1 Each Tablet 1 Tab PO DAILY Clopidogrel (Clopidogrel Bisulfate) 75 Mg Tablet 1 Tab PO DAILY Aspirin Ec (Aspirin) 325 Mg Tablet.dr 1 Tab PO DAILY Reported Hydrocodone-Apap 5-325 (Hydrocodone Bit/Acetaminophen) 1 Tab Tablet 1 Tab PO PRN Q6HRS PRN Latanoprost 2.5 Ml Drops 1 Drop EACHEYE QHS Melatonin 5 Mg Tablet 5 Mg PO QHS Ultracet Tablet (Tramadol Hcl/Acetaminophen) 1 Each Tablet 1 Tab PO Q12HR PRN Atorvastatin Calcium 20 Mg Tablet 20 Mg PO DAILY Ketoconazole 120 Ml Shampoo 120 Ml TP Gabapentin (Gabapentin) 300 Mg Capsule 300 Mg PO TID Multi-Day Vitamins (Multivitamin) 1 Each Tablet 1 Tab PO DAILY Nitrostat (Nitroglycerin) 0.4 Mg Tab.subl 1 Tab SL UD PRN Metoprolol Succinate ( Xl ) (Metoprolol Succinate) 25 Mg Tab.er.24h 1 Tab PO DAILY Tamsulosin Hcl 0.4 Mg Cap.er.24h 1 Cap PO HS Glipizide 5 Mg Tablet 1 Tab PO DAILY Metformin Hcl 1,000 Mg Tablet 1 Tab PO BID Vitals/I & O Vital Sign - Last 24 Hours 06/07/19 06/07/19 06/07/19 06/07/19 11:02 11:02 11:07 15:09 Temp 97.3 98.0 97.3 98.0 Pulse 86 92 89 Resp 20 18 B/P (MAP) 157/92 155/78 (103) 170/71 (104) Pulse Ox 94 96 O2 Delivery Nasal Cannula Nasal Cannula Nasal Cannula O2 Flow Rate 3.0 3.0 06/07/19 06/07/19 06/07/19 06/08/19 19:30 20:00 23:25 00:00 Temp 98.6 97.8 98.6 97.8 Pulse 84 113 Resp 19 22 B/P (MAP) 157/70 (99) 175/86 (115) Pulse Ox 100 96 O2 Delivery Nasal Cannula Nasal Cannula Nasal Cannula BiPAP/CPAP O2 Flow Rate 3.0 3.0 3.0 06/08/19 06/08/19 06/08/19 06/08/19 01:18 03:20 03:25 05:10 Temp 97.8 97.8 Pulse 101 Resp 16 B/P (MAP) 149/85 (106) Pulse Ox 99 O2 Delivery BiPAP/CPAP BiPAP/CPAP BiPAP/CPAP BiPAP/CPAP Intake and Output 06/07/19 06/07/19 06/08/19 15:00 23:00 07:00 Intake Total 240 ml 420 ml 500 ml Output Total 1100 ml 800 ml Balance 240 ml -680 ml -300 ml WILLIAM ROGERS MD Jun 08, 2019 08:06
--- NOTE | 2019-06-08 09:21 | NUR ---
Late note: SW spoke with Alee at [facility] on 06/07/19 and they are not able to accept pt's but are able to take pt. Discussed with Pt's daughter, Jackeline, explained SWer will need family to decide on pt's placement as SWer has no control on placing pt's spouse in [place] and it might be a barrier in getting pt placed in SNU. SW also discussed [employer] providers are few making their options difficult. Pt's daughter would like pt to be screened at [facility] and see if [facility] can also assess pt's . Pt has been the main caregiver to his and family currently is struggling in providing care for her. Jackeline stated if [facility] declined to take pt and together, she would like pt to go to [facility] and they will try to place pt's in a different facility for respite stay. SWer provided resources and emotional support. SWer phoned and faxed referral to [facility] and informed Darlyn regarding family's request. Updates faxed to [facility]. Discussed with RN.
[2019-06-08] MEDS: METOPROLOL SUCC 24HR ER 25 MG TAB.ER.24H. PO SCH (10:44)
[2019-06-08] MEDS: ASPIRIN ENTERIC COATED 81 MG TABLET.DR. PO SCH (10:44)
[2019-06-08] MEDS: ACETAMINOPHEN 325 MG TABLET. PO PRN (10:45)
[2019-06-08] MEDS: FERROUS SULFATE 325 MG TABLET. PO SCH ×2 (10:45→17:07)
[2019-06-08] MEDS: LEVOTHYROXINE 25 MCG TABLET. PO SCH (10:45)
[2019-06-08] MEDS: DOCUSATE SODIUM 100 MG CAPSULE. PO SCH ×2 (10:45→20:34)
[2019-06-08] MEDS: PANTOPRAZOLE 40 MG TABLET.DR. PO SCH ×2 (10:45→17:07)
[2019-06-08] MEDS ORDERED: BISACODYL 5 MG TABLET.DR. PO PRN (11:00)
[2019-06-08] MEDS ORDERED: POLYETHYLENE GLYCOL 3350 17 GM PACKET. PO PRN (11:00)
--- NOTE | 2019-06-08 11:00 | PDOC ---
Subjective: Subjective: Tolerating diet, tried to stool earlier but just passed gas - would like help with this. Objective: Vital Signs: Vital Signs Date Time Temp Pulse Resp B/P (MAP) Pulse Ox O2 Delivery O2 Flow Rate FiO2 06/08/19 10:44 108 180/85 06/08/19 07:00 98.7 22 97 Nasal Cannula 5.0 98.7 Labs: Laboratory Tests Test 06/07/19 11:29 06/07/19 17:03 06/07/19 21:20 06/08/19 04:02 Glucose (Fingerstick) 235 mg/dL 316 mg/dL 366 mg/dL White Blood Count 12.1 x10^3/uL Red Blood Count 2.68 x10^6/uL Hemoglobin 8.1 g/dL Hematocrit 24.2 % Mean Corpuscular Volume 90 fL Mean Corpuscular Hemoglobin 30 pg Mean Corpuscular Hemoglobin Concent 33 g/dL Red Cell Distribution Width 14.5 % Platelet Count 311 x10^3/uL Neutrophils (%) (Auto) 78 % Lymphocytes (%) (Auto) 9 % Monocytes (%) (Auto) 10 % Eosinophils (%) (Auto) 3 % Basophils (%) (Auto) 0 % Neutrophils # (Auto) 9.5 x10^3/uL Lymphocytes # (Auto) 1.1 x10^3/uL Monocytes # (Auto) 1.1 x10^3/uL Eosinophils # (Auto) 0.3 x10^3/uL Basophils # (Auto) 0.1 x10^3/uL Sodium Level 136 mmol/L Potassium Level 3.6 mmol/L Chloride Level 97 mmol/L Carbon Dioxide Level 31 mmol/L Anion Gap 8 Blood Urea Nitrogen 45 mg/dL Creatinine 3.0 mg/dL Estimated GFR (Cockcroft-Gault) 20.1 BUN/Creatinine Ratio 15 Glucose Level 140 mg/dL Calcium Level 8.3 mg/dL Total Bilirubin 0.3 mg/dL Aspartate Amino Transf (AST/SGOT) 78 U/L Alanine Aminotransferase (ALT/SGPT) 91 U/L Alkaline Phosphatase 268 U/L Total Protein 5.6 g/dL Albumin 1.8 g/dL Albumin/Globulin Ratio 0.5 Test 06/08/19 08:01 Glucose (Fingerstick) 121 mg/dL PE: GEN: NAD - up in chair talking on cell phone LUNGS: room air HEART: RRR ABD: S/ND/NT NEURO/PSYCH: A & O 3 - better today A/P: FABIEN - improving H/o RANDY - stable Elevated LFTs -- Continue iron and PPI, add Miralax. Outpt endoscopy. TIGRE CROSS Jun 08, 2019 10:59
[2019-06-08 11:26] VITALS: BP 174/90
[2019-06-08] MEDS: LACTOBACILLUS RHAMNOSUS GG 1 CAPSULE. PO SCH ×2 (13:28→20:34)
[2019-06-08] MEDS: POLYETHYLENE GLYCOL 3350 17 GM PACKET. PO SCH (13:28)
--- NOTE | 2019-06-08 14:30 | PDOC ---
SUBJECTIVE ROS Stable OBJECTIVE Vital Signs Vital Signs Date Time Temp Pulse Resp B/P (MAP) Pulse Ox O2 Delivery O2 Flow Rate FiO2 06/08/19 11:26 98.2 109 20 174/90 (118) 100 Nasal Cannula 5.0 98.2 I & 0 Intake and Output 06/08/19 07:00 Intake Total 1160 ml Output Total 1900 ml Balance -740 ml Intake Oral 1160 ml Output Urine Total 1900 ml # Bowel Movements 1 PHYSICAL EXAM Physical Exam GENERAL: No apparent distress. HEENT: OM moist NECK: Supple, LUNGS: Clear to auscultation HEART: RRR, S1, S2 present. ABDOMEN: Soft, nontender. EXTREMITIES: Without any cyanosis, clubbing, or edema. SKIN: No ulcerations or rashes, good skin turgor, no jaundice. Espinoza + DIAGNOSIS/ASSESSMENT Assessment & Plan FABIEN - Improving Cr peaked at 7.8--> down to 4.1 -->3.4-->3 E-Lytes and acid base stable Supportive care, I/O, Monitor Renal US- normal in size and demonstrate normal blood flow. no hydronephrosis. There is a 1.9 cm cyst within the upper pole the left kidney. Voiding trial r/o retention after espinoza removed Mental status change- Improved Hyperkalemia- Resolved DIABETES- per primary Anemia, s/p PRBC x 1 06/05 Hematuria- No intervention, Likely traumatic per Urology COMMENT/RELEVANT DATA Meds Current Medications Medications (Trade) Dose Ordered Sig/Nathalie Start Time Stop Time Status Last Admin Dose Admin Acetaminophen (Tylenol) 650 mg PRN Q6HRS PRN 06/03/19 12:00 06/08/19 10:45 650 MG Aspirin (Ecotrin) 81 mg [id number] 06/02/19 08:00 06/08/19 10:44 81 MG Atorvastatin Calcium (Lipitor) 20 mg QHS 05/31/19 21:00 06/07/19 21:28 20 MG Atropine Sulfate (ATROPINE 0.5mg SYRINGE) 0.5 mg 1X ONCE 06/01/19 09:15 06/01/19 09:18 DC 06/01/19 09:19 0.5 MG Bisacodyl (Dulcolax Tab) 5 mg PRN DAILY PRN 06/08/19 11:00 Calcium Gluconate (Calcium Gluconate) 1,000 mg 1X ONCE 05/31/19 11:30 05/31/19 11:36 DC 05/31/19 11:59 1,000 MG Ceftriaxone Sodium (Rocephin) 1 gm 1X ONCE 05/31/19 14:30 05/31/19 14:31 DC 05/31/19 18:07 1 GM Clopidogrel Bisulfate (Plavix) 75 mg DAILY07 06/01/19 07:00 06/01/19 20:48 DC 06/01/19 08:33 75 MG Dextrose (Dextrose 50%-Water Syringe) 12.5 gm PRN Q15MIN PRN 06/07/19 22:15 Docusate Sodium (Colace) 100 mg BID 06/05/19 21:00 06/08/19 10:45 100 MG Dopamine HCl/ Dextrose 250 ml @ 5.919 mls/ hr CONT PRN 06/01/19 09:15 06/05/19 20:16 DC 06/01/19 09:18 14.798 MLS/HR Famotidine (Pepcid) 20 mg QHS 06/01/19 21:00 Cancel Ferrous Sulfate (Feosol) 325 mg BIDWMEALS 05/31/19 17:00 06/08/19 10:45 325 MG Gabapentin (Neurontin) 300 mg QHS 05/31/19 21:00 06/07/19 21:28 300 MG Glipizide (Glucotrol) 5 mg DAILY 06/01/19 09:00 05/31/19 15:37 DC Insulin Glargine (Lantus Syringe) 8 unit QHS 06/06/19 21:00 06/07/19 21:00 8 UNIT Insulin Human Lispro (HumaLOG) 5 units 1X ONCE 06/07/19 23:00 06/07/19 23:01 DC 06/07/19 22:37 5 UNITS Insulin Human Regular (HumuLIN R VIAL) 10 unit 1X ONCE 06/01/19 14:00 06/01/19 14:09 DC 06/01/19 14:40 10 UNIT Lactobacillus Rhamnosus (Culturelle) 1 cap BID 06/01/19 12:00 06/08/19 13:28 1 CAP Levothyroxine Sodium (Synthroid) 25 mcg DAILY06 06/01/19 06:00 06/08/19 10:45 25 MCG Lorazepam (Ativan Inj) 0.5 mg 1X ONCE 06/02/19 22:00 06/02/19 22:01 DC 06/02/19 21:49 0.5 MG Magnesium Sulfate/ Dextrose 100 ml @ 100 mls/hr 1X ONCE 05/31/19 12:30 05/31/19 13:29 DC 05/31/19 13:03 100 MLS/HR Metoprolol Succinate (Toprol Xl) 25 mg DAILY 06/01/19 09:00 06/08/19 10:44 25 MG Morphine Sulfate (Morphine Sulfate) 2 mg PRN Q2HR PRN 05/31/19 12:45 06/01/19 12:44 DC 05/31/19 21:11 2 MG Norepinephrine Bitartrate 250 ml @ 0 mls/hr CONT PRN 06/01/19 10:15 06/05/19 20:16 DC 06/01/19 10:09 44.4 MLS/HR Ondansetron HCl (Zofran) 4 mg PRN Q6HRS PRN 06/03/19 18:30 Pantoprazole Sodium (Protonix) 40 mg BIDAC 05/31/19 16:30 06/08/19 10:45 40 MG Pharmacy Consult (C.diff Med Screen By Rx) 1 each 1X ONCE 05/31/19 17:00 05/31/19 17:15 DC Polyethylene Glycol (miraLAX PACKET) 17 gm PRN DAILY PRN 06/08/19 11:00 Sodium Bicarbonate 50 meq/Dextrose/ Sodium Chloride 1,050 ml @ 150 mls/hr Q7H 06/04/19 11:00 06/07/19 17:05 DC 06/07/19 05:47 150 MLS/HR Sodium Polystyrene Sulfonate (Kayexalate) 30 gm 1X ONCE 06/01/19 13:45 06/01/19 13:46 DC 06/01/19 14:04 30 GM Sodium Chloride 1,000 ml @ 75 mls/hr [id number] 05/31/19 14:00 05/31/19 15:58 DC Tamsulosin HCl (Flomax) 0.4 mg HS 05/31/19 21:00 06/07/19 21:28 0.4 MG Lab Laboratory Tests Test 06/07/19 17:03 06/07/19 21:20 06/08/19 04:02 06/08/19 08:01 Glucose (Fingerstick) 316 mg/dL (70-99) 366 mg/dL (70-99) 121 mg/dL (70-99) White Blood Count 12.1 x10^3/uL (4.0-11.0) Red Blood Count 2.68 x10^6/uL (4.30-5.70) Hemoglobin 8.1 g/dL (13.0-17.5) Hematocrit 24.2 % (39.0-53.0) Mean Corpuscular Volume 90 fL (79-100) Mean Corpuscular Hemoglobin 30 pg (25-35) Mean Corpuscular Hemoglobin Concent 33 g/dL (31-37) Red Cell Distribution Width 14.5 % (11.5-14.5) Platelet Count 311 x10^3/uL (140-400) Neutrophils (%) (Auto) 78 % (31-73) Lymphocytes (%) (Auto) 9 % (24-48) Monocytes (%) (Auto) 10 % (0-9) Eosinophils (%) (Auto) 3 % (0-3) Basophils (%) (Auto) 0 % (0-3) Neutrophils # (Auto) 9.5 x10^3/uL (1.8-7.7) Lymphocytes # (Auto) 1.1 x10^3/uL (1.0-4.8) Monocytes # (Auto) 1.1 x10^3/uL (0.0-1.1) Eosinophils # (Auto) 0.3 x10^3/uL (0.0-0.7) Basophils # (Auto) 0.1 x10^3/uL (0.0-0.2) Sodium Level 136 mmol/L (136-145) Potassium Level 3.6 mmol/L (3.5-5.1) Chloride Level 97 mmol/L (98-107) Carbon Dioxide Level 31 mmol/L (21-32) Anion Gap 8 (6-14) Blood Urea Nitrogen 45 mg/dL (8-26) Creatinine 3.0 mg/dL (0.7-1.3) Estimated GFR (Cockcroft-Gault) 20.1 BUN/Creatinine Ratio 15 (6-20) Glucose Level 140 mg/dL (70-99) Calcium Level 8.3 mg/dL (8.5-10.1) Total Bilirubin 0.3 mg/dL (0.2-1.0) Aspartate Amino Transf (AST/SGOT) 78 U/L (15-37) Alanine Aminotransferase (ALT/SGPT) 91 U/L (16-63) Alkaline Phosphatase 268 U/L (46-116) Total Protein 5.6 g/dL (6.4-8.2) Albumin 1.8 g/dL (3.4-5.0) Albumin/Globulin Ratio 0.5 (1.0-1.7) Test 06/08/19 12:05 Glucose (Fingerstick) 184 mg/dL (70-99) Results All relevant outside records, renal labs, imaging studies, telemetry/EKG's were reviewed. PERCY PERES MD Jun 08, 2019 14:30
[2019-06-08 15:20] VITALS: BP 159/76
--- NOTE | 2019-06-08 16:16 | NUR ---
SW following pt. [facility] reported they are out of network with pt's insurance. Discussed with pt's daughter and informed pt will have to go somewhere else and daughter states they still want their parents to be together. SERAFIN discussed pt's placement is creating a barrier with pt's discharge, pt's daughter verbalized understanding but reports she is trying to make things work as they are taking turns to be with pt's at this time. SERAFIN phoned and faxed referral to [facility], [facility] and [facility]. Acceptance/admission pending. Discussed with Hattie at [facility] about this.
--- NOTE | 2019-06-08 16:32 | PDOC ---
PROGRESS NOTES Assessment Assessment Metabolic encephalopathy. Falls. Anemia. DM. CAD. HTN. HLD. CKD. Renal failure. Degenerative spine disease. Obesity. RECOMMENDATIONS/PLAN: No need for EEG now. Treatment medical diseases. OT/PT. HISTORY OF THE PRESENT ILLNESS: This is an-83-y-old male patient with multiple medical diseases and was admitted on 05/31/19. Neurology was requested for consultation of 06/06/19 for encephalo aimee and falls. No focalized sensory or motor deficits reported. His mentation improved on 06/08/19. PAST MEDICAL HISTORY: CAD w/ stent, HTN, HLD, OA, CKD, DM, skin cancer, GERD, pancreatitis, diverticulosis, cataract extraction, tonsillectomy PAST SURGERY HISTORY: No major surgery recently. ALLERGY: NKDA MEDICATIONS: Refer to [facility] FAMILY HISTORY: Non contributory. SOCIAL HISTORY: Denies current smoking, drinking, and illicit drug use. REVIEW OF SYSTEMS: Constitutional: No malnutrition, weight loss, cachexia. Head: No traumatic brain or head injury. Skin: No edema, or rash. Ear: No infection. Eyes: No vision loss or color blindness. Nose: No bleeding or purulent discharges. Hearing: No hearing decrease. Neck: No injury. Cardiac: HTN, HLD. Pulmonary: No pneumonia, COPD. GI: No GI ulcer, GI bleeding. Urinary/genital: CKD. Endocrinologic: Diabetes Mellitus. Skeletomuscular: Generalized weakness. Neurological: see HP. Psychiatric: Denies drug use/abuse. Otherwise, not -hagvz review of systems. PHYSICAL EXAMINATION: General appearance is in subacute distress. HEENT: Normocephalic and nontraumatic. Eyes, nose, ears, and throat are unremarkable. Neck is supple. No lymphadenopathy. No crepitus. Cardiovascular: S1, S2, regular rate and rhythm. Pulmonary: decreased to auscultation bilaterally. Abdomen: Bowel sounds are positive. Extremities: No rash, lesions, or edema. No restriction of range of motion NEUROLOGICAL EXAMINATION: Alert Sitting in chair. Partially oriented to time, place and person. PERRL. EOMI. CN: no focal findings. Muscle tone: within normal. Muscle strength: 4 DTR: 1 Plantar reflex: Neutral response bilaterally Gait: not examined in chair. Sensory exam: no abnormal findings. No cerebellar signs elicited. F-T-N test fine. Objective Objective Vital Signs Date Time Temp Pulse Resp B/P (MAP) Pulse Ox O2 Delivery O2 Flow Rate FiO2 06/08/19 15:20 98.2 105 20 159/76 (103) 100 Nasal Cannula 5.0 98.2 Intake and Output 06/08/19 07:00 Intake Total 1160 ml Output Total 1900 ml Balance -740 ml Intake Oral 1160 ml Output Urine Total 1900 ml # Bowel Movements 1 Vitals Signs Vitals VS - Last 72 Hours, by Label Date Time Temp Pulse Resp B/P (MAP) Pulse Ox O2 Delivery O2 Flow Rate FiO2 06/08/19 15:20 98.2 105 20 159/76 (103) 100 Nasal Cannula 5.0 98.2 06/08/19 11:26 98.2 109 20 174/90 (118) 100 Nasal Cannula 5.0 98.2 06/08/19 10:44 108 180/85 06/08/19 08:00 Nasal Cannula 5.0 06/08/19 07:00 98.7 108 22 180/85 (116) 97 Nasal Cannula 5.0 98.7 06/08/19 05:10 BiPAP/CPAP 06/08/19 03:25 97.8 101 16 149/85 (106) 99 BiPAP/CPAP 97.8 06/08/19 03:20 BiPAP/CPAP 06/08/19 01:18 BiPAP/CPAP 06/08/19 00:00 BiPAP/CPAP 06/07/19 23:25 97.8 113 22 175/86 (115) 96 Nasal Cannula 3.0 97.8 06/07/19 20:00 Nasal Cannula 3.0 06/07/19 19:30 98.6 84 19 157/70 (99) 100 Nasal Cannula 3.0 98.6 06/07/19 15:09 98.0 89 18 170/71 (104) 96 Nasal Cannula 3.0 98.0 06/07/19 11:07 97.3 92 20 155/78 (103) 94 Nasal Cannula 3.0 97.3 06/07/19 11:02 Nasal Cannula 06/07/19 11:02 86 157/92 06/07/19 08:00 Nasal Cannula 3.0 06/07/19 07:45 100 BiPAP/CPAP 06/07/19 07:15 98.4 100 20 157/92 (113) 95 Nasal Cannula 3.0 98.4 Laboratory Laboratory Laboratory Tests Test 06/07/19 17:03 06/07/19 21:20 06/08/19 04:02 06/08/19 08:01 Glucose (Fingerstick) 316 mg/dL (70-99) 366 mg/dL (70-99) 121 mg/dL (70-99) White Blood Count 12.1 x10^3/uL (4.0-11.0) Red Blood Count 2.68 x10^6/uL (4.30-5.70) Hemoglobin 8.1 g/dL (13.0-17.5) Hematocrit 24.2 % (39.0-53.0) Mean Corpuscular Volume 90 fL (79-100) Mean Corpuscular Hemoglobin 30 pg (25-35) Mean Corpuscular Hemoglobin Concent 33 g/dL (31-37) Red Cell Distribution Width 14.5 % (11.5-14.5) Platelet Count 311 x10^3/uL (140-400) Neutrophils (%) (Auto) 78 % (31-73) Lymphocytes (%) (Auto) 9 % (24-48) Monocytes (%) (Auto) 10 % (0-9) Eosinophils (%) (Auto) 3 % (0-3) Basophils (%) (Auto) 0 % (0-3) Neutrophils # (Auto) 9.5 x10^3/uL (1.8-7.7) Lymphocytes # (Auto) 1.1 x10^3/uL (1.0-4.8) Monocytes # (Auto) 1.1 x10^3/uL (0.0-1.1) Eosinophils # (Auto) 0.3 x10^3/uL (0.0-0.7) Basophils # (Auto) 0.1 x10^3/uL (0.0-0.2) Sodium Level 136 mmol/L (136-145) Potassium Level 3.6 mmol/L (3.5-5.1) Chloride Level 97 mmol/L (98-107) Carbon Dioxide Level 31 mmol/L (21-32) Anion Gap 8 (6-14) Blood Urea Nitrogen 45 mg/dL (8-26) Creatinine 3.0 mg/dL (0.7-1.3) Estimated GFR (Cockcroft-Gault) 20.1 BUN/Creatinine Ratio 15 (6-20) Glucose Level 140 mg/dL (70-99) Calcium Level 8.3 mg/dL (8.5-10.1) Total Bilirubin 0.3 mg/dL (0.2-1.0) Aspartate Amino Transf (AST/SGOT) 78 U/L (15-37) Alanine Aminotransferase (ALT/SGPT) 91 U/L (16-63) Alkaline Phosphatase 268 U/L (46-116) Total Protein 5.6 g/dL (6.4-8.2) Albumin 1.8 g/dL (3.4-5.0) Albumin/Globulin Ratio 0.5 (1.0-1.7) Test 06/08/19 12:05 Glucose (Fingerstick) 184 mg/dL (70-99) Microbiology 06/05/19 Urine Culture - Final, Complete 06/05/19 Urine Culture Result 1 (OLEGARIO) - Final, Complete 06/03/19 Blood Culture - Final, Complete NO GROWTH AFTER 5 DAYS Medication Medications Current Medications Bisacodyl (Dulcolax Tab) 5 mg PRN DAILY PRN PO CONSTIPATION (1st Choice); Start 06/08/19 at 11:00 Dextrose (Dextrose 50%-Water Syringe) 12.5 gm PRN Q15MIN PRN IV SEE COMMENTS; Start 06/07/19 at 22:15 Insulin Human Lispro (HumaLOG) 0-9 UNITS [id number] SQ Last administered on 06/08/19at 13:35; Start 06/08/19 at 08:00 Insulin Human Lispro (HumaLOG) 5 units 1X ONCE SQ Last administered on 06/07/19at 22:37; Start 06/07/19 at 23:00; Stop 06/07/19 at 23:01; Status DC Polyethylene Glycol (miraLAX PACKET) 17 gm DAILY PO Last administered on 06/08/19at 13:28; Start 06/08/19 at 11:00 Polyethylene Glycol (miraLAX PACKET) 17 gm PRN DAILY PRN PO CONSTIPATION (2nd Choice); Start 06/08/19 at 11:00 Comment Review of Relevant I have reviewed the following items yu (where applicable) has been applied. TALIB DOLAN MD Jun 08, 2019 16:32
[2019-06-08] MEDS: cefTRIAXone IV Push 1 GM VIAL. IVP SCH (17:07)
[2019-06-08 19:45] VITALS: BP 169/83
[2019-06-08] MEDS: ATORVASTATIN CALCIUM 20 MG TABLET PO SCH (20:34)
[2019-06-08] MEDS: TAMSULOSIN 0.4 MG CAP.ER.24H. PO SCH (20:34)
[2019-06-08] MEDS: GABAPENTIN 300 MG CAPSULE. PO SCH (20:34)
[2019-06-08] MEDS: INSULIN GLARGINE SYRINGE. SQ SCH (20:54)
[2019-06-08 23:39] VITALS: BP 147/75
[2019-06-09 03:31] VITALS: BP 152/74
[2019-06-09 04:27] LABS: DIRECT BILIRUBIN 0.2 mg/dL (0.0-0.2); TOTAL BILIRUBIN 0.4 mg/dL (0.2-1.0); TOTAL PROTEIN 5.7 g/dL (6.4-8.2)
[2019-06-09] MEDS: LEVOTHYROXINE 25 MCG TABLET. PO SCH (06:05)
[2019-06-09] MEDS: PANTOPRAZOLE 40 MG TABLET.DR. PO SCH ×2 (06:05→17:38)
[2019-06-09 07:00] VITALS: BP 158/75
--- NOTE | 2019-06-09 08:57 | NUR ---
SW following pt. Spoke with pt's daughter Jackeline as [facility] still has not reviewed pt's clinicals and have not received clinicals from Pt's PCP office. Pt's daughter reports they do not want pt to go to [facility] and will go to [facility] whether pt's get accepted or not. CM director notified. Spoke with Nel at [facility] and they are awaiting on nursing team to review clinicals.
[2019-06-09] MEDS: FERROUS SULFATE 325 MG TABLET. PO SCH ×2 (08:58→17:38)
[2019-06-09] MEDS: ASPIRIN ENTERIC COATED 81 MG TABLET.DR. PO SCH (08:58)
[2019-06-09] MEDS: DOCUSATE SODIUM 100 MG CAPSULE. PO SCH ×2 (08:58→21:00)
[2019-06-09] MEDS: LACTOBACILLUS RHAMNOSUS GG 1 CAPSULE. PO SCH ×2 (08:58→21:35)
[2019-06-09] MEDS: POLYETHYLENE GLYCOL 3350 17 GM PACKET. PO SCH (09:00)
[2019-06-09] MEDS: METOPROLOL SUCC 24HR ER 25 MG TAB.ER.24H. PO SCH (09:00)
[2019-06-09] MEDS: INSULIN LISPRO 300 UNITS/3 ML VIAL. SQ SCH ×4 (09:00→21:37)
--- NOTE | 2019-06-09 10:09 | PDOC ---
Subjective: Subjective: Says food is going in and coming out so he thinks he's doing pretty good. Didn't need BiPAP last night. Objective: Objective: D/w nurse - stooling, DC to rehab soon? Vital Signs: Vital Signs Date Time Temp Pulse Resp B/P (MAP) Pulse Ox O2 Delivery O2 Flow Rate FiO2 06/09/19 09:00 102 158/75 06/09/19 07:00 98.1 18 100 Nasal Cannula 3.0 98.1 Labs: Laboratory Tests Test 06/08/19 12:05 06/08/19 17:00 06/08/19 20:37 06/09/19 03:55 Glucose (Fingerstick) 184 mg/dL 276 mg/dL 270 mg/dL Total Bilirubin 0.4 mg/dL Direct Bilirubin 0.2 mg/dL Aspartate Amino Transf (AST/SGOT) 81 U/L Alanine Aminotransferase (ALT/SGPT) 92 U/L Alkaline Phosphatase 313 U/L Total Protein 5.7 g/dL Albumin 2.0 g/dL Test 06/09/19 07:52 Glucose (Fingerstick) 152 mg/dL BLOOD CULTURE Final NO GROWTH AFTER 5 DAYS PE: GEN: NAD, up in chair LUNGS: NC 3L HEART: mildly tachycardic ABD: S/ND/NT NEURO/PSYCH: A & O 3 A/P: FABIEN H/o RANDY Elevated LFTs -- Improved overall. Continue iron, PPI, and Miralax. Plan for outpt EGD and colonoscopy. LFTs slightly worse today, consider US. TIGRE CROSS Jun 09, 2019 10:09
--- NOTE | 2019-06-09 10:40 | PDOC ---
PROGRESS NOTES Chief Complaint Chief Complaint discharge dx Mental status change, RESOLVED Hyperkalemia DIABETES anemia, transfuse one unit 06/05 Renal Failure acute on chronic The kidneys are normal in size and demonstrate normal blood flow. There is no hydronephrosis. There is a 1.9 cm cyst within the upper pole the left kidney. gross hematuria IRON DEF ANEMIA HEART CATH 2016 HEART CATH Conclusion 1. Significant stenoses involving the proximal and distal segments of the right coronary artery as described above with patent previously placed stents in the distal RCA and midsegment of the LAD. 2. Successful PCI/drug eluting stents placement to the proximal and distal segments of the right coronary artery. 3. Normal left ventricle systolic function with ejection fraction estimated at 60%. PLAN 1. Aspirin 325 mg daily 2. Plavix 75 mg daily for preferably one year 3. Cardiovascular risk factor modification urology consult 06/08 [facility] B[facility] PLANNED GI FOLLOWING, PLAN OUTPT ENDOSCOPY SOON 35 min pt exam, chart review, > 50% of time spent with exam, chart review, pt care coordination d/w family in room AM LABS History of Present Illness History of Present Illness 06-07 Pt seen and examined BEDSIDE Accompanied by family members some confusion Charts and labs reviewed WBC is DOWN TO 15.3 Hgb is 6.8 D/w RN, TRANSFUSE 1 UNIT// SS INSULIN 26 MIN PT EXAM, chart review, > 50% of time spent with exam, chart review, pt care coordination 06/03/19 Pt was seen and examined in the ICU Pt was asleep in bed Accompanied by son-in-law Discussed care plan with son-in-law Pt is off levophed Charts and labs reviewed WBC is 15.9 up from 11.1 RBC is 2.72 up from 2.63 Hgb is 8.1, up from 7.8 Potassium is 4.8, down from 5.3 BUN is 55 Cr is 6.0 D/w RN 06/02/19 Pt was seen and examined in the ICU Pt was responsive, but quiet Accompanied with family Family reported that pt has hallucinations and is aware that they are hallucinations Continued discussing with family about medical conditions. Family will talk to asparagus cutter about likelihood of dialysis Chart and labs reviewed EF 60% Potassium is 5.3, down from 6.2 BUN is 63, down from 69 Cr is 7, down from 7.7 D/w RN 06/01/19 Pt was seen and examined in the ICU Pt was awake and eating lunch. 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 AISHA RN Vitals Vitals Vital Signs Date Time Temp Pulse Resp B/P (MAP) Pulse Ox O2 Delivery O2 Flow Rate FiO2 06/09/19 09:00 102 158/75 06/09/19 07:00 98.1 18 100 Nasal Cannula 3.0 98.1 Physical Exam General: Alert, Oriented X3, Cooperative, No acute distress, Other (CONFUSED TO DETAILS) Heart: Regular rate, Normal S1, Normal S2, No murmurs, Gallops Lungs: Clear Abdomen: Normal bowel sounds, Soft, No tenderness, No hepatosplenomegaly, No masses Extremities: No clubbing, No cyanosis, No edema, Normal pulses, No tenderness/swelling Skin: Other (GOOD CAPILLARY REFILL) Labs LABS Laboratory Tests Test 06/08/19 12:05 06/08/19 17:00 06/08/19 20:37 06/09/19 03:55 Glucose (Fingerstick) 184 mg/dL (70-99) 276 mg/dL (70-99) 270 mg/dL (70-99) Total Bilirubin 0.4 mg/dL (0.2-1.0) Direct Bilirubin 0.2 mg/dL (0.0-0.2) Aspartate Amino Transf (AST/SGOT) 81 U/L (15-37) Alanine Aminotransferase (ALT/SGPT) 92 U/L (16-63) Alkaline Phosphatase 313 U/L (46-116) Total Protein 5.7 g/dL (6.4-8.2) Albumin 2.0 g/dL (3.4-5.0) Test 06/09/19 07:52 Glucose (Fingerstick) 152 mg/dL (70-99) Assessment and Plan Assessmemt and Plan Problems Medical Problems: (1) Acute on chronic renal failure Status: Acute (2) Anemia Status: Acute (3) CAD (coronary artery disease) Status: Chronic (4) Elevated troponin Status: Acute (5) GERD (gastroesophageal reflux disease) Status: Chronic (6) Hyperkalemia Status: Acute (7) Hypoglycemia Status: Acute Comment Review of Relevant I have reviewed the following items yu (where applicable) has been applied. Labs Laboratory Tests Test 06/07/19 11:29 06/07/19 17:03 06/07/19 21:20 06/08/19 04:02 Glucose (Fingerstick) 235 mg/dL (70-99) 316 mg/dL (70-99) 366 mg/dL (70-99) White Blood Count 12.1 x10^3/uL (4.0-11.0) Red Blood Count 2.68 x10^6/uL (4.30-5.70) Hemoglobin 8.1 g/dL (13.0-17.5) Hematocrit 24.2 % (39.0-53.0) Mean Corpuscular Volume 90 fL (79-100) Mean Corpuscular Hemoglobin 30 pg (25-35) Mean Corpuscular Hemoglobin Concent 33 g/dL (31-37) Red Cell Distribution Width 14.5 % (11.5-14.5) Platelet Count 311 x10^3/uL (140-400) Neutrophils (%) (Auto) 78 % (31-73) Lymphocytes (%) (Auto) 9 % (24-48) Monocytes (%) (Auto) 10 % (0-9) Eosinophils (%) (Auto) 3 % (0-3) Basophils (%) (Auto) 0 % (0-3) Neutrophils # (Auto) 9.5 x10^3/uL (1.8-7.7) Lymphocytes # (Auto) 1.1 x10^3/uL (1.0-4.8) Monocytes # (Auto) 1.1 x10^3/uL (0.0-1.1) Eosinophils # (Auto) 0.3 x10^3/uL (0.0-0.7) Basophils # (Auto) 0.1 x10^3/uL (0.0-0.2) Sodium Level 136 mmol/L (136-145) Potassium Level 3.6 mmol/L (3.5-5.1) Chloride Level 97 mmol/L (98-107) Carbon Dioxide Level 31 mmol/L (21-32) Anion Gap 8 (6-14) Blood Urea Nitrogen 45 mg/dL (8-26) Creatinine 3.0 mg/dL (0.7-1.3) Estimated GFR (Cockcroft-Gault) 20.1 BUN/Creatinine Ratio 15 (6-20) Glucose Level 140 mg/dL (70-99) Calcium Level 8.3 mg/dL (8.5-10.1) Total Bilirubin 0.3 mg/dL (0.2-1.0) Aspartate Amino Transf (AST/SGOT) 78 U/L (15-37) Alanine Aminotransferase (ALT/SGPT) 91 U/L (16-63) Alkaline Phosphatase 268 U/L (46-116) Total Protein 5.6 g/dL (6.4-8.2) Albumin 1.8 g/dL (3.4-5.0) Albumin/Globulin Ratio 0.5 (1.0-1.7) Test 06/08/19 08:01 06/08/19 12:05 06/08/19 17:00 06/08/19 20:37 Glucose (Fingerstick) 121 mg/dL (70-99) 184 mg/dL (70-99) 276 mg/dL (70-99) 270 mg/dL (70-99) Test 06/09/19 03:55 06/09/19 07:52 Total Bilirubin 0.4 mg/dL (0.2-1.0) Direct Bilirubin 0.2 mg/dL (0.0-0.2) Aspartate Amino Transf (AST/SGOT) 81 U/L (15-37) Alanine Aminotransferase (ALT/SGPT) 92 U/L (16-63) Alkaline Phosphatase 313 U/L (46-116) Total Protein 5.7 g/dL (6.4-8.2) Albumin 2.0 g/dL (3.4-5.0) Glucose (Fingerstick) 152 mg/dL (70-99) Laboratory Tests Test 06/08/19 12:05 06/08/19 17:00 06/08/19 20:37 06/09/19 03:55 Glucose (Fingerstick) 184 mg/dL (70-99) 276 mg/dL (70-99) 270 mg/dL (70-99) Total Bilirubin 0.4 mg/dL (0.2-1.0) Direct Bilirubin 0.2 mg/dL (0.0-0.2) Aspartate Amino Transf (AST/SGOT) 81 U/L (15-37) Alanine Aminotransferase (ALT/SGPT) 92 U/L (16-63) Alkaline Phosphatase 313 U/L (46-116) Total Protein 5.7 g/dL (6.4-8.2) Albumin 2.0 g/dL (3.4-5.0) Test 06/09/19 07:52 Glucose (Fingerstick) 152 mg/dL (70-99) Microbiology 06/05/19 Urine Culture - Final, Complete 06/05/19 Urine Culture Result 1 (OLEGARIO) - Final, Complete 06/03/19 Blood Culture - Final, Complete NO GROWTH AFTER 5 DAYS Medications Current Medications Morphine Sulfate (Morphine Sulfate) 2 mg PRN Q15MIN PRN IV/SQ PAIN GREATER THAN 3/10 Last administered on 05/31/19 12:20; Start 05/31/19 at 09:15; Stop 06/01/19 at 09:14; Status DC Ondansetron HCl (Zofran) 4 mg 1X ONCE IV Last administered on 05/31/19at 09:20; Start 05/31/19 at 09:15; Stop 05/31/19 at 09:17; Status DC Ondansetron HCl (Zofran) 4 mg STK-MED ONCE .ROUTE ; Start 05/31/19 at 09:16; Stop 05/31/19 at 09:17; Status DC Calcium Gluconate (Calcium Gluconate) 1,000 mg 1X ONCE IVP Last administered on 05/31/19at 11:59; Start 05/31/19 at 11:30; Stop 05/31/19 at 11:36; Status DC Dextrose (Dextrose 50%-Water Syringe) 25 gm 1X ONCE IV Last administered on 05/31/19at 11:59; Start 05/31/19 at 11:30; Stop 05/31/19 at 11:36; Status DC Insulin Human Regular (HumuLIN R VIAL) 10 unit 1X ONCE IV Last administered on 05/31/19at 11:59; Start 05/31/19 at 11:30; Stop 05/31/19 at 11:36; Status DC Sodium Bicarbonate 50 meq/Dextrose/ Sodium Chloride 1,050 ml @ 150 mls/hr Q7H IV Last administered on 05/31/19 12:03; Start 05/31/19 at 12:15; Stop 05/31/19 at 13:57; Status DC Magnesium Sulfate/ Dextrose 100 ml @ 100 mls/hr 1X ONCE IV Last administered on 05/31/19 13:03; Start 05/31/19 at 12:30; Stop 05/31/19 at 13:29; Status DC Ondansetron HCl (Zofran) 4 mg PRN Q8HRS PRN IV NAUSEA/VOMITING Last administered on 06/01/19 09:47; Start 05/31/19 at 12:45; Stop 06/01/19 at 12:44; Status DC Morphine Sulfate (Morphine Sulfate) 2 mg PRN Q2HR PRN IV PAIN Last administered on 05/31/19 21:11; Start 05/31/19 at 12:45; Stop 06/01/19 at 12:44; Status DC Levothyroxine Sodium (Synthroid) 25 mcg DAILY06 PO Last administered on 06/09/19 06:05; Start 06/01/19 at 06:00 Sodium Chloride 1,000 ml @ 75 mls/hr [id number] IV ; Start 05/31/19 at 14:00; Stop 05/31/19 at 15:58; Status DC Ceftriaxone Sodium (Rocephin) 1 gm Q24H IVP Last administered on 06/08/19 17:07; Start 06/01/19 at 15:00 Ceftriaxone Sodium (Rocephin) 1 gm 1X ONCE IVP Last administered on 05/31/19 18:07; Start 05/31/19 at 14:30; Stop 05/31/19 at 14:31; Status DC Atorvastatin Calcium (Lipitor) 20 mg QHS PO Last administered on 06/08/19 20:34; Start 05/31/19 at 21:00 Clopidogrel Bisulfate (Plavix) 75 mg DAILY07 PO Last administered on 06/01/19 08:33; Start 06/01/19 at 07:00; Stop 06/01/19 at 20:48; Status DC Ferrous Sulfate (Feosol) 325 mg BIDWMEALS PO Last administered on 06/09/19 08:58; Start 05/31/19 at 17:00 Gabapentin (Neurontin) 300 mg QHS PO Last administered on 06/08/19 20:34; Start 05/31/19 at 21:00 Glipizide (Glucotrol) 5 mg DAILY PO ; Start 06/01/19 at 09:00; Stop 05/31/19 at 15:37; Status DC Metoprolol Succinate (Toprol Xl) 25 mg DAILY PO Last administered on 06/09/19at 09:00; Start 06/01/19 at 09:00 Pantoprazole Sodium (Protonix) 40 mg BIDAC PO Last administered on 06/09/19at 06:05; Start 05/31/19 at 16:30 Tamsulosin HCl (Flomax) 0.4 mg HS PO Last administered on 06/08/19 20:34; Start 05/31/19 at 21:00 Sodium Bicarbonate 50 meq/Dextrose/ Sodium Chloride 1,050 ml @ 150 mls/hr Q7H ONCE IV ; Start 05/31/19 at 14:00; Stop 06/01/19 at 11:43; Status DC Sodium Bicarbonate 50 meq/Dextrose/ Sodium Chloride 1,050 ml @ 125 mls/hr Q8H24M ONCE IV Last administered on 05/31/19at 20:17; Start 05/31/19 at 21:00; Stop 06/01/19 at 11:43; Status DC Pharmacy Consult (C.diff Med Screen By Rx) 1 each 1X ONCE [facility] ; Start 05/31/19 at 17:00; Stop 05/31/19 at 17:15; Status DC Dextrose (Dextrose 50%-Water Syringe) 12.5 gm PRN Q15MIN PRN IV SEE COMMENTS; Start 05/31/19 at 22:45; Stop 06/02/19 at 21:41; Status DC Dextrose 250 ml PRN Q15MIN PRN IV SEE COMMENTS Last administered on 05/31/19at 23:20; Start 05/31/19 at 22:45 Dopamine HCl/ Dextrose 250 ml @ 5.919 mls/ hr CONT PRN IV SEE I/O RECORD Last administered on 06/01/19at 09:18; Start 06/01/19 at 09:15; Stop 06/05/19 at 20:16; Status DC Atropine Sulfate (ATROPINE 0.5mg SYRINGE) 0.5 mg 1X ONCE IM Last administered on 06/01/19at 09:19; Start 06/01/19 at 09:15; Stop 06/01/19 at 09:18; Status DC Norepinephrine Bitartrate 250 ml @ 0 mls/hr CONT PRN IV SEE I/O RECORD Last administered on 06/01/19at 10:09; Start 06/01/19 at 10:15; Stop 06/05/19 at 20:16; Status DC Famotidine (Pepcid) 20 mg QHS PO ; Start 06/01/19 at 21:00; Status Cancel Sodium Bicarbonate 50 meq/Dextrose/ Sodium Chloride 1,050 ml @ 150 mls/hr Q7H IV Last administered on 06/04/19at 03:00; Start 06/01/19 at 11:00; Stop 06/04/19 at 10:38; Status DC Lactobacillus Rhamnosus (Culturelle) 1 cap BID PO Last administered on 06/09/19 08:58; Start 06/01/19 at 12:00 Sodium Polystyrene Sulfonate (Kayexalate) 30 gm 1X ONCE PO Last administered on 06/01/19at 14:04; Start 06/01/19 at 13:45; Stop 06/01/19 at 13:46; Status DC Insulin Human Regular (HumuLIN R VIAL) 10 unit 1X ONCE IV Last administered on 06/01/19at 14:40; Start 06/01/19 at 14:00; Stop 06/01/19 at 14:09; Status DC Dextrose (Dextrose 50%-Water Syringe) 25 gm 1X ONCE IV Last administered on 06/01/19at 14:38; Start 06/01/19 at 14:00; Stop 06/01/19 at 14:09; Status DC Aspirin (Ecotrin) 81 mg DAILYWBKFT PO Last administered on 06/09/19at 08:58; Start 06/02/19 at 08:00 Insulin Human Lispro (HumaLOG) 0-5 UNITS TIDWMEALS SQ Last administered on 06/02/19at 18:31; Start 06/02/19 at 18:30; Stop 06/02/19 at 21:40; Status DC Dextrose (Dextrose 50%-Water Syringe) 12.5 gm PRN Q15MIN PRN IV SEE COMMENTS; Start 06/02/19 at 18:00; Stop 06/02/19 at 21:41; Status DC Lorazepam (Ativan Inj) 0.5 mg 1X ONCE IV Last administered on 06/02/19at 21:49; Start 06/02/19 at 22:00; Stop 06/02/19 at 22:01; Status DC Insulin Human Lispro (HumaLOG) 0-5 UNITS QIDACHS SQ Last administered on 06/07/19at 17:41; Start 06/02/19 at 22:00; Stop 06/07/19 at 22:16; Status DC Dextrose (Dextrose 50%-Water Syringe) 12.5 gm PRN Q15MIN PRN IV SEE COMMENTS; Start 06/02/19 at 21:45; Stop 06/07/19 at 22:17; Status DC Acetaminophen (Tylenol) 650 mg PRN Q6HRS PRN PO PAIN Last administered on 06/08/19at 10:45; Start 06/03/19 at 12:00 Ondansetron HCl (Zofran) 4 mg PRN Q6HRS PRN IVP NAUSEA/VOMITING; Start 06/03/19 at 18:30 Sodium Bicarbonate 50 meq/Dextrose/ Sodium Chloride 1,050 ml @ 150 mls/hr Q7H IV Last administered on 06/07/19at 05:47; Start 06/04/19 at 11:00; Stop 06/07/19 at 17:05; Status DC Docusate Sodium (Colace) 100 mg BID PO Last administered on 06/09/19at 08:58; Start 06/05/19 at 21:00 Insulin Glargine (Lantus Syringe) 8 unit QHS SQ Last administered on 06/08/19at 20:54; Start 06/06/19 at 21:00 Insulin Human Lispro (HumaLOG) 0-9 UNITS TIDWMEALHC SQ Last administered on 06/09/19at 09:00; Start 06/08/19 at 08:00 Dextrose (Dextrose 50%-Water Syringe) 12.5 gm PRN Q15MIN PRN IV SEE COMMENTS; Start 06/07/19 at 22:15 Insulin Human Lispro (HumaLOG) 5 units 1X ONCE SQ Last administered on 06/07/19at 22:37; Start 06/07/19 at 23:00; Stop 06/07/19 at 23:01; Status DC Polyethylene Glycol (miraLAX PACKET) 17 gm DAILY PO Last administered on 06/08/19at 13:28; Start 06/08/19 at 11:00 Polyethylene Glycol (miraLAX PACKET) 17 gm PRN DAILY PRN PO CONSTIPATION (2nd Choice); Start 06/08/19 at 11:00 Bisacodyl (Dulcolax Tab) 5 mg PRN DAILY PRN PO CONSTIPATION (1st Choice); Start 06/08/19 at 11:00 Active Scripts Active Augmentin 875-125 Tablet (Amoxicillin/Potassium Clav) 1 Each Tablet 1 Tab PO BID Feosol (Ferrous Sulfate) 325 Mg Tablet 325 Mg PO BIDWMEALS Protonix (Pantoprazole Sodium) 40 Mg Tablet.dr 1 Tab PO BID Lisinopril-Hctz 10-12.5 Mg Tab (Lisinopril/Hydrochlorothiazide) 1 Each Tablet 1 Tab PO DAILY Clopidogrel (Clopidogrel Bisulfate) 75 Mg Tablet 1 Tab PO DAILY Aspirin Ec (Aspirin) 325 Mg Tablet.dr 1 Tab PO DAILY Reported Hydrocodone-Apap 5-325 (Hydrocodone Bit/Acetaminophen) 1 Tab Tablet 1 Tab PO PRN Q6HRS PRN Latanoprost 2.5 Ml Drops 1 Drop EACHEYE QHS Melatonin 5 Mg Tablet 5 Mg PO QHS Ultracet Tablet (Tramadol Hcl/Acetaminophen) 1 Each Tablet 1 Tab PO Q12HR PRN Atorvastatin Calcium 20 Mg Tablet 20 Mg PO DAILY Ketoconazole 120 Ml Shampoo 120 Ml TP Gabapentin (Gabapentin) 300 Mg Capsule 300 Mg PO TID Multi-Day Vitamins (Multivitamin) 1 Each Tablet 1 Tab PO DAILY Nitrostat (Nitroglycerin) 0.4 Mg Tab.subl 1 Tab SL UD PRN Metoprolol Succinate ( Xl ) (Metoprolol Succinate) 25 Mg Tab.er.24h 1 Tab PO DAILY Tamsulosin Hcl 0.4 Mg Cap.er.24h 1 Cap PO HS Glipizide 5 Mg Tablet 1 Tab PO DAILY Metformin Hcl 1,000 Mg Tablet 1 Tab PO BID Vitals/I & O Vital Sign - Last 24 Hours 06/08/19 06/08/19 06/08/19 06/08/19 10:44 11:26 15:20 19:45 Temp 98.2 98.2 98.4 98.2 98.2 98.4 Pulse 108 109 105 97 Resp 20 20 20 B/P (MAP) 180/85 174/90 (118) 159/76 (103) 169/83 (111) Pulse Ox 100 100 100 O2 Delivery Nasal Cannula Nasal Cannula Nasal Cannula O2 Flow Rate 5.0 5.0 2.0 06/08/19 06/08/19 06/09/19 06/09/19 20:05 23:39 03:31 07:00 Temp 97.5 97.4 98.1 97.5 97.4 98.1 Pulse 98 94 102 Resp 20 20 18 B/P (MAP) 147/75 (99) 152/74 (100) 158/75 (102) Pulse Ox 98 98 100 O2 Delivery Nasal Cannula Nasal Cannula Nasal Cannula Nasal Cannula O2 Flow Rate 2.0 2.0 2.0 3.0 06/09/19 09:00 Pulse 102 B/P (MAP) 158/75 Intake and Output 06/08/19 06/08/19 06/09/19 15:00 23:00 07:00 Intake Total 480 ml 200 ml 200 ml Output Total 750 ml 300 ml 725 ml Balance -270 ml -100 ml -525 ml WILLIAM ROGERS MD Jun 09, 2019 10:40
[2019-06-09 11:00] VITALS: BP 169/80
--- NOTE | 2019-06-09 13:41 | NUR ---
SERAFIN following pt. [facility] declined to admit pt stating they can not meet pt's needs. Discussed with pt's daughter and agreeable with [facility]. Updates faxed to [facility] and they have submitted for auth. SERAFIN spoke with Insurance CMMichaela and she reported they might give approval today. Will continue to follow. Discussed with RN.
--- NOTE | 2019-06-09 14:37 | PDOC ---
SUBJECTIVE ROS Stable OBJECTIVE Vital Signs Vital Signs Date Time Temp Pulse Resp B/P (MAP) Pulse Ox O2 Delivery O2 Flow Rate FiO2 06/09/19 11:00 98.1 98 18 169/80 (109) 98 Nasal Cannula 3.0 98.1 I & 0 Intake and Output 06/09/19 07:00 Intake Total 880 ml Output Total 1775 ml Balance -895 ml Intake Oral 880 ml Output Urine Total 1775 ml # Voids 2 # Bowel Movements 2 PHYSICAL EXAM Physical Exam GENERAL: No apparent distress. HEENT: OM moist NECK: Supple, LUNGS: Clear to auscultation HEART: RRR, S1, S2 present. ABDOMEN: Soft, nontender. EXTREMITIES: Without any cyanosis, clubbing, or edema. SKIN: No ulcerations or rashes, good skin turgor, no jaundice. No Espinoza DIAGNOSIS/ASSESSMENT Assessment & Plan FABIEN - Improving Cr peaked at 7.8--> down to 4.1 -->3.4-->3- No labs today Supportive care, I/O, Monitor Renal US- normal in size and demonstrate normal blood flow. no hydronephrosis. There is a 1.9 cm cyst within the upper pole the left kidney. Voiding trial r/o retention after espinoza removed Mental status change- Improved Hyperkalemia- Resolved DIABETES- per primary Anemia, s/p PRBC x 1 06/05 Hematuria- No intervention, Likely traumatic per Urology COMMENT/RELEVANT DATA Meds Current Medications Medications (Trade) Dose Ordered Sig/Nahtalie Start Time Stop Time Status Last Admin Dose Admin Acetaminophen (Tylenol) 650 mg PRN Q6HRS PRN 06/03/19 12:00 06/08/19 10:45 650 MG Aspirin (Ecotrin) 81 mg DAILYWBKFT 06/02/19 08:00 06/09/19 08:58 81 MG Atorvastatin Calcium (Lipitor) 20 mg QHS 05/31/19 21:00 06/08/19 20:34 20 MG Atropine Sulfate (ATROPINE 0.5mg SYRINGE) 0.5 mg 1X ONCE 06/01/19 09:15 06/01/19 09:18 DC 06/01/19 09:19 0.5 MG Bisacodyl (Dulcolax Tab) 5 mg PRN DAILY PRN 06/08/19 11:00 Calcium Gluconate (Calcium Gluconate) 1,000 mg 1X ONCE 05/31/19 11:30 05/31/19 11:36 DC 05/31/19 11:59 1,000 MG Ceftriaxone Sodium (Rocephin) 1 gm 1X ONCE 05/31/19 14:30 05/31/19 14:31 DC 05/31/19 18:07 1 GM Clopidogrel Bisulfate (Plavix) 75 mg DAILY07 06/01/19 07:00 06/01/19 20:48 DC 06/01/19 08:33 75 MG Dextrose (Dextrose 50%-Water Syringe) 12.5 gm PRN Q15MIN PRN 06/07/19 22:15 Docusate Sodium (Colace) 100 mg BID 06/05/19 21:00 06/09/19 08:58 100 MG Dopamine HCl/ Dextrose 250 ml @ 5.919 mls/ hr CONT PRN 06/01/19 09:15 06/05/19 20:16 DC 06/01/19 09:18 14.798 MLS/HR Famotidine (Pepcid) 20 mg QHS 06/01/19 21:00 Cancel Ferrous Sulfate (Feosol) 325 mg BIDWMEALS 05/31/19 17:00 06/09/19 08:58 325 MG Gabapentin (Neurontin) 300 mg QHS 05/31/19 21:00 06/08/19 20:34 300 MG Glipizide (Glucotrol) 5 mg DAILY 06/01/19 09:00 05/31/19 15:37 DC Insulin Glargine (Lantus Syringe) 8 unit QHS 06/06/19 21:00 06/08/19 20:54 8 UNIT Insulin Human Lispro (HumaLOG) 5 units 1X ONCE 06/07/19 23:00 06/07/19 23:01 DC 06/07/19 22:37 5 UNITS Insulin Human Regular (HumuLIN R VIAL) 10 unit 1X ONCE 06/01/19 14:00 06/01/19 14:09 DC 06/01/19 14:40 10 UNIT Lactobacillus Rhamnosus (Culturelle) 1 cap BID 06/01/19 12:00 06/09/19 08:58 1 CAP Levothyroxine Sodium (Synthroid) 25 mcg DAILY06 06/01/19 06:00 06/09/19 06:05 25 MCG Lorazepam (Ativan Inj) 0.5 mg 1X ONCE 06/02/19 22:00 06/02/19 22:01 DC 06/02/19 21:49 0.5 MG Magnesium Sulfate/ Dextrose 100 ml @ 100 mls/hr 1X ONCE 05/31/19 12:30 05/31/19 13:29 DC 05/31/19 13:03 100 MLS/HR Metoprolol Succinate (Toprol Xl) 25 mg DAILY 06/01/19 09:00 06/09/19 09:00 25 MG Morphine Sulfate (Morphine Sulfate) 2 mg PRN Q2HR PRN 05/31/19 12:45 06/01/19 12:44 DC 05/31/19 21:11 2 MG Norepinephrine Bitartrate 250 ml @ 0 mls/hr CONT PRN 06/01/19 10:15 06/05/19 20:16 DC 06/01/19 10:09 44.4 MLS/HR Ondansetron HCl (Zofran) 4 mg PRN Q6HRS PRN 06/03/19 18:30 Pantoprazole Sodium (Protonix) 40 mg BIDAC 05/31/19 16:30 06/09/19 06:05 40 MG Pharmacy Consult (C.diff Med Screen By Rx) 1 each 1X ONCE 05/31/19 17:00 05/31/19 17:15 DC Polyethylene Glycol (miraLAX PACKET) 17 gm PRN DAILY PRN 06/08/19 11:00 Sodium Bicarbonate 50 meq/Dextrose/ Sodium Chloride 1,050 ml @ 150 mls/hr Q7H 06/04/19 11:00 06/07/19 17:05 DC 06/07/19 05:47 150 MLS/HR Sodium Polystyrene Sulfonate (Kayexalate) 30 gm 1X ONCE 06/01/19 13:45 06/01/19 13:46 DC 06/01/19 14:04 30 GM Sodium Chloride 1,000 ml @ 75 mls/hr [id number] 05/31/19 14:00 05/31/19 15:58 DC Tamsulosin HCl (Flomax) 0.4 mg HS 05/31/19 21:00 06/08/19 20:34 0.4 MG Lab Laboratory Tests Test 06/08/19 17:00 06/08/19 20:37 06/09/19 03:55 06/09/19 07:52 Glucose (Fingerstick) 276 mg/dL (70-99) 270 mg/dL (70-99) 152 mg/dL (70-99) Total Bilirubin 0.4 mg/dL (0.2-1.0) Direct Bilirubin 0.2 mg/dL (0.0-0.2) Aspartate Amino Transf (AST/SGOT) 81 U/L (15-37) Alanine Aminotransferase (ALT/SGPT) 92 U/L (16-63) Alkaline Phosphatase 313 U/L (46-116) Total Protein 5.7 g/dL (6.4-8.2) Albumin 2.0 g/dL (3.4-5.0) Test 06/09/19 11:13 Glucose (Fingerstick) 186 mg/dL (70-99) Results All relevant outside records, renal labs, imaging studies, telemetry/EKG's were reviewed. PERCY PERES MD Jun 09, 2019 14:37
--- NOTE | 2019-06-09 14:48 | PDOC3 ---
Discharge Summary Date of Admission: May 31, 2019 Date of Discharge: Jun 09, 2019 Follow-Up: 1-2 days Admitting Diagnosis comment: discharge dx d/c to [facility] Mental status change, RESOLVED Hyperkalemia DIABETES anemia, transfuse one unit 06/05 Renal Failure acute on chronic The kidneys are normal in size and demonstrate normal blood flow. There is no hydronephrosis. There is a 1.9 cm cyst within the upper pole the left kidney. gross hematuria IRON DEF ANEMIA HEART CATH 2016 HEART CATH Conclusion 1. Significant stenoses involving the proximal and distal segments of the right coronary artery as described above with patent previously placed stents in the distal RCA and midsegment of the LAD. 2. Successful PCI/drug eluting stents placement to the proximal and distal segments of the right coronary artery. 3. Normal left ventricle systolic function with ejection fraction estimated at 60%. PLAN 1. Aspirin 325 mg daily 2. Plavix 75 mg daily for preferably one year 3. Cardiovascular risk factor modification urology consult 06/08 SNF BED PLANNED GI FOLLOWING, PLAN OUTPT ENDOSCOPY SOON 35 min pt exam, chart review d/c planning , > 50% of time spent with exam, chart review, pt care coordination d/w family in room AM LABS History of Present Illness History of Present Illness 06-07 Pt seen and examined BEDSIDE Accompanied by family members some confusion Charts and labs reviewed WBC is DOWN TO 15.3 Hgb is 6.8 D/w RN, TRANSFUSE 1 UNIT// SS INSULIN 26 MIN PT EXAM, chart review, > 50% of time spent with exam, chart review, pt care coordination 06/03/19 Pt was seen and examined in the ICU Pt was asleep in bed Accompanied by son-in-law Discussed care plan with son-in-law Pt is off levophed Charts and labs reviewed WBC is 15.9 up from 11.1 RBC is 2.72 up from 2.63 Hgb is 8.1, up from 7.8 Potassium is 4.8, down from 5.3 BUN is 55 Cr is 6.0 D/w RN 06/02/19 Pt was seen and examined in the ICU Pt was responsive, but quiet Accompanied with family Family reported that pt has hallucinations and is aware that they are hallucinations Continued discussing with family about medical conditions. Family will talk to fence post driver about likelihood of dialysis Chart and labs reviewed EF 60% Potassium is 5.3, down from 6.2 BUN is 63, down from 69 Cr is 7, down from 7.7 D/w RN 06/01/19 Pt was seen and examined in the ICU Pt was awake and eating lunch. He did not seem to have much of an appetite Talked extensively with pt's family about his various medical conditions EF 60% Copy Room Technician was having a difficult time drawing blood at bedside. AISHA RN Vitals Vitals Vital Signs Date Time Temp Pulse Resp B/P (MAP) Pulse Ox O2 Delivery O2 Flow Rate FiO2 06/09/19 09:00 102 158/75 06/09/19 07:00 98.1 18 100 Nasal Cannula 3.0 98.1 Physical Exam General: Alert, Oriented X3, Cooperative, No acute distress, Other (CONFUSED TO DETAILS) Heart: Regular rate, Normal S1, Normal S2, No murmurs, Gallops Lungs: Clear Abdomen: Normal bowel sounds, Soft, No tenderness, No hepatosplenomegaly, No masses Extremities: No clubbing, No cyanosis, No edema, Normal pulses, No tenderness/swelling Skin: Other (GOOD CAPILLARY REFILL) FINAL DIAGNOSIS Problems Medical Problems: (1) Acute on chronic renal failure Status: Acute (2) Anemia Status: Acute (3) CAD (coronary artery disease) Status: Chronic (4) Elevated troponin Status: Acute (5) GERD (gastroesophageal reflux disease) Status: Chronic (6) Hyperkalemia Status: Acute (7) Hypoglycemia Status: Acute Brief Hospital Course Mr. Arce is a 83 old [sex] who presented with [AMS ] CONDITION AT DISCHARGE: Improved Discharge Medications Current Medications Morphine Sulfate (Morphine Sulfate) 2 mg PRN Q15MIN PRN IV/SQ PAIN GREATER THAN 3/10 Last administered on 05/31/19at 12:20; Start 05/31/19 at 09:15; Stop 06/01/19 at 09:14; Status DC Ondansetron HCl (Zofran) 4 mg 1X ONCE IV Last administered on 05/31/19at 09:20; Start 05/31/19 at 09:15; Stop 05/31/19 at 09:17; Status DC Ondansetron HCl (Zofran) 4 mg STK-MED ONCE .ROUTE ; Start 05/31/19 at 09:16; Stop 05/31/19 at 09:17; Status DC Calcium Gluconate (Calcium Gluconate) 1,000 mg 1X ONCE IVP Last administered on 05/31/19at 11:59; Start 05/31/19 at 11:30; Stop 05/31/19 at 11:36; Status DC Dextrose (Dextrose 50%-Water Syringe) 25 gm 1X ONCE IV Last administered on 05/31/19at 11:59; Start 05/31/19 at 11:30; Stop 05/31/19 at 11:36; Status DC Insulin Human Regular (HumuLIN R VIAL) 10 unit 1X ONCE IV Last administered on 05/31/19at 11:59; Start 05/31/19 at 11:30; Stop 05/31/19 at 11:36; Status DC Sodium Bicarbonate 50 meq/Dextrose/ Sodium Chloride 1,050 ml @ 150 mls/hr Q7H IV Last administered on 05/31/19at 12:03; Start 05/31/19 at 12:15; Stop 05/31/19 at 13:57; Status DC Magnesium Sulfate/ Dextrose 100 ml @ 100 mls/hr 1X ONCE IV Last administered on 05/31/19at 13:03; Start 05/31/19 at 12:30; Stop 05/31/19 at 13:29; Status DC Ondansetron HCl (Zofran) 4 mg PRN Q8HRS PRN IV NAUSEA/VOMITING Last administered on 06/01/19at 09:47; Start 05/31/19 at 12:45; Stop 06/01/19 at 12:44; Status DC Morphine Sulfate (Morphine Sulfate) 2 mg PRN Q2HR PRN IV PAIN Last administered on 05/31/19at 21:11; Start 05/31/19 at 12:45; Stop 06/01/19 at 12:44; Status DC Levothyroxine Sodium (Synthroid) 25 mcg DAILY06 PO Last administered on 06/09/19at 06:05; Start 06/01/19 at 06:00 Sodium Chloride 1,000 ml @ 75 mls/hr [id number] IV ; Start 05/31/19 at 14:00; Stop 05/31/19 at 15:58; Status DC Ceftriaxone Sodium (Rocephin) 1 gm Q24H IVP Last administered on 06/08/19 17:07; Start 06/01/19 at 15:00 Ceftriaxone Sodium (Rocephin) 1 gm 1X ONCE IVP Last administered on 05/31/19at 18:07; Start 05/31/19 at 14:30; Stop 05/31/19 at 14:31; Status DC Atorvastatin Calcium (Lipitor) 20 mg QHS PO Last administered on 06/08/19 20:34; Start 05/31/19 at 21:00 Clopidogrel Bisulfate (Plavix) 75 mg DAILY07 PO Last administered on 06/01/19at 08:33; Start 06/01/19 at 07:00; Stop 06/01/19 at 20:48; Status DC Ferrous Sulfate (Feosol) 325 mg BIDWMEALS PO Last administered on 06/09/19 08:58; Start 05/31/19 at 17:00 Gabapentin (Neurontin) 300 mg QHS PO Last administered on 06/08/19 20:34; Start 05/31/19 at 21:00 Glipizide (Glucotrol) 5 mg DAILY PO ; Start 06/01/19 at 09:00; Stop 05/31/19 at 15:37; Status DC Metoprolol Succinate (Toprol Xl) 25 mg DAILY PO Last administered on 06/09/19 09:00; Start 06/01/19 at 09:00 Pantoprazole Sodium (Protonix) 40 mg BIDAC PO Last administered on 06/09/19 06:05; Start 05/31/19 at 16:30 Tamsulosin HCl (Flomax) 0.4 mg HS PO Last administered on 06/08/19 20:34; S tart 05/31/19 at 21:00 Sodium Bicarbonate 50 meq/Dextrose/ Sodium Chloride 1,050 ml @ 150 mls/hr Q7H ONCE IV ; Start 05/31/19 at 14:00; Stop 06/01/19 at 11:43; Status DC Sodium Bicarbonate 50 meq/Dextrose/ Sodium Chloride 1,050 ml @ 125 mls/hr Q8H24M ONCE IV Last administered on 05/31/19at 20:17; Start 05/31/19 at 21:00; Stop 06/01/19 at 11:43; Status DC Pharmacy Consult (C.diff Med Screen By Rx) 1 each 1X ONCE [facility] ; Start 05/31/19 at 17:00; Stop 05/31/19 at 17:15; Status DC Dextrose (Dextrose 50%-Water Syringe) 12.5 gm PRN Q15MIN PRN IV SEE COMMENTS; Start 05/31/19 at 22:45; Stop 06/02/19 at 21:41; Status DC Dextrose 250 ml PRN Q15MIN PRN IV SEE COMMENTS Last administered on 05/31/19at 23:20; Start 05/31/19 at 22:45 Dopamine HCl/ Dextrose 250 ml @ 5.919 mls/ hr CONT PRN IV SEE I/O RECORD Last administered on 06/01/19at 09:18; Start 06/01/19 at 09:15; Stop 06/05/19 at 20:16; Status DC Atropine Sulfate (ATROPINE 0.5mg SYRINGE) 0.5 mg 1X ONCE IM Last administered on 06/01/19at 09:19; Start 06/01/19 at 09:15; Stop 06/01/19 at 09:18; Status DC Norepinephrine Bitartrate 250 ml @ 0 mls/hr CONT PRN IV SEE I/O RECORD Last administered on 06/01/19at 10:09; Start 06/01/19 at 10:15; Stop 06/05/19 at 20:16; Status DC Famotidine (Pepcid) 20 mg QHS PO ; Start 06/01/19 at 21:00; Status Cancel Sodium Bicarbonate 50 meq/Dextrose/ Sodium Chloride 1,050 ml @ 150 mls/hr Q7H IV Last administered on 06/04/19at 03:00; Start 06/01/19 at 11:00; Stop 06/04/19 at 10:38; Status DC Lactobacillus Rhamnosus (Culturelle) 1 cap BID PO Last administered on 06/09/19at 08:58; Start 06/01/19 at 12:00 Sodium Polystyrene Sulfonate (Kayexalate) 30 gm 1X ONCE PO Last administered on 06/01/19at 14:04; Start 06/01/19 at 13:45; Stop 06/01/19 at 13:46; Status DC Insulin Human Regular (HumuLIN R VIAL) 10 unit 1X ONCE IV Last administered on 06/01/19at 14:40; Start 06/01/19 at 14:00; Stop 06/01/19 at 14:09; Status DC Dextrose (Dextrose 50%-Water Syringe) 25 gm 1X ONCE IV Last administered on 06/01/19at 14:38; Start 06/01/19 at 14:00; Stop 06/01/19 at 14:09; Status DC Aspirin (Ecotrin) 81 mg DAILYWBKFT PO Last administered on 06/09/19at 08:58; Start 06/02/19 at 08:00 Insulin Human Lispro (HumaLOG) 0-5 UNITS TIDWMEALS SQ Last administered on 06/02/19at 18:31; Start 06/02/19 at 18:30; Stop 06/02/19 at 21:40; Status DC Dextrose (Dextrose 50%-Water Syringe) 12.5 gm PRN Q15MIN PRN IV SEE COMMENTS; Start 06/02/19 at 18:00; Stop 06/02/19 at 21:41; Status DC Lorazepam (Ativan Inj) 0.5 mg 1X ONCE IV Last administered on 06/02/19at 21:49; Start 06/02/19 at 22:00; Stop 06/02/19 at 22:01; Status DC Insulin Human Lispro (HumaLOG) 0-5 UNITS QIDACHS SQ Last administered on 06/07/19at 17:41; Start 06/02/19 at 22:00; Stop 06/07/19 at 22:16; Status DC Dextrose (Dextrose 50%-Water Syringe) 12.5 gm PRN Q15MIN PRN IV SEE COMMENTS; Start 06/02/19 at 21:45; Stop 06/07/19 at 22:17; Status DC Acetaminophen (Tylenol) 650 mg PRN Q6HRS PRN PO PAIN Last administered on 06/08/19at 10:45; Start 06/03/19 at 12:00 Ondansetron HCl (Zofran) 4 mg PRN Q6HRS PRN IVP NAUSEA/VOMITING; Start 06/03/19 at 18:30 Sodium Bicarbonate 50 meq/Dextrose/ Sodium Chloride 1,050 ml @ 150 mls/hr Q7H IV Last administered on 06/07/19at 05:47; Start 06/04/19 at 11:00; Stop 06/07/19 at 17:05; Status DC Docusate Sodium (Colace) 100 mg BID PO Last administered on 06/09/19at 08:58; Start 06/05/19 at 21:00 Insulin Glargine (Lantus Syringe) 8 unit QHS SQ Last administered on 06/08/19at 20:54; Start 06/06/19 at 21:00 Insulin Human Lispro (HumaLOG) 0-9 UNITS TIDWMEALHC SQ Last administered on 06/09/19at 12:45; Start 06/08/19 at 08:00 Dextrose (Dextrose 50%-Water Syringe) 12.5 gm PRN Q15MIN PRN IV SEE COMMENTS; Start 06/07/19 at 22:15 Insulin Human Lispro (HumaLOG) 5 units 1X ONCE SQ Last administered on 06/07/19at 22:37; Start 06/07/19 at 23:00; Stop 06/07/19 at 23:01; Status DC Polyethylene Glycol (miraLAX PACKET) 17 gm DAILY PO Last administered on 06/08/19at 13:28; Start 06/08/19 at 11:00 Polyethylene Glycol (miraLAX PACKET) 17 gm PRN DAILY PRN PO CONSTIPATION (2nd Choice); Start 06/08/19 at 11:00 Bisacodyl (Dulcolax Tab) 5 mg PRN DAILY PRN PO CONSTIPATION (1st Choice); Start 06/08/19 at 11:00 Active Scripts Active Augmentin 875-125 Tablet (Amoxicillin/Potassium Clav) 1 Each Tablet 1 Tab PO BID Feosol (Ferrous Sulfate) 325 Mg Tablet 325 Mg PO BIDWMEALS Protonix (Pantoprazole Sodium) 40 Mg Tablet.dr 1 Tab PO BID Lisinopril-Hctz 10-12.5 Mg Tab (Lisinopril/Hydrochlorothiazide) 1 Each Tablet 1 Tab PO DAILY Clopidogrel (Clopidogrel Bisulfate) 75 Mg Tablet 1 Tab PO DAILY Aspirin Ec (Aspirin) 325 Mg Tablet.dr 1 Tab PO DAILY Reported Hydrocodone-Apap 5-325 (Hydrocodone Bit/Acetaminophen) 1 Tab Tablet 1 Tab PO PRN Q6HRS PRN Latanoprost 2.5 Ml Drops 1 Drop EACHEYE QHS Melatonin 5 Mg Tablet 5 Mg PO QHS Ultracet Tablet (Tramadol Hcl/Acetaminophen) 1 Each Tablet 1 Tab PO Q12HR PRN Atorvastatin Calcium 20 Mg Tablet 20 Mg PO DAILY Ketoconazole 120 Ml Shampoo 120 Ml TP Gabapentin (Gabapentin) 300 Mg Capsule 300 Mg PO TID Multi-Day Vitamins (Multivitamin) 1 Each Tablet 1 Tab PO DAILY Nitrostat (Nitroglycerin) 0.4 Mg Tab.subl 1 Tab SL UD PRN Metoprolol Succinate ( Xl ) (Metoprolol Succinate) 25 Mg Tab.er.24h 1 Tab PO DAILY Tamsulosin Hcl 0.4 Mg Cap.er.24h 1 Cap PO HS Glipizide 5 Mg Tablet 1 Tab PO DAILY Metformin Hcl 1,000 Mg Tablet 1 Tab PO BID Vital Signs Vital Signs Date Time Temp Pulse Resp B/P (MAP) Pulse Ox O2 Delivery O2 Flow Rate FiO2 06/09/19 11:00 98.1 98 18 169/80 (109) 98 Nasal Cannula 3.0 98.1 Labs Laboratory Tests Test 06/07/19 17:03 06/07/19 21:20 06/08/19 04:02 06/08/19 08:01 Glucose (Fingerstick) 316 mg/dL (70-99) 366 mg/dL (70-99) 121 mg/dL (70-99) White Blood Count 12.1 x10^3/uL (4.0-11.0) Red Blood Count 2.68 x10^6/uL (4.30-5.70) Hemoglobin 8.1 g/dL (13.0-17.5) Hematocrit 24.2 % (39.0-53.0) Mean Corpuscular Volume 90 fL (79-100) Mean Corpuscular Hemoglobin 30 pg (25-35) Mean Corpuscular Hemoglobin Concent 33 g/dL (31-37) Red Cell Distribution Width 14.5 % (11.5-14.5) Platelet Count 311 x10^3/uL (140-400) Neutrophils (%) (Auto) 78 % (31-73) Lymphocytes (%) (Auto) 9 % (24-48) Monocytes (%) (Auto) 10 % (0-9) Eosinophils (%) (Auto) 3 % (0-3) Basophils (%) (Auto) 0 % (0-3) Neutrophils # (Auto) 9.5 x10^3/uL (1.8-7.7) Lymphocytes # (Auto) 1.1 x10^3/uL (1.0-4.8) Monocytes # (Auto) 1.1 x10^3/uL (0.0-1.1) Eosinophils # (Auto) 0.3 x10^3/uL (0.0-0.7) Basophils # (Auto) 0.1 x10^3/uL (0.0-0.2) Sodium Level 136 mmol/L (136-145) Potassium Level 3.6 mmol/L (3.5-5.1) Chloride Level 97 mmol/L (98-107) Carbon Dioxide Level 31 mmol/L (21-32) Anion Gap 8 (6-14) Blood Urea Nitrogen 45 mg/dL (8-26) Creatinine 3.0 mg/dL (0.7-1.3) Estimated GFR (Cockcroft-Gault) 20.1 BUN/Creatinine Ratio 15 (6-20) Glucose Level 140 mg/dL (70-99) Calcium Level 8.3 mg/dL (8.5-10.1) Total Bilirubin 0.3 mg/dL (0.2-1.0) Aspartate Amino Transf (AST/SGOT) 78 U/L (15-37) Alanine Aminotransferase (ALT/SGPT) 91 U/L (16-63) Alkaline Phosphatase 268 U/L (46-116) Total Protein 5.6 g/dL (6.4-8.2) Albumin 1.8 g/dL (3.4-5.0) Albumin/Globulin Ratio 0.5 (1.0-1.7) Test 06/08/19 12:05 06/08/19 17:00 06/08/19 20:37 06/09/19 03:55 Glucose (Fingerstick) 184 mg/dL (70-99) 276 mg/dL (70-99) 270 mg/dL (70-99) Total Bilirubin 0.4 mg/dL (0.2-1.0) Direct Bilirubin 0.2 mg/dL (0.0-0.2) Aspartate Amino Transf (AST/SGOT) 81 U/L (15-37) Alanine Aminotransferase (ALT/SGPT) 92 U/L (16-63) Alkaline Phosphatase 313 U/L (46-116) Total Protein 5.7 g/dL (6.4-8.2) Albumin 2.0 g/dL (3.4-5.0) Test 06/09/19 07:52 06/09/19 11:13 Glucose (Fingerstick) 152 mg/dL (70-99) 186 mg/dL (70-99) Laboratory Tests Test 06/08/19 17:00 06/08/19 20:37 06/09/19 03:55 06/09/19 07:52 Glucose (Fingerstick) 276 mg/dL (70-99) 270 mg/dL (70-99) 152 mg/dL (70-99) Total Bilirubin 0.4 mg/dL (0.2-1.0) Direct Bilirubin 0.2 mg/dL (0.0-0.2) Aspartate Amino Transf (AST/SGOT) 81 U/L (15-37) Alanine Aminotransferase (ALT/SGPT) 92 U/L (16-63) Alkaline Phosphatase 313 U/L (46-116) Total Protein 5.7 g/dL (6.4-8.2) Albumin 2.0 g/dL (3.4-5.0) Test 06/09/19 11:13 Glucose (Fingerstick) 186 mg/dL (70-99) Allergies Allergies Coded Allergies Type Severity Reaction Last Updated Verified No Known Drug Allergies 06/26/17 No Disposition/Orders: Other (d/c to [facility]) WILLIAM ROGERS MD Jun 09, 2019 14:48
[2019-06-09] MEDS ORDERED: LACT1CAP19 PO (14:52)
[2019-06-09] MEDS ORDERED: ACET325T9 PO (14:52)
[2019-06-09] MEDS ORDERED: DOCU-109 PO (14:52)
[2019-06-09] MEDS ORDERED: INSU100V8 SQ (14:52)
[2019-06-09] MEDS ORDERED: LEVO25TA55 PO (14:52)
--- NOTE | 2019-06-09 14:53 | SNU/HH DC ---
DISCHARGE ORDERS DISCHARGE INFORMATION: FINAL DIAGNOSIS Problems Medical Problems: (1) Acute on chronic renal failure Status: Acute (2) Anemia Status: Acute (3) CAD (coronary artery disease) Status: Chronic (4) Elevated troponin Status: Acute (5) GERD (gastroesophageal reflux disease) Status: Chronic (6) Hyperkalemia Status: Acute (7) Hypoglycemia Status: Acute CONDITION ON DISCHARGE: Stable CODE STATUS: Code Status: Full USP: SNF STAY <30 DAYS: Yes HOSPICE: HOSPICE: No HOSPICE EVAL & TREAT: No LTAC: ADMIT TO LTAC: No POST DISCHARGE ORDERS: ACTIVITY ORDERS: Activity as tolerated, Other, see below WEIGHT BEARING STATUS: Other, see below DIET AFTER DISCHARGE: ADA WOUND/INCISION CARE: Other, see below CHECKS AFTER DISCHARGE: CHECKS AFTER DISCHARGE: Check blood press - daily, Check blood sugar, ac/hs TREATMENT/EQUIPMENT ORDERS: Physical Therapy For: Evalulation/Treatment Occupational Therapy For: Evaluation/Treatment Speech Language Pathology For: Evaluation/Treatment DISCHARGE MEDICATIONS: Home Meds Active Scripts Levothyroxine Sodium (SYNTHROID) 25 Mcg Tablet, 25 MCG PO DAILY06 for THYROID for 30 Days, #30 TAB Prov:WILLIAM ROGERS MD 06/09/19 Insulin Glargine,Hum.rec.anlog (LANTUS) 100 Unit/1 Ml Vial, 8 UNIT SQ QHS for GLUCOSE for 30 Days, #1 EACH Prov:WILLIAM ROGERS MD 06/09/19 Lactobacillus Rhamnosus Gg (CULTURELLE) 1 Each Cap.sprink, 1 CAP PO BID for SUPPLEMENT for 28 Days, #56 CAP Prov:WILLIAM ROGERS MD 06/09/19 Docusate Sodium (COLACE) 100 Mg Capsule, 100 MG PO BID for PREVENT CONSTIPATION for 10 Days, #20 CAP Prov:WILLIAM ROGERS MD 06/09/19 Acetaminophen (TYLENOL) 325 Mg Tablet, 650 MG PO PRN Q6HRS PRN for PAIN for 14 Days, #30 TAB Prov:WILLIAM ROGERS MD 06/09/19 Amoxicillin/Potassium Clav (AUGMENTIN 875-125 TABLET) 1 Each Tablet, 1 TAB PO BID for pneumonia, #14 TAB Prov:MILLER ARMSTRONG MD 05/02/19 Ferrous Sulfate (FEOSOL) 325 Mg Tablet, 325 MG PO BIDWMEALS for anemia, #60 TAB Prov:MILLER ARMSTRONG MD 05/02/19 Pantoprazole Sodium (PROTONIX ) 40 Mg Tablet., 1 TAB PO BID for GERD, #60 TAB 1 Refill Prov:MILLER ARMSTRONG MD 05/02/19 Clopidogrel Bisulfate (CLOPIDOGREL) 75 Mg Tablet, 1 TAB PO DAILY, #90 TAB 1 Refill Prov:LO TAMAYO BUYER RENTER 06/27/17 Aspirin (ASPIRIN EC) 325 Mg Tablet.dr, 1 TAB PO DAILY, #30 TAB 5 Refills Prov:LO TAMAYO BUYER RENTER 06/27/17 Reported Medications Latanoprost (LATANOPROST) 2.5 Ml Drops, 1 DROP EACHEYE QHS for glaucoma; cat aracts, #7.5 ML 3 Refills 04/30/19 Melatonin (MELATONIN) 5 Mg Tablet, 5 MG PO QHS for insomnia, TAB 04/28/19 Atorvastatin Calcium (ATORVASTATIN CALCIUM) 20 Mg Tablet, 20 MG PO DAILY for FOR CHOLESTEROL, #30 TAB 0 Refills 04/28/19 Ketoconazole (KETOCONAZOLE) 120 Ml Shampoo, 120 ML TP, EACH 03/11/17 Gabapentin (GABAPENTIN ) 300 Mg Capsule, 300 MG PO TID, CAP 03/11/17 Multivitamin (MULTI-DAY VITAMINS) 1 Each Tablet, 1 TAB PO DAILY, #30 TAB 08/27/16 Nitroglycerin (NITROSTAT) 0.4 Mg Tab.subl, 1 TAB SL UD PRN for CHEST PAIN, #100 TAB 3 Refills 08/27/16 Metoprolol Succinate (METOPROLOL SUCCINATE ( XL )) 25 Mg Tab.er.24h, 1 TAB PO DAILY, #30 TAB 5 Refills 08/27/16 Tamsulosin Hcl (TAMSULOSIN HCL) 0.4 Mg Cap.er.24h, 1 CAP PO HS, #30 CAP 5 Refills 08/27/16 Discontinued Reported Medications Hydrocodone Bit/Acetaminophen (HYDROCODONE-APAP 5-325 ) 1 Tab Tablet, 1 TAB PO PRN Q6HRS PRN for PAIN, TAB 0 Refills 05/31/19 Tramadol Hcl/Acetaminophen (ULTRACET TABLET) 1 Each Tablet, 1 TAB PO Q12HR PRN for maryjane, #30 TAB 3 Refills 04/28/19 Glipizide (GLIPIZIDE) 5 Mg Tablet, 1 TAB PO DAILY, #90 TAB 3 Refills 08/27/16 Metformin Hcl (METFORMIN HCL) 1,000 Mg Tablet, 1 TAB PO BID, #60 TAB 5 Refills 08/27/16 Discontinued Scripts Lisinopril/Hydrochlorothiazide (LISINOPRIL-HCTZ 10-12.5 MG TAB) 1 Each Tablet, 1 TAB PO DAILY, #30 TAB 5 Refills Prov:LO TAMAYO APRN 06/27/17 WILLIAM ROGERS MD Jun 09, 2019 14:53
[2019-06-09 15:00] VITALS: BP 170/85
[2019-06-09] MEDS: cefTRIAXone IV Push 1 GM VIAL. IVP SCH (15:00)
--- NOTE | 2019-06-09 15:22 | PDOC ---
PROGRESS NOTES Assessment Assessment Metabolic encephalopathy. Falls. Anemia. DM. CAD. HTN. HLD. CKD. Renal failure. Degenerative spine disease. Obesity. RECOMMENDATIONS/PLAN: Treatment medical diseases. OT/PT. FU with PCP. HISTORY OF THE PRESENT ILLNESS: This is an-83-y-old male patient with multiple medical diseases and was admitted on 05/31/19. Neurology was requested for consultation of 06/06/19 for encephalopathy and falls. No focalized sensory or motor deficits reported. His mentation continued improving on 06/09/19. PAST MEDICAL HISTORY: CAD w/ stent, HTN, HLD, OA, CKD, DM, skin cancer, GERD, pancreatitis, diverticulosis, cataract extraction, tonsillectomy PAST SURGERY HISTORY: No major surgery recently. ALLERGY: NKDA MEDICATIONS: Refer to [facility] FAMILY HISTORY: Non contributory. SOCIAL HISTORY: Denies current smoking, drinking, and illicit drug use. REVIEW OF SYSTEMS: Constitutional: No malnutrition, weight loss, cachexia. Head: No traumatic brain or head injury. Skin: No edema, or rash. Ear: No infection. Eyes: No vision loss or color blindness. Nose: No bleeding or purulent discharges. Hearing: No hearing decrease. Neck: No injury. Cardiac: HTN, HLD. Pulmonary: No pneumonia, COPD. GI: No GI ulcer, GI bleeding. Urinary/genital: CKD. Endocrinologic: Diabetes Mellitus. Skeletomuscular: Generalized weakness. Neurological: see HP. Psychiatric: Denies drug use/abuse. Otherwise, not -mehfd review of systems. PHYSICAL EXAMINATION: General appearance is in subacute distress. HEENT: Normocephalic and nontraumatic. Eyes, nose, ears, and throat are unremarkable. Neck is supple. No lymphadenopathy. No crepitus. Cardiovascular: S1, S2, regular rate and rhythm. Pulmonary: decreased to auscultation bilaterally. Abdomen: Bowel sounds are positive. Extremities: No rash, lesions, or edema. No restriction of range of motion NEUROLOGICAL EXAMINATION: Alert Sitting in chair. Partially oriented to time, place and person. PERRL. EOMI. CN: no focal findings. Muscle tone: within normal. Muscle strength: 4 DTR: 1 Plantar reflex: Neutral response bilaterally Gait: not examined in chair. Sensory exam: no abnormal findings. No cerebellar signs elicited. F-T-N test fine. Objective Objective Vital Signs Date Time Temp Pulse Resp B/P (MAP) Pulse Ox O2 Delivery O2 Flow Rate FiO2 06/09/19 11:00 98.1 98 18 169/80 (109) 98 Nasal Cannula 3.0 98.1 Intake and Output 06/09/19 07:00 Intake Total 880 ml Output Total 1775 ml Balance -895 ml Intake Oral 880 ml Output Urine Total 1775 ml # Voids 2 # Bowel Movements 2 Vitals Signs Vitals VS - Last 72 Hours, by Label Date Time Temp Pulse Resp B/P (MAP) Pulse Ox O2 Delivery O2 Flow Rate FiO2 06/09/19 11:00 98.1 98 18 169/80 (109) 98 Nasal Cannula 3.0 98.1 06/09/19 09:00 102 158/75 06/09/19 08:00 Nasal Cannula 6.0 06/09/19 07:00 98.1 102 18 158/75 (102) 100 Nasal Cannula 3.0 98.1 06/09/19 03:31 97.4 94 20 152/74 (100) 98 Nasal Cannula 2.0 97.4 06/08/19 23:39 97.5 98 20 147/75 (99) 98 Nasal Cannula 2.0 97.5 06/08/19 20:05 Nasal Cannula 2.0 06/08/19 19:45 98.4 97 20 169/83 (111) 100 Nasal Cannula 2.0 98.4 06/08/19 15:20 98.2 105 20 159/76 (103) 100 Nasal Cannula 5.0 98.2 06/08/19 11:26 98.2 109 20 174/90 (118) 100 Nasal Cannula 5.0 98.2 06/08/19 10:44 108 180/85 06/08/19 08:00 Nasal Cannula 5.0 06/08/19 07:00 98.7 108 22 180/85 (116) 97 Nasal Cannula 5.0 98.7 Laboratory Laboratory Laboratory Tests Test 06/08/19 17:00 06/08/19 20:37 06/09/19 03:55 06/09/19 07:52 Glucose (Fingerstick) 276 mg/dL (70-99) 270 mg/dL (70-99) 152 mg/dL (70-99) Total Bilirubin 0.4 mg/dL (0.2-1.0) Direct Bilirubin 0.2 mg/dL (0.0-0.2) Aspartate Amino Transf (AST/SGOT) 81 U/L (15-37) Alanine Aminotransferase (ALT/SGPT) 92 U/L (16-63) Alkaline Phosphatase 313 U/L (46-116) Total Protein 5.7 g/dL (6.4-8.2) Albumin 2.0 g/dL (3.4-5.0) Test 06/09/19 11:13 Glucose (Fingerstick) 186 mg/dL (70-99) Microbiology 06/05/19 Urine Culture - Final, Complete 06/05/19 Urine Culture Result 1 (OLEGARIO) - Final, Complete 06/03/19 Blood Culture - Final, Complete NO GROWTH AFTER 5 DAYS Comment Review of Relevant I have reviewed the following items yu (where applicable) has been applied. TALIB DOLAN MD Jun 09, 2019 15:22
--- NOTE | 2019-06-09 16:20 | NUR ---
Wound care: Patient seen per wound care follow up. Right upper arm skin tear is now resolved. There are no open wounds at this time. Patient coccyx is reddened but remains blanchable, calazime cream applied. Patient up in chair at this time. Family at bedside. Call light in reach. Wound care will sign off at this time. Please re consult regarding any changes per wound care.
--- NOTE | 2019-06-09 18:19 | NUR ---
Saline lock leaking when giving Rocephin IV therefore unable to give dose. Call to Dr. Hines who approved saline lock left out and orders received to change rocephin to Augmentin PO.
[2019-06-09 19:54] VITALS: BP 169/76
[2019-06-09] MEDS: AMOXICILLIN/K CLAV 500/125MG TABLET. PO SCH (21:35)
[2019-06-09] MEDS: GABAPENTIN 300 MG CAPSULE. PO SCH (21:35)
[2019-06-09] MEDS: TAMSULOSIN 0.4 MG CAP.ER.24H. PO SCH (21:36)
[2019-06-09] MEDS: ATORVASTATIN CALCIUM 20 MG TABLET PO SCH (21:36)
[2019-06-09] MEDS: INSULIN GLARGINE SYRINGE. SQ SCH (21:37)
[2019-06-09 23:33] VITALS: BP 158/77
[2019-06-10 03:07] VITALS: BP 154/76
[2019-06-10] MEDS: LEVOTHYROXINE 25 MCG TABLET. PO SCH (06:26)
[2019-06-10 07:30] VITALS: BP 161/66
[2019-06-10] MEDS: INSULIN LISPRO 300 UNITS/3 ML VIAL. SQ SCH ×2 (08:00→12:36)
--- NOTE | 2019-06-10 08:23 | PDOC ---
PROGRESS NOTES Chief Complaint Chief Complaint discharge dx Mental status change, RESOLVED Hyperkalemia DIABETES anemia, transfuse one unit 06/05 HGB 8.1 06-08 Renal Failure acute on chronic The kidneys are normal in size and demonstrate normal blood flow. There is no hydronephrosis. There is a 1.9 cm cyst within the upper pole the left kidney. gross hematuria IRON DEF ANEMIA HEART CATH 2016 HEART CATH Conclusion 1. Significant stenoses involving the proximal and distal segments of the right coronary artery as described above with patent previously placed stents in the distal RCA and midsegment of the LAD. 2. Successful PCI/drug eluting stents placement to the proximal and distal segments of the right coronary artery. 3. Normal left ventricle systolic function with ejection fraction estimated at 60%. PLAN 1. Aspirin 325 mg daily 2. Plavix 75 mg daily for preferably one year 3. Cardiovascular risk factor modification urology consult 06/08 SN[facility] BED PLANNED GI FOLLOWING, PLAN OUTPT ENDOSCOPY SOON 06/10 Still trying a find a place to go on DC, CBC, BMP TODAY 27 min pt exam, chart review, > 50% of time spent with exam, chart review, pt care coordination d/w family in room AM LABS History of Present Illness History of Present Illness 06-10 Pt seen and examined BEDSIDE Accompanied by family members some confusion CBC, BMP TODAY 27 MIN PT EXAM, chart review, > 50% of time spent with exam, chart review, pt care coordination 06/03/19 Pt was seen and examined in the ICU Pt was asleep in bed Accompanied by son-in-law Discussed care plan with son-in-law Pt is off levophed Charts and labs reviewed WBC is 15.9 up from 11.1 RBC is 2.72 up from 2.63 Hgb is 8.1, up from 7.8 Potassium is 4.8, down from 5.3 BUN is 55 Cr is 6.0 D/w RN 06/02/19 Pt was seen and examined in the ICU Pt was responsive, but quiet Accompanied with family Family reported that pt has hallucinations and is aware that they are hallucinations Continued discussing with family about medical conditions. Family will talk to chauffeur airport lim[employer]ine about likelihood of dialysis Chart and labs reviewed EF 60% Potassium is 5.3, down from 6.2 BUN is 63, down from 69 Cr is 7, down from 7.7 D/w RN 06/01/19 Pt was seen and examined in the ICU Pt was awake and eating lunch. He did not seem to have much of an appetite Talked extensively with pt's family about his various medical conditions EF 60% Equity Research Analyst was having a difficult time drawing blood at bedside. AISHA RN Vitals Vitals Vital Signs Date Time Temp Pulse Resp B/P (MAP) Pulse Ox O2 Delivery O2 Flow Rate FiO2 06/10/19 07:30 98.1 100 20 161/66 (97) 97 Nasal Cannula 3.0 98.1 Physical Exam General: Alert, Oriented X3, Cooperative, No acute distress, Other (CONFUSED TO DETAILS) Heart: Regular rate, Normal S1, Normal S2, No murmurs, Gallops Lungs: Clear Abdomen: Normal bowel sounds, Soft, No tenderness, No hepatosplenomegaly, No masses Extremities: No clubbing, No cyanosis, No edema, Normal pulses, No tenderne ss/swelling Skin: Other (GOOD CAPILLARY REFILL) Labs LABS Laboratory Tests Test 06/09/19 11:13 06/09/19 17:28 06/09/19 20:28 06/10/19 01:33 Glucose (Fingerstick) 186 mg/dL (70-99) 275 mg/dL (70-99) 286 mg/dL (70-99) 165 mg/dL (70-99) Test 06/10/19 07:04 Glucose (Fingerstick) 126 mg/dL (70-99) Assessment and Plan Assessmemt and Plan Problems Medical Problems: (1) Acute on chronic renal failure Status: Acute (2) Anemia Status: Acute (3) CAD (coronary artery disease) Status: Chronic (4) Elevated troponin Status: Acute (5) GERD (gastroesophageal reflux disease) Status: Chronic (6) Hyperkalemia Status: Acute (7) Hypoglycemia Status: Acute Comment Review of Relevant I have reviewed the following items yu (where applicable) has been applied. Labs Laboratory Tests Test 06/08/19 12:05 06/08/19 17:00 06/08/19 20:37 06/09/19 03:55 Glucose (Fingerstick) 184 mg/dL (70-99) 276 mg/dL (70-99) 270 mg/dL (70-99) Total Bilirubin 0.4 mg/dL (0.2-1.0) Direct Bilirubin 0.2 mg/dL (0.0-0.2) Aspartate Amino Transf (AST/SGOT) 81 U/L (15-37) Alanine Aminotransferase (ALT/SGPT) 92 U/L (16-63) Alkaline Phosphatase 313 U/L (46-116) Total Protein 5.7 g/dL (6.4-8.2) Albumin 2.0 g/dL (3.4-5.0) Test 06/09/19 07:52 06/09/19 11:13 06/09/19 17:28 06/09/19 20:28 Glucose (Fingerstick) 152 mg/dL (70-99) 186 mg/dL (70-99) 275 mg/dL (70-99) 286 mg/dL (70-99) Test 06/10/19 01:33 06/10/19 07:04 Glucose (Fingerstick) 165 mg/dL (70-99) 126 mg/dL (70-99) Laboratory Tests Test 06/09/19 11:13 06/09/19 17:28 06/09/19 20:28 06/10/19 01:33 Glucose (Fingerstick) 186 mg/dL (70-99) 275 mg/dL (70-99) 286 mg/dL (70-99) 165 mg/dL (70-99) Test 06/10/19 07:04 Glucose (Fingerstick) 126 mg/dL (70-99) Microbiology 06/05/19 Urine Culture - Final, Complete 06/05/19 Urine Culture Result 1 (OLEGARIO) - Final, Complete 06/03/19 Blood Culture - Final, Complete NO GROWTH AFTER 5 DAYS Medications Current Medications Morphine Sulfate (Morphine Sulfate) 2 mg PRN Q15MIN PRN IV/SQ PAIN GREATER THAN 3/10 Last administered on 05/31/19at 12:20; Start 05/31/19 at 09:15; Stop 06/01/19 at 09:14; Status DC Ondansetron HCl (Zofran) 4 mg 1X ONCE IV Last administered on 05/31/19at 09:20; Start 05/31/19 at 09:15; Stop 05/31/19 at 09:17; Status DC Ondansetron HCl (Zofran) 4 mg STK-MED ONCE .ROUTE ; Start 05/31/19 at 09:16; Stop 05/31/19 at 09:17; Status DC Calcium Gluconate (Calcium Gluconate) 1,000 mg 1X ONCE IVP Last administered on 05/31/19at 11:59; Start 05/31/19 at 11:30; Stop 05/31/19 at 11:36; Status DC Dextrose (Dextrose 50%-Water Syringe) 25 gm 1X ONCE IV Last administered on 05/31/19at 11:59; Start 05/31/19 at 11:30; Stop 05/31/19 at 11:36; Status DC Insulin Human Regular (HumuLIN R VIAL) 10 unit 1X ONCE IV Last administered on 05/31/19at 11:59; Start 05/31/19 at 11:30; Stop 05/31/19 at 11:36; Status DC Sodium Bicarbonate 50 meq/Dextrose/ Sodium Chloride 1,050 ml @ 150 mls/hr Q7H IV Last administered on 05/31/19at 12:03; Start 05/31/19 at 12:15; Stop 05/31/19 at 13:57; Status DC Magnesium Sulfate/ Dextrose 100 ml @ 100 mls/hr 1X ONCE IV Last administered on 05/31/19at 13:03; Start 05/31/19 at 12:30; Stop 05/31/19 at 13:29; Status DC Ondansetron HCl (Zofran) 4 mg PRN Q8HRS PRN IV NAUSEA/VOMITING Last administered on 06/01/19at 09:47; Start 05/31/19 at 12:45; Stop 06/01/19 at 12:44; Status DC Morphine Sulfate (Morphine Sulfate) 2 mg PRN Q2HR PRN IV PAIN Last administered on 05/31/19at 21:11; Start 05/31/19 at 12:45; Stop 06/01/19 at 12:44; Status DC Levothyroxine Sodium (Synthroid) 25 mcg DAILY06 PO Last administered on 06/10/19at 06:26; Start 06/01/19 at 06:00 Sodium Chloride 1,000 ml @ 75 mls/hr [id number] IV ; Start 05/31/19 at 14:00; Stop 05/31/19 at 15:58; Status DC Ceftriaxone Sodium (Rocephin) 1 gm Q24H IVP Last administered on 06/08/19 17:07; Start 06/01/19 at 15:00 Ceftriaxone Sodium (Rocephin) 1 gm 1X ONCE IVP Last administered on 05/31/19at 18:07; Start 05/31/19 at 14:30; Stop 05/31/19 at 14:31; Status DC Atorvastatin Calcium (Lipitor) 20 mg QHS PO Last administered on 06/09/19 21:36; Start 05/31/19 at 21:00 Clopidogrel Bisulfate (Plavix) 75 mg DAILY07 PO Last administered on 06/01/19 08:33; Start 06/01/19 at 07:00; Stop 06/01/19 at 20:48; Status DC Ferrous Sulfate (Feosol) 325 mg BIDWMEALS PO Last administered on 06/09/19 17:38; Start 05/31/19 at 17:00 Gabapentin (Neurontin) 300 mg QHS PO Last administered on 06/09/19 21:35; Start 05/31/19 at 21:00 Glipizide (Glucotrol) 5 mg DAILY PO ; Start 06/01/19 at 09:00; Stop 05/31/19 at 15:37; Status DC Metoprolol Succinate (Toprol Xl) 25 mg DAILY PO Last administered on 06/09/19 09:00; Start 06/01/19 at 09:00 Pantoprazole Sodium (Protonix) 40 mg BIDAC PO Last administered on 06/09/19 17:38; Start 05/31/19 at 16:30 Tamsulosin HCl (Flomax) 0.4 mg HS PO Last administered on 06/09/19 21:36; Start 05/31/19 at 21:00 Sodium Bicarbonate 50 meq/Dextrose/ Sodium Chloride 1,050 ml @ 150 mls/hr Q7H ONCE IV ; Start 05/31/19 at 14:00; Stop 06/01/19 at 11:43; Status DC Sodium Bicarbonate 50 meq/Dextrose/ Sodium Chloride 1,050 ml @ 125 mls/hr Q8H24M ONCE IV Last administered on 05/31/19at 20:17; Start 05/31/19 at 21:00; Stop 06/01/19 at 11:43; Status DC Pharmacy Consult (C.diff Med Screen By Rx) 1 each 1X ONCE [facility] ; Start 05/31/19 at 17:00; Stop 05/31/19 at 17:15; Status DC Dextrose (Dextrose 50%-Water Syringe) 12.5 gm PRN Q15MIN PRN IV SEE COMMENTS; Start 05/31/19 at 22:45; Stop 06/02/19 at 21:41; Status DC Dextrose 250 ml PRN Q15MIN PRN IV SEE COMMENTS Last administered on 05/31/19at 23:20; Start 05/31/19 at 22:45 Dopamine HCl/ Dextrose 250 ml @ 5.919 mls/ hr CONT PRN IV SEE I/O RECORD Last administered on 06/01/19at 09:18; Start 06/01/19 at 09:15; Stop 06/05/19 at 20:16; Status DC Atropine Sulfate (ATROPINE 0.5mg SYRINGE) 0.5 mg 1X ONCE IM Last administered on 06/01/19at 09:19; Start 06/01/19 at 09:15; Stop 06/01/19 at 09:18; Status DC Norepinephrine Bitartrate 250 ml @ 0 mls/hr CONT PRN IV SEE I/O RECORD Last administered on 06/01/19at 10:09; Start 06/01/19 at 10:15; Stop 06/05/19 at 20:16; Status DC Famotidine (Pepcid) 20 mg QHS PO ; Start 06/01/19 at 21:00; Status Cancel Sodium Bicarbonate 50 meq/Dextrose/ Sodium Chloride 1,050 ml @ 150 mls/hr Q7H IV Last administered on 06/04/19at 03:00; Start 06/01/19 at 11:00; Stop 06/04/19 at 10:38; Status DC Lactobacillus Rhamnosus (Culturelle) 1 cap BID PO Last administered on 06/09/19at 21:35; Start 06/01/19 at 12:00 Sodium Polystyrene Sulfonate (Kayexalate) 30 gm 1X ONCE PO Last administered on 06/01/19at 14:04; Start 06/01/19 at 13:45; Stop 06/01/19 at 13:46; Status DC Insulin Human Regular (HumuLIN R VIAL) 10 unit 1X ONCE IV Last administered on 06/01/19at 14:40; Start 06/01/19 at 14:00; Stop 06/01/19 at 14:09; Status DC Dextrose (Dextrose 50%-Water Syringe) 25 gm 1X ONCE IV Last administered on 06/01/19at 14:38; Start 06/01/19 at 14:00; Stop 06/01/19 at 14:09; Status DC Aspirin (Ecotrin) 81 mg DAILYWBKFT PO Last administered on 06/09/19at 08:58; Start 06/02/19 at 08:00 Insulin Human Lispro (HumaLOG) 0-5 UNITS TIDWMEALS SQ Last administered on 06/02/19at 18:31; Start 06/02/19 at 18:30; Stop 06/02/19 at 21:40; Status DC Dextrose (Dextrose 50%-Water Syringe) 12.5 gm PRN Q15MIN PRN IV SEE COMMENTS; Start 06/02/19 at 18:00; Stop 06/02/19 at 21:41; Status DC Lorazepam (Ativan Inj) 0.5 mg 1X ONCE IV Last administered on 06/02/19at 21:49; Start 06/02/19 at 22:00; Stop 06/02/19 at 22:01; Status DC Insulin Human Lispro (HumaLOG) 0-5 UNITS QIDACHS SQ Last administered on 06/07/19at 17:41; Start 06/02/19 at 22:00; Stop 06/07/19 at 22:16; Status DC Dextrose (Dextrose 50%-Water Syringe) 12.5 gm PRN Q15MIN PRN IV SEE COMMENTS; Start 06/02/19 at 21:45; Stop 06/07/19 at 22:17; Status DC Acetaminophen (Tylenol) 650 mg PRN Q6HRS PRN PO PAIN Last administered on at 10:45; Start 06/03/19 at 12:00 Ondansetron HCl (Zofran) 4 mg PRN Q6HRS PRN IVP NAUSEA/VOMITING; Start 06/03/19 at 18:30 Sodium Bicarbonate 50 meq/Dextrose/ Sodium Chloride 1,050 ml @ 150 mls/hr Q7H IV Last administered on 06/07/19at 05:47; Start 06/04/19 at 11:00; Stop 06/07/19 at 17:05; Status DC Docusate Sodium (Colace) 100 mg BID PO Last administered on 06/09/19at 08:58; Start 06/05/19 at 21:00 Insulin Glargine (Lantus Syringe) 8 unit QHS SQ Last administered on 06/09/19at 21:37; Start 06/06/19 at 21:00 Insulin Human Lispro (HumaLOG) 0-9 UNITS TIDWMEALHC SQ Last administered on 06/09/19at 21:37; Start 06/08/19 at 08:00 Dextrose (Dextrose 50%-Water Syringe) 12.5 gm PRN Q15MIN PRN IV SEE COMMENTS; Start 06/07/19 at 22:15 Insulin Human Lispro (HumaLOG) 5 units 1X ONCE SQ Last administered on 06/07/19at 22:37; Start 06/07/19 at 23:00; Stop 06/07/19 at 23:01; Status DC Polyethylene Glycol (miraLAX PACKET) 17 gm DAILY PO Last administered on 06/08/19at 13:28; Start 06/08/19 at 11:00 Polyethylene Glycol (miraLAX PACKET) 17 gm PRN DAILY PRN PO CONSTIPATION (2nd Choice); Start 06/08/19 at 11:00 Bisacodyl (Dulcolax Tab) 5 mg PRN DAILY PRN PO CONSTIPATION (1st Choice); Start 06/08/19 at 11:00 Amoxicillin/ Clavulanate Potassium (Augmentin 500/ 125mg) 1 tab BID PO Last administered on 06/09/19at 21:35; Start 06/09/19 at 21:00 Active Scripts Active Synthroid (Levothyroxine Sodium) 25 Mcg Tablet 25 Mcg PO DAILY06 30 Days Lantus (Insulin Glargine,Hum.rec.anlog) 100 Unit/1 Ml Vial 8 Unit SQ QHS 30 Days Culturelle (Lactobacillus Rhamnosus Gg) 1 Each Cap.sprink 1 Cap PO BID 28 Days Colace (Docusate Sodium) 100 Mg Capsule 100 Mg PO BID 10 Days Tylenol (Acetaminophen) 325 Mg Tablet 650 Mg PO PRN Q6HRS PRN 14 Days Augmentin 875-125 Tablet (Amoxicillin/Potassium Clav) 1 Each Tablet 1 Tab PO BID Feosol (Ferrous Sulfate) 325 Mg Tablet 325 Mg PO BIDWMEALS Protonix (Pantoprazole Sodium) 40 Mg Tablet.dr 1 Tab PO BID Clopidogrel (Clopidogrel Bisulfate) 75 Mg Tablet 1 Tab PO DAILY Aspirin Ec (Aspirin) 325 Mg Tablet.dr 1 Tab PO DAILY Reported Latanoprost 2.5 Ml Drops 1 Drop EACHEYE QHS Melatonin 5 Mg Tablet 5 Mg PO QHS Atorvastatin Calcium 20 Mg Tablet 20 Mg PO DAILY Ketoconazole 120 Ml Shampoo 120 Ml TP Gabapentin (Gabapentin) 300 Mg Capsule 300 Mg PO TID Multi-Day Vitamins (Multivitamin) 1 Each Tablet 1 Tab PO DAILY Nitrostat (Nitroglycerin) 0.4 Mg Tab.subl 1 Tab SL UD PRN Metoprolol Succinate ( Xl ) (Metoprolol Succinate) 25 Mg Tab.er.24h 1 Tab PO DAILY Tamsulosin Hcl 0.4 Mg Cap.er.24h 1 Cap PO HS Vitals/I & O Vital Sign - Last 24 Hours 06/09/19 06/09/19 06/09/19 06/09/19 09:00 11:00 15:00 19:54 Temp 98.1 98.2 98.7 98.1 98.2 98.7 Pulse 102 98 106 96 Resp 18 18 16 B/P (MAP) 158/75 169/80 (109) 170/85 (113) 169/76 (107) Pulse Ox 98 100 100 O2 Delivery Nasal Cannula Nasal Cannula Nasal Cannula O2 Flow Rate 3.0 3.0 3.0 06/09/19 06/09/19 06/10/19 06/10/19 20:05 23:33 03:07 07:30 Temp 98.0 98.3 98.1 98.0 98.3 98.1 Pulse 100 94 100 Resp 16 19 20 B/P (MAP) 158/77 (104) 154/76 (102) 161/66 (97) Pulse Ox 100 100 97 O2 Delivery Nasal Cannula Nasal Cannula BiPAP/CPAP Nasal Cannula O2 Flow Rate 3.0 3.0 3.0 Intake and Output 06/09/19 06/09/19 06/10/19 14:59 22:59 06:59 Intake Total 300 ml Balance 300 ml WILLIAM ROGERS MD Jun 10, 2019 08:23
[2019-06-10] MEDS: ASPIRIN ENTERIC COATED 81 MG TABLET.DR. PO SCH (08:24)
[2019-06-10] MEDS: AMOXICILLIN/K CLAV 500/125MG TABLET. PO SCH (08:25)
[2019-06-10] MEDS: METOPROLOL SUCC 24HR ER 25 MG TAB.ER.24H. PO SCH (08:25)
[2019-06-10] MEDS: DOCUSATE SODIUM 100 MG CAPSULE. PO SCH (08:25)
[2019-06-10] MEDS: LACTOBACILLUS RHAMNOSUS GG 1 CAPSULE. PO SCH (08:25)
[2019-06-10] MEDS: PANTOPRAZOLE 40 MG TABLET.DR. PO SCH (08:25)
[2019-06-10] MEDS: FERROUS SULFATE 325 MG TABLET. PO SCH (08:25)
[2019-06-10] MEDS: POLYETHYLENE GLYCOL 3350 17 GM PACKET. PO SCH (08:26)
--- NOTE | 2019-06-10 09:10 | NUR ---
SW following pt. Spoke with Michaela at [facility], Auth is pending. They are aware pt has dc order since yesterday.
--- NOTE | 2019-06-10 10:02 | PDOC ---
Subjective: Subjective: Doing much better, no GI complaints, says still trying a find a place to go on DC. Objective: Vital Signs: Vital Signs Date Time Temp Pulse Resp B/P (MAP) Pulse Ox O2 Delivery O2 Flow Rate FiO2 06/10/19 08:25 100 161/66 06/10/19 08:20 Nasal Cannula 3.0 06/10/19 07:30 98.1 20 97 98.1 Labs: Laboratory Tests Test 06/09/19 11:13 06/09/19 17:28 06/09/19 20:28 06/10/19 01:33 Glucose (Fingerstick) 186 mg/dL 275 mg/dL 286 mg/dL 165 mg/dL Test 06/10/19 07:04 Glucose (Fingerstick) 126 mg/dL PE: GEN: NAD - up in chair drinking coffee LUNGS: room air HEART: RRR ABD: S/ND/NT NEURO/PSYCH: A & O 3 A/P: FABIEN H/o RANDY - on iron and PPI w/ recs for outpt 'scopes Elevated LFTs -- Check US since discharge plans unclear. TIGRE CROSS Jun 10, 2019 10:02
[2019-06-10 11:47] VITALS: BP 158/77
--- NOTE | 2019-06-10 14:00 | NUR ---
SERAFIN following pt. Spoke with Latonya at [facility] and they are out of network with pt's insurance. Insurance has approved SNU at [facility]. SERAFIN phoned and faxed orders to [facility] and pt will transport via facility arranged w/c van at 1400. Pt's daughter, Jackeline notified of plan and agreeable. Discussed with RN.
--- NOTE | 2019-06-10 14:34 | NUR ---
Nurse exchange report called to DARIAN Brock at [facility]. Informed nurse of follow up appointment with Dr. Hazel for endoscopy.
== END 2019-06-10 14:10 | DRG 682 ==
LOC: ER 08:41 → ED HOLD 13:26 → 1 WEST ICU 15:02 → 6 SOUTH 06-04 15:50
PROVIDERS: ADMIT Internal Medicine; ATTEND Internal Medicine
PROC: 30233N1 Transfusion of Nonautologous Red Blood Cells into Peripheral Vein, Percutaneous Approach (ICD-10-PCS; principal; 2019-05-31)
PROC: 5A09357 Assistance with Respiratory Ventilation, Less than 24 Consecutive Hours, Continuous Positive Airway Pressure (ICD-10-PCS; 2019-06-07)
PROC: 5A09357 Assistance with Respiratory Ventilation, Less than 24 Consecutive Hours, Continuous Positive Airway Pressure (ICD-10-PCS; 2019-06-08)
DX: N17.0 Acute kidney failure with tubular necrosis (principal); G93.41 Metabolic encephalopathy; I13.0 Hypertensive heart and chronic kidney disease with heart failure and stage 1 through stage 4 chronic kidney disease, or unspecified chronic kidney disease; I50.32 Chronic diastolic (congestive) heart failure; J98.11 Atelectasis; C44.90 Unspecified malignant neoplasm of skin, unspecified; D50.9 Iron deficiency anemia, unspecified; D63.8 Anemia in other chronic diseases classified elsewhere; E11.22 Type 2 diabetes mellitus with diabetic chronic kidney disease; E11.40 Type 2 diabetes mellitus with diabetic neuropathy, unspecified; E11.59 Type 2 diabetes mellitus with other circulatory complications; E11.649 Type 2 diabetes mellitus with hypoglycemia without coma; E66.9 Obesity, unspecified; E78.5 Hyperlipidemia, unspecified; E86.0 Dehydration; E87.5 Hyperkalemia; F02.80 Dementia in other diseases classified elsewhere, unspecified severity, without behavioral disturbance, psychotic disturbance, mood disturbance, and anxiety; G30.9 Alzheimer's disease, unspecified; G89.29 Other chronic pain; H40.9 Unspecified glaucoma; I25.10 Atherosclerotic heart disease of native coronary artery without angina pectoris; K21.9 Gastro-esophageal reflux disease without esophagitis; K57.90 Diverticulosis of intestine, part unspecified, without perforation or abscess without bleeding; K59.00 Constipation, unspecified; M47.812 Spondylosis without myelopathy or radiculopathy, cervical region; N18.3 Chronic kidney disease, stage 3 (moderate); N28.1 Cyst of kidney, acquired; N40.0 Benign prostatic hyperplasia without lower urinary tract symptoms; R31.0 Gross hematuria; Z83.3 Family history of diabetes mellitus; Z85.828 Personal history of other malignant neoplasm of skin; Z95.5 Presence of coronary angioplasty implant and graft; M19.90 Unspecified osteoarthritis, unspecified site; Z68.30 Body mass index [BMI] 30.0-30.9, adult
CPT/HCPCS: 36415; 36600; 70450; 71045; 72100; 72125; 73502; 74018; 76770; 80048; 80053; 80076; 80307; 81001; 82140; 82274; 82550; 82553; 82607; 82805; 82962; 83605; 83735; 83880; 84100; 84132; 84145; 84443; 84484; 85007; 85025; 85610; 85730; 86850; 86900; 86901; 86920; 87040; 87086; 93005; 94660; 96365; 96366; 96368; 96375; J0461; J0610; J0696; J1265; J1815; J2060; J2270; J2405; J3475; J7042; P9016; 97110; 97116; 97530; 97535; 99285-25; G0378

== ENCOUNTER 2020-09-30 11:38 | Emergency (ER) | payer OTHER ==
[~2020-09-30] VITALS: Ht 167.6 cm; Wt 80.0 kg
[~2020-09-30 11:38] MED LIST changes: +ACET325T9 PO; +DOCU-109 PO; +HYDR-2761 PO; +INSU100V8 SQ; -KETO120S2 TP; +KETO120S4 TP; +LACT1CAP19 PO; +LEVO25TA55 PO
[2020-09-30 11:54] VITALS: BP 160/72
--- NOTE | 2020-09-30 12:09 | PHYS DOC ---
Past Medical History Past Medical History: CAD, Diabetes-Type II, Hypertension Additional Past Medical Histor: CHRONIC BACK PAIN Past Surgical History: Angioplasty Additional Past Surgical Histo: CARDIAC STENTS Smoking Status: Never Smoker Alcohol Use: Occasionally Drug Use: None General Adult EDM: Chief Complaint: MECHANICAL FALL HPI: HPI: Patient is a 85 year old male who presents with states he was walking and missed a step and fell on the concrete. He states that his right knee hurts and he has an abrasion. Patient's left forehead has a quarter sized abrasion. He states he does not know when his last tetanus is. He states that his neck is slightly sore over to the left side. Patient denies LOC, dizziness, vision changes, numbness or tingling, focal weakness, nausea, vomiting. Rates his pain a aching 4 out of 10. He states he is unable to ambulate on the right leg due to the pain in the right knee. Patient is on Plavix. Patient has a history of cardiac stents, angioplasty, hypertension, CAD, diabetes, chronic back pain. Review of Systems: Review of Systems: Constitutional: Denies fever or chills. [] Eyes: Denies change in visual acuity. [] HENT: Denies nasal congestion or sore throat. [] Respiratory: Denies cough or shortness of breath. [] Cardiovascular: Denies chest pain or edema. [] GI: Denies abdominal pain, nausea, vomiting, bloody stools or diarrhea. [] : Denies dysuria. [] Musculoskeletal: Denies back pain . + Left neck, + right knee joint pain. + Fall [] Integument: Denies rash. + Abrasions [] Neurologic: + Head injury, denies headache, focal weakness or sensory changes. [] Endocrine: Denies polyuria or polydipsia. [] Lymphatic: Denies swollen glands. [] Psychiatric: Denies depression or anxiety. [] Heart Score: Risk Factors: Risk Factors: DM, Current or recent (<one month) smoker, HTN, HLP, family history of CAD, obesity. Risk Scores: Score 0 - 3: 2.5% MACE over next 6 weeks - Discharge Home Score 4 - 6: 20.3% MACE over next 6 weeks - Admit for Clinical Observation Score 7 - 10: 72.7% MACE over next 6 weeks - Early Invasive Strategies Allergies: Allergies: Allergies Coded Allergies Type Severity Reaction Last Updated Verified No Known Drug Allergies 06/26/17 No Physical Exam: PE: Constitutional: Well developed, well nourished, no acute distress, non-toxic appearance. [] HENT: Normocephalic, atraumatic, bilateral external ears normal, oropharynx moist, no oral exudates, nose normal. [] Eyes: PERRLA, EOMI, conjunctiva normal, no discharge. [] Neck: Normal range of motion, no tenderness, supple, no stridor. [] Cardiovascular:Heart rate regular rhythm, no murmur [] Lungs & Thorax: Bilateral breath sounds clear to auscultation [] Abdomen: Bowel sounds normal, soft, no tenderness, no masses, no pulsatile masses. [] Skin: Warm, dry, no erythema, no rash. Left forehead Quarter sized abrasion. Right knee abrasion. [] Back: No tenderness, no CVA tenderness. [] Extremities: No tenderness, no cyanosis, no clubbing, ROM intact, no edema. [] Neurologic: Alert and oriented X 3, normal motor function, normal sensory function, no focal deficits noted. [] Psychologic: Affect normal, judgement normal, mood normal. [] Current Patient Data: Vital Signs: Vital Signs Date Time Temp Pulse Resp B/P (MAP) Pulse Ox O2 Delivery O2 Flow Rate FiO2 09/30/20 11:54 97.2 71 18 160/72 (101) 98 Room Air 97.2 EKG: EKG: [] Radiology/Procedures: Radiology/Procedures: [] Impression: [facility] [address] [place], [place] [id number] IMAGING REPORT Signed PATIENT: SHARDA VENCES ACCOUNT: [id number] : 1935 LOCATION: ER AGE: 85 SEX: M EXAM STATUS: PRE ER ORD. PHYSICIAN: RODERICK KEMP APRN REASON: fall, hit head, on plavix PROCEDURE: CT HEAD AND CERVICAL SPINE WO Exam performed: CT scan of the head and cervical spine without contrast. Date of Service: 09/30/2020 Comparison:None available Clinical History: Patient fell and hit head, patient is on Plavix Technique: Helical acquisitions are obtained from the foramen magnum to the vertex without intravenous administration of contrast. In addition helical acquisitions are obtained through the cervical spine. Sagittal and coronal reformatted images are obtained and reviewed. CT scan head findings: The ventricular system is midline without evidence of dilatation. Mild atrophy is seen. There are also areas of low-attenuation in both periventricular and subcortical deep white matter is indistinct small vessel ischemic changes. Normal sarmiento-white differentiation is maintained. There is no extra axial fluid collection, intraparenchymal hemorrhage or mass lesion. The visualized orbits, paranasal sinuses and the mastoid air cells are clear. The calvarium is intact. Impression: 1. No acute intracranial process detected. 2. Age-related atrophy and bilateral periventricular small vessel ischemic changes are noted.. End Impression. CT cervical spine findings: Normal sagittal alignment is preserved. Craniocervical and C1-2 articulation are maintained. The vertebral body heights and intravertebral disc spaces are maintained. There is no terrence or retrolisthesis. Mild osteophytic spurring is seen. No prevertebral soft tissue swelling is identified. There are no fractures. No definite lymphadenopathy or masses are seen within the neck. The visualized thyroid and salivary glands appears preserved. Impression: 1. No acute abnormality seen in the CT scan cervical spine. PQRS Compliance Statement: One or more of the following individualized dose reduction techniques were utilized for this examination: 1. Automated exposure control 2. Adjustment of the mA and/or kV according to patient size 3. Use of iterative reconstruction technique Electronically signed by: Vy Espinoza MD (09/30/2020 12:29 PM) [facility] DICTATED and SIGNED BY: VY ESPINOZA MD DATE: 09/30/20 [id number] [facility] [address] [place] [address] IMAGING REPORT Signed PATIENT: SHARDA VENCES ACCOUNT: [id number] : 1935 LOCATION: ER AGE: 85 SEX: M EXAM STATUS: PRE ER ORD. PHYSICIAN: RODERICK KEMP APRN REASON: fall, pain PROCEDURE: KNEE RIGHT 4V Right knee 4 views 09/30/2020. Reason for exam: Pain after a fall. There is some osteopenia. There is a transverse fracture of the patella with minimal displacement. No other fracture or dislocation is seen. A moderate joint effusion is visible. IMPRESSION: Mid patella fracture. Electronically signed by: Tramaine Mcleod Jr., MD (09/30/2020 12:31 PM) [id number] DICTATED and SIGNED BY: TRAMAINE MCLEOD Jr, MD DATE: 09/30/20 [id number] Course & Med Decision Making: Course & Med Decision Making Pertinent Labs and Imaging studies reviewed. (See chart for details) See HPI. No joint swelling or deformities. No extremity deformities. Full range of motion of the neck. Full range of motion of the right knee. Full ran ge of motion in the left shoulder. PERRLA. Sensations intact. Popliteal pulses present and strong. Radial pulses strong and present. No focal bony spinal tenderness with palpation. Speaks in full complete sentences. Alert and oriented x4. X-ray shows a patella fracture. Patient is placed in a knee immobilizer. Patient states he has a walker and crutches at home. I told the patient that he has to remain nonweightbearing and use ice. Patient states he already takes tramadol 4 times a day at home. Patient states he is currently in no pain unless he is up and moving. Patient is educated that he needs to follow-up with the orthopedic in the next week or so. Patient states he is leaving for [place] on . Patient is offered crutches and he states he does not want them as he has some at home. Patient will be sent home on Keflex antibiotic for his wounds as he is a diabetic. [] Marvin Disclaimer: Marvin Disclaimer: This electronic medical record was generated, in whole or in part, using a voice recognition dictation system. Departure Departure Impression: Primary Impression: Fall Qualified Codes: W19.XXXA - Unspecified fall, initial encounter Additional Impressions: Abrasion head Knee abrasion Qualified Codes: S80.211A - Abrasion, right knee, initial encounter Disposition: 01 DC HOME SELF CARE/HOMELESS Condition: STABLE Referrals: JOVITA ENRIQUE MD (PCP) STEPHANIE JARRELL MD Patient Instructions: Patellar Fracture, Adult Additional Instructions: Follow-up with orthopedic doctor this coming week. Call the office and let them know that you had fractured your knee. Keep the knee immobilizer on. Use ice and elevation to help with pain and swelling. Take the tramadol as you are prescribed at home. Remain nonweightbearing. Scripts Cephalexin (CEPHALEXIN) 500 Mg Capsule 1 CAP PO QID, #40 CAP Prov: RODERICK KEMP APRN 09/30/20 RODERICK KEMP APRN Sep 30, 2020 12:09
[2020-09-30] MEDS ORDERED: DIPH,PERTUSS(ACELL),TET VAC/PF 0.5 ML SYRINGE. VAX IM ONE (12:15)
--- NOTE | 2020-09-30 12:31 | RAD ---
Exam performed: CT scan of the head and cervical spine without contrast. Date of Service: 09/30/2020 Comparison:None available Clinical History: Patient fell and hit head, patient is on Plavix Technique: Helical acquisitions are obtained from the foramen magnum to the vertex without intravenou s administration of contrast. In addition helical acquisitions are obtained through the cervical spin e. Sagittal and coronal reformatted images are obtained and reviewed. CT scan head findings: The ventricular system is midline without evidence of dilatation. Mild atrophy is seen. There are al so areas of low-attenuation in both periventricular and subcortical deep white matter is indistinct s mall vessel ischemic changes. Normal sarmiento-white differentiation is maintained. There is no extra axi al fluid collection, intraparenchymal hemorrhage or mass lesion. The visualized orbits, paranasal si nuses and the mastoid air cells are clear. The calvarium is intact. Impression: 1. No acute intracranial process detected. 2. Age-related atrophy and bilateral periventricular small vessel ischemic changes are noted.. End Impression. CT cervical spine findings: Normal sagittal alignment is preserved. Craniocervical and C1-2 articulation are maintained. The vert ebral body heights and intravertebral disc spaces are maintained. There is no terrence or retrolisthes is. Mild osteophytic spurring is seen. No prevertebral soft tissue swelling is identified. There are no fractures. No definite lymphadenopathy or masses are seen within the neck. The visualized thyro id and salivary glands appears preserved. Impression: 1. No acute abnormality seen in the CT scan cervical spine. PQRS Compliance Statement: One or more of the following individualized dose reduction techniques were utilized for this examinat ion: 1. Automated exposure control 2. Adjustment of the mA and/or kV according to patient size 3. Use of iterative reconstruction technique Electronically signed by: Vy Espinoza MD (09/30/2020 12:29 PM) [facility]
--- NOTE | 2020-09-30 12:33 | RAD ---
Right knee 4 views 09/30/2020. Reason for exam: Pain after a fall. There is some osteopenia. There is a transverse fracture of the patella with minimal displacement. No other fracture or dislocation is seen. A moderate joint effusion is visible. IMPRESSION: Mid patella fracture. Electronically signed by: Gabe Mcleod Jr., MD (09/30/2020 12:31 PM) [id number]
[2020-09-30] MEDS ORDERED: CEPH500C PO (13:09)
== END 2020-09-30 13:39 | disposition home or self-care (01) ==
LOC: ER 11:38
DX: S80.01XA Contusion of right knee, initial encounter (principal); S00.83XA Contusion of other part of head, initial encounter; M54.2 Cervicalgia; E11.9 Type 2 diabetes mellitus without complications; I11.9 Hypertensive heart disease without heart failure; G89.29 Other chronic pain; Z90.89 Acquired absence of other organs; Z98.890 Other specified postprocedural states; W10.8XXA Fall (on) (from) other stairs and steps, initial encounter; Y93.89 Activity, other specified; Y92.89 Other specified places as the place of occurrence of the external cause; Y99.8 Other external cause status
CPT/HCPCS: 29505; 70450; 72125; 73564; 90471; 90715; 99285

== ENCOUNTER → 2022-01-18 | Emergency (ER) | payer OTHER ==
[~2022-01-18] VITALS: Ht 167.6 cm; Wt 78.0 kg
[~2022-01-18] MED LIST changes: +CEPH500C PO; -LISI-334 PO; -LISI1TAB23 PO; +LISI1TAB35 PO; +LISI20TA18 PO; +MORPHINE SULFATE 4 MG/ML INJ. IM ONE; +PRED50TA PO; +TRAM100T10 PO; -TRAM1TAB56 PO; +TRAM1TAB57 PO
[2022-01-18 10:53] VITALS: BP 199/79
--- NOTE | 2022-01-18 11:30 | PHYS DOC ---
Past Medical History Past Medical History: CAD, Diabetes-Type II, Hypertension Additional Past Medical Histor: CHRONIC BACK PAIN Past Surgical History: No Surgical History Additional Past Surgical Histo: CARDIAC STENTS Smoking Status: Never Smoker Alcohol Use: Occasionally Drug Use: None General Adult EDM: Chief Complaint: BACK PAIN - NO INJURY HPI: HPI: Patient is a 86 year old M who presents with left-sided sciatic pain. Patient states that he has been going to physical therapy for the last 3 months for sciatica on the left side. He states that it has been improving but today his Tylenol did not help with the pain. He states he used to be on tramadol he believes it was 50 mg, he states that he was also given oxycodone but he could not tolerate that medication due to lightheadedness. He has not trialed any other medications, he has not trialed on NSAIDs. Unsure status of his renal function as I do not have notes from his primary care physician. Otherwise he is stable and doing well, patient is able to walk with a walker which has been the case for the last several months since the onset of sciatica. Review of Systems: Review of Systems: Constitutional: Denies fever or chills. [] Eyes: Denies change in visual acuity. [] HENT: Denies nasal congestion or sore throat. [] Respiratory: Denies cough or shortness of breath. [] Cardiovascular: Denies chest pain or edema. [] GI: Denies abdominal pain, nausea, vomiting, bloody stools or diarrhea. [] : Denies dysuria. [] Musculoskeletal: Denies back pain or joint pain. Positive left-sided sciatic pain from the lower hip to the mid thigh [] Integument: Denies rash. [] Neurologic: Denies headache, focal weakness or sensory changes. [] Endocrine: Denies polyuria or polydipsia. [] Lymphatic: Denies swollen glands. [] Psychiatric: Denies depression or anxiety. [] Heart Score: C/O Chest Pain: No Risk Factors: Risk Factors: DM, Current or recent (<one month) smoker, HTN, HLP, family history of CAD, obesity. Risk Scores: Score 0 - 3: 2.5% MACE over next 6 weeks - Discharge Home Score 4 - 6: 20.3% MACE over next 6 weeks - Admit for Clinical Observation Score 7 - 10: 72.7% MACE over next 6 weeks - Early Invasive Strategies Current Medications: Current Medications Medications (Trade) Dose Ordered Sig/Nathalie Start Time Stop Time Status Last Admin Dose Admin Morphine Sulfate (Morphine Sulfate) 4 mg 1X ONCE 01/18/22 11:30 01/18/22 11:31 Allergies: Allergies: Allergies Coded Allergies Type Severity Reaction Last Updated Verified No Known Drug Allergies 06/26/17 No Physical Exam: PE: Constitutional: Well developed, well nourished, no acute distress, non-toxic appearance. [] HENT: Normocephalic, atraumatic, bilateral external ears normal, oropharynx moist, no oral exudates, nose normal. [] Eyes: PERRLA, EOMI, conjunctiva normal, no discharge. [] Neck: Normal range of motion, no tenderness, supple, no stridor. [] Cardiovascular:Heart rate regular rhythm, no murmur [] Lungs & Thorax: Bilateral breath sounds clear to auscultation [] Abdomen: Bowel sounds normal, soft, no tenderness, no masses, no pulsatile masses. [] Skin: Warm, dry, no erythema, no rash. [] Back: No tenderness, no CVA tenderness. Positive straight leg raise [] Extremities: No tenderness, no cyanosis, no clubbing, ROM intact, no edema. [] Neurologic: Alert and oriented X 3, normal motor function, normal sensory function, no focal deficits noted. [] Psychologic: Affect normal, judgement normal, mood normal. [] Current Patient Data: Vital Signs: Vital Signs Date Time Temp Pulse Resp B/P (MAP) Pulse Ox O2 Delivery O2 Flow Rate FiO2 01/18/22 10:53 97.2 89 20 199/79 (119) 96 97.2 EKG: EKG: [] Radiology/Procedures: Radiology/Procedures: [] Impression: Left-sided sciatica Course & Med Decision Making: Course & Med Decision Making Pertinent Labs and Imaging studies reviewed. (See chart for details) 86-year-old male seen and examined by myself, patient needing better control of sciatica. He has not been trialed on prednisone. I discussed with him his options, would not recommend NSAIDs at this time. Since he tolerated tramadol, I will increase his dose. He states he was on 50 mg, I will increase to 100 mg. If this causes him side effects, I have instructed him to cut the medication in half. Patient understands instructions. He will follow-up with his primary care physician in 1 week. He is otherwise doing well. All questions answered, patient hemodynamically stable at time of discharge. ER precautions give Dragon Disclaimer: Dragon Disclaimer: This electronic medical record was generated, in whole or in part, using a voice recognition dictation system. Departure Departure Impression: Primary Impression: Sciatica of left side Disposition: HOME / SELF CARE / HOMELESS Condition: GOOD Patient Instructions: Sciatica, Yarg-[id number] Additional Instructions: Follow-up with your primary care physician in 1 week, medications may need to be changed around. I have given you tramadol, if you experience side effects you can try to cut the medication in half. Scripts Prednisone (PREDNISONE) 50 Mg Tablet 1 TAB PO DAILY for 7 Days, #7 TAB Prov: EVANGELINA ROSEN MD 01/18/22 Tramadol Hcl (TRAMADOL HCL) 100 Mg Tbmp.24hr 100 MG PO Q4-6H PRN for PAIN, #20 TAB 0 Refills Prov: EVANGELINA ROSEN MD 01/18/22 EVANGELINA ROSEN MD January 18, 2022 11:29
== END | disposition home or self-care (01) ==
LOC: ER 10:44
DX: M54.32 Sciatica, left side (principal); M25.552 Pain in left hip; M79.652 Pain in left thigh; E11.9 Type 2 diabetes mellitus without complications; I10 Essential (primary) hypertension; I25.10 Atherosclerotic heart disease of native coronary artery without angina pectoris; G89.29 Other chronic pain; R42 Dizziness and giddiness; Z95.5 Presence of coronary angioplasty implant and graft
CPT/HCPCS: 96372; 99283; J2270